=== PATIENT | female | born 1950 | race Caucasian/White ===

== ENCOUNTER → 2016-12-19 | Outpatient (CLI) | payer OTHER, BC ==
[~2016-12-19] MED LIST: ACET-1256 PO; APIX1TAB3 PO; CHOL100010 PO; CHOL1CAP79 PO; CLC100 PO; DICL-201 PO; DOCU-94 PO; DRGTP100 TOP; DULO60CA44 PO; ELQ25 PO; FERR1TAB13 PO; FNTTP75 TOP; FRRG PO; GABA-113 PO; LPR25 PO; LPT40 PO; LSX40 PO; MCTP EXT; METO-478 PO; METO25TA56 PO; MULT-506 PO; NCYSR50 PO; NRN300 PO; ONDA4TAB46 PO; OXYC1TAB3 PO; POLY335019 PO; POTA-65 PO; PRLSR20 PO; RXC5 PO; SENN-61 PO; SPR25 PO; VLTG EXT; [UNRECOGNIZED DRUG - CODE] PO
--- NOTE | 2016-12-19 08:36 | DIAGNOSTIC IMAGING REPORT ---
ABDOMEN COMPLETE (US) CLINICAL HISTORY: Abdominal pain. COMPARISON STUDY: CT of the abdomen and pelvis April 29, 2016 and right upper quadrant ultrasound March 28, 2016. FINDINGS: This exam is compromised by suboptimal penetration. There is no biliary ductal dilatation. There are no gallstones. No gallbladder wall thickening is present. There is a suspected 7 mm hepatic cyst adjacent to the gallbladder. The pancreatic body is normal. The head and tail are partially obscured. The size of the spleen is normal. The right kidney measures 10 cm and the left measures 10.2 cm. There is no hydronephrosis. No calculi or masses are identified within the kidneys by sonography. The caliber of the abdominal aorta is normal. Visualized portions of the IVC are patent. IMPRESSION: 1. No gallstones or biliary ductal dilatation. 2. No hydronephrosis. 3. 7 mm hepatic cyst. Electronically signed by: Wallace Tucker M.D. 12/19/2016 8:35 AM Dictated Date/Time: 12/19/2016 8:32 AM
[2016-12-19 09:35] LABS: BASO % 0.3 %; BASO ABS # 0.02 K/uL (0-0.2); COMPLETE YES; EOS % 3.7 %; HEMATOCRIT 37.9 % (37-47); IG% 0.3 %; LYMPH % 33.4 %; LYMPH ABS # 2.08 K/uL (1.2-3.4); MEAN CELL VOLUME 100.3 fL (80-100); MEAN CORPUSCULAR HEMOGLOBIN 33.1 pg (25-34); MONO % 6.9 %; NEUT % 55.4 %; PLATELET COUNT 251 K/uL (130-400); RED BLOOD COUNT 3.78 M/uL (4.2-5.4); WHITE BLOOD COUNT 6.23 K/uL (4.8-10.8)
[2016-12-19 09:54] LABS: ESTIMATED AVERAGE GLUCOSE 105 mg/dl; HA1C FLAG Normal (Normal)
[2016-12-19 09:55] LABS: ALB/GLOB RATIO 0.9 (0.9-2); ALT/SGPT 46 U/L (12-78); AMYLASE 51 U/L (25-115); BLOOD UREA NITROGEN 32 mg/dl (7-18); BUN/CREATININE RATIO 31.9 (10-20); CALCIUM 9.6 mg/dl (8.5-10.1); CARBON DIOXIDE 30 mmol/L (21-32); CHLORIDE 101 mmol/L (98-107); CHOLESTEROL 236 mg/dl (0-200); GLUCOSE 97 mg/dl (70-99); POTASSIUM 4.3 mmol/L (3.5-5.1); SODIUM 139 mmol/L (136-145); TRIGLYCERIDES 116 mg/dl (0-150); VERY LOW DENSITY LIPOPROT CALC 23 mg/dl
[2016-12-19 10:05] LABS: ALKALINE PHOSPHATASE 165 U/L (45-117); AST/SGOT 29 U/L (15-37); CHOLESTEROL/HDL RATIO 2.2; HDL CHOLESTEROL 105 mg/dl; LDL CHOLESTEROL CALCULATED 108 mg/dl; TOTAL IRON BINDING CAPACITY 306 mcg/dl (250-450); URIC ACID 6.2 mg/dl (2.6-7.2)
== END | disposition home or self-care (01) ==
LOC: C.ULTR 07:22
PROVIDERS: ATTEND Family Medicine
DX: R73.09 Other abnormal glucose (principal); E55.9 Vitamin D deficiency, unspecified; D51.9 Vitamin B12 deficiency anemia, unspecified; E78.9 Disorder of lipoprotein metabolism, unspecified; R53.83 Other fatigue; R10.9 Unspecified abdominal pain; R11.10 Vomiting, unspecified; K76.89 Other specified diseases of liver

== ENCOUNTER 2017-03-10 14:19 | Inpatient (IN) | payer OTHER, BC ==
[~2017-03-10] VITALS: Ht 170.2 cm; Wt 126.6 kg
[~2017-03-10 14:19] MED LIST changes: -ACET-1256 PO; -APIX1TAB3 PO; -CHOL100010 PO; -CHOL1CAP79 PO; -CLC100 PO; -DOCU-94 PO; -DRGTP100 TOP; -ELQ25 PO; -FERR1TAB13 PO; -FNTTP75 TOP; -FRRG PO; -GABA-113 PO; -LPR25 PO; -LPT40 PO; -LSX40 PO; -MCTP EXT; -METO-478 PO; -METO25TA56 PO; -MULT-506 PO; -NCYSR50 PO; -NRN300 PO; -ONDA4TAB46 PO; -OXYC1TAB3 PO; -POTA-65 PO; -RXC5 PO; -SENN-61 PO; -SPR25 PO; -VLTG EXT; -[UNRECOGNIZED DRUG - CODE] PO
[2017-03-10] MEDS ORDERED: SODIUM CHLORIDE 0.9% 1000ML 1,000 ML IV STA (14:44)
[2017-03-10] MEDS ORDERED: ONDANSETRON INJ 2 MG/ML 2 ML VIAL IV STA (14:44)
[2017-03-10] MEDS: HYDROmorphone INJ 1 MG/ML SYR IV PRN ×5 (14:57→19:00)
[2017-03-10] MEDS ORDERED: FNTTP75 TOP (15:59)
[2017-03-10] MEDS ORDERED: POTA-65 PO (15:59)
[2017-03-10] MEDS ORDERED: LSX40 PO (15:59)
[2017-03-10] MEDS ORDERED: SPR25 PO (15:59)
--- NOTE | 2017-03-10 16:12 | DIAGNOSTIC IMAGING REPORT ---
CHEST ONE VIEW PORTABLE CLINICAL HISTORY: EVALUATE WEAKNESS mental status change COMPARISON STUDY: 10/26/2015 FINDINGS: The bones soft tissues and hemidiaphragms are normal. The cardiomediastinal silhouette is normal. The lungs are clear. The pulmonary vasculature is normal. IMPRESSION: Negative chest. The above report was generated using voice recognition software. It may contain grammatical, syntax or spelling errors. Electronically signed by: Harry Cartwright M.D. 03/10/2017 4:10 PM Dictated Date/Time: 03/10/2017 4:10 PM
--- NOTE | 2017-03-10 16:13 | DIAGNOSTIC IMAGING REPORT ---
RIGHT HIP UNILATERAL 2 VIEWS HISTORY: 66 years-old Female Non-traumatic right hip pain Right COMPARISON: CT abdomen and pelvis 04/29/2016 TECHNIQUE: 2 portable views of the right hip. FINDINGS: There is underpenetration of the film secondary to patient obesity. No acute fracture or dislocation is identified. There are severe degenerative changes of the right femoral acetabular joint with [id number] articulation and prominent marginal osteophytic spurring. These findings have progressed from CT study dated 04/29/2016. Negative for opaque foreign body. Imaged right hemipelvis appears intact. IMPRESSION: Severe degenerative changes of the right femoral acetabular joint, worsened from comparison CT dated 04/29/2016 with [id number]-rv-[id number] articulation and prominent marginal osteophytic spurring. The above report was generated using voice recognition software. It may contain grammatical, syntax or spelling errors. Electronically signed by: John Wilson M.D. 03/10/2017 4:12 PM Dictated Date/Time: 03/10/2017 4:09 PM
[2017-03-10] MEDS ORDERED: [UNRECOGNIZED DRUG - CODE] PO (16:26)
[2017-03-10] MEDS ORDERED: MULT-506 PO (16:26)
[2017-03-10] MEDS ORDERED: CHOL100010 PO (16:26)
[2017-03-10 16:28] LABS: BASO % 0.1 %; BASO ABS # 0.01 K/uL (0-0.2); COMPLETE YES; EOS % 0.3 %; IG% 0.3 %; LYMPH % 4.7 %; LYMPH ABS # 0.53 K/uL (1.2-3.4); MEAN CELL VOLUME 99.8 fL (80-100); MEAN CORPUSCULAR HEMOGLOBIN 32.4 pg (25-34); MEAN CORPUSCULAR HGB CONC 32.5 g/dl (32-36); MEAN PLATELET VOLUME 10.4 fL (7.4-10.4); MONO % 9.2 %; NEUT % 85.4 %; PLATELET COUNT 194 K/uL (130-400); RED BLOOD COUNT 4.01 M/uL (4.2-5.4); WHITE BLOOD COUNT 11.39 K/uL (4.8-10.8)
[2017-03-10 16:39] LABS: PARTIAL THROMBOPLASTIN RATIO 1.1; PROTHROMBIN TIME (PATIENT) 10.8 SECONDS (9.0-12.0)
[2017-03-10] MEDS ORDERED: DILTIAZEM BOLUS / DRIP IV STA (16:44)
[2017-03-10] MEDS ORDERED: DILTIAZEM HCL 5 MG/ML 5 ML VIAL IV STA (16:44)
[2017-03-10 16:54] LABS: ALKALINE PHOSPHATASE 152 U/L (45-117); ALT/SGPT 37 U/L (12-78); AST/SGOT 46 U/L (15-37); BLOOD UREA NITROGEN 20 mg/dl (7-18); BUN/CREATININE RATIO 16.8 (10-20); CALCIUM 9.4 mg/dl (8.5-10.1); CARBON DIOXIDE 33 mmol/L (21-32); CHLORIDE 103 mmol/L (98-107); GLUCOSE 128 mg/dl (70-99); MAGNESIUM 2.1 mg/dl (1.8-2.4); POTASSIUM 3.6 mmol/L (3.5-5.1); SODIUM 140 mmol/L (136-145)
[2017-03-10 17:00] LABS: CKMB/CK RATIO 0.7 (0-3.0)
[2017-03-10] MEDS ORDERED: DILTIAZEM HCL INJ 125 MG in DEXTROSE 5% 100ML IV PRN (17:00)
[2017-03-10 17:35] LABS: MANUAL MICROSCOPIC REQUIRED? NO; REVIEW REQ? YES; URINE APPEARANCE CLEAR (CLEAR); URINE BILIRUBIN NEG (NEG); URINE COLOR YELLOW; URINE EPITHELIAL CELL AUTO >30 /lpf (0-5); URINE NITRITE NEG (NEG); URINE SPECIFIC GRAVITY 1.014 (1.000-1.030); UROBILINOGEN NEG (NEG); ZZURINE CULT IF INDIC CATH YES
[2017-03-10] MEDS ORDERED: DILTIAZEM BOLUS / DRIP IV SCH (17:45)
[2017-03-10] MEDS ORDERED: NITROGLYCERIN 0.4 MG SL PER TAB CHARGE SL PRN (17:45)
[2017-03-10] MEDS ORDERED: ZOLPIDEM TARTRATE 5 MG TAB PO PRN (17:45)
[2017-03-10] MEDS ORDERED: ACETAMINOPHEN 325 MG TAB PO PRN (17:45)
[2017-03-10] MEDS ORDERED: MAGNESIUM HYDROXIDE SUSP 30 ML UDC PO PRN (17:45)
[2017-03-10] MEDS ORDERED: POLYETHYLENE (MIRALAX) 17 GM PACK PO PRN (17:45)
[2017-03-10] MEDS ORDERED: THIAMINE HCL 100 MG TAB PO SCH (18:02)
[2017-03-10] MEDS ORDERED: LORAZEPAM 1 MG TAB PO PRN ×2 (18:15)
[2017-03-10] MEDS ORDERED: MAGNESIUM CITRATE 296 ML/BTL PO PRN ×2 (18:15)
[2017-03-10] MEDS ORDERED: LORAZEPAM 2 MG/ML 1 ML VIAL IV PRN (18:15)
[2017-03-10] MEDS ORDERED: HEPARIN 25000 UNIT/500 ML D5W ONE (18:18)
[2017-03-10] MEDS ORDERED: HEPARIN SOD (PORCINE) 1000 UNIT/ML 10 ML VIAL ONE (18:19)
[2017-03-10 18:26] LABS: CHOLESTEROL/HDL RATIO 2.1; PHOSPHORUS 3.1 mg/dl (2.5-4.9)
[2017-03-10] MEDS ORDERED: HEPARIN 25,000 UNIT/500ML D5W 500 ML IV PRN (18:45)
--- NOTE | 2017-03-10 19:04 | DIAGNOSTIC IMAGING REPORT ---
VENOUS DOPPLER LW EXT BILAT HISTORY: Pain. Edema. swelling / R/O DVT COMPARISON STUDY: None. FINDINGS: There is normal compressibility, flow, and augmentation within the bilateral lower extremity deep venous systems. 6 x 3 cm right popliteal cyst IMPRESSION: No DVT within the right or left lower extremity. Right popliteal cyst The above report was generated using voice recognition software. It may contain grammatical, syntax or spelling errors. Electronically signed by: Harry Cartwright M.D. 03/10/2017 7:03 PM Dictated Date/Time: 03/10/2017 7:03 PM
[2017-03-10 19:30] VITALS: BP 101/61; PULSE 100; TEMP 36.7; O2SAT 100; Ht 170.2 cm; Wt 126.6 kg
--- NOTE | 2017-03-10 19:36 | HISTORY & PHYSICAL EXAMINATION ---
DATE OF ADMISSION: 03/10/2017 ADMISSION CHIEF COMPLAINT: Severe hip pain, mainly on the right side. HISTORY OF PRESENT ILLNESS: The patient is a 66-year-old with past medical history of severe degenerative disease. The patient used to be on water belt that she does not remember its name, but she stopped taking it and I will mention the details about that later, but she was in her regular state of health until she developed this morning severe right hip pain. The patient has a scheduled right hip replacement in April due to severe arthritis. The patient also tried many narcotics in the past and they were not effective. She is currently on fentanyl and diclofenac sodium. The patient had a genetic testing that showed her resistance to narcotics in the past. She presented to the ED in with this severe right hip pain. X-ray showed the hip has no fracture, but severe degenerative disease worsened from the past. While in the ED, she was noticed to have new onset atrial fibrillation with RVR of a heart rate of about 120. A month and a half ago, she went with her in a trip around the country from [place], I believe to [place], driving. During this trip, she said that the only medicine she used to take aside from pain medications is a water bill that she does not remember the name of it, but during this trip she started having more back pain and then developed urinary incontinence, so she decided to stop taking the the water pill After driving few hundred miles, she started having bilateral lower extremity edema and slight erythema in her bilateral lower extremities. After she came back from the trip, the edema never subsided in her lower extremity. Here, denies any shortness of breath or chest pain. REVIEW OF SYSTEMS: Denies any headache, double vision, blurry vision. Denies any chest pain or palpitation. Denies any cough, wheezing, shortness of breath. Denies any diarrhea, blood in the stool. Denies any burning sensation in the urine or blood. Denies any focal weakness, tingling or numbness. Admits to severe joint pain mainly on the right hip. Rest of the review of system is negative. PAST MEDICAL HISTORY: 1. Status post bilateral knee replacement. 2. Severe degenerative disease. 3. History of diverticulitis in the past. 4. History of morbid obesity. FAMILY HISTORY: Positive for heart disease in her mother. SOCIAL HISTORY: Former smoker. She drinks heavily daily. As per , she finished a bottle of alcohol every week. As per patient's that the doctor gave her a permission to do so because that is her only way to get rid of the pain because she does not metabolize narcotics and her agree with the statement, which I disagreed with but anyhow she lives with her , currently unemployed. CURRENT MEDICATIONS: 1. Vitamin D supplement. 2. Diclofenac 75 mg p.o. b.i.d. 3. Fentanyl 75 mg topical patch q. 72 hours. 4. Lasix 40 mg p.o. b.i.d. 5. Multivitamin. 6. Potassium supplement. 7. Spironolactone 25 mg p.o. daily. Also she takes magnesium citrate for constipation. ALLERGIES: THE PATIENT HAS AN ALLERGY TO PROPYLENE GLYCOL, TO PREGABALIN, TO PHENOL, AND TO LIRAGLUTIDE. PHYSICAL EXAMINATION: VITAL SIGNS: Temperature is 37.1, heart rate ranging from 120-140, respirations 22, blood pressure 103/55, saturation is 92% on room air and 97% on 2 liters. GENERAL: The patient is morbidly obese, appears to be in moderate distress. HEENT: No jaundice. No pallor with mucous membranes. Normocephalic, atraumatic. NECK: Supple, no JVD. HEART: S1, S2 irrigular No gallop, rub or murmur. LUNGS: Clear to auscultation bilaterally. Normal chest wall expansion. ABDOMEN: Soft, nontender, nondistended, no masses. MUSCULOSKELETAL: The patient has no muscle atrophy. Decreased range of motion in her right hip and she is in pain from severe tenderness. Lower extremity: The patient has bilateral lower extremity edema and slight erythema in both lower extremities, edema appears to be +2. NEUROLOGIC: Awake, alert, oriented to time, place, and person. Moves all extremities. Sensation intact. Cranial nerves II-XII appear to be intact. SKIN: No rash or petechiae and exposed skin areas. IMAGING DATA: Chest x-ray did not show any findings suggestive of CHF. LABORATORY DATA: White blood cell count 11.3, hemoglobin 13, platelets 194. BUN is 20, creatinine 1.2, sodium 140, potassium 3.6. TSH was normal at 1.2 and troponin and CPK were negative. 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 DETAILED ASSESSMENT: 1. New onset atrial fibrillation with rapid ventricular response. 2. Significant right hip pain. 3. Bilateral lower extremity swelling, rule out deep vein thrombosis. 4. Appears to have history of hypertension, although she is not aware of it as she is on a large dose of Lasix and Aldactone. 5. Morbid obesity. 6. Clinically suspected obstructive sleep apnea. 7. Alcohol abuse PLAN: 1. Admit patient to telemetry. 2. Obtain serial cardiac enzymes. 3. Start Cardizem drip. 4. 2D echo. 5. Consult truck body repairer. 6. We will obtain a D-dimer, rule out DVT/PE. 7. Ultrasound lower extremity. 8. We will defer the CT angiogram at this point since she will be on heparin anyway and she does not have shortness of breath or severe hypoxia. Will first monitor renal function in a.m. and see the result of the D-dimer and then defer this decision to the morning physician, after controlling her pain and heart rate. 9. We will hold her Lasix for today and Aldactone to give room to the Cardizem and also to confirm that there is no blood clot underlying lower extremity edema. 10. 2D echo also to rule underlying congestive heart failure. 11. Obtain lipid panel and hemoglobin A1c to stratify her risk factors. 12. Alcohol withdrawal protocol MTDD
[2017-03-10] MEDS ORDERED: PNEUMOCOCCAL ADMINISTRATION CHARGE ONE (20:30)
[2017-03-10] MEDS ORDERED: PNEUMOCOCCAL POLYSACCHARIDES 25 MCG/0.5 ML VIAL/SYR IM. ONE (20:30)
[2017-03-10] MEDS: ATORVASTATIN 40 MG TAB PO SCH (20:40)
[2017-03-10] MEDS: ASPIRIN 325 MG ECTAB PO SCH (20:41)
--- NOTE | 2017-03-10 20:53 | EMERGENCY ROOM VISIT NOTE ---
History Report prepared by Mikal: Héctor Salvador Under the Supervision of: Dr. Carlos A Sullivan M.D. First contact with patient: 14:21 Chief Complaint: HIP PAIN Stated Complaint: HIP PAIN History of Present Illness The patient is a 66 year old female who presents to the Emergency Room with complaints of worsening, severe, right hip pain beginning this morning. She reports that her pain radiates through the front of her abdomen and into her left hip. The patient states that she has a history of bad hips. She reports that she has a complete left hip replacement scheduled in April. The patient notes that she woke up this morning and her right hip was in extreme pain unlike her baseline. She states that she typically ambulates using two canes, but today she had to switch over to her walker. The patient reports that even with her walker she was still not able to ambulate. She notes that she is extremely nauseous, and she had the urge to vomit, but she did not. EMS notes that the patient was given 6 mg of morphine and 4 mg of Zofran. Pt denies LOC, headache, fevers, chills, diaphoresis, visual changes, neck pain, chest pain, breathing difficulties, vomiting, back pain, melena, hematochezia, urinary symptoms, numbness, weakness, lymphadenopathy, rash, falls, twisting, turning, or other complaints. Source of History: patient Onset: this morning Position: pelvis (right) Symptom Intensity: severe Timing: worsening Associated Symptoms: + nausea, + abdominal pain Note: Associated symptoms: left hip pain Review of Systems See HPI for pertinent positives and negatives. A total of ten systems were reviewed and were otherwise negative. Past Medical & Surgical Medical Problems: (1) Atrial fibrillation, new onset (2) Diverticulitis large intestine Surgical Problems: (1) Status post left knee replacement (2) Status post right knee replacement Family History Cancer Diabetes mellitus Heart disease Hypertension Social History Smoking Status: Former Smoker Alcohol Use: occasionally Drug Use: none Marital Status: Housing Status: lives with family Occupation Status: unemployed Current/Historical Medications Scheduled Cholecalciferol (Vitamin D), 5,000 INTER.UNIT PO DAILY Diclofenac (Voltaren), 75 MG PO BID Fentanyl (Fentanyl), 75 MG TOP Q72H Furosemide (Furosemide), 40 MG PO BID Multivitamin (Multivitamin), 1 TAB PO DAILY Potassium Chloride (Potassium Chloride ER), 20 MEQ PO BID Spironolactone (Spironolactone), 25 MG PO DAILY Scheduled PRN Magnesium Citrate ([employer] Magnesium Citrate), 4 OZ PO Q3DAYS PRN for Constipation Allergies Coded Allergies: Liraglutide (Verified Allergy, Intermediate, HIVES, 03/10/17) Phenol (Verified Allergy, Intermediate, HIVES, 03/10/17) Propylene Glycol (Verified Allergy, Intermediate, HIVES, 03/10/17) Pregabalin (Verified Adverse Reaction, Intermediate, HIVES, 03/10/17) Physical Exam Vital Signs Date Time Temp Pulse Resp B/P (MAP) Pulse Ox O2 Delivery O2 Flow Rate FiO2 03/10/17 17:00 123 22 103/55 95 Nasal Cannula 2.0 03/10/17 16:34 119 17 100 03/10/17 16:19 133 15 72 03/10/17 16:04 137 19 97 03/10/17 15:49 130 19 96 03/10/17 15:34 124 9 100 03/10/17 15:33 Room Air 03/10/17 15:30 Nasal Cannula 2.0 03/10/17 15:29 132 16 97 03/10/17 15:19 131 94 03/10/17 15:14 137 97 03/10/17 15:09 141 17 03/10/17 15:04 137 13 03/10/17 14:59 142 17 03/10/17 14:54 132 17 03/10/17 14:49 140 11 03/10/17 14:44 133 15 03/10/17 14:41 37.1 78 22 114/85 92 Room Air 03/10/17 14:39 144 15 03/10/17 14:34 135 19 03/10/17 14:33 135 03/10/17 14:27 114/85 Physical Exam GENERAL: Awake, alert, very uncomfortable-appearing, in moderate distress HENT: Normocephalic, atraumatic. Oropharynx unremarkable. EYES: Normal conjunctiva. Sclera non-icteric. NECK: Supple. No nuchal rigidity. FROM. No JVD. RESPIRATORY: Clear to auscultation. CARDIAC: Borderline tachycardic rate, irregular rhythm. Extremities warm and well perfused. Pulses equal. ABDOMEN: Soft, non-distended. No tenderness to palpation. No rebound or guarding. No masses. RECTAL: Deferred. MUSCULOSKELETAL: Chest examination reveals no tenderness. The back is symmetrical on inspection without obvious abnormality. There is no CVA tenderness to palpation. No joint edema. Right hip tenderness, ROM limited secondary to pain. LOWER EXTREMITIES: Calves are equal size bilaterally and non-tender. 2+ edema. No discoloration. NEURO: Normal sensorium. No sensory or motor deficits noted. SKIN: No rash or jaundice noted. Medical Decision & Procedures ER Provider Diagnostic Interpretation: X-ray: Per my interpretation, radiologist review. RIGHT HIP UNILATERAL 2 VIEWS HISTORY: 66 years-old Female Non-traumatic right hip pain Right COMPARISON: CT abdomen and pelvis 04/29/2016 TECHNIQUE: 2 portable views of the right hip. FINDINGS: There is underpenetration of the film secondary to patient obesity. No acute fracture or dislocation is identified. There are severe degenerative changes of the right femoral acetabular joint with [id number] articulation and prominent marginal osteophytic spurring. These findings have progressed from CT study dated 04/29/2016. Negative for opaque foreign body. Imaged right hemipelvis appears intact. IMPRESSION: Severe degenerative changes of the right femoral acetabular joint, worsened from comparison CT dated 04/29/2016 with [id number] articulation and prominent marginal osteophytic spurring. The above report was generated using voice recognition software. It may contain grammatical, syntax or spelling errors. Electronically signed by: John Wilson M.D. 03/10/2017 4:12 PM Dictated Date/Time: 03/10/2017 4:09 PM CHEST ONE VIEW PORTABLE CLINICAL HISTORY: EVALUATE WEAKNESS mental status change COMPARISON STUDY: 10/26/2015 FINDINGS: The bones soft tissues and hemidiaphragms are normal. The cardiomediastinal silhouette is normal. The lungs are clear. The pulmonary vasculature is normal. IMPRESSION: Negative chest. The above report was generated using voice recognition software. It may contain grammatical, syntax or spelling errors. Electronically signed by: Harry Cartwright M.D. 03/10/2017 4:10 PM Dictated Date/Time: 03/10/2017 4:10 PM Laboratory Results 03/10/17 16:10 Red Blood Count 4.01, Mean Corpuscular Volume 99.8, Mean Corpuscular Hemoglobin 32.4, Mean Corpuscular Hemoglobin Concent 32.5, Mean Platelet Volume 10.4, Neutrophils (%) (Auto) 85.4, Lymphocytes (%) (Auto) 4.7, Monocytes (%) (Auto) 9.2, Eosinophils (%) (Auto) 0.3, Basophils (%) (Auto) 0.1, Neutrophils # (Auto) 9.74, Lymphocytes # (Auto) 0.53, Monocytes # (Auto) 1.05, Eosinophils # (Auto) 0.03, Basophils # (Auto) 0.01 03/10/17 16:10 Test 03/10/17 16:10 03/10/17 16:45 White Blood Count 11.39 K/uL (4.8-10.8) Red Blood Count 4.01 M/uL (4.2-5.4) Hemoglobin 13.0 g/dL (12.0-16.0) Hematocrit 40.0 % (37-47) Mean Corpuscular Volume 99.8 fL (80-100) Mean Corpuscular Hemoglobin 32.4 pg (25-34) Mean Corpuscular Hemoglobin Concent 32.5 g/dl (32-36) Platelet Count 194 K/uL (130-400) Mean Platelet Volume 10.4 fL (7.4-10.4) Neutrophils (%) (Auto) 85.4 % Lymphocytes (%) (Auto) 4.7 % Monocytes (%) (Auto) 9.2 % Eosinophils (%) (Auto) 0.3 % Basophils (%) (Auto) 0.1 % Neutrophils # (Auto) 9.74 K/uL (1.4-6.5) Lymphocytes # (Auto) 0.53 K/uL (1.2-3.4) Monocytes # (Auto) 1.05 K/uL (0.11-0.59) Eosinophils # (Auto) 0.03 K/uL (0-0.5) Basophils # (Auto) 0.01 K/uL (0-0.2) RDW Standard Deviation 45.5 fL (36.4-46.3) RDW Coefficient of Variation 12.4 % (11.5-14.5) Immature Granulocyte % (Auto) 0.3 % Immature Granulocyte # (Auto) 0.03 K/uL (0.00-0.02) Prothrombin Time 10.8 SECONDS (9.0-12.0) Prothromb Time International Ratio 1.0 (0.9-1.1) Activated Partial Thromboplast Time 28.0 SECONDS (21.0-31.0) Partial Thromboplastin Ratio 1.1 D-Dimer 1040 ug/L FEU (0-500) Anion Gap 4.0 mmol/L (3-11) Est Creatinine Clear Calc Drug Dose 63.4 ml/min Estimated GFR () 54.9 Estimated GFR (Non- 47.4 BUN/Creatinine Ratio 16.8 (10-20) Calcium Level 9.4 mg/dl (8.5-10.1) Phosphorus Level 3.1 mg/dl (2.5-4.9) Magnesium Level 2.1 mg/dl (1.8-2.4) Total Bilirubin 0.7 mg/dl (0.2-1) Direct Bilirubin 0.2 mg/dl (0-0.2) Aspartate Amino Transf (AST/SGOT) 46 U/L (15-37) Alanine Aminotransferase (ALT/SGPT) 37 U/L (12-78) Alkaline Phosphatase 152 U/L (45-117) Total Creatine Kinase 85 U/L (26-192) Creatine Kinase MB 0.6 ng/ml (0.5-3.6) Creatine Kinase MB Ratio 0.7 (0-3.0) Troponin I < 0.015 ng/ml (0-0.045) Total Protein 7.4 gm/dl (6.4-8.2) Albumin 3.5 gm/dl (3.4-5.0) Triglycerides Level 86 mg/dl (0-150) Cholesterol Level 171 mg/dl (0-200) HDL Cholesterol 82 mg/dl LDL Cholesterol, Calculated 72 mg/dl VLDL Cholesterol, Calculated 17 mg/dl Cholesterol/HDL Ratio 2.1 Thyroid Stimulating Hormone (TSH) 1.220 uIu/ml (0.300-4.500) Thyroxine (T4) 7.1 mcg/dl (4.5-10.9) Urine Color YELLOW Urine Appearance CLEAR (CLEAR) Urine pH 6.0 (4.5-7.5) Urine Specific [place] 1.014 (1.000-1.030) Urine Protein NEG (NEG) Urine Glucose (UA) NEG (NEG) Urine Ketones TRACE (NEG) Urine Occult Blood NEG (NEG) Urine Nitrite NEG (NEG) Urine Bilirubin NEG (NEG) Urine Urobilinogen NEG (NEG) Urine Leukocyte Esterase MODERATE (NEG) Urine WBC (Auto) 10-30 /hpf (0-5) Urine RBC (Auto) 0-4 /hpf (0-4) Urine Hyaline Casts (Auto) 1-5 /lpf (0-5) Urine Epithelial Cells (Auto) >30 /lpf (0-5) Urine Bacteria (Auto) NEG (NEG) Urine Renal Epithelial Cells >30 /lpf (0-5) Laboratory results reviewed by me Medications Administered Medications (Trade) Dose Ordered Sig/Luis Route Start Time Stop Time Status Last Admin Dose Admin Sodium Chloride 1,000 ml @ 125 mls/hr Q8H STAT IV 03/10/17 14:44 03/10/17 20:25 DC 03/10/17 14:57 125 MLS/HR Hydromorphone HCl (Dilaudid Inj) 1 mg Q15M PRN IV 03/10/17 14:45 03/10/17 20:25 DC 03/10/17 19:00 1 MG Ondansetron HCl (Zofran Inj) 4 mg NOW STAT IV 03/10/17 14:44 03/10/17 14:46 DC 03/10/17 14:57 4 MG Diltiazem HCl (Cardizem Inj) 10 mg NOW STAT IV 03/10/17 16:44 03/10/17 16:45 DC 03/10/17 17:02 10 MG Diltiazem HCl 125 mg/Dextrose 125 ml @ 0 mls/hr Q0M PRN IV 03/10/17 17:00 04/09/17 16:59 03/10/17 17:04 5 MLS/HR Aspirin (Ecotrin Tab) 325 mg QAM PO 03/10/17 17:37 04/09/17 17:36 03/10/17 20:41 325 MG ECG Indication: abdominal pain Rate (beats per minute): 134 Rhythm: atrial fibrillation (with RVR) Findings: no acute ischemic change, no ectopy ED Course 1431: The patient was evaluated in room A11B. A complete history and physical exam was performed. 1444: Ordered Zofran Inj 4 mg IV, Sodium Chloride 1000 ml @ 125 mls/hr IV 1445: Ordered Dilaudid Inj 1 mg IV Q15M 1552: I reevaluated the patient, and she is feeling better after the first dose of pain medication. She had pain during the X-ray process and asked for another dose. 1644: Ordered Cardizem Inj 10 mg IV 1700: Ordered Diltiazem HCl 125 mg/Dextrose 125 ml @ 0 mls/hr Protocol IV Titration 1711: I discussed the patients case with Dr. Bonilla [facility] Hospitalist. The patient will be evaluated for further treatment. Medical Decision Triage Nursing notes reviewed. The patient's presentation and history were concerning for hip pain. Etiologies such as soft tissue injury, fracture, dislocation, neurovascular compromise, compartment syndrome, as well as others were entertained. The patient was evaluated. On physical examination she was noted to be tachycardic and irregular. An ECG was performed and she was found to be in rapid atrial fibrillation. The patient was given Dilaudid and Zofran for symptom control. She'll cart several doses of pain medicine for comfort. X- ray imaging shows significant degenerative change without evidence of fracture. Her CBC showed a slight leukocytosis. The patient is under a significant amount of distress from the pain. Her coags, chemistry panel and cardiac markers were unremarkable. The patient was hydrated. She was started on IV diltiazem for rate control. Consultation was made with internal medicine and the patient will need medical management as well as additional consultation. Medication Reconcilliation Current Medication List: was personally reviewed by me Blood Pressure Screening Patient's blood pressure: Normal blood pressure Blood pressure disposition: Did not require urgent referral Consults Time Called: 1705 Consulting Physician: Dr. Bonilla [facility] Hospitalist Returned Call: [phone] I discussed the patients case with Dr. Bonilla [facility] Hospitalist. The patient will be evaluated for further treatment. Impression Primary Impression: Atrial fibrillation with rapid ventricular response Additional Impressions: Right hip pain DJD (degenerative joint disease) Critical Care I have personally spent greater than 30 minutes of critical care time in the direct management of this patient. This includes bedside care, interpretation of diagnostic studies, and testing, discussion with consultants, patient, and family members, and other required patient management activities. This 30 minutes is in excess of all separately billable procedures. Scribe Attestation The scribe's documentation has been prepared under my direction and personally reviewed by me in its entirety. I confirm that the note above accurately reflects all work, treatment, procedures, and medical decision making performed by me. Departure Information Dispostion Being Evaluated By Hospitalist Referrals Tushar Miranda M.D. (PCP) Patient Instructions My [facility] Problem Qualifiers
[2017-03-10] MEDS: HYDROmorphone INJ 2 MG/ML SYR/VIAL IV PRN (20:56)
[2017-03-10] MEDS ORDERED: MULTI-VITAMIN INFUSION INJ 10 ML, THIAMINE HCL INJ 100 MG, FoLIC ACID INJ 1 MG in SODIU... IV ONE (21:00)
[2017-03-10 23:38] VITALS: BP 114/68; PULSE 96; TEMP 36.9; O2SAT 97
[2017-03-11] VITALS (8 sets, daily range): BP systolic 79–119; BP diastolic 46–64; PULSE 72–85; TEMP 36.8–37; O2SAT 87–100
[2017-03-11 01:11] LABS: PARTIAL THROMBOPLASTIN RATIO 3.4
[2017-03-11] MEDS: HYDROmorphone INJ 2 MG/ML SYR/VIAL IV PRN ×4 (05:05→15:59)
[2017-03-11 08:09] LABS: BASO % 0.1 %; BASO ABS # 0.01 K/uL (0-0.2); COMPLETE YES; EOS % 0.1 %; HEMATOCRIT 33.1 % (37-47); IG% 0.3 %; LYMPH % 8.4 %; LYMPH ABS # 0.97 K/uL (1.2-3.4); MEAN CELL VOLUME 100.6 fL (80-100); MEAN CORPUSCULAR HGB CONC 33.8 g/dl (32-36); MEAN PLATELET VOLUME 9.9 fL (7.4-10.4); NEUT % 78.1 %; PLATELET COUNT 141 K/uL (130-400); RED BLOOD COUNT 3.29 M/uL (4.2-5.4); WHITE BLOOD COUNT 11.59 K/uL (4.8-10.8)
[2017-03-11 08:17] LABS: PARTIAL THROMBOPLASTIN RATIO 1.6
[2017-03-11 08:37] LABS: BUN/CREATININE RATIO 17.3 (10-20); CALCIUM 8.6 mg/dl (8.5-10.1); CREATININE 1.2 mg/dl (0.60-1.20); POTASSIUM 3.7 mmol/L (3.5-5.1)
[2017-03-11] MEDS: CHECK FENTANYL PATCH PLACEMENT SCH ×3 (08:39→16:00)
[2017-03-11] MEDS: CHOLECALCIFEROL 1000 INTER.UNIT TAB PO SCH (08:41)
[2017-03-11] MEDS: THIAMINE HCL 100 MG TAB PO SCH (08:41)
[2017-03-11] MEDS ORDERED: HEPARIN IV BOLUS 7,000 UNIT in SYRINGE 0 ML IV ONE (08:45)
[2017-03-11] MEDS: FENTANYL 75 MCG/HR TDSY TD SCH (08:47)
[2017-03-11] MEDS: FENTANYL PATCH REMOVE & WASTE SCH (08:49)
[2017-03-11 09:00] LABS: ESTIMATED AVERAGE GLUCOSE 97 mg/dl; HA1C FLAG Normal (Normal)
[2017-03-11 09:55] LABS: ALB/GLOB RATIO 0.7 (0.9-2); PHOSPHORUS 3.6 mg/dl (2.5-4.9)
[2017-03-11] MEDS ORDERED: GABAPENTIN 100 MG CAP PO ONE (10:00)
[2017-03-11] MEDS ORDERED: DICLOFENAC SOD 1% GEL 100 GM TUBE EXT ONE (10:00)
[2017-03-11] MEDS ORDERED: METOPROLOL TARTRATE 25 MG TAB PO ONE (10:00)
--- NOTE | 2017-03-11 10:48 | Cardiology Consultation ---
Cardiology Consultation Date of Consultation: Mar 11, 2017. Requesting Physician: Marvin Reason for Consultation: Atrial fibrillation Pt evaluation today including: conversation w/ patient, physical exam, chart review, lab review, conversation w/ attending History of Present Illness The patient is a 66-year-old woman without a known cardiac history presented to the emergency room yesterday for symptoms of right hip discomfort. Patient has a history of degenerative joint disease and bilateral knee replacements. She is also scheduled for surgery involving the left hip in April. However, the patient reports several days of worsening discomfort in the right hip to the point where it became quite severe. She presented primarily for pain control and evaluation of the right hip. She was noted however to have a rapid heart rate and atrial fibrillation. Patient was unaware of any rhythm abnormality. She has not report symptoms of tachycardia or palpitations. She has not reported any recent dizziness or lightheadedness. She denies any recent chest discomfort or chest pressure. She did not report any significant breathing difficulties or orthopnea. She does have chronic lower extremity edema. She did report returning from an extended vacation recently and experiencing a 28 pound weight gain. Patient was started on diuretics and has lost a significant amount of weight with some improvement in her edema. In general she is a fairly sedentary individual due to her hip discomfort. She usually ambulates with 2 canes. She is currently in the process of installing a chair lift in her home which is to levels. She has had some difficulty with pain control in the past and appears to have a resistance to narcotics. As such she generally consumes bourbon every day in an attempt to control her chronic discomfort. In the past she reports having taken 8 or 9 shots of bourbon daily. Recently she has reduced that to 4-5 shots daily. She does not report bingeing on alcohol or using more alcohol in the last several days. At the time of this interview the patient claims to be feeling fairly well with the exception of persistent right hip discomfort. Past Medical/Surgical History Degenerative joint disease Diverticulosis Obesity Narcotic resistance Past surgical history Bilateral total knee replacement Family History Cancer Diabetes mellitus Heart disease Hypertension Social History Smoking Status: Former Smoker History of Alcohol Use: Yes (Burbon 4 shots daily) Questionable alcohol abuse. Currently unemployed. Review of Systems Constitutional: + see HPI Respiratory: + see HPI Cardiac: + see HPI Abdomen: + see HPI Female : + see HPI Neurologic: + see HPI Heme: + see HPI Endo: + see HPI Skin: + see HPI Patient claims to be eating well. Over the past few days however she has had little appetite due to persistent pain. No nausea or vomiting noted. She has had some retching however. She reports chronic constipation. No history of bleeding, dark stools or need for transfusion. All Other Systems: Reviewed and Negative Allergies Coded Allergies: Liraglutide (Verified Allergy, Intermediate, HIVES, 03/10/17) Phenol (Verified Allergy, Intermediate, HIVES, 03/10/17) Propylene Glycol (Verified Allergy, Intermediate, HIVES, 03/10/17) Pregabalin (Verified Adverse Reaction, Intermediate, HIVES, 03/10/17) Medications Current Inpatient Medications Medications (Trade) Dose Ordered Sig/Luis Route Start Time Stop Time Status Last Admin Dose Admin Hydromorphone HCl (Dilaudid Inj) 2 mg Q4H PRN IV 03/10/17 17:45 03/24/17 17:44 03/11/17 09:05 2 MG Acetaminophen (Tylenol Tab) 650 mg Q4H PRN PO 03/10/17 17:45 04/09/17 17:44 Magnesium Hydroxide (Milk Of Magnesia Susp) 30 ml Q12H PRN PO 03/10/17 17:45 04/09/17 17:44 Zolpidem Tartrate (Ambien Tab) 5 mg HSZ PRN PO 03/10/17 17:45 04/09/17 17:44 03/10/17 20:56 5 MG Nitroglycerin (Nitrostat Tab) 0.4 mg UD PRN SL 03/10/17 17:45 04/09/17 17:44 Aspirin (Ecotrin Tab) 325 mg QAM PO 03/10/17 17:37 04/09/17 17:36 03/10/17 20:41 325 MG Polyethylene (Miralax Powder Packet) 17 gm DAILY PRN PO 03/10/17 17:45 04/09/17 17:44 Atorvastatin Calcium (Lipitor Tab) 40 mg HS PO 03/10/17 21:00 04/09/17 20:59 03/10/17 20:40 40 MG Cholecalciferol (Vitamin D Tab) 5,000 inter.unit DAILY PO 03/11/17 09:00 8/28/17 08:59 03/11/17 08:41 5,000 INTER.UNIT Magnesium Citrate (Citrate Of Magnesia Soln) 120 ml BID PRN PO 03/10/17 18:15 04/09/17 18:14 Fentanyl (Duragesic Patch) 75 mcg Q72H TD 03/11/17 09:00 03/25/17 08:59 03/11/17 08:47 75 MCG Lorazepam (Ativan Tab) PRN Dosing -Active Protocol UD PRN PO 03/10/17 18:15 04/09/17 18:14 Lorazepam (Ativan Inj) PRN Dosing -Active Protocol Q1H PRN IV 03/10/17 18:15 04/09/17 18:14 Thiamine HCl (Vitamin B-1 Tab) 100 mg Q24H PO 03/11/17 09:00 04/10/17 08:59 03/11/17 08:41 100 MG Miscellaneous (Fentanyl Patch Remove & Waste) 1 ea Q72H N/A 03/11/17 08:59 04/10/17 08:58 03/11/17 08:49 1 EA Miscellaneous Information (Check Fentanyl Patch Placement) 1 ea QS N/A 03/11/17 00:00 04/10/17 00:00 03/11/17 08:39 1 EA Heparin Sodium/ Dextrose 500 ml @ 35 mls/hr [id number] PRN IV 03/10/17 18:45 04/09/17 18:44 Metoprolol Tartrate (Lopressor Tab) 12.5 mg TID PO 03/11/17 14:00 04/10/17 13:59 Diclofenac Sodium (Voltaren 1% Top Gel) 1 appln QID EXT 03/11/17 13:00 04/10/17 12:59 Gabapentin (Neurontin Cap) 300 mg HS PO 03/11/17 21:00 04/10/17 20:59 Gabapentin (Neurontin Cap) 100 mg QAM PO 03/12/17 09:00 04/11/17 08:59 Physical Exam Vital Signs Past 12 Hours Date Time Temp Pulse Resp B/P (MAP) Pulse Ox O2 Delivery O2 Flow Rate FiO2 03/11/17 07:57 37.0 73 18 95/62 (73) 96 Room Air 03/11/17 04:00 Nasal Cannula 2.0 03/11/17 03:43 36.9 83 18 102/64 (77) 100 Nasal Cannula 2.0 03/11/17 00:01 Nasal Cannula 2.0 03/10/17 23:38 36.9 96 19 114/68 (83) 97 Nasal Cannula 2.0 Data Laboratory Results: Last 24 Hours Test 03/10/17 16:10 03/10/17 16:45 03/10/17 20:35 03/11/17 00:29 White Blood Count 11.39 K/uL Red Blood Count 4.01 M/uL Hemoglobin 13.0 g/dL Hematocrit 40.0 % Mean Corpuscular Volume 99.8 fL Mean Corpuscular Hemoglobin 32.4 pg Mean Corpuscular Hemoglobin Concent 32.5 g/dl Platelet Count 194 K/uL Mean Platelet Volume 10.4 fL Neutrophils (%) (Auto) 85.4 % Lymphocytes (%) (Auto) 4.7 % Monocytes (%) (Auto) 9.2 % Eosinophils (%) (Auto) 0.3 % Basophils (%) (Auto) 0.1 % Neutrophils # (Auto) 9.74 K/uL Lymphocytes # (Auto) 0.53 K/uL Monocytes # (Auto) 1.05 K/uL Eosinophils # (Auto) 0.03 K/uL Basophils # (Auto) 0.01 K/uL RDW Standard Deviation 45.5 fL RDW Coefficient of Variation 12.4 % Immature Granulocyte % (Auto) 0.3 % Immature Granulocyte # (Auto) 0.03 K/uL Prothrombin Time 10.8 SECONDS Prothromb Time International Ratio 1.0 Activated Partial Thromboplast Time 28.0 SECONDS 88.9 SECONDS Partial Thromboplastin Ratio 1.1 3.4 D-Dimer 1040 ug/L FEU Sodium Level 140 mmol/L Potassium Level 3.6 mmol/L Chloride Level 103 mmol/L Carbon Dioxide Level 33 mmol/L Anion Gap 4.0 mmol/L Blood Urea Nitrogen 20 mg/dl Creatinine 1.20 mg/dl Est Creatinine Clear Calc Drug Dose 63.4 ml/min Estimated GFR () 54.9 Estimated GFR (Non- 47.4 BUN/Creatinine Ratio 16.8 Random Glucose 128 mg/dl Calcium Level 9.4 mg/dl Phosphorus Level 3.1 mg/dl Magnesium Level 2.1 mg/dl Total Bilirubin 0.7 mg/dl Direct Bilirubin 0.2 mg/dl Aspartate Amino Transf (AST/SGOT) 46 U/L Alanine Aminotransferase (ALT/SGPT) 37 U/L Alkaline Phosphatase 152 U/L Total Creatine Kinase 85 U/L Creatine Kinase MB 0.6 ng/ml Creatine Kinase MB Ratio 0.7 Troponin I < 0.015 ng/ml Total Protein 7.4 gm/dl Albumin 3.5 gm/dl Triglycerides Level 86 mg/dl Cholesterol Level 171 mg/dl HDL Cholesterol 82 mg/dl LDL Cholesterol, Calculated 72 mg/dl VLDL Cholesterol, Calculated 17 mg/dl Cholesterol/HDL Ratio 2.1 Thyroid Stimulating Hormone (TSH) 1.220 uIu/ml Thyroxine (T4) 7.1 mcg/dl Urine Color YELLOW Urine Appearance CLEAR Urine pH 6.0 Urine Specific [place] 1.014 Urine Protein NEG Urine Glucose (UA) NEG Urine Ketones TRACE Urine Occult Blood NEG Urine Nitrite NEG Urine Bilirubin NEG Urine Urobilinogen NEG Urine Leukocyte Esterase MODERATE Urine WBC (Auto) 10-30 /hpf Urine RBC (Auto) 0-4 /hpf Urine Hyaline Casts (Auto) 1-5 /lpf Urine Epithelial Cells (Auto) >30 /lpf Urine Bacteria (Auto) NEG Urine Renal Epithelial Cells >30 /lpf Vitamin B12 Level 655 pg/mL Folate > 24.00 ng/mL Test 03/11/17 07:56 White Blood Count 11.59 K/uL Red Blood Count 3.29 M/uL Hemoglobin 11.2 g/dL Hematocrit 33.1 % Mean Corpuscular Volume 100.6 fL Mean Corpuscular Hemoglobin 34.0 pg Mean Corpuscular Hemoglobin Concent 33.8 g/dl Platelet Count 141 K/uL Mean Platelet Volume 9.9 fL Neutrophils (%) (Auto) 78.1 % Lymphocytes (%) (Auto) 8.4 % Monocytes (%) (Auto) 13.0 % Eosinophils (%) (Auto) 0.1 % Basophils (%) (Auto) 0.1 % Neutrophils # (Auto) 9.06 K/uL Lymphocytes # (Auto) 0.97 K/uL Monocytes # (Auto) 1.51 K/uL Eosinophils # (Auto) 0.01 K/uL Basophils # (Auto) 0.01 K/uL RDW Standard Deviation 46.3 fL RDW Coefficient of Variation 12.5 % Immature Granulocyte % (Auto) 0.3 % Immature Granulocyte # (Auto) 0.03 K/uL Activated Partial Thromboplast Time 40.8 SECONDS Partial Thromboplastin Ratio 1.6 Sodium Level 141 mmol/L Potassium Level 3.7 mmol/L Chloride Level 102 mmol/L Carbon Dioxide Level 34 mmol/L Anion Gap 5.0 mmol/L Blood Urea Nitrogen 21 mg/dl Creatinine 1.20 mg/dl Est Creatinine Clear Calc Drug Dose 63.7 ml/min Estimated GFR () 54.9 Estimated GFR (Non- 47.4 BUN/Creatinine Ratio 17.3 Random Glucose 135 mg/dl Estimated Average Glucose 97 mg/dl Hemoglobin A1c 5.0 % Calcium Level 8.6 mg/dl Phosphorus Level 3.6 mg/dl Magnesium Level 2.0 mg/dl Total Bilirubin 0.8 mg/dl Aspartate Amino Transf (AST/SGOT) 25 U/L Alanine Aminotransferase (ALT/SGPT) 30 U/L Alkaline Phosphatase 122 U/L Total Protein 6.5 gm/dl Albumin 2.7 gm/dl Globulin 3.8 gm/dl Albumin/Globulin Ratio 0.7 Imaging: Lower extremity ultrasound did not reveal any evidence of DVT. Hip films as noted above revealed significant degenerative joint disease. EKG: Atrial fibrillation with rapid ventricular response. No significant ST or T-wave changes. No evidence of old DC. Telemetry reviewed: Patient did affect conversion back to sinus rhythm. Assessment & Plan 1. Atrial fibrillation: Patient did not have overt symptoms related to the arrhythmia or rapid ventricular response. However, she has been in a significant amount of pain recently and this may have distracted her from any symptoms related to the atrial fibrillation. She has converted to normal sinus rhythm. Unclear whether she has had prior episodes of atrial fibrillation. It is also unclear whether this is somehow related to her acute illness, pain or perhaps her recent change in volume status. I am awaiting the results of her echocardiogram. In any event would seem reasonable to start her on metoprolol for rate control. Think a low dose initially would be reasonable, perhaps 12.5 milligrams twice daily of metoprolol tartrate. At this point I would also advocate for systemic anticoagulation given her chads Vasc score of 2. This is for age and gender. Xarelto would likely be a good choice given her alcohol use. Overall her renal function appears adequate for the standard 20 milligram daily dose. At this point we do not know if her LV systolic function is normal. With respect to the etiology of her atrial fibrillation she has several potential risk factors including her history of alcohol use and obesity. She is also at risk for obstructive sleep apnea given her body habitus. This point her cardiac function is unknown, but may also contribute if she has an element of chamber enlargement or LV dysfunction. 2. Edema: Patient experienced significant weight gain during her recent extended vacation. This involved a lot of driving in the car and likely eating out. This may have resulted in high sodium load. She has been affecting a diuresis recently. It would seem reasonable continue her on some element of diuretic. Given her relatively low blood pressures and the utility of starting metoprolol for atrial fibrillation rate controlled spironolactone could be discontinued.
--- NOTE | 2017-03-11 13:55 | ECHOCARDIOGRAM REPORT ---
*NOTICE TO RECEIVING DEMOCRAT AGENCY This information is strictly Confidential and protected under [place] law. [place] law prohibits you from making any further disclosure of this information unless further disclosure is expressly permitted by the written consent of the person to whom it pertains or is authorized by law. A general authorization for the release of medical or other information is not sufficient for this purpose. Hospital accepts no responsibility if the information is made available to any other person, INCLUDING THE PATIENT. Interpretation Summary * Name: BELINDA ROWLAND Study Date: 03/11/2017 08:12 AM * Patient Location: [facility] HR: 76 * : 1950 (M/d/yyyy) Gender: Female Height: 67 in * Age: 66 yrs Ethnicity: [place] Weight: 269 lb * Ordering Physician: Kingsley Dudley * Referring Physician: Ney Vega * Performed By: Isabel Koenig RCS * * Reason For Study: A-FIB * BSA: 2.3 m2 * -- Conclusions -- * Left ventricular systolic function is normal. * Normal diastolic function * There is mild to moderate mitral annular calcification. * Right ventricular systolic pressure is normal. Procedure Details * A complete two-dimensional transthoracic echocardiogram was performed (2D, M-mode, Doppler and color flow Doppler). Left Ventricle * The left ventricle is normal in size. * There is normal left ventricular wall thickness. * Left ventricular systolic function is normal. * Normal diastolic function Right Ventricle * The right ventricle is normal in size and function. Atria * The left atrial size is normal. * Right atrial size is normal. Mitral Valve * The mitral valve anatomy is normal. * There is mild to moderate mitral annular calcification. * Significant mitral regurgitation is absent. Tricuspid Valve * The tricuspid valve is not well visualized, but is grossly normal. * There is trace tricuspid regurgitation. * Right ventricular systolic pressure is normal. Aortic Valve * Aortic valve sclerosis mild, without significant aortic valvular stenosis. * No hemodynamically significant valvular aortic stenosis. * No aortic regurgitation is present. Great Vessels * The aortic root is normal size. Pericardium/Pleural * There is no pericardial effusion. MMode 2D Measurements and Calculations IVSd 1.2 cm IVSs 1.6 cm LVIDd 4.7 cm LVIDs 3.4 cm LVPWd 0.94 cm LVPWs 1.3 cm IVS/LVPW 1.3 FS 26.8 % EDV(Teich) 101.9 ml ESV(Teich) 48.6 ml EF(Teich) 52.3 % EDV(cubed) 103.2 ml ESV(cubed) 40.5 ml EF(cubed) 60.8 % % IVS thick 29.1 % % LVPW thick 41.7 % LV mass(C)d 179.8 grams LV mass(C)dI 78.4 grams/m\S\2 LV mass(C)s 176.3 grams LV mass(C)sI 76.9 grams/m\S\2 SV(Teich) 53.3 ml SI(Teich) 23.2 ml/m\S\2 SV(cubed) 62.7 ml SI(cubed) 27.4 ml/m\S\2 Ao root diam 2.7 cm Ao root area 5.8 cm\S\2 LA dimension 3.3 cm LA/Ao 1.2 LVOT diam 1.6 cm LVOT area 2.1 cm\S\2 Doppler Measurements and Calculations MV E max soo 85.2 cm/sec MV A max soo 80.9 cm/sec MV E/A 1.1 MV P1/2t max soo 101.2 cm/sec MV P1/2t 50.0 msec MVA(P1/2t) 4.4 cm\S\2 MV dec slope 593.2 cm/sec\S\2 MV dec time 0.28 sec Ao V2 max 160.3 cm/sec Ao max PG 10.3 mmHg Ao max PG (full) 4.6 mmHg VINICIO(V,A) 1.6 cm\S\2 VINICIO(V,D) 1.6 cm\S\2 LV V1 max PG 5.6 mmHg LV V1 max 118.7 cm/sec PA V2 max 108.3 cm/sec PA max PG 4.7 mmHg TR max soo 215.6 cm/sec
[2017-03-11] MEDS: ASPIRIN 325 MG ECTAB PO SCH (14:21)
[2017-03-11] MEDS: DICLOFENAC SOD 1% GEL 100 GM TUBE EXT SCH ×3 (15:03→20:23)
[2017-03-11 15:49] LABS: PARTIAL THROMBOPLASTIN RATIO 4.9
[2017-03-11] MEDS: METOPROLOL TARTRATE 25 MG TAB PO SCH ×2 (15:59→21:00)
[2017-03-11] MEDS ORDERED: HYDROmorphone INJ 2 MG/ML SYR/VIAL IV STA (16:06)
[2017-03-11] MEDS ORDERED: NALOXONE HCL 0.4 MG/1 ML VIAL/CARP IV PRN (16:15)
[2017-03-11] MEDS ORDERED: HYDROmorphone HCL 0.5MG/ML 50 ML CASSETTE IV PRN (16:15)
[2017-03-11] MEDS: SODIUM CHLORIDE 0.9% 1000ML 1,000 ML IV SCH (17:13)
--- NOTE | 2017-03-11 17:54 | Progress Note ---
Subjective Date of Service: Mar 11, 2017. Subjective Pt evaluation today including: conversation w/ patient, physical exam, chart review, lab review, review of inpatient medication list no chest pain no palpitations hip pain terrible both posterior across from hip to tailbone, and also groin and down front of leg no other new complaints Problem List Medical Problems: (1) Atrial fibrillation with rapid ventricular response Status: Acute (2) Diverticulitis of colon with perforation Status: Acute (3) DJD (degenerative joint disease) Status: Acute (4) Epigastric pain Status: Acute (5) Right hip pain Status: Acute Review of Systems all other ROS otherwise negative except for as above Objective Vital Signs Date Time Temp Pulse Resp B/P (MAP) Pulse Ox O2 Delivery O2 Flow Rate FiO2 03/11/17 14:53 36.9 85 18 97/57 (70) 100 Nasal Cannula 1.0 03/11/17 11:54 36.8 72 17 119/64 (82) 100 Nasal Cannula 1.0 03/11/17 07:57 37.0 73 18 95/62 (73) 96 Room Air 03/11/17 04:00 Nasal Cannula 2.0 03/11/17 03:43 36.9 83 18 102/64 (77) 100 Nasal Cannula 2.0 03/11/17 00:01 Nasal Cannula 2.0 03/10/17 23:38 36.9 96 19 114/68 (83) 97 Nasal Cannula 2.0 03/10/17 19:30 36.7 100 24 101/61 100 Room Air 03/10/17 19:19 122 20 102/77 99 Physical Exam General Appearance: + mild distress (appearing uncomfortable at rest, severe pain with movmeent) Eyes: EOMI ENT: hearing grossly normal Neck: trachea midline Respiratory/Chest: no respiratory distress, no accessory muscle use Extremities: + pertinent finding (see below msk/ost) Neurologic/Psychiatric: pediatric audiologist II-XII nml as tested, alert, normal mood/affect Skin: normal color, warm/dry Comments: msk/ost - extremely painful ROM R hip with flexion, internal rotation - very painful any AROM/PROM, R sided piriformis high tone/tender/decreased ROM - LAS as best as possible with good soft tissue texture changes, pt tolerated well Laboratory Results Last 24 Hours Test 03/10/17 20:35 03/11/17 00:29 03/11/17 07:56 03/11/17 15:13 Vitamin B12 Level 655 pg/mL Folate > 24.00 ng/mL Activated Partial Thromboplast Time 88.9 SECONDS 40.8 SECONDS 126.3 SECONDS Partial Thromboplastin Ratio 3.4 1.6 4.9 White Blood Count 11.59 K/uL Red Blood Count 3.29 M/uL Hemoglobin 11.2 g/dL Hematocrit 33.1 % Mean Corpuscular Volume 100.6 fL Mean Corpuscular Hemoglobin 34.0 pg Mean Corpuscular Hemoglobin Concent 33.8 g/dl Platelet Count 141 K/uL Mean Platelet Volume 9.9 fL Neutrophils (%) (Auto) 78.1 % Lymphocytes (%) (Auto) 8.4 % Monocytes (%) (Auto) 13.0 % Eosinophils (%) (Auto) 0.1 % Basophils (%) (Auto) 0.1 % Neutrophils # (Auto) 9.06 K/uL Lymphocytes # (Auto) 0.97 K/uL Monocytes # (Auto) 1.51 K/uL Eosinophils # (Auto) 0.01 K/uL Basophils # (Auto) 0.01 K/uL RDW Standard Deviation 46.3 fL RDW Coefficient of Variation 12.5 % Immature Granulocyte % (Auto) 0.3 % Immature Granulocyte # (Auto) 0.03 K/uL Sodium Level 141 mmol/L Potassium Level 3.7 mmol/L Chloride Level 102 mmol/L Carbon Dioxide Level 34 mmol/L Anion Gap 5.0 mmol/L Blood Urea Nitrogen 21 mg/dl Creatinine 1.20 mg/dl Est Creatinine Clear Calc Drug Dose 63.7 ml/min Estimated GFR () 54.9 Estimated GFR (Non- 47.4 BUN/Creatinine Ratio 17.3 Random Glucose 135 mg/dl Estimated Average Glucose 97 mg/dl Hemoglobin A1c 5.0 % Calcium Level 8.6 mg/dl Phosphorus Level 3.6 mg/dl Magnesium Level 2.0 mg/dl Total Bilirubin 0.8 mg/dl Aspartate Amino Transf (AST/SGOT) 25 U/L Alanine Aminotransferase (ALT/SGPT) 30 U/L Alkaline Phosphatase 122 U/L Total Protein 6.5 gm/dl Albumin 2.7 gm/dl Globulin 3.8 gm/dl Albumin/Globulin Ratio 0.7 Assessment and Plan new onset afib -rate controlled - transition to PO metoprolol -anticoagulation appearing warranted. await echo - likely can transition to NOAC R hip pain -severe chronic DJD + acute likely from arthritis flare and muscular pain -notes injections have not helped in the past (discussed ortho consult to consider injection) -dilauded prn --> had to escalate to APPLIANCE REPAIR TECHNICIAN to break the pain cycle -start gabapentin - titrate up as tolerated -consider SNRI -treat muscular component -voltaren gel pelvic somatic dysfunction / piriformis strain -OMT as above -voltaren gel EtOH abuse -monitor for withdrawal, gabapentin for chronic severe hip pain hopefully will help as well -thiamine mild macrocytic anemia -due to EtOH DVT proph -anticoagulation
[2017-03-11] MEDS ORDERED: NURSING VERBAL MED ORDER ONE (20:00)
[2017-03-11] MEDS: NSS + 20MEQ KCL 1000ML 1,000 ML IV SCH (20:15)
[2017-03-11] MEDS: ATORVASTATIN 40 MG TAB PO SCH (20:22)
[2017-03-11] MEDS: GABAPENTIN 300 MG CAP PO SCH (20:23)
[2017-03-11] MEDS: DOCUSATE SODIUM 100 MG CAP PO SCH (20:25)
[2017-03-11 20:51] LABS: PARTIAL THROMBOPLASTIN RATIO 2.7
[2017-03-12] VITALS (10 sets, daily range): BP systolic 99–115; BP diastolic 54–74; PULSE 68–73; TEMP 36.7–37.2; O2SAT 96–100
[2017-03-12] MEDS: NSS + 20MEQ KCL 1000ML 1,000 ML IV SCH (02:55)
[2017-03-12 03:22] LABS: PARTIAL THROMBOPLASTIN RATIO 2.8
--- NOTE | 2017-03-12 08:52 | Cardiology Follow-Up ---
Subjective Date of Service: Mar 12, 2017. Pt evaluation today including: conversation w/ patient, physical exam, chart review, lab review, review of studies History of Present Illness This morning the patient claims to be feeling somewhat better but has some persistent right hip discomfort. She has not been ambulatory and has some concerns regarding the function of her legs. She has not been aware of any significant palpitations. She has not had any breathing trouble. She does not describe any symptoms of chest discomfort. She is tolerating a regular diet Social History Smoking Status: Former Smoker History of Alcohol Use: Yes ([place] 4 shots daily) Review of Systems Respiratory: + see HPI Cardiac: + see HPI Patient claims to be eating well. Over the past few days however she has had little appetite due to persistent pain. No nausea or vomiting noted. She has had some retching however. She reports chronic constipation. No history of bleeding, dark stools or need for transfusion. Objective Vital Signs Past 12 Hours Date Time Temp Pulse Resp B/P (MAP) Pulse Ox O2 Delivery O2 Flow Rate FiO2 03/12/17 07:29 36.9 73 18 115/71 (86) 100 Room Air 03/12/17 04:00 96 Nasal Cannula 2.0 03/12/17 02:53 36.7 73 20 102/65 (77) 99 Room Air 03/12/17 00:01 96 Nasal Cannula 2.0 03/11/17 23:45 36.9 74 19 108/62 (77) 97 Room Air 03/11/17 21:00 85/52 (63) 93 Nasal Cannula 2.0 Last Recorded Weight-Kilograms: 127.000 Physical Exam She is alert and oriented x3. Mood affect appear normal. She answered all questions appropriately. HEENT: Sclerae are anicteric. Pupils are equal and reactive to light and accommodation. Extraocular movements were intact. Neuro: Cranial nerves intact Lungs: Lungs are clear to auscultation bilaterally. There are no rales wheezes or rhonchi. She has normal respiratory effort without use of accessory muscles. There is normal pulmonary excursion. Cardiac: The rhythm was regular. S1 and S2 were normal. There are no murmurs on examination. The PMI was not markedly displaced on palpation. . Data Laboratory Results: Last 24 Hours Test 03/11/17 15:13 03/11/17 20:09 03/12/17 02:57 Activated Partial Thromboplast Time 126.3 SECONDS 70.4 SECONDS 72.4 SECONDS Partial Thromboplastin Ratio 4.9 2.7 2.8 Echocardiogram revealed preserved LV systolic function with essentially normal chamber dimensions. There is no significant valvular heart disease. Telemetry reviewed: Sinus rhythm without recurrence of atrial fibrillation Assessment and Plan 1. Atrial fibrillation: No recurrence on telemetry. Echocardiogram did not demonstrate any evidence of cardiomyopathy or significant valvular disease to explain her atrial fibrillation. This Is likely related to a combination of age , obesity, alcohol use and possibly a contribution from occult sleep apnea. I think institution of low-dose beta-juan jose therapy with systemic anticoagulation would be appropriate at this time. She can be followed up in the outpatient setting for continued management and monitoring for recurrence.
[2017-03-12] MEDS ORDERED: CHOLECALCIFEROL 1000 INTER.UNIT TAB PO SCH (09:00)
[2017-03-12] MEDS: ASPIRIN 325 MG ECTAB PO SCH (09:45)
[2017-03-12] MEDS: THIAMINE HCL 100 MG TAB PO SCH (09:45)
[2017-03-12] MEDS: METOPROLOL TARTRATE 25 MG TAB PO SCH ×3 (09:46→21:20)
[2017-03-12] MEDS: GABAPENTIN 100 MG CAP PO SCH (09:46)
[2017-03-12] MEDS: CHOLECALCIFEROL 1000 INTER.UNIT TAB PO SCH (09:46)
[2017-03-12] MEDS: DICLOFENAC SOD 1% GEL 100 GM TUBE EXT SCH ×3 (09:47→21:22)
[2017-03-12] MEDS: CHECK FENTANYL PATCH PLACEMENT SCH ×3 (09:48→16:16)
[2017-03-12 10:16] LABS: PARTIAL THROMBOPLASTIN RATIO 1.8
[2017-03-12] MEDS: DOCUSATE SODIUM 100 MG CAP PO SCH ×2 (11:00→21:19)
[2017-03-12] MEDS: SODIUM CHLORIDE 0.9% 1000ML 1,000 ML IV SCH (16:16)
--- NOTE | 2017-03-12 16:24 | Progress Note ---
Subjective Date of Service: Mar 12, 2017. Subjective Pt evaluation today including: conversation w/ patient, physical exam, chart review, lab review, review of studies, review of inpatient medication list no afib related sx. no chest pain sob or palpitations ongoing R hip pain, maybe marginally improved. ongoing groin pain radiating down front of leg, as well as posterior buttock pain - notes now that inaddition to the area i was doing OMT on yesterday, she has been able to identify a more ssuperior area of tenderness as well Problem List Medical Problems: (1) Atrial fibrillation with rapid ventricular response Status: Acute (2) Diverticulitis of colon with perforation Status: Acute (3) DJD (degenerative joint disease) Status: Acute (4) Epigastric pain Status: Acute (5) Right hip pain Status: Acute Review of Systems all other ROS otherwise negative except for as above Objective Vital Signs Date Time Temp Pulse Resp B/P (MAP) Pulse Ox O2 Delivery O2 Flow Rate FiO2 03/12/17 15:14 36.8 71 18 100/69 (79) 97 Room Air 03/12/17 12:00 Room Air 03/12/17 11:38 36.8 68 19 99/54 (69) 96 Room Air 03/12/17 08:00 Room Air 03/12/17 07:29 36.9 73 18 115/71 (86) 100 Room Air 03/12/17 04:00 96 Nasal Cannula 2.0 03/12/17 02:53 36.7 73 20 102/65 (77) 99 Room Air 03/12/17 00:01 96 Nasal Cannula 2.0 03/11/17 23:45 36.9 74 19 108/62 (77) 97 Room Air 03/11/17 21:00 85/52 (63) 93 Nasal Cannula 2.0 03/11/17 20:00 96 Nasal Cannula 2.0 03/11/17 20:00 Nasal Cannula 2.0 03/11/17 19:33 37.0 72 16 79/46 (57) 87 Room Air Physical Exam General Appearance: no apparent distress Eyes: EOMI ENT: hearing grossly normal Neck: trachea midline Respiratory/Chest: no respiratory distress, no accessory muscle use Cardiovascular: regular rate, rhythm Extremities: + pertinent finding (see ost/msk) 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 R sided pelvic/buttock musculature in region of piriformis and glut minimus high tone/tender/decreased ROM - LAS/indirect - improved some. pt tolerated well Laboratory Results Last 24 Hours Test 03/11/17 20:09 03/12/17 02:57 03/12/17 09:39 Activated Partial Thromboplast Time 70.4 SECONDS 72.4 SECONDS 47.6 SECONDS Partial Thromboplastin Ratio 2.7 2.8 1.8 Assessment and Plan new onset afib -rate controlled - doign well on PO metoprolol -anticoagulation appearing warranted. no contraindications to a NOAC. 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 she notes she was on cymbalta in the past - not clear why it was stopped, she believes it was around when she started fentanyl patch -treat muscular component (OMT, PT, gel) -voltaren gel -showed "about 10%" improvement from yesterday to today. if not improved enough to walk at least somewhat reasonably in another ~48hrs, will want to CT to r/o occult fracture -set for L hip DAGMAR in about a month - d/w her that while things are still not entirely clear, might need R DAGMAR first, or both in succession, depending on how she progresses pelvic somatic dysfunction / piriformis strain -OMT as above done again today w adequate soft tissue response -voltaren gel EtOH abuse -monitor for withdrawal - none, gabapentin for chronic severe hip pain hopefully will help as well -thiamine mild macrocytic anemia -due to EtOH; outpt management DVT proph -anticoagulation as above stable for med surg
[2017-03-12] MEDS: APIXABAN 2.5 MG TAB PO SCH (21:19)
[2017-03-12] MEDS: ATORVASTATIN 40 MG TAB PO SCH (21:19)
[2017-03-12] MEDS: GABAPENTIN 300 MG CAP PO SCH (21:19)
[2017-03-13] VITALS (9 sets, daily range): BP systolic 92–124; BP diastolic 47–72; PULSE 59–68; TEMP 36.7–36.8; O2SAT 96–99
[2017-03-13] MEDS: CHECK FENTANYL PATCH PLACEMENT SCH ×3 (00:01→16:08)
[2017-03-13 07:56] LABS: HEMATOCRIT 32.4 % (37-47); MEAN CELL VOLUME 100.6 fL (80-100); MEAN CORPUSCULAR HEMOGLOBIN 32.6 pg (25-34); MEAN CORPUSCULAR HGB CONC 32.4 g/dl (32-36); MEAN PLATELET VOLUME 10.6 fL (7.4-10.4); PLATELET COUNT 148 K/uL (130-400); RED BLOOD COUNT 3.22 M/uL (4.2-5.4); WHITE BLOOD COUNT 6.24 K/uL (4.8-10.8)
[2017-03-13] MEDS: METOPROLOL TARTRATE 25 MG TAB PO SCH ×3 (08:03→20:30)
[2017-03-13] MEDS: THIAMINE HCL 100 MG TAB PO SCH (08:04)
[2017-03-13 08:06] LABS: PARTIAL THROMBOPLASTIN RATIO 1.3
[2017-03-13] MEDS: CHOLECALCIFEROL 1000 INTER.UNIT TAB PO SCH (08:06)
[2017-03-13] MEDS: ASPIRIN 325 MG ECTAB PO SCH (08:07)
[2017-03-13] MEDS: APIXABAN 2.5 MG TAB PO SCH ×2 (08:07→20:29)
[2017-03-13] MEDS: DOCUSATE SODIUM 100 MG CAP PO SCH ×2 (08:07→20:28)
[2017-03-13] MEDS: GABAPENTIN 100 MG CAP PO SCH (08:08)
[2017-03-13] MEDS: DICLOFENAC SOD 1% GEL 100 GM TUBE EXT SCH ×4 (08:09→20:28)
--- NOTE | 2017-03-13 13:55 | Family Medicine Progress Note ---
Progress Note Date of Service Mar 13, 2017. Subjective Pt evaluation today including: conversation w/ patient, physical exam, chart review, lab review Pain: Right Hip Voiding: no voiding problems, cruz catheter in place Continues to have right hip pain States that she is due to have left Hip replaced by Dr. Vega in April Still having difficulty ambulating No chest pain, no palpitations, no syncope Eating well Constitutional: No fever, No chills, No sweats Eyes: No worsening of vision, No eye pain, No redness ENT: No hearing loss, No unusual epistaxis, No nasal symptoms, No sore throat Respiratory: No cough, No sputum, No wheezing, No shortness of breath Cardiovascular: No chest pain, No orthopnea, No claudication, No palpitations Abdomen: No pain, No nausea, No vomiting, No diarrhea Musculoskeletal: + joint pain (right hip as noted above), No muscle pain Female : No dysuria, No urinary frequency, No incontinence Neurologic: No weakness, No numbness/tingling, No vertigo Endo: No fatigue Medications Current Inpatient Medications Medications (Trade) Dose Ordered Sig/Luis Route Start Time Stop Time Status Last Admin Dose Admin Hydromorphone HCl (Dilaudid Inj) 2 mg Q4H PRN IV 03/10/17 17:45 03/24/17 17:44 Future Hold 03/11/17 15:59 2 MG Acetaminophen (Tylenol Tab) 650 mg Q4H PRN PO 03/10/17 17:45 04/09/17 17:44 Magnesium Hydroxide (Milk Of Magnesia Susp) 30 ml Q12H PRN PO 03/10/17 17:45 04/09/17 17:44 Zolpidem Tartrate (Ambien Tab) 5 mg HSZ PRN PO 03/10/17 17:45 04/09/17 17:44 03/10/17 20:56 5 MG Nitroglycerin (Nitrostat Tab) 0.4 mg UD PRN SL 03/10/17 17:45 04/09/17 17:44 Aspirin (Ecotrin Tab) 325 mg QAM PO 03/10/17 17:37 04/09/17 17:36 03/13/17 08:07 325 MG Polyethylene (Miralax Powder Packet) 17 gm DAILY PRN PO 03/10/17 17:45 04/09/17 17:44 Atorvastatin Calcium (Lipitor Tab) 40 mg HS PO 03/10/17 21:00 04/09/17 20:59 03/12/17 21:19 40 MG Cholecalciferol (Vitamin D Tab) 5,000 inter.unit DAILY PO 03/11/17 09:00 04/10/17 08:59 03/13/17 08:06 5,000 INTER.UNIT Magnesium Citrate (Citrate Of Magnesia Soln) 120 ml BID PRN PO 03/10/17 18:15 04/09/17 18:14 Fentanyl (Duragesic Patch) 75 mcg Q72H TD 03/11/17 09:00 03/25/17 08:59 03/11/17 08:47 75 MCG Lorazepam (Ativan Tab) PRN Dosing -Active Protocol UD PRN PO 03/10/17 18:15 04/09/17 18:14 Lorazepam (Ativan Inj) PRN Dosing -Active Protocol Q1H PRN IV 03/10/17 18:15 04/09/17 18:14 Thiamine HCl (Vitamin B-1 Tab) 100 mg Q24H PO 03/11/17 09:00 04/10/17 08:59 03/13/17 08:04 100 MG Miscellaneous (Fentanyl Patch Remove & Waste) 1 ea Q72H N/A 03/11/17 08:59 04/10/17 08:58 03/11/17 08:49 1 EA Miscellaneous Information (Check Fentanyl Patch Placement) 1 ea QS N/A 03/11/17 00:00 04/10/17 00:00 03/13/17 08:17 1 EA Metoprolol Tartrate (Lopressor Tab) 12.5 mg TID PO 03/11/17 14:00 04/10/17 13:59 03/13/17 08:03 12.5 MG Diclofenac Sodium (Voltaren 1% Top Gel) 1 appln QID EXT 03/11/17 13:00 04/10/17 12:59 03/13/17 13:29 1 APPLN Gabapentin (Neurontin Cap) 300 mg HS PO 03/11/17 21:00 04/10/17 20:59 03/12/17 21:19 300 MG Gabapentin (Neurontin Cap) 100 mg QAM PO 03/12/17 09:00 8/29/17 08:59 03/13/17 08:08 100 MG Naloxone HCl (Narcan Inj) 0.1 mg Q5M PRN IV 03/11/17 16:15 03/25/17 16:14 Hydromorphone HCl (Dilaudid Printed Circuit Boards Inspector) 25 mg PRN PRN IV 03/11/17 16:15 03/25/17 16:14 03/11/17 17:13 25 MG Docusate Sodium (coLACE CAP) 100 mg BID PO 03/11/17 21:00 03/25/17 16:14 03/13/17 08:07 100 MG Sodium Chloride 1,000 ml @ 15 mls/hr Q24H IV 03/11/17 16:06 03/25/17 16:14 03/12/17 16:16 15 MLS/HR Apixaban (Eliquis Tab) 5 mg BID PO 03/12/17 21:00 04/11/17 20:59 03/13/17 08:07 5 MG Objective Physical Exam General Appearance: WD/WN, no apparent distress Eyes: normal inspection, EOMI ENT: normal ENT inspection, hearing grossly normal, pharynx normal Neck: supple, no adenopathy, no JVD Respiratory/Chest: lungs clear, no respiratory distress Cardiovascular: no gallop, no murmur, + irregularly irregular (rate controlled) Abdomen: normal bowel sounds, non tender, soft Extremities: non-tender, no pedal edema, + pertinent finding (pain in right buttock; difficulty to assess ROM due to pain) Neurologic/Psychiatric: alert, normal mood/affect, oriented x 3 Skin: normal color, warm/dry, no rash Lymphatic: no adenopathy Laboratory Results Last 24 Hours Test 03/13/17 07:32 White Blood Count 6.24 K/uL Red Blood Count 3.22 M/uL Hemoglobin 10.5 g/dL Hematocrit 32.4 % Mean Corpuscular Volume 100.6 fL Mean Corpuscular Hemoglobin 32.6 pg Mean Corpuscular Hemoglobin Concent 32.4 g/dl RDW Standard Deviation 45.7 fL RDW Coefficient of Variation 12.4 % Platelet Count 148 K/uL Mean Platelet Volume 10.6 fL Activated Partial Thromboplast Time 33.4 SECONDS Partial Thromboplastin Ratio 1.3 Assessment and Plan 66 year old female presenting with right hip pain but apparently being in Afib with RVR at the time of admission. Afib is rate controlled and she is appropriately anticoagulated. Main concern at this time is her pain in the right hip. Our plan for her is as follows: Afib with RVR - Currently rate controlled - Currently on Eliquis for anticoagulation - Will get follow-up with cardiology as an outpatient Right Hip Pain - X-ray negative for acute fracture - US negative for DVT - Will consult Dr. 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 pain pump helping Constitutional: denies: fever Respiratory: negative: short of breath Cardiovascular: denies chest pain Musculoskeletal: negative: back pain General Appearance: no apparent distress (comfortably sitting in chair) Respiratory: no respiratory distress Cardiovascular: regular rate, rhythm Neurologic/Psychiatric: alert, oriented x 3 Skin Characteristics: warm/dry Assessment/Plan Resident Physician Supervision Note: I was present with Dr. Mesa in bedside. I verified the gaytan history and physical, reviewed labs and image studies, discussed the case with the resident and agree with the findings and care plan.
[2017-03-13] MEDS ORDERED: HYDROmorphone HCL 0.5MG/ML 50 ML CASSETTE IV PRN (13:57)
--- NOTE | 2017-03-13 14:23 | CONSULTATION REPORT ---
DATE OF CONSULTATION: 03/13/2017 CHIEF COMPLAINT: Right lower extremity difficulty. HISTORY OF PRESENT ILLNESS: Keri is a 66-year-old female. I am seeing her for the first time at approximately 1:30 on Monday afternoon. We are asked to see her in regard to her right lower extremity difficulty. She is fairly complex in many ways. She has an intolerance to narcotics which makes management difficult. She has arthritis of multiple joints, particularly her bilateral hips and bilateral knees. She was in her usual health a few days ago which was Monday, developed severe lower extremity difficulty. It was so severe, she really could not be mobilized, could not walk, stand or do stairs. 911 was called and she was brought by way of emergency transport to the Emergency Room here at [facility]. She was admitted. We were consulted today in regard to right hip pain. PAST MEDICAL HISTORY: Prominent for edema to lower extremities, possible CHF, diabetes, heart disease, hypertension, new onset of atrial fibrillation. Severe degenerative arthritis of multiple joints. SOCIAL HISTORY: She is a former smoker, significant alcohol use at least on a daily basis, no drug use. She is , lives with family at home, retired. ALLERGIES: Listed and reviewed. REVIEW OF SYSTEMS: GENERAL: She denies any fevers, sweats, chills, bowel and bladder issues. HEENT: Denies any ear, nose and throat or ocular visual problems. RESPIRATORY: No coughing, wheezing. No chest pain or orthopnea. EXTREMITIES: She does have some edema in lower extremities, recent onset. ABDOMEN: No nausea, vomiting. MUSCULOSKELETAL: Her most dominant positive review of right lower extremity difficulty. She denies anxiety, insomnia. No fatigue, no skin issues. PHYSICAL EXAMINATION: GENERAL: She is alert, oriented, sitting comfortably in a chair next to her bed. Conversation was made with her and with her spouse. She did not appear in distress here this afternoon. HEENT: Normal head. VITAL SIGNS: Normal blood pressure 130/80. NECK: Supple. CHEST AND HEART: Not auscultated. ABDOMEN: Obese. No apparent pain. MUSCULOSKELETAL: Back had some pain with palpation, minimal with percussion. NEUROLOGIC: Cranial nerves seemed intact. No gross motor deficit to the upper or lower extremities. PSYCH: Normal mood, normal affect. SKIN: Normal. There is no adenopathy. MUSCULOSKELETAL: Continues to have some pain with flexion, extension of the right hip. I would say mild to moderate, not overly severe. The epicenter of pain or where her pain seems to originate is from the sacral region versus the hip region. It does seem to radiate and wrap around from the anterior aspect to her right groin, consistent with hip arthritis. Vascular status intact in both lower extremities. The right knee has a well-healed skin incision from prior knee surgery. IMAGES: Plain x-rays were evaluated here today. She has some degenerative arthritis of the right hip. I would grade as moderate to moderately severe. Does appear to have complete bone loss in this area. IMPRESSION: I think her secondary issue is going to be her right hip. I think her primary issue will be an irritated nerve from the lumbar spine secondary to a disc protrusion and/or spinal stenosis in a combination. I think the terrible pain in the lower extremity is more consistent from a spine related issue than her hip related issue. DISPOSITION: 1. She is on appropriate medications at this point in time. 2. We are ordering a CT scan of her spine to make sure there are no neurocompressive issues currently. Dr. Vega will be seeing her with regard to her hip and hip pain. The medical management will continue. Depending on the outcome of the CT scan, we may get pain management involved as well. We will follow daily.
--- NOTE | 2017-03-13 14:58 | DIAGNOSTIC IMAGING REPORT ---
LUMBAR SPINE WITHOUT CLINICAL HISTORY: 66 years-old Female presenting with low back pain, radiculopathy, right hip pain. TECHNIQUE: Multidetector CT of the lumbar spine was performed without the use of intravenous contrast. IV contrast: None. A dose lowering technique was used consistent with the principles of ALARA (as low as reasonably achievable). COMPARISON: Correlation made to CT of the abdomen and pelvis from 04/29/2016. CT DOSE (mGy.cm): The estimated cumulative dose is 2227.47 mGy.cm. FINDINGS: Laser Printing Operator topogram: Unremarkable. Normal lumbar lordosis with mild dextrocurvature of the spine. Vertebral body heights and alignment maintained. Intervertebral disc height loss at L2-3. Remaining intervertebral disc spaces are essentially preserved. Degenerative changes further detailed below: T12-L1: Minimal anterior osteophytosis. No significant osseous neural foraminal or spinal canal stenosis. L1-2: Central partially ossified posterior disc bulge mildly effaces the ventral thecal sac. Facet arthropathy, worse on the left, results in mild left neural foraminal narrowing. L2-3: Disc bulge, disc height loss, vacuum disc phenomenon, endplate sclerosis and cystic changes noted. Mild effacement of the ventral thecal sac secondary to disc bulge. Moderate bilateral osseous neural foraminal narrowing. L3-4: Facet arthropathy with mild bilateral neural foraminal narrowing. No significant spinal canal narrowing. L4-5: Right facet arthropathy results in severe right osseous neural foraminal narrowing. No significant spinal canal narrowing. L5-S1: Facet arthropathy with mild bilateral osseous neural foraminal narrowing. No significant spinal canal narrowing. Paraspinal soft tissues normal. Atherosclerosis. IMPRESSION: Multilevel degenerative change with varying degrees of neural foraminal narrowing most severe on the right at L4-5. Varying degrees of canal effacement as detailed above. The degree of spinal stenosis would be better demonstrated on MR. Electronically signed by: Preston Muñiz M.D. 03/13/2017 2:56 PM Dictated Date/Time: 03/13/2017 2:48 PM
[2017-03-13] MEDS: SODIUM CHLORIDE 0.9% 1000ML 1,000 ML IV SCH (16:08)
[2017-03-13] MEDS: GABAPENTIN 300 MG CAP PO SCH (20:28)
[2017-03-13] MEDS: ATORVASTATIN 40 MG TAB PO SCH (20:30)
[2017-03-14] VITALS (8 sets, daily range): BP systolic 98–116; BP diastolic 54–76; PULSE 61–75; TEMP 36.6–36.8; O2SAT 94–100
[2017-03-14] MEDS: CHECK FENTANYL PATCH PLACEMENT SCH ×3 (00:04→16:09)
[2017-03-14 07:46] LABS: HEMATOCRIT 31.4 % (37-47); MEAN CELL VOLUME 99.7 fL (80-100); MEAN CORPUSCULAR HEMOGLOBIN 32.4 pg (25-34); MEAN CORPUSCULAR HGB CONC 32.5 g/dl (32-36); MEAN PLATELET VOLUME 10.6 fL (7.4-10.4); PLATELET COUNT 182 K/uL (130-400); RED BLOOD COUNT 3.15 M/uL (4.2-5.4); WHITE BLOOD COUNT 5.18 K/uL (4.8-10.8)
[2017-03-14 07:56] LABS: PARTIAL THROMBOPLASTIN RATIO 1.3
[2017-03-14 08:18] LABS: C-REACTIVE PROTEIN 16.2 mg/dl (0-0.29); CALCIUM 9.3 mg/dl (8.5-10.1); CREATININE 1.1 mg/dl (0.60-1.20); POTASSIUM 3.7 mmol/L (3.5-5.1)
[2017-03-14] MEDS: ASPIRIN 325 MG ECTAB PO SCH (08:38)
[2017-03-14] MEDS: GABAPENTIN 100 MG CAP PO SCH (08:39)
[2017-03-14] MEDS: DOCUSATE SODIUM 100 MG CAP PO SCH ×2 (08:39→21:28)
[2017-03-14] MEDS: THIAMINE HCL 100 MG TAB PO SCH (08:39)
[2017-03-14] MEDS: METOPROLOL TARTRATE 25 MG TAB PO SCH ×3 (08:39→21:31)
[2017-03-14] MEDS: CHOLECALCIFEROL 1000 INTER.UNIT TAB PO SCH (08:40)
[2017-03-14] MEDS: APIXABAN 2.5 MG TAB PO SCH ×2 (08:40→21:30)
[2017-03-14] MEDS: DICLOFENAC SOD 1% GEL 100 GM TUBE EXT SCH ×4 (08:41→21:28)
[2017-03-14] MEDS: FENTANYL 75 MCG/HR TDSY TD SCH (08:42)
[2017-03-14] MEDS: FENTANYL PATCH REMOVE & WASTE SCH (08:43)
--- NOTE | 2017-03-14 12:10 | ORTHOPEDIC CONSULTATION ---
DATE OF CONSULTATION: 03/14/2017 CHIEF COMPLAINT: Right hip and leg pain. HISTORY OF PRESENT ILLNESS: The patient is a 66-year-old morbidly obese female who is scheduled for a hip replacement surgery on her left side in early April. She was admitted to the hospital on Monday with new onset atrial fibrillation and severe right hip pain and unable to ambulate. We are consulted for evaluation. She describes most of her pain in the buttock area, radiating toward groin and thigh area. She had been using 2 canes to get around for quite some time but could not even do that since Monday. Denies any fevers or recent illnesses. She has tried to lose weight but lost some and then could not lose any more. Does report some numbness in her right leg. OBJECTIVE: VITAL SIGNS: Temperature is 36.6. Vital signs stable. PHYSICAL EXAMINATION: GENERAL: Reveals a pleasant middle-aged female. She is sitting up in bed, looks pretty comfortable. EXTREMITIES: Examination of her lower extremities and back reveals no obvious deformity. Leg lengths are pretty equal. She does have difficulty doing a straight leg raise on either side but can do it. She has pain with any type of hip motion. She has got well-healed incisions around her knees without significant effusions. Fairly large soft tissue envelope. NEUROLOGIC: She is grossly neurologically intact. LABORATORY DATA: Her white cell count is 5.18, it is down from earlier at 11.59. We checked his sed rate which was 70 and his C-reactive protein which is 16.20. X-RAYS: X-rays of the hip reveal advanced bilateral hip DJD. Doppler exam reveals no signs of DVT. Lumbar spine CT scan shows fairly extensive degenerative changes in her lumbar spine with pretty severe stenosis as well, most severe at L4-L5. ASSESSMENT: A 66-year-old morbidly obese female with advanced bilateral hip arthritis, admitted with new onset atrial fibrillation and decreased ambulatory ability and severe right hip and leg pain. Her sed rate and C-reactive protein are markedly elevated which are a bit concerning for infection. There are no focal signs of infection. She is scheduled to have hip replacement done in about a month and we really need to get to the bottom of this elevated sed rate and C-reactive protein. There are no signs of fracture. This could be elevated sed rate and C-reactive protein from polymyalgia rheumatica or it could be related to some underlying infection such as a discitis in her lumbar spine which would cause some of her back pain. In any case, I think we need to work this up further before proceeding with hip surgery. PLAN: We are going to get an MRI of her lumbar spine to rule out discitis or infection there. We will also get an MRI of her pelvis and hip to make sure there is no occult fracture or infection. It certainly could be secondary to inflammatory arthritis as well. We are going to get infectious disease consult and get their opinion. We will continue to try and ambulate her. We will try and limit her narcotics and get her off these narcotics as this will be beneficial from medical standpoint as far as pain management after her hip surgery as well. She should obviously have DVT prophylaxis per the primary service. She is on Eliquis for her new onset atrial fibrillation. Any orthopedic questions can be directed to me at [phone]. [facility]
--- NOTE | 2017-03-14 12:46 | Family Medicine Progress Note ---
Progress Note Date of Service Mar 14, 2017. Subjective Pt evaluation today including: conversation w/ patient, physical exam, chart review, lab review Pain: Right hip pain, unchanged PO Intake: Good No changes at this time States pain is a little worse yesterday Did ambulate with PT this morning; seemed to have actually helped a little Eating and voiding without difficulty Denies any urinary ssx, fevers, chills, malaise or respiratory ssx Constitutional: No fever, No chills, No sweats Eyes: No worsening of vision, No redness, No discharge ENT: No hearing loss, No unusual epistaxis, No nasal symptoms, No sore throat Respiratory: No cough, No sputum, No wheezing, No shortness of breath Cardiovascular: No chest pain, No orthopnea, No PND, No edema Breast: No breast lump, No change in shape, No nipple discharge Abdomen: No pain, No nausea, No vomiting, No diarrhea Musculoskeletal: + joint pain (right hip/groin pain) Female : No dysuria, No urinary frequency Neurologic: No weakness, No numbness/tingling, No vertigo Heme: No abnormal bleeding/bruising, No clotting problems Endo: No fatigue, No excessive thirst, No excessive urination Skin: No rash, No new/changing skin lesions Medications Current Inpatient Medications Medications (Trade) Dose Ordered Sig/Luis Route Start Time Stop Time Status Last Admin Dose Admin Hydromorphone HCl (Dilaudid Inj) 2 mg Q4H PRN IV 03/10/17 17:45 03/24/17 17:44 Future hold 03/11/17 15:59 2 MG Acetaminophen (Tylenol Tab) 650 mg Q4H PRN PO 03/10/17 17:45 04/09/17 17:44 Magnesium Hydroxide (Milk Of Magnesia Susp) 30 ml Q12H PRN PO 03/10/17 17:45 04/09/17 17:44 Zolpidem Tartrate (Ambien Tab) 5 mg HSZ PRN PO 03/10/17 17:45 04/09/17 17:44 03/10/17 20:56 5 MG Nitroglycerin (Nitrostat Tab) 0.4 mg UD PRN SL 03/10/17 17:45 04/09/17 17:44 Aspirin (Ecotrin Tab) 325 mg QAM PO 03/10/17 17:37 04/09/17 17:36 03/14/17 08:38 325 MG Polyethylene (Miralax Powder Packet) 17 gm DAILY PRN PO 03/10/17 17:45 04/09/17 17:44 Atorvastatin Calcium (Lipitor Tab) 40 mg HS PO 03/10/17 21:00 04/09/17 20:59 03/13/17 20:30 40 MG Cholecalciferol (Vitamin D Tab) 5,000 inter.unit DAILY PO 03/11/17 09:00 04/10/17 08:59 03/14/17 08:40 5,000 INTER.UNIT Magnesium Citrate (Citrate Of Magnesia Soln) 120 ml BID PRN PO 03/10/17 18:15 04/09/17 18:14 Fentanyl (Duragesic Patch) 75 mcg Q72H TD 03/11/17 09:00 03/25/17 08:59 03/14/17 08:42 75 MCG Lorazepam (Ativan Tab) PRN Dosing -Active Protocol UD PRN PO 03/10/17 18:15 04/09/17 18:14 Lorazepam (Ativan Inj) PRN Dosing -Active Protocol Q1H PRN IV 03/10/17 18:15 04/09/17 18:14 Thiamine HCl (Vitamin B-1 Tab) 100 mg Q24H PO 03/11/17 09:00 04/10/17 08:59 03/14/17 08:39 100 MG Miscellaneous (Fentanyl Patch Remove & Waste) 1 ea Q72H N/A 03/11/17 08:59 04/10/17 08:58 03/14/17 08:43 1 EA Miscellaneous Information (Check Fentanyl Patch Placement) 1 ea QS N/A 03/11/17 00:00 04/10/17 00:00 03/14/17 08:44 1 EA Metoprolol Tartrate (Lopressor Tab) 12.5 mg TID PO 03/11/17 14:00 04/10/17 13:59 03/14/17 08:39 12.5 MG Diclofenac Sodium (Voltaren 1% Top Gel) 1 appln QID EXT 03/11/17 13:00 04/10/17 12:59 03/14/17 08:41 1 APPLN Gabapentin (Neurontin Cap) 300 mg HS PO 03/11/17 21:00 04/10/17 20:59 Future Hold 03/13/17 20:28 300 MG Gabapentin (Neurontin Cap) 100 mg QAM PO 03/12/17 09:00 04/11/17 08:59 Future Hold 03/14/17 08:39 100 MG Naloxone HCl (Narcan Inj) 0.1 mg Q5M PRN IV 03/11/17 16:15 03/25/17 16:14 Hydromorphone HCl (Dilaudid Ekg/Ecg Technician) 25 mg PRN PRN IV 03/11/17 16:15 03/25/17 13:57 Future Hold 03/11/17 17:13 25 MG Docusate Sodium (coLACE CAP) 100 mg BID PO 03/11/17 21:00 03/25/17 16:14 03/14/17 08:39 100 MG Sodium Chloride 1,000 ml @ 15 mls/hr Q24H IV 03/11/17 16:06 03/25/17 16:14 03/13/17 16:08 15 MLS/HR Apixaban (Eliquis Tab) 5 mg BID PO 03/12/17 21:00 04/11/17 20:59 03/14/17 08:40 5 MG Objective Vital Signs Date Time Temp Pulse Resp B/P (MAP) Pulse Ox O2 Delivery O2 Flow Rate FiO2 03/14/17 11:17 36.6 67 20 98/54 (69) 98 Room Air 03/14/17 08:00 Room Air 03/14/17 07:10 36.7 65 18 107/70 (82) 94 Room Air 03/14/17 04:18 36.7 64 20 103/67 (79) 100 Room Air 03/14/17 00:45 Room Air 03/13/17 23:14 36.7 60 20 92/64 (73) 96 Room Air 03/13/17 19:30 36.7 68 20 97/64 (75) 98 Room Air 03/13/17 19:15 Room Air 03/13/17 16:00 Room Air 03/13/17 15:33 36.7 61 20 102/67 (79) 99 Room Air 03/13/17 13:34 68 92/47 (62) Physical Exam General Appearance: WD/WN, no apparent distress Eyes: normal inspection, EOMI ENT: hearing grossly normal, pharynx normal Neck: supple, no adenopathy, no JVD Respiratory/Chest: lungs clear, no respiratory distress Cardiovascular: regular rate, rhythm, no gallop, no murmur Abdomen: normal bowel sounds, non tender, soft Extremities: + pertinent finding (right paraspinal lumbar tenderness; no pain at greater trochanter; ROM assessment difficult due to both pain and body habitus) Neurologic/Psychiatric: alert, normal mood/affect, oriented x 3 Skin: normal color, warm/dry, no rash Lymphatic: no adenopathy Laboratory Results Last 24 Hours Test 03/13/17 15:43 03/14/17 07:15 Erythrocyte Sedimentation Rate 70 mm/hr C-Reactive Protein 16.90 mg/dl 16.20 mg/dl White Blood Count 5.18 K/uL Red Blood Count 3.15 M/uL Hemoglobin 10.2 g/dL Hematocrit 31.4 % Mean Corpuscular Volume 99.7 fL Mean Corpuscular Hemoglobin 32.4 pg Mean Corpuscular Hemoglobin Concent 32.5 g/dl RDW Standard Deviation 45.4 fL RDW Coefficient of Variation 12.5 % Platelet Count 182 K/uL Mean Platelet Volume 10.6 fL Activated Partial Thromboplast Time 33.4 SECONDS Partial Thromboplastin Ratio 1.3 Sodium Level 139 mmol/L Potassium Level 3.7 mmol/L Chloride Level 104 mmol/L Carbon Dioxide Level 29 mmol/L Anion Gap 6.0 mmol/L Blood Urea Nitrogen 19 mg/dl Creatinine 1.10 mg/dl Est Creatinine Clear Calc Drug Dose 71.0 ml/min Estimated GFR () 61.0 Estimated GFR (Non- 52.6 BUN/Creatinine Ratio 17.0 Random Glucose 102 mg/dl Calcium Level 9.3 mg/dl Assessment and Plan 66 year old female presenting with right hip pain but apparently being in A.fib with RVR at the time of admission. Afib is rate controlled and she is appropriately anticoagulated. Main concern at this time is her pain in the right hip. Orthopedic surgery following patient. Patient noted to have elevated inflammatory markers at this time. No focal symptoms. With right hip pain, this would warrant consideration for osteomyelitis or discitis evaluation. Our plan for her is as follows: Right Hip Pain - X-ray negative for acute fracture - US negative for DVT - Ortho consulted; recommendations appreciated Elevated CRP at 16 MRI L-spine and Pelvis/Right hip (non-contrast) to rule out osteomyelitis vs discitis - Pain management consulted for recommendations to manage pain; recommendations appreciated Dilaudid STRUCTURAL FITTER discontinued; changed over to Dilaudid 2 mg q4h PRN pain Continue Fentanyl patch 75 mcg q 72 hours Discontinued Gabapentin Afib with RVR - Currently rate controlled - Currently on Eliquis for anticoagulation - Will get follow-up with cardiology as an outpatient History of EtOH consumption - Lorazepam PRN; has not required yet - No evidence of withdrawal ssx - Continue Thiamine daily DVT Prophylaxis - On Eliquis as noted above Code Status - Level I Code Disposition - PT/OT ordered Continued [facility] stay due to: inadequate oral pain control Discharge planning: uncertain Reviewed: Pt Seen/Exam by Me History pain worse today. was up walking in the hallway with physical therapy Constitutional: denies: fever Respiratory: negative: short of breath Cardiovascular: denies chest pain Gastrointestinal/Abdominal: negative: abdominal pain General Appearance: other (sitting in chair) Respiratory: no respiratory distress Cardiovascular: regular rate, rhythm Neurologic/Psychiatric: alert, oriented x 3 Skin Characteristics: warm/dry Assessment/Plan Resident Physician Supervision Note: I was present with Dr. Mesa in bedside. I verified the gaytan history and physical, reviewed labs and image studies, discussed the case with the resident and agree with the findings and care plan.
[2017-03-14] MEDS ORDERED: NURSING VERBAL MED ORDER ONE (13:15)
--- NOTE | 2017-03-14 13:34 | Medical Consult ---
Consultation Date of Consultation: Mar 14, 2017. Attending Physician: June Wright M.D. History of Present Illness pt admitted with increased r hip pain, has h/o DJD with injections in past ( little response), also has poor response to narcotics. initial x ray with no fracture, doppler done as well showing no DVT but popliteal cyst. CXR negative in ER. No fevers since admission. No abx this admission. UA with 10-30 wbc, mod leuk esterase but no bacteria and > 30 epithelial cells, culture with strep bacteria, ? colonization. Pt denies any symptoms prior to admission, no dysuria, no hematuria, dysuria, frequency/urgency. 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 [place], no sick contact, felt well. Was not taking lasix and has increased edema. No getting diuresis and has cruz in place. Does admit to LE edema. CT spine showed DJD at L4/L5. Ortho eval obtained and pt is for MRI to r/o verterbal/hip osteo/discitis due to elevated inflamm markers. CRP is 16 and ESR 70 (was 40's-50's in 2016). She is oob to chair on my exam and with the exception of continued R hip pain she has no complaints. She denies cp, sob, wheeze, cough, n/v/d/abd pain, no symptoms, no rash/skin lesions, no joint swelling, no insect bites, no f/c, no burt, no visual change. She does have a h/o etoh abuse. She denies any falls or trauma to right hip, states pain began spontaneously and increased over the last 2 weeks. She does have a family member present but refuses to allow him to participate in HPI, she has asked him to leave the room multiple times during my exam. She is tolerating pain meds, awaiting MRI. No blood culture done.She initially had a wbc of 11, improved to 5 off of abx. She was also found to be in afib with rvr on admission, now on anticoag. She does have h/o b/l tkr, in 1971,1981, no complications/infections. All remaining ros reviewed and are negative. Past Medical/Surgical History Medical Problems: (1) Atrial fibrillation with rapid ventricular response Status: Acute (2) Diverticulitis of colon with perforation Status: Acute (3) DJD (degenerative joint disease) Status: Acute (4) Epigastric pain Status: Acute (5) Right hip pain Status: Acute Family History Cancer Diabetes mellitus Heart disease Hypertension Social History Smoking Status: Former Smoker Drug Use: none Marital Status: Housing Status: lives with family Occupation Status: unemployed Allergies Coded Allergies: Liraglutide (Verified Allergy, Intermediate, HIVES, 03/10/17) Phenol (Verified Allergy, Intermediate, HIVES, 03/10/17) Propylene Glycol (Verified Allergy, Intermediate, HIVES, 03/10/17) Pregabalin (Verified Adverse Reaction, Intermediate, HIVES, 03/10/17) Current Inpatient Medications Current Inpatient Medications Medications (Trade) Dose Ordered Sig/Luis Route Start Time Stop Time Status Last Admin Dose Admin Hydromorphone HCl (Dilaudid Inj) 2 mg Q4H PRN IV 03/10/17 17:45 03/24/17 17:44 Future hold 03/11/17 15:59 2 MG Acetaminophen (Tylenol Tab) 650 mg Q4H PRN PO 03/10/17 17:45 04/09/17 17:44 Magnesium Hydroxide (Milk Of Magnesia Susp) 30 ml Q12H PRN PO 03/10/17 17:45 04/09/17 17:44 Zolpidem Tartrate (Ambien Tab) 5 mg HSZ PRN PO 03/10/17 17:45 04/09/17 17:44 03/10/17 20:56 5 MG Nitroglycerin (Nitrostat Tab) 0.4 mg UD PRN SL 03/10/17 17:45 04/09/17 17:44 Aspirin (Ecotrin Tab) 325 mg QAM PO 03/10/17 17:37 04/09/17 17:36 03/14/17 08:38 325 MG Polyethylene (Miralax Powder Packet) 17 gm DAILY PRN PO 03/10/17 17:45 04/09/17 17:44 Atorvastatin Calcium (Lipitor Tab) 40 mg HS PO 03/10/17 21:00 04/09/17 20:59 03/13/17 20:30 40 MG Cholecalciferol (Vitamin D Tab) 5,000 inter.unit DAILY PO 03/11/17 09:00 04/10/17 08:59 03/14/17 08:40 5,000 INTER.UNIT Magnesium Citrate (Citrate Of Magnesia Soln) 120 ml BID PRN PO 03/10/17 18:15 04/09/17 18:14 Fentanyl (Duragesic Patch) 75 mcg Q72H TD 03/11/17 09:00 03/25/17 08:59 03/14/17 08:42 75 MCG Lorazepam (Ativan Tab) PRN Dosing -Active Protocol UD PRN PO 03/10/17 18:15 04/09/17 18:14 Lorazepam (Ativan Inj) PRN Dosing -Active Protocol Q1H PRN IV 03/10/17 18:15 04/09/17 18:14 Thiamine HCl (Vitamin B-1 Tab) 100 mg Q24H PO 03/11/17 09:00 04/10/17 08:59 03/14/17 08:39 100 MG Miscellaneous (Fentanyl Patch Remove & Waste) 1 ea Q72H N/A 03/11/17 08:59 04/10/17 08:58 03/14/17 08:43 1 EA Miscellaneous Information (Check Fentanyl Patch Placement) 1 ea QS N/A 03/11/17 00:00 04/10/17 00:00 03/14/17 08:44 1 EA Metoprolol Tartrate (Lopressor Tab) 12.5 mg TID PO 03/11/17 14:00 04/10/17 13:59 03/14/17 08:39 12.5 MG Diclofenac Sodium (Voltaren 1% Top Gel) 1 appln QID EXT 03/11/17 13:00 04/10/17 12:59 03/14/17 13:05 1 APPLN Gabapentin (Neurontin Cap) 300 mg HS PO 03/11/17 21:00 04/10/17 20:59 Future Hold 03/13/17 20:28 300 MG Gabapentin (Neurontin Cap) 100 mg QAM PO 03/12/17 09:00 04/11/17 08:59 Future Hold 03/14/17 08:39 100 MG Naloxone HCl (Narcan Inj) 0.1 mg Q5M PRN IV 03/11/17 16:15 03/25/17 16:14 Hydromorphone HCl (Dilaudid Terminal Gauger Supervisor) 25 mg PRN PRN IV 03/11/17 16:15 03/25/17 13:57 Future Hold 03/11/17 17:13 25 MG Docusate Sodium (coLACE CAP) 100 mg BID PO 03/11/17 21:00 03/25/17 16:14 03/14/17 08:39 100 MG Sodium Chloride 1,000 ml @ 15 mls/hr Q24H IV 03/11/17 16:06 03/25/17 16:14 03/13/17 16:08 15 MLS/HR Apixaban (Eliquis Tab) 5 mg BID PO 03/12/17 21:00 04/11/17 20:59 03/14/17 08:40 5 MG Miscellaneous Information (Nursing Verbal Med Order) 1 ea ONE ONCE N/A 03/14/17 13:15 03/14/17 13:16 UNV Physical Exam Date Time Temp Pulse Resp B/P (MAP) Pulse Ox O2 Delivery O2 Flow Rate FiO2 03/14/17 11:17 36.6 67 20 98/54 (69) 98 Room Air 03/14/17 08:00 Room Air 03/14/17 07:10 36.7 65 18 107/70 (82) 94 Room Air 03/14/17 04:18 36.7 64 20 103/67 (79) 100 Room Air 03/14/17 00:45 Room Air 03/13/17 23:14 36.7 60 20 92/64 (73) 96 Room Air 03/13/17 19:30 36.7 68 20 97/64 (75) 98 Room Air 03/13/17 19:15 Room Air 03/13/17 16:00 Room Air 03/13/17 15:33 36.7 61 20 102/67 (79) 99 Room Air 03/13/17 13:34 68 92/47 (62) General Appearance: WD/WN, no apparent distress, + mild distress Head: normocephalic Eyes: normal inspection, EOMI Neck: supple Respiratory/Chest: lungs clear, normal breath sounds, no respiratory distress, no accessory muscle use Cardiovascular: regular rate, rhythm, no murmur Abdomen/GI: non tender, soft Extremities/Musculoskelatal: no calf tenderness, + pedal edema, + swelling, + pertinent finding (b/l tkr well healed, closed, no surrounding erythema/edema. induration, tenderness, warmth) Neurologic/Psych: alert, oriented x 3 Skin: normal color, warm/dry Laboratory Results Item Value Date Time Urine Culture - Final Complete 03/10/171644 Urine,Catheterized Gamma Strep Not Enterococcus Urine Renal Epithelial Cells >30 /lpf H 03/10/17 1645 Last 24 Hours Test 03/13/17 15:43 03/14/17 07:15 Erythrocyte Sedimentation Rate 70 mm/hr C-Reactive Protein 16.90 mg/dl 16.20 mg/dl White Blood Count 5.18 K/uL Red Blood Count 3.15 M/uL Hemoglobin 10.2 g/dL Hematocrit 31.4 % Mean Corpuscular Volume 99.7 fL Mean Corpuscular Hemoglobin 32.4 pg Mean Corpuscular Hemoglobin Concent 32.5 g/dl RDW Standard Deviation 45.4 fL RDW Coefficient of Variation 12.5 % Platelet Count 182 K/uL Mean Platelet Volume 10.6 fL Activated Partial Thromboplast Time 33.4 SECONDS Partial Thromboplastin Ratio 1.3 Sodium Level 139 mmol/L Potassium Level 3.7 mmol/L Chloride Level 104 mmol/L Carbon Dioxide Level 29 mmol/L Anion Gap 6.0 mmol/L Blood Urea Nitrogen 19 mg/dl Creatinine 1.10 mg/dl Est Creatinine Clear Calc Drug Dose 71.0 ml/min Estimated GFR () 61.0 Estimated GFR (Non- 52.6 BUN/Creatinine Ratio 17.0 Random Glucose 102 mg/dl Calcium Level 9.3 mg/dl Assessment & Plan (1) Right hip pain Status: Acute Assessment & Plan: unclear significance of elevated esr/crp. no previous crp here but esr was elevated in past as well, ? inflammatory joint. agree with mri r/o disc disease/ostoe. hold abx as she is afebrile since admission and clinically stable. Doubt urine culture is significant as she is asymp and had multiple epithelial cells on UA. if concerned, would repeat ua with micro and culture. If fever, would check bloodculture. will follow mri results. thank you
[2017-03-14] MEDS: HYDROmorphone INJ 2 MG/ML SYR/VIAL IV PRN ×2 (16:00→20:06)
--- NOTE | 2017-03-14 21:23 | DIAGNOSTIC IMAGING REPORT ---
PELVIS WITHOUT CONTRAST (MRI) CLINICAL HISTORY: 66 years-old Female presenting with PLEASE INCLUDE RIGHT HIP; evaluate for osteomyelitis. TECHNIQUE: Multisequence, multiplanar MR imaging of the pelvis was performed without the use of intravenous contrast. IV contrast: None. COMPARISON: Plain radiographs of the right hip from 03/10/[address] from 04/29/2016. FINDINGS: Localizer images: Endometrial thickness measures 15 mm, unexpected for postmenopausal status. Severe bilateral degenerative changes of the hips, worse on the right. Bone marrow signal intensity within the right acetabulum and right femoral head and neck is T1 hypointense and T2 hyperintense indicative of bony edema. Bilateral subchondral cystic change noted in the superior acetabula. Joint space loss and articular surface collapse along the superior right femoral head with subchondral bony changes. The right femoral head remains congruent in the hip joint. Osteophytosis also noted. Labrum poorly visualized, likely extensively degenerated. Extensive synovial thickening on the right. No significant joint effusion. Similar degenerative changes noted on the left although not quite as severe. Intramuscular edema in the right gluteus minimus and to lesser extent in the right gluteus medius medius. Minimal edema noted in the left gluteus minimus. Abrams catheter in place in the urinary bladder. IMPRESSION: 1. Severe degenerative changes of the right hip joint with joint space loss, subcortical collapse, and cystic changes in the superior acetabulum. Extensive bony and intramuscular edema and synovitis, likely related to degenerative change. 2. Moderate to severe degenerative changes of the left hip joint with joint space loss and subchondral bony changes also noted. 3. Endometrial thickness measures 15 mm, which is unexpected in a postmenopausal female. This may represent benign endometrial hyperplasia, however the primary diagnostic concern is endometrial neoplasm. Further evaluation with gynecologic consultation for endometrial biopsy recommended. Electronically signed by: Preston Muñiz M.D. 03/14/2017 9:21 PM Dictated Date/Time: 03/14/2017 9:12 PM
[2017-03-14] MEDS: ATORVASTATIN 40 MG TAB PO SCH (21:29)
[2017-03-15] MEDS: CHECK FENTANYL PATCH PLACEMENT SCH ×3 (00:20→15:39)
[2017-03-15] MEDS: HYDROmorphone INJ 2 MG/ML SYR/VIAL IV PRN ×5 (00:27→22:16)
[2017-03-15 07:36] VITALS: BP 123/70; PULSE 63; TEMP 36.8; O2SAT 98
[2017-03-15] MEDS: METOPROLOL TARTRATE 25 MG TAB PO SCH ×3 (08:08→20:09)
[2017-03-15] MEDS: ASPIRIN 325 MG ECTAB PO SCH (08:08)
[2017-03-15] MEDS: DICLOFENAC SOD 1% GEL 100 GM TUBE EXT SCH ×4 (08:09→21:00)
[2017-03-15] MEDS: DOCUSATE SODIUM 100 MG CAP PO SCH ×2 (08:09→20:09)
[2017-03-15] MEDS: THIAMINE HCL 100 MG TAB PO SCH (08:13)
[2017-03-15] MEDS: APIXABAN 2.5 MG TAB PO SCH ×2 (08:13→20:11)
[2017-03-15] MEDS: CHOLECALCIFEROL 1000 INTER.UNIT TAB PO SCH (08:14)
[2017-03-15] MEDS: MICONAZOLE NITRATE POWDER 43 GM EXT PRN (08:21)
[2017-03-15 08:26] LABS: HEMATOCRIT 32.7 % (37-47); MEAN CORPUSCULAR HEMOGLOBIN 32.4 pg (25-34); MEAN CORPUSCULAR HGB CONC 32.4 g/dl (32-36); MEAN PLATELET VOLUME 10.2 fL (7.4-10.4); PLATELET COUNT 206 K/uL (130-400); RED BLOOD COUNT 3.27 M/uL (4.2-5.4); WHITE BLOOD COUNT 5.25 K/uL (4.8-10.8)
[2017-03-15 08:34] LABS: PARTIAL THROMBOPLASTIN RATIO 1.3
[2017-03-15 08:57] LABS: BUN/CREATININE RATIO 17.7 (10-20); CALCIUM 9.4 mg/dl (8.5-10.1); POTASSIUM 3.8 mmol/L (3.5-5.1)
--- NOTE | 2017-03-15 08:59 | Pain Management Consultation ---
Pain Management Consultation Date of Consultation Mar 15, 2017. Reason for Consultation Intractable right gluteal, hip and groin pain Pain Location 1 - 2 - History Patient is a 66-year-old morbidly obese white female who is admitted due to intractable right-sided gluteal, hip and groin pain without known injury. 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 Vega. She was recently on a long extensive car trip and upon return developed her current pain complaint. She denies falls or known injuries. She was ambulating slightly more than normal during the trip. She reports occasional pain traveling into the lower extremity to the ankle on the right side which is nondermatomal in nature. She reports pain is fairly consistent with sitting, standing or walking. She reports a prior history of multiple opiate analgesics which have been ineffective at pain control and describes an outpatient genetic tests completed by her family physician-Dr. 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 She is currently utilizing fentanyl and hydromorphone orally with minimal pain relief. Next Patient was found to have new onset atrial fibrillation during this hospitalization and is currently being anticoagulated with Eliquis therapy. The patient denies fevers, chills or night sweats. She does report some chronic axial low back pain which is bilaterally and equal without recent change. She is reporting minimal left-sided hip pain at this time. She reports a prior history of intra-articular injections into the hip regions without relief of symptoms. Patient denies any bowel or bladder incontinence. She denies saddle anesthesias. She has no further constitutional complaints. Plan of care discussed with Dr. Juju Hanna. Past Medical/Surgical History (1) Alcoholism (2) History of right knee surgery (3) History of left knee surgery (4) Diverticulitis large intestine (5) Dehydration (6) Epigastric pain (7) Myalgia (8) UTI (urinary tract infection) (9) Abdominal pain (10) Withdrawal complaint (11) Atrial fibrillation, new onset (12) DJD (degenerative joint disease) (13) Right hip pain (14) Atrial fibrillation with rapid ventricular response (15) Family history of diabetes mellitus (16) Family history of cancer (17) Family history of hypertension (18) Family history of heart disease Family History Cancer Diabetes mellitus Heart disease Hypertension Social / Work History Smoking Status: Former smoker Smokeless Tobacco Use: No Alcohol Use: heavy Drug Use: none Marital Status: Occupation: unemployed Allergies Coded Allergies: Liraglutide (Verified Allergy, Intermediate, HIVES, 03/10/17) Phenol (Verified Allergy, Intermediate, HIVES, 03/10/17) Propylene Glycol (Verified Allergy, Intermediate, HIVES, 03/10/17) Pregabalin (Verified Adverse Reaction, Intermediate, HIVES, 03/10/17) Medications Current Inpatient Medications Medications (Trade) Dose Ordered Sig/Luis Route Start Time Stop Time Status Last Admin Dose Admin Hydromorphone HCl (Dilaudid Inj) 2 mg Q4H PRN IV 03/10/17 17:45 03/24/17 17:44 Future hold 03/15/17 08:21 2 MG Acetaminophen (Tylenol Tab) 650 mg Q4H PRN PO 03/10/17 17:45 04/09/17 17:44 03/14/17 21:27 650 MG Magnesium Hydroxide (Milk Of Magnesia Susp) 30 ml Q12H PRN PO 03/10/17 17:45 04/09/17 17:44 Zolpidem Tartrate (Ambien Tab) 5 mg HSZ PRN PO 03/10/17 17:45 04/09/17 17:44 03/10/17 20:56 5 MG Nitroglycerin (Nitrostat Tab) 0.4 mg UD PRN SL 03/10/17 17:45 04/09/17 17:44 Aspirin (Ecotrin Tab) 325 mg QAM PO 03/10/17 17:37 04/09/17 17:36 03/15/17 08:08 325 MG Polyethylene (Miralax Powder Packet) 17 gm DAILY PRN PO 03/10/17 17:45 04/09/17 17:44 Atorvastatin Calcium (Lipitor Tab) 40 mg HS PO 03/10/17 21:00 04/09/17 20:59 03/14/17 21:29 40 MG Cholecalciferol (Vitamin D Tab) 5,000 inter.unit DAILY PO 03/11/17 09:00 04/10/17 08:59 03/15/17 08:14 5,000 INTER.UNIT Magnesium Citrate (Citrate Of Magnesia Soln) 120 ml BID PRN PO 03/10/17 18:15 04/09/17 18:14 Fentanyl (Duragesic Patch) 75 mcg Q72H TD 03/11/17 09:00 03/25/17 08:59 03/14/17 08:42 75 MCG Lorazepam (Ativan Tab) PRN Dosing -Active Protocol UD PRN PO 03/10/17 18:15 04/09/17 18:14 Lorazepam (Ativan Inj) PRN Dosing -Active Protocol Q1H PRN IV 03/10/17 18:15 04/09/17 18:14 Thiamine HCl (Vitamin B-1 Tab) 100 mg Q24H PO 03/11/17 09:00 04/10/17 08:59 03/15/17 08:13 100 MG Miscellaneous (Fentanyl Patch Remove & Waste) 1 ea Q72H N/A 03/11/17 08:59 04/10/17 08:58 03/14/17 08:43 1 EA Miscellaneous Information (Check Fentanyl Patch Placement) 1 ea QS N/A 03/11/17 00:00 04/10/17 00:00 03/15/17 08:19 1 EA Metoprolol Tartrate (Lopressor Tab) 12.5 mg TID PO 03/11/17 14:00 04/10/17 13:59 03/15/17 08:08 12.5 MG Diclofenac Sodium (Voltaren 1% Top Gel) 1 appln QID EXT 03/11/17 13:00 04/10/17 12:59 03/15/17 08:09 1 APPLN Gabapentin (Neurontin Cap) 300 mg HS PO 03/11/17 21:00 04/10/17 20:59 Future Hold 03/13/17 20:28 300 MG Gabapentin (Neurontin Cap) 100 mg QAM PO 03/12/17 09:00 04/11/17 08:59 Future Hold 03/14/17 08:39 100 MG Naloxone HCl (Narcan Inj) 0.1 mg Q5M PRN IV 03/11/17 16:15 03/25/17 16:14 Hydromorphone HCl (Dilaudid Floatlight Powder Mixer) 25 mg PRN PRN IV 03/11/17 16:15 03/25/17 13:57 Future Hold 03/11/17 17:13 25 MG Docusate Sodium (coLACE CAP) 100 mg BID PO 03/11/17 21:00 03/25/17 16:14 03/15/17 08:09 100 MG Sodium Chloride 1,000 ml @ 15 mls/hr Q24H IV 03/11/17 16:06 03/25/17 16:14 Future Hold 03/13/17 16:08 15 MLS/HR Apixaban (Eliquis Tab) 5 mg BID PO 03/12/17 21:00 04/11/17 20:59 03/15/17 08:13 5 MG Miconazole Nitrate (Desenex Powder) 1 appln PRN PRN EXT 03/14/17 14:00 04/13/17 13:59 03/15/17 08:21 1 APPLN Review of Systems Patient denies complaints related to cardiac, pulmonary, GI, , endocrine, neurologic, hepatic, renal, ENT, dermatologic or musculoskeletal other than those described above in the history of present illness. Physical Exam Height & Weight: Height 5 feet, 7.00 inches. Weight 128.700 (Kilograms) 283 (Pounds) Last Vital Signs Documentation Date Time Temp Pulse Resp B/P (MAP) Pulse Ox O2 Delivery O2 Flow Rate FiO2 03/15/17 07:36 36.8 63 20 123/70 (87) 98 Room Air 03/14/17 19:22 2.0 Exam: Gen.: Patient lying in the exam room upon entering in no obvious acute distress. Patient is morbidly obese. Speech and thought process appropriate. Mood and affect appropriate. Cognition intact. Back/spine: Slightly exaggerated lumbar lordosis. Patient nontender over the midline of palpation or percussion. Patient moderately tender to paravertebral muscular at the lumbosacral junction right greater left-sided. No focal facet joint tenderness. Patient is is grossly tender over the right SI joint location extending into the gluteal region to palpation. Patient nontender correspondingly on the left. Lower extremities: Right hip is tender with internal and external rotation. Nontender over the groin to palpation or over the greater trochanter. Sensation was intact without deficit. Straight leg raising was negative bilaterally. Active straight leg raise was limited on the right with increased pain. Strength testing was 5/5 with dorsiflexion and plantar flexion as well as EHL testing. Well-healed anterior incisions over the knees bilaterally. Neurologic: Cranial nerves grossly intact. Ambulatory function not witnessed. Laboratory Laboratory Results (Last CBC): 03/15/17 08:05 Imaging MRI: non enhanced MRI Findings Patient: BELINDA ROWLAND Address1: [address] [place] [address] Rec: [id number] Address2: Acct ID: [id number] [facility] Zip: [place] [address] Date: 1950 Sex: F Room/Bed: [facility] Ref Phy: Tushar Miranda M.D. SC: EDGARDOW Att Phy: June Wright M.D. Report #: [id number] Celina Phy: Tushar Miranda M.D. Test: PWO Admit Phy: Kingsley Dudley MD Financial Manager: BERNARDINO Interpreting Phy: Preston Muñiz MD Diagnosis: ATRIAL FIBRILLATION, NEW ONSET Ordering Phy: Benson Mesa MD Service Date: 03/14/17 Admit Date: 03/10/1707/28/17 MNE: [id number] CONF: DICTATED BY: Preston Muñiz MD]] CC: Tushar Miranda M.D. Singh, Madhavi, M.D. Thatte, Amit, MD Endcc: DIAGNOSTIC IMAGING ] PELVIS WITHOUT CONTRAST (MRI) CLINICAL HISTORY: 66 years-old Female presenting with PLEASE INCLUDE RIGHT HIP; evaluate for osteomyelitis. TECHNIQUE: Multisequence, multiplanar MR imaging of the pelvis was performed without the use of intravenous contrast. IV contrast: None. COMPARISON: Plain radiographs of the right hip from 03/10/[address] from 04/29/2016. FINDINGS: Localizer images: Endometrial thickness measures 15 mm, unexpected for postmenopausal status. Severe bilateral degenerative changes of the hips, worse on the right. Bone marrow signal intensity within the right acetabulum and right femoral head and neck is T1 hypointense and T2 hyperintense indicative of bony edema. Bilateral subchondral cystic change noted in the superior acetabula. Joint space loss and articular surface collapse along the superior right femoral head with subchondral bony changes. The right femoral head remains congruent in the hip joint. Osteophytosis also noted. Labrum poorly visualized, likely extensively degenerated. Extensive synovial thickening on the right. No significant joint effusion. Similar degenerative changes noted on the left although not quite as severe. Intramuscular edema in the right gluteus minimus and to lesser extent in the right gluteus medius medius. Minimal edema noted in the left gluteus minimus. Abrams catheter in place in the urinary bladder. IMPRESSION: 1. Severe degenerative changes of the right hip joint with joint space loss, subcortical collapse, and cystic changes in the superior acetabulum. Extensive bony and intramuscular edema and synovitis, likely related to degenerative change. 2. Moderate to severe degenerative changes of the left hip joint with joint space loss and subchondral bony changes also noted. 3. Endometrial thickness measures 15 mm, which is unexpected in a postmenopausal female. This may represent benign endometrial hyperplasia, however the primary diagnostic concern is endometrial neoplasm. Further evaluation with gynecologic consultation for endometrial biopsy recommended. Electronically signed by: Preston Muñiz M.D. 03/14/2017 9:21 PM Dictated Date/Time: 03/14/2017 9:12 PM The status of this report is Signed. Draft = Not yet reviewed or approved by Radiologist. Signed = Reviewed and approved by Radiologist. CT: non enhanced CT Findings Patient: BELINDA ROWLAND Address1: [address] [place] [address] Rec: [id number] Address2: [facility] ID: [id number] [facility] Zip: [place] [address] Date: 1950 Sex: F Room/Bed: 552 Ref Phy: Tushar Miranda M.D. SC: MartinaMS2 Att Phy: June Wright M.D. Report #: [id number] Celina Phy: Tushar Miranda M.D. Test: LSWO Admit Phy: Kingsley Dudley MD Financial Manager: DORI Interpreting Phy: Preston Muñiz MD Diagnosis: ATRIAL FIBRILLATION, NEW ONSET Ordering Phy: Umesh Wilkes PA-C Service Date: 03/13/17 Admit Date: 03/10/1707/28/17 MNE: [id number] CONF: DICTATED BY: Preston Muñiz MD]] CC: Pandolph, Tushar J.Jaden Brian T., PA-C Singh, Madhavi, M.D. Endcc: [~ rep ct add3]] LUMBAR SPINE WITHOUT CLINICAL HISTORY: 66 years-old Female presenting with low back pain, radiculopathy, right hip pain. TECHNIQUE: Multidetector CT of the lumbar spine was performed without the use of intravenous contrast. IV contrast: None. A dose lowering technique was used consistent with the principles of ALARA (as low as reasonably achievable). COMPARISON: Correlation made to CT of the abdomen and pelvis from 04/29/2016. CT DOSE (mGy.cm): The estimated cumulative dose is 2227.47 mGy.cm. FINDINGS: [employer] topogram: Unremarkable. Normal lumbar lordosis with mild dextrocurvature of the spine. Vertebral body heights and alignment maintained. Intervertebral disc height loss at L2-3. Remaining intervertebral disc spaces are essentially preserved. Degenerative changes further detailed below: T12-L1: Minimal anterior osteophytosis. No significant osseous neural foraminal or spinal canal stenosis. L1-2: Central partially ossified posterior disc bulge mildly effaces the ventral thecal sac. Facet arthropathy, worse on the left, results in mild left neural foraminal narrowing. L2-3: Disc bulge, disc height loss, vacuum disc phenomenon, endplate sclerosis and cystic changes noted. Mild effacement of the ventral thecal sac secondary to disc bulge. Moderate bilateral osseous neural foraminal narrowing. L3-4: Facet arthropathy with mild bilateral neural foraminal narrowing. No significant spinal canal narrowing. L4-5: Right facet arthropathy results in severe right osseous neural foraminal narrowing. No significant spinal canal narrowing. L5-S1: Facet arthropathy with mild bilateral osseous neural foraminal narrowing. No significant spinal canal narrowing. Paraspinal soft tissues normal. Atherosclerosis. IMPRESSION: Multilevel degenerative change with varying degrees of neural foraminal narrowing most severe on the right at L4-5. Varying degrees of canal effacement as detailed above. The degree of spinal stenosis would be better demonstrated on MR. Electronically signed by: Preston Muñiz M.D. 03/13/2017 2:56 PM Dictated Date/Time: 03/13/2017 2:48 PM The status of this report is Signed. Draft = Not yet reviewed or approved by Radiologist. Signed = Reviewed and approved by Radiologist. Assessment 1. Severe degenerative changes right hip joint per MRI with extensive bony an intramuscular edema/synovitis 2. Moderate to severe degenerative the left hip joint with joint space loss and subchondral bony changes 3. Right-sided sacroiliitis 4. Morbid obesity 5. Elevated inflammatory markers of unknown etiology 6. New onset atrial fibrillation with RVR on anticoagulation therapy with Eliquis 7. Alcoholism Recommendations 1. Patient with acute onset of right gluteal, hip and groin pain with severe degenerative changes with joints pain loss, subcortical collapse and cystic changes with extensive bony an intramuscular edema and synovitis likely related general change. Etiologies of her current pain complaints and treatment options were discussed. Prior intra-articular injections have been without symptomatic benefit-defer to Dr. Vega regarding his recommendations. We discussed her potential candidacy for diagnostic SI joint versus intra- articular right hip injection which could be completed in the outpatient setting pending definitive orthopedic recommendations. 2. Consider course of steroids due to elevated inflammatory markers and evidence of edema/synovitis involving the right hip should there be no contraindications from hospitalist standpoint 3. We discussed a trial of gabapentin which was recently held-uncertain reason. Will defer to hospitalist recommendations. 4. Would not recommend escalation of opiates and would consider diminished dosing due to lack of perceived efficacy. Will contact Dr. Miranda's office regarding her report of prior genetic testing regarding opiate metabolism. Thank you for allowing us to participate in the care of Mrs. Rowland.
--- NOTE | 2017-03-15 09:14 | PROGRESS NOTE ---
DATE: 03/15/2017 SUBJECTIVE: Persistent right hip and leg pain. HISTORY OF PRESENT ILLNESS: The patient is a 66-year-old female with advanced bilateral hip arthritis, admitted with a new onset atrial fibrillation. Atrial fibrillation seems to be under control. She is on Eliquis now. She continues to be bothered by severe right hip and leg pain. She had an MRI of her hip yesterday, but could not tolerate the MRI of the lumbar spine. Infectious disease has seen her. Denies any new symptoms. She has buttock pain and hip pain. She did get up and move some and was out of bed yesterday and seems to be doing a little bit better. OBJECTIVE: VITAL SIGNS: Temperature is 36.8. Vital signs stable. GENERAL: Physical examination reveals an obese, middle-aged female. She is lying in bed. She looks extremely deconditioned. EXTREMITIES: Examination of both legs reveals no obvious deformity. Her leg lengths appear equal. She has got marked pain with hip motion on the right side. Mild pain on the left side. She has got diffuse edema in the lower extremities. She is grossly neurologically intact. IMAGING STUDIES: Her MRI of the pelvis was reviewed. It shows advanced bilateral hip DJD. It is right sided greater than left. Imaging studies are most consistent with degenerative arthritis, but advanced and collapse of the femoral head. I do not think this is consistent with infection. Some concern for endometrial abnormality. LUMBAR SPINE MRI: Unfortunately, she was unable to tolerate any further MRI. LABORATORY DATA: Hemoglobin 10.6, hematocrit 32.7, and white count normal. ASSESSMENT: A 66-year-old female admitted with new onset atrial fibrillation with advanced bilateral hip degenerative joint disease, morbid obesity and severe deconditioning. She has elevated sed rate and C-reactive protein for unclear reasons. There are no focal signs of infection. PLAN: At this point, she seems to be doing a little bit better from a pain standpoint. The pain service has been consulted to help manage this. She really needs to try and taper off all narcotics if possible. I do think we need to get the MRI of her spine and make sure she does not have some discitis or infection of her spine. If that is clear, I think we can discharge her and plan on proceeding with hip replacement surgery. We do a right hip first as that is the most severe and I think that is the source of the majority of her problems. Additionally, she is on chronic narcotics, which are going to make any postoperative pain control difficult, but it is going to be hard to wean her off that over the next month. I would recommend obtaining this MRI and if it looks clear, then I think we can discharge and we will plan on proceeding with surgery as previously in about a month. If the spine MRI shows no signs of infection, we will see if we can move her surgery up, but that may not be possible. Other considerations for the diagnosis for the elevated sed rate would be just inflammatory arthritis versus polymyalgia rheumatica, which are both possibilities versus this endometiral abnormality. I would recommend a Gynecology eval to get their assessment of the situation. Any orthopedic questions can be directed to me at [phone]. [facility]
--- NOTE | 2017-03-15 12:36 | Family Medicine Progress Note ---
Progress Note Date of Service Mar 15, 2017. Subjective Pt evaluation today including: conversation w/ patient, physical exam, chart review, lab review Pain: Unchanged Voiding: cruz catheter in place Continues to have pain "I know theres something going on inside my hip and it isnt arthritis" Occasionally frustrated at inability to walk and uncontrolled pain No acute issues overnight Noted by nursing that patient did not tolerate lumbar MRI due to pain. Constitutional: No fever, No chills, No sweats, No weight loss Eyes: No worsening of vision, No eye pain, No redness ENT: No nasal symptoms, No sore throat Respiratory: No cough, No sputum, No wheezing Cardiovascular: No chest pain, No claudication, No palpitations Breast: No breast lump, No change in shape Abdomen: No pain, No nausea, No vomiting, No diarrhea, No constipation Musculoskeletal: + joint pain Female : No dysuria, No urinary frequency Neurologic: No weakness, No numbness/tingling, No vertigo Psychiatric: No depression symptoms, No anxiety, No insomnia Heme: No abnormal bleeding/bruising, No clotting problems, No swollen lymph nodes Endo: No fatigue, No excessive thirst, No excessive urination Skin: No new/changing skin lesions, No color change All Other Systems: Reviewed and Negative Medications Current Inpatient Medications Medications (Trade) Dose Ordered Sig/Luis Route Start Time Stop Time Status Last Admin Dose Admin Hydromorphone HCl (Dilaudid Inj) 2 mg Q4H PRN IV 03/10/17 17:45 03/24/17 17:44 Future hold 03/15/17 08:21 2 MG Acetaminophen (Tylenol Tab) 650 mg Q4H PRN PO 03/10/17 17:45 04/09/17 17:44 03/14/17 21:27 650 MG Magnesium Hydroxide (Milk Of Magnesia Susp) 30 ml Q12H PRN PO 03/10/17 17:45 04/09/17 17:44 Zolpidem Tartrate (Ambien Tab) 5 mg HSZ PRN PO 03/10/17 17:45 04/09/17 17:44 03/10/17 20:56 5 MG Nitroglycerin (Nitrostat Tab) 0.4 mg UD PRN SL 03/10/17 17:45 04/09/17 17:44 Aspirin (Ecotrin Tab) 325 mg QAM PO 03/10/17 17:37 04/09/17 17:36 03/15/17 08:08 325 MG Polyethylene (Miralax Powder Packet) 17 gm DAILY PRN PO 03/10/17 17:45 04/09/17 17:44 Atorvastatin Calcium (Lipitor Tab) 40 mg HS PO 03/10/17 21:00 04/09/17 20:59 03/14/17 21:29 40 MG Cholecalciferol (Vitamin D Tab) 5,000 inter.unit DAILY PO 03/11/17 09:00 04/10/17 08:59 03/15/17 08:14 5,000 INTER.UNIT Fentanyl (Duragesic Patch) 75 mcg Q72H TD 03/11/17 09:00 03/25/17 08:59 03/14/17 08:42 75 MCG Lorazepam (Ativan Tab) PRN Dosing -Active Protocol UD PRN PO 03/10/17 18:15 04/09/17 18:14 Lorazepam (Ativan Inj) PRN Dosing -Active Protocol Q1H PRN IV 03/10/17 18:15 04/09/17 18:14 Thiamine HCl (Vitamin B-1 Tab) 100 mg Q24H PO 03/11/17 09:00 04/10/17 08:59 03/15/17 08:13 100 MG Miscellaneous (Fentanyl Patch Remove & Waste) 1 ea Q72H N/A 03/11/17 08:59 04/10/17 08:58 03/14/17 08:43 1 EA Miscellaneous Information (Check Fentanyl Patch Placement) 1 ea QS N/A 03/11/17 00:00 04/10/17 00:00 03/15/17 08:19 1 EA Metoprolol Tartrate (Lopressor Tab) 12.5 mg TID PO 03/11/17 14:00 04/10/17 13:59 03/15/17 08:08 12.5 MG Diclofenac Sodium (Voltaren 1% Top Gel) 1 appln QID EXT 03/11/17 13:00 04/10/17 12:59 03/15/17 08:09 1 APPLN Gabapentin (Neurontin Cap) 300 mg HS PO 03/11/17 21:00 04/10/17 20:59 Future Hold 03/13/17 20:28 300 MG Gabapentin (Neurontin Cap) 100 mg QAM PO 03/12/17 09:00 04/11/17 08:59 Future Hold 03/14/17 08:39 100 MG Naloxone HCl (Narcan Inj) 0.1 mg Q5M PRN IV 03/11/17 16:15 03/25/17 16:14 Hydromorphone HCl (Dilaudid Metal Solderer) 25 mg PRN PRN IV 03/11/17 16:15 03/25/17 13:57 Future Hold 03/11/17 17:13 25 MG Docusate Sodium (coLACE CAP) 100 mg BID PO 03/11/17 21:00 03/25/17 16:14 03/15/17 08:09 100 MG Sodium Chloride 1,000 ml @ 15 mls/hr Q24H IV 03/11/17 16:06 03/25/17 16:14 Future Hold 03/13/17 16:08 15 MLS/HR Apixaban (Eliquis Tab) 5 mg BID PO 03/12/17 21:00 04/11/17 20:59 03/15/17 08:13 5 MG Miconazole Nitrate (Desenex Powder) 1 appln PRN PRN EXT 03/14/17 14:00 04/13/17 13:59 03/15/17 08:21 1 APPLN Magnesium Citrate (Citrate Of Magnesia Soln) 120 ml BID PRN PO 03/10/17 18:15 04/09/17 18:14 Objective Vital Signs Date Time Temp Pulse Resp B/P (MAP) Pulse Ox O2 Delivery O2 Flow Rate FiO2 03/15/17 08:00 Room Air 03/15/17 07:36 36.8 63 20 123/70 (87) 98 Room Air 03/15/17 02:01 Room Air 03/14/17 23:37 36.7 66 20 116/76 (89) 98 Room Air 03/14/17 21:32 75 104/69 (81) 03/14/17 19:22 36.8 61 20 99/65 (76) 96 2.0 03/14/17 16:00 Room Air 03/14/17 14:50 36.7 65 20 102/65 (77) 100 Room Air 03/14/17 13:42 67 106/68 (81) Physical Exam General Appearance: WD/WN, no apparent distress, + obese Eyes: normal inspection, EOMI ENT: hearing grossly normal, pharynx normal Neck: supple, no adenopathy, no JVD Respiratory/Chest: lungs clear, no respiratory distress Cardiovascular: regular rate, rhythm, no gallop, no murmur Abdomen: normal bowel sounds, non tender, soft Extremities: non-tender, no pedal edema, + pertinent finding (right hip pain; groin radiating to right paraspinal area; pain with any ROM) Neurologic/Psychiatric: alert, normal mood/affect, oriented x 3 Skin: normal color, warm/dry, no rash Lymphatic: no adenopathy Laboratory Results Last 24 Hours Test 03/15/17 08:05 White Blood Count 5.25 K/uL Red Blood Count 3.27 M/uL Hemoglobin 10.6 g/dL Hematocrit 32.7 % Mean Corpuscular Volume 100.0 fL Mean Corpuscular Hemoglobin 32.4 pg Mean Corpuscular Hemoglobin Concent 32.4 g/dl RDW Standard Deviation 46.2 fL RDW Coefficient of Variation 12.6 % Platelet Count 206 K/uL Mean Platelet Volume 10.2 fL Activated Partial Thromboplast Time 34.0 SECONDS Partial Thromboplastin Ratio 1.3 Sodium Level 141 mmol/L Potassium Level 3.8 mmol/L Chloride Level 105 mmol/L Carbon Dioxide Level 28 mmol/L Anion Gap 8.0 mmol/L Blood Urea Nitrogen 18 mg/dl Creatinine 1.00 mg/dl Est Creatinine Clear Calc Drug Dose 78.3 ml/min Estimated GFR () 68.5 Estimated GFR (Non- 59.1 BUN/Creatinine Ratio 17.7 Random Glucose 96 mg/dl Calcium Level 9.4 mg/dl Assessment and Plan 66 year old female presenting with right hip pain but apparently being in A.fib with RVR at the time of admission. Afib is rate controlled and she is appropriately anticoagulated. Current she is being worked up for sudden onset right hip pain and elevated inflammatory markers. Our plan for her is as follows: Right Hip Pain - X-ray negative for acute fracture but positive for known severe DJD; US negative for DVT - Ortho consulted; recommendations appreciated Elevated CRP at 16 - MRI Pelvis shoes not show evidence of osteomyelitis - Did not tolerate MRI L-spine yesterday - Repeat today scheduled for 17:30 under sedation - Pain management recommendations appreciated Dilaudid 2 mg q4h PRN pain; will not escalate at this time Pending evaluation above, may be candidate for outpatient hip or SI joint injection Continue Fentanyl patch 75 mcg q 72 hours Recommend trial of Gabapentin, which I will re-start at this time - ID following; recommendations appreciated Osteoarthritis - Severe hip DJD bilaterally; at this point R hip has become worse than left - Followed by Dr. Vega; orthopedic recommendations appreciated; has hip replacement scheduled for April 2017 Endometrial thickening - Incidentally identified on MRI Pelvis; benign hyperplasia vs neoplasm - Patient denies any vaginal bleeding or constitutional symptoms - Discussed the case with benefits assistant service who will provide further work-up in the outpatient setting Afib with RVR on admission - Currently rate controlled - Currently on Eliquis for anticoagulation - Will get follow-up with cardiology as an outpatient History of EtOH consumption - Lorazepam PRN; has not required yet - No evidence of withdrawal ssx - Continue Thiamine daily DVT Prophylaxis - On Eliquis as noted above Code Status - Level I Code Disposition - PT/OT ordered Continued [facility] stay due to: inadequate oral pain control Discharge planning: uncertain Reviewed: Pt Seen/Exam by Me History right hip and low mid back pain still there. felt worse today Constitutional: denies: fever Respiratory: negative: short of breath Cardiovascular: denies chest pain Gastrointestinal/Abdominal: negative: abdominal pain General Appearance: no apparent distress (laying in bed) Respiratory: no respiratory distress Neurologic/Psychiatric: alert, oriented x 3 Skin Characteristics: warm/dry Assessment/Plan Resident Physician Supervision Note: I was present with Dr. Mesa in bedside. I verified the gaytan history and physical, reviewed labs and image studies, discussed the case with the resident and agree with the findings and care plan.
--- NOTE | 2017-03-15 14:16 | Progress Note ---
Subjective Date of Service: Mar 15, 2017. Subjective remains clinically stable and afebrile off of abx. mri pelvis reviewed, severe hip disease and incidental finding of endometrial thickening and ? neoplasm found. for outpt specialty plant supervisor eval. d/w ortho, no clear infection found, suspect inflamm markers elevated from pelivc/specialty plant supervisor mass. ESR was elevated in 2016 as well. No gu symptoms. no overnight events. pt to continue with pain management and outpt follow up with ortho and specialty plant supervisor. Problem List Medical Problems: (1) Atrial fibrillation with rapid ventricular response Status: Acute (2) Diverticulitis of colon with perforation Status: Acute (3) DJD (degenerative joint disease) Status: Acute (4) Epigastric pain Status: Acute (5) Right hip pain Status: Acute Objective Vital Signs Date Time Temp Pulse Resp B/P (MAP) Pulse Ox O2 Delivery O2 Flow Rate FiO2 03/15/17 12:57 Room Air 03/15/17 08:00 Room Air 03/15/17 07:36 36.8 63 20 123/70 (87) 98 Room Air 03/15/17 02:01 Room Air 03/14/17 23:37 36.7 66 20 116/76 (89) 98 Room Air 03/14/17 21:32 75 104/69 (81) 03/14/17 19:22 36.8 61 20 99/65 (76) 96 2.0 03/14/17 16:00 Room Air 03/14/17 14:50 36.7 65 20 102/65 (77) 100 Room Air Laboratory Results Last 24 Hours Test 03/15/17 08:05 White Blood Count 5.25 K/uL Red Blood Count 3.27 M/uL Hemoglobin 10.6 g/dL Hematocrit 32.7 % Mean Corpuscular Volume 100.0 fL Mean Corpuscular Hemoglobin 32.4 pg Mean Corpuscular Hemoglobin Concent 32.4 g/dl RDW Standard Deviation 46.2 fL RDW Coefficient of Variation 12.6 % Platelet Count 206 K/uL Mean Platelet Volume 10.2 fL Activated Partial Thromboplast Time 34.0 SECONDS Partial Thromboplastin Ratio 1.3 Sodium Level 141 mmol/L Potassium Level 3.8 mmol/L Chloride Level 105 mmol/L Carbon Dioxide Level 28 mmol/L Anion Gap 8.0 mmol/L Blood Urea Nitrogen 18 mg/dl Creatinine 1.00 mg/dl Est Creatinine Clear Calc Drug Dose 78.3 ml/min Estimated GFR () 68.5 Estimated GFR (Non- 59.1 BUN/Creatinine Ratio 17.7 Random Glucose 96 mg/dl Calcium Level 9.4 mg/dl Assessment and Plan (1) Right hip pain Assessment & Plan: No infection found, increased crp/esr could be secondary to underlying djd hip or from underlying specialty plant supervisor process, plans to be followed up as outpt. No additional ID input at this time. ok for d/c when otherwise stable. Continued [facility] stay due to: inadequate oral pain control Discharge planning: uncertain
[2017-03-15 14:53] VITALS: BP 121/69; PULSE 67; TEMP 36.7; O2SAT 100
--- NOTE | 2017-03-15 19:56 | Anesthesiology Progress Note ---
Anesthesia Progress Note Date of Service Mar 15, 2017. Progress Notes The patient is a 66 y/o female with a h/o GERD, Anemia, chronic pain and morbid obesity admitted with R hip pain. The patient is scheduled to undergo MRI of her hip tomorrow under sedation and R hip replacement with Dr. Vega in April. On admission, the patient was found to be in atrial fibrillation with RVR. She was asymptomatic. Cardiology was consulted. An echo was completed with showed normal LV function with no wall motion abnormalities or major valvular disease. The patient spontaneously converted to NSR. Per cardiology, the patient's afib was likely related to a combination of her age, obesity, alcohol use (patient drinks 8-9 shots of bourbon a day) and possibly occult sleep apnea. The patient was started on on Eliquis for anticoagulation and metoprolol for rate control. On exam, the patient is in discomfort lying in bed. She has a mallampati class I airway with good dentition. Cardiac exam reveals RRR and lungs are CTAB. The patient's labs were notable for a Hgb of 10.0. A cardiac echo from showed normal LV function. EKG from admission showed afib with RVR HR 134 however the patient is now in NSR. In regards to the patient's MRI for tomorrow, she was instructed to remain NPO after midnight except for a sip of water with medication. She was consented for IV sedation. All questions were answered. In regards to the patient's future hip surgery, she appears to be acceptable for surgery at this point, however she should be followed up as an outpatient for recurrence of her atrial fibrillation. She should be reevaluated be her PCP after discharge prior to her scheduled surgery. The patient's anticoagulation will have to be addressed prior to surgery to determine if it can be held or if she needs to be bridged. This needs to be coordinated with cardiology and surgery. I did discuss the patient with Lacey in PAT and informed her that the patient should be evaluated prior to surgery and that the anticoagulation will need to be coordinated.
[2017-03-15] MEDS: GABAPENTIN 300 MG CAP PO SCH (20:10)
[2017-03-15] MEDS: ATORVASTATIN 40 MG TAB PO SCH (20:11)
[2017-03-15 23:06] VITALS: BP 105/67; PULSE 64; TEMP 36.9; O2SAT 98
[2017-03-16] MEDS: CHECK FENTANYL PATCH PLACEMENT SCH ×4 (00:54→23:26)
[2017-03-16] MEDS: HYDROmorphone INJ 2 MG/ML SYR/VIAL IV PRN (02:52)
[2017-03-16 07:22] VITALS: BP 126/73; PULSE 59; TEMP 36.7; O2SAT 94
[2017-03-16 07:57] LABS: HEMATOCRIT 32.1 % (37-47); MEAN CELL VOLUME 100.6 fL (80-100); MEAN CORPUSCULAR HGB CONC 31.8 g/dl (32-36); PLATELET COUNT 232 K/uL (130-400); RED BLOOD COUNT 3.19 M/uL (4.2-5.4); WHITE BLOOD COUNT 5.52 K/uL (4.8-10.8)
--- NOTE | 2017-03-16 08:01 | Orthopedic Progress Note ---
Orthopedic Progress Note Date of Service Mar 16, 2017. Subjective Additional Notes: Same pain. No change. Severe right hip and leg pain. Getting around a bit better. Objective calves soft nontender, N/V intact, capillary refill less than 2 sec., toes mobile, CMS intact Pain with any hip ROM Date Time Temp Pulse Resp B/P (MAP) Pulse Ox O2 Delivery O2 Flow Rate FiO2 03/16/17 07:22 36.7 59 20 126/73 (90) 94 Room Air 03/16/17 00:00 Room Air 03/15/17 23:06 36.9 64 18 105/67 (80) 98 Room Air 03/15/17 15:45 Room Air 03/15/17 14:53 36.7 67 20 121/69 (86) 100 Room Air 03/15/17 12:57 Room Air 03/15/17 08:00 Room Air Laboratory Results 24 Hours: Test 03/15/17 08:05 03/16/17 07:31 Hematocrit 32.7 % 32.1 % Hemoglobin 10.6 g/dL 10.2 g/dL Assessment & Plan Assessment: Severe bilateral hip pain with elevated ESR + CRP + Abnormal uterus by MRI. Plan: MRI of L-Spine to r/o discitis. If negative, may send home and f/up with CLIENT SERVICES ADMINISTRATOR as outpatient. Will plan on Right THR in early April as scheduled as long as infectious issues cleared up. (1) Right hip pain Acute
[2017-03-16 08:08] LABS: PARTIAL THROMBOPLASTIN RATIO 1.3
[2017-03-16 08:29] LABS: BUN/CREATININE RATIO 14.8 (10-20); CALCIUM 9.5 mg/dl (8.5-10.1); CREATININE 0.86 mg/dl (0.60-1.20); POTASSIUM 4.1 mmol/L (3.5-5.1)
[2017-03-16] MEDS: ASPIRIN 325 MG ECTAB PO SCH (08:34)
[2017-03-16] MEDS: DOCUSATE SODIUM 100 MG CAP PO SCH ×2 (08:34→20:49)
[2017-03-16] MEDS: DICLOFENAC SOD 1% GEL 100 GM TUBE EXT SCH ×4 (08:34→20:52)
[2017-03-16] MEDS: METOPROLOL TARTRATE 25 MG TAB PO SCH ×3 (08:35→20:51)
[2017-03-16] MEDS: CHOLECALCIFEROL 1000 INTER.UNIT TAB PO SCH (08:36)
[2017-03-16] MEDS: APIXABAN 2.5 MG TAB PO SCH ×2 (08:36→20:51)
[2017-03-16] MEDS: OXYCODONE HCL IR 5 MG TAB (IMMEDIATE RELEASE) PO PRN ×3 (08:44→23:26)
[2017-03-16] MEDS: THIAMINE HCL 100 MG TAB PO SCH (08:46)
[2017-03-16] MEDS ORDERED: GABAPENTIN 300 MG CAP PO SCH (09:00)
--- NOTE | 2017-03-16 10:27 | Family Medicine Progress Note ---
Progress Note Date of Service Mar 16, 2017. Subjective Pt evaluation today including: conversation w/ patient, physical exam, chart review, lab review Pain: Continues to have right hip pain; had a bad night of pain Voiding: no voiding problems, cruz catheter in place Pain was bad last night; she was noted by nursing to have been tearful last night MRI was cancelled yesterday; on the list today as an add-on States she would like to try oral agents for pain so she can transition to home ; declines to do inpatient rehabilitation No other acute issues overnight Constitutional: No fever, No chills Eyes: No worsening of vision, No eye pain, No redness ENT: No hearing loss, No unusual epistaxis, No nasal symptoms, No sore throat, No tinnitus Respiratory: No cough, No sputum Cardiovascular: No chest pain, No orthopnea, No claudication, No palpitations Breast: No breast lump, No change in shape Abdomen: No pain, No nausea, No vomiting, No diarrhea, No constipation Musculoskeletal: + joint pain (right hip), No muscle pain, No swelling Female : No dysuria, No urinary frequency, No hematuria Neurologic: No weakness, No numbness/tingling, No vertigo Heme: No abnormal bleeding/bruising, No clotting problems, No swollen lymph nodes Endo: No fatigue, No excessive thirst, No excessive urination All Other Systems: Reviewed and Negative Medications Current Inpatient Medications Medications (Trade) Dose Ordered Sig/Luis Route Start Time Stop Time Status Last Admin Dose Admin Hydromorphone HCl (Dilaudid Inj) 2 mg Q4H PRN IV 03/10/17 17:45 03/24/17 17:44 Future Hold 03/16/17 02:52 2 MG Acetaminophen (Tylenol Tab) 650 mg Q4H PRN PO 03/10/17 17:45 04/09/17 17:44 03/14/17 21:27 650 MG Magnesium Hydroxide (Milk Of Magnesia Susp) 30 ml Q12H PRN PO 03/10/17 17:45 04/09/17 17:44 Zolpidem Tartrate (Ambien Tab) 5 mg HSZ PRN PO 03/10/17 17:45 04/09/17 17:44 03/10/17 20:56 5 MG Nitroglycerin (Nitrostat Tab) 0.4 mg UD PRN SL 03/10/17 17:45 04/09/17 17:44 Aspirin (Ecotrin Tab) 325 mg QAM PO 03/10/17 17:37 04/09/17 17:36 03/16/17 08:34 325 MG Polyethylene (Miralax Powder Packet) 17 gm DAILY PRN PO 03/10/17 17:45 04/09/17 17:44 Atorvastatin Calcium (Lipitor Tab) 40 mg HS PO 03/10/17 21:00 04/09/17 20:59 03/15/17 20:11 40 MG Cholecalciferol (Vitamin D Tab) 5,000 inter.unit DAILY PO 03/11/17 09:00 04/10/17 08:59 03/16/17 08:36 5,000 INTER.UNIT Fentanyl (Duragesic Patch) 75 mcg Q72H TD 03/11/17 09:00 03/25/17 08:59 03/14/17 08:42 75 MCG Lorazepam (Ativan Tab) PRN Dosing -Active Protocol UD PRN PO 03/10/17 18:15 04/09/17 18:14 Lorazepam (Ativan Inj) PRN Dosing -Active Protocol Q1H PRN IV 03/10/17 18:15 04/09/17 18:14 Thiamine HCl (Vitamin B-1 Tab) 100 mg Q24H PO 03/11/17 09:00 04/10/17 08:59 03/16/17 08:46 100 MG Miscellaneous (Fentanyl Patch Remove & Waste) 1 ea Q72H N/A 03/11/17 08:59 04/10/17 08:58 03/14/17 08:43 1 EA Miscellaneous Information (Check Fentanyl Patch Placement) 1 ea QS N/A 03/11/17 00:00 04/10/17 00:00 03/16/17 08:46 1 EA Metoprolol Tartrate (Lopressor Tab) 12.5 mg TID PO 03/11/17 14:00 04/10/17 13:59 03/16/17 08:35 12.5 MG Diclofenac Sodium (Voltaren 1% Top Gel) 1 appln QID EXT 03/11/17 13:00 04/10/17 12:59 03/16/17 08:34 1 APPLN Gabapentin (Neurontin Cap) 300 mg HS PO 03/11/17 21:00 8/28/17 20:59 Future hold 03/15/17 20:10 300 MG Naloxone HCl (Narcan Inj) 0.1 mg Q5M PRN IV 03/11/17 16:15 03/25/17 16:14 Hydromorphone HCl (Dilaudid Clinic Nurse) 25 mg PRN PRN IV 03/11/17 16:15 03/25/17 13:57 Future Hold 03/11/17 17:13 25 MG Docusate Sodium (coLACE CAP) 100 mg BID PO 03/11/17 21:00 03/25/17 16:14 03/16/17 08:34 100 MG Sodium Chloride 1,000 ml @ 15 mls/hr Q24H IV 03/11/17 16:06 03/25/17 16:14 Future Hold 03/13/17 16:08 15 MLS/HR Apixaban (Eliquis Tab) 5 mg BID PO 03/12/17 21:00 04/11/17 20:59 03/16/17 08:36 5 MG Miconazole Nitrate (Desenex Powder) 1 appln PRN PRN EXT 03/14/17 14:00 04/13/17 13:59 03/15/17 08:21 1 APPLN Magnesium Citrate (Citrate Of Magnesia Soln) 120 ml BID PRN PO 03/10/17 18:15 04/09/17 18:14 Gabapentin (Neurontin Cap) 300 mg QAM PO 03/16/17 09:00 04/11/17 08:59 03/16/17 08:33 300 MG Oxycodone HCl (Roxicodone Immediate Rel Tab) 10 mg Q4H PRN PO 03/16/17 08:15 03/30/17 08:14 03/16/17 08:44 10 MG Objective Vital Signs Date Time Temp Pulse Resp B/P (MAP) Pulse Ox O2 Delivery O2 Flow Rate FiO2 03/16/17 08:00 Room Air 03/16/17 07:22 36.7 59 20 126/73 (90) 94 Room Air 03/16/17 00:00 Room Air 03/15/17 23:06 36.9 64 18 105/67 (80) 98 Room Air 03/15/17 15:45 Room Air 03/15/17 14:53 36.7 67 20 121/69 (86) 100 Room Air 03/15/17 12:57 Room Air Physical Exam General Appearance: WD/WN, no apparent distress Eyes: normal inspection, EOMI ENT: hearing grossly normal, pharynx normal Neck: supple, no adenopathy, no JVD Respiratory/Chest: lungs clear, no respiratory distress Cardiovascular: regular rate, rhythm, no gallop, no murmur Abdomen: normal bowel sounds, non tender, soft Extremities: normal range of motion, normal inspection, no calf tenderness, + pertinent finding (pain in right hip per baseline) Neurologic/Psychiatric: alert, normal mood/affect, oriented x 3 Skin: normal color, warm/dry, no rash Lymphatic: no adenopathy Laboratory Results Last 24 Hours Test 03/16/17 07:31 White Blood Count 5.52 K/uL Red Blood Count 3.19 M/uL Hemoglobin 10.2 g/dL Hematocrit 32.1 % Mean Corpuscular Volume 100.6 fL Mean Corpuscular Hemoglobin 32.0 pg Mean Corpuscular Hemoglobin Concent 31.8 g/dl RDW Standard Deviation 46.5 fL RDW Coefficient of Variation 12.6 % Platelet Count 232 K/uL Mean Platelet Volume 10.0 fL Activated Partial Thromboplast Time 33.1 SECONDS Partial Thromboplastin Ratio 1.3 Sodium Level 140 mmol/L Potassium Level 4.1 mmol/L Chloride Level 105 mmol/L Carbon Dioxide Level 30 mmol/L Anion Gap 5.0 mmol/L Blood Urea Nitrogen 13 mg/dl Creatinine 0.86 mg/dl Est Creatinine Clear Calc Drug Dose 90.4 ml/min Estimated GFR () 82.2 Estimated GFR (Non- 70.9 BUN/Creatinine Ratio 14.8 Random Glucose 92 mg/dl Calcium Level 9.5 mg/dl Assessment and Plan 66 year old female presenting with right hip pain but apparently being in A.fib with RVR at the time of admission. Afib is appropriately treated at this time. Awaiting a L-spine MRI under sedation today for evaluation of osteomyelitis/ discitis Right Hip Pain - X-ray negative for acute fracture but positive for known severe DJD; US negative for DVT - Ortho consulted; recommendations appreciated Elevated CRP at 16 - MRI Pelvis shoes not show evidence of osteomyelitis - MRI L-spine under sedation anticipated today; if normal, patient can be discharged home - Pain management recommendations appreciated - I will aim to de-escalate opioids so patient can be transitioned an appropriate home regimen D/C Dilaudid Start Oxycodone 10 mg q4h PRN Increase Gabapentin to 300 mg BID, if tolerates can escalate to TID Continue Fentanyl patch 75 mcg q 72 hours - ID following; recommendations appreciated Osteoarthritis - Severe hip DJD bilaterally; at this point R hip has become worse than left - Followed by Dr. Vega; orthopedic recommendations appreciated; has hip replacement scheduled for April 2017 Endometrial thickening - Incidentally identified on MRI Pelvis; benign hyperplasia vs neoplasm - Patient denies any vaginal bleeding or constitutional symptoms - Discussed the case with emission specialist who will see patient in outpatient on 2016 at 15:00 for further evaluation - Possible source of elevated CRP Afib with RVR on admission - Continue Metoprolol and Eliquis History of EtOH consumption - Lorazepam PRN; has not required yet - No evidence of withdrawal ssx - Continue Thiamine daily DVT Prophylaxis - On Eliquis as noted above Code Status - Level I Code Disposition - PT/OT ordered - ?rehab placement Reviewed: Pt Seen/Exam by Me History persistent hip pain. had a worse night. Constitutional: denies: fever Respiratory: negative: short of breath Cardiovascular: denies chest pain Musculoskeletal: positive: joint pain General Appearance: mild distress Respiratory: lungs clear, no respiratory distress Cardiovascular: regular rate, rhythm Neurologic/Psychiatric: alert, oriented x 3 Skin Characteristics: warm/dry Assessment/Plan Resident Physician Supervision Note: I was present with Dr. Mesa in bedside. I verified the gaytan history and physical, reviewed labs and image studies, discussed the case with the resident and agree with the findings and care plan.
[2017-03-16] MEDS ORDERED: FENTANYL CITRATE INJ 50 MCG/1 ML 2 ML VIAL ONE ×2 (13:20→14:18)
[2017-03-16] MEDS ORDERED: KETAMINE HCL INJ 50 MG/ML 10 ML VIAL ONE (14:04)
[2017-03-16] MEDS ORDERED: MIDAZOLAM HCL 1 MG/ML 2ML VIAL ONE (14:04)
[2017-03-16] MEDS ORDERED: PROPOFOL IV EMULSION 10 MG/ML 20 ML VIAL IV ONE (14:57)
[2017-03-16] MEDS ORDERED: HYDROmorphone INJ 2 MG/ML SYR/VIAL ONE (14:57)
--- NOTE | 2017-03-16 15:10 | DIAGNOSTIC IMAGING REPORT ---
LUMBAR SPINE W/O CONTRAST CLINICAL HISTORY: 66 years-old Female presenting with rule out osteomyelitis, discitis, bilateral hip pain for 3 years, increasing right hip pain, numbness in the right leg. TECHNIQUE: Multisequence, multiplanar MR imaging of the lumbar spine was performed without the use of intravenous contrast. IV contrast: None. COMPARISON: Correlation made to CT from 03/13/2017. FINDINGS: Localizer: Endometrial thickening noted as on recent pelvic MRI. Normal lumbar lordosis. Mild dextrocurvature of the lumbar spine. Vertebral bodies maintain normal height and bone marrow signal intensity. Minimal retrolisthesis of L2 on L3 may be present. Intervertebral disc desiccation noted at several levels although only minimal disc height loss is noted at L2-3. No abnormal fluid signal intensity within the bone marrow or discs to suggest discitis osteomyelitis. Multilevel degenerative changes include disc bulges at every level resulting in varying degrees of neural foraminal narrowing, most severe at L2-3. Effacement of the ventral thecal sac is most pronounced at L1-2 and L2-3. Limited evaluation of the cauda equina, which appears to maintain grossly normal morphology. Evaluation for impingement of the cauda equina is limited. No edema in the paraspinal soft tissues. The examination is significantly limited due to patient cooperation and motion. IMPRESSION: 1. Allowing for the limited exam, no evidence of discitis osteomyelitis. 2. Multilevel degenerative changes with varying degrees of neural foraminal narrowing and spinal canal stenosis. Evaluation for impingement of the cauda equina is limited. Electronically signed by: Preston Muñiz M.D. 03/16/2017 3:08 PM Dictated Date/Time: 03/16/2017 3:03 PM
[2017-03-16] MEDS ORDERED: ONDANSETRON INJ 2 MG/ML 2 ML VIAL IV PRN (15:30)
[2017-03-16] MEDS ORDERED: EpHEDrine SULFATE INJ 50 MG/ML AMP IV PRN (15:30)
[2017-03-16] MEDS ORDERED: FENTANYL CITRATE INJ 50 MCG/1 ML 2 ML VIAL IV PRN (15:30)
[2017-03-16] MEDS ORDERED: ATROPINE SULFATE 0.1 MG/ML 5ML SYR IV PRN (15:30)
[2017-03-16] MEDS ORDERED: HYDROmorphone INJ 1 MG/ML SYR IV PRN (15:30)
--- NOTE | 2017-03-16 15:43 | Anesthesiology Progress Note ---
Anesthesia Post Op Note Date & Time Mar 16, 2017 at 15:43 Vital Signs Pain Intensity: 8 Vital Signs Past 12 Hours Date Time Temp Pulse Resp B/P (MAP) Pulse Ox O2 Delivery O2 Flow Rate FiO2 03/16/17 15:35 69 14 129/61 96 Nasal Cannula 2 03/16/17 15:25 78 18 114/68 99 Nasal Cannula 2 03/16/17 15:19 37.1 77 20 147/61 100 Mask 8 03/16/17 08:00 Room Air 03/16/17 07:22 36.7 59 20 126/73 (90) 94 Room Air Notes Mental Status: alert / awake / arousable, participated in evaluation Pt Amnestic to Procedure: Yes Nausea / Vomiting: adequately controlled Pain: improving with treatment Airway Patency, RR, SpO2: stable & adequate BP & HR: stable & adequate Hydration State: stable & adequate Anesthetic Complications: no major complications apparent
[2017-03-16 16:00] VITALS: BP 125/75; PULSE 69; TEMP 36.8; O2SAT 100
[2017-03-16 16:19] VITALS: BP 122/59; PULSE 71; O2SAT 100
[2017-03-16] MEDS ORDERED: FENTANYL PATCH REMOVE & WASTE SCH (19:59)
[2017-03-16 20:00] VITALS: O2SAT 100
[2017-03-16] MEDS ORDERED: FENTANYL 12 MCG/HR TDSY TD SCH (20:00)
[2017-03-16] MEDS ORDERED: FENTANYL 75 MCG/HR TDSY TD SCH (20:00)
[2017-03-16] MEDS: ATORVASTATIN 40 MG TAB PO SCH (20:49)
[2017-03-16] MEDS: GABAPENTIN 300 MG CAP PO SCH (20:50)
[2017-03-16] MEDS ORDERED: DULOXETINE HCL 20 MG CAP PO SCH (21:00)
[2017-03-16 22:17] VITALS: BP 106/71; PULSE 62; TEMP 36.6; O2SAT 98
[2017-03-17] VITALS: O2SAT 100
[2017-03-17] MEDS: OXYCODONE HCL IR 5 MG TAB (IMMEDIATE RELEASE) PO PRN ×2 (06:10→14:17)
[2017-03-17 06:45] LABS: HEMATOCRIT 32.6 % (37-47); MEAN CELL VOLUME 100.3 fL (80-100); MEAN CORPUSCULAR HEMOGLOBIN 32.3 pg (25-34); MEAN CORPUSCULAR HGB CONC 32.2 g/dl (32-36); MEAN PLATELET VOLUME 9.7 fL (7.4-10.4); PLATELET COUNT 250 K/uL (130-400); RED BLOOD COUNT 3.25 M/uL (4.2-5.4); WHITE BLOOD COUNT 6.35 K/uL (4.8-10.8)
[2017-03-17 06:53] LABS: PARTIAL THROMBOPLASTIN RATIO 1.3
[2017-03-17 07:13] VITALS: BP 116/72; PULSE 62; TEMP 36.7; O2SAT 96
[2017-03-17 07:21] LABS: BUN/CREATININE RATIO 14.4 (10-20); CALCIUM 9.5 mg/dl (8.5-10.1); CREATININE 0.88 mg/dl (0.60-1.20); POTASSIUM 4.1 mmol/L (3.5-5.1)
[2017-03-17] MEDS: CHECK FENTANYL PATCH PLACEMENT SCH ×2 (08:19→16:16)
[2017-03-17] MEDS: DICLOFENAC SOD 1% GEL 100 GM TUBE EXT SCH ×2 (08:20→14:17)
[2017-03-17] MEDS: MICONAZOLE NITRATE POWDER 43 GM EXT PRN (08:20)
[2017-03-17] MEDS: ASPIRIN 325 MG ECTAB PO SCH (08:21)
[2017-03-17] MEDS: APIXABAN 2.5 MG TAB PO SCH (08:21)
[2017-03-17] MEDS: DOCUSATE SODIUM 100 MG CAP PO SCH (08:21)
[2017-03-17] MEDS: GABAPENTIN 300 MG CAP PO SCH ×2 (08:21→14:18)
[2017-03-17] MEDS: CHOLECALCIFEROL 1000 INTER.UNIT TAB PO SCH (08:22)
[2017-03-17] MEDS: THIAMINE HCL 100 MG TAB PO SCH (08:22)
[2017-03-17] MEDS: METOPROLOL TARTRATE 25 MG TAB PO SCH ×2 (08:24→14:00)
[2017-03-17] MEDS ORDERED: VLTG EXT (11:55)
[2017-03-17] MEDS ORDERED: CLC100 PO (11:55)
[2017-03-17] MEDS ORDERED: RXC5 PO (11:55)
[2017-03-17] MEDS ORDERED: LPR25 PO (11:55)
[2017-03-17] MEDS ORDERED: MCTP EXT (11:55)
[2017-03-17] MEDS ORDERED: LPT40 PO (11:55)
[2017-03-17] MEDS ORDERED: NRN300 PO (11:55)
[2017-03-17] MEDS ORDERED: ELQ25 PO (11:55)
--- NOTE | 2017-03-17 11:57 | Discharge Instructions ---
Discharge Instructions Date of Service Mar 17, 2017. Admission Reason for Admission: Atrial Fibrillation, New Onset Discharge Discharge Diagnosis / Problem: Right hip pain and Atrial fibrillation Discharge Goals Goal(s): Decrease discomfort, Improve function, Therapeutic intervention Activity Recommendations Activity Level: Up Ad Lisa, Assistance Required Therapies: Physical Therapy, Occupational Therapy Lifting Limitations: none Exercise/Sports Limitations: as tolerated . Additional Information Patient informed of condition: Yes Advance Directives: Yes DNR: No Level of Care: Acute Rehab Communicable Disease: No Prognosis: Improving Instructions / Follow-Up Instructions / Follow-Up You came to the ED because of severe right hip pain. Incidentally, you had atrial fibrillation an abnormal heart rhythm. We were able to control your heart rate with Metoprolol. Because of the risk of stroke with Atrial fibrillation, you need to be on a blood thinner so you were started on Metoprolol. We will discharge you on both of these medications. Before your hip replacement, you need to hold your blood thinner (Eliquis) for 3 days. You are known to have severe arthritis but given the sudden worsening we did an MRI of your pelvic and back to rule out an infection of the bone or cartilage. Fortunately there was none. Dr. Vega followed along in your case as well. At this time, he will keep your hip replacement surgery date for April. Please call his office periodically to see if there are opening prior to that. Incidentally on the MRI of the pelvis there was thickening of your endometrium that needs to be evaluated by the gynecologists. We have booked a follow-up for your on 04/05/17 at 15:[address] Bert [place] [facility] [place] [facility]. You will get new patient paperwork from their office so please complete and arrive 10 minutes early for your appointment. The other issue for you was pain management. Unfortunately, high dose narcotics were not very helpful in controlling your pain. With the help of our pain management team we have you an oral regimen that we hope will give some control to your pain. You will be going to [facility] for acute rehabilitation to help you move around and do the things you need to do at home. It was a pleasure to be involved in your care and we wish you all the best. Current Hospital Diet Patient's current hospital diet: Regular Diet Discharge Diet Recommended Diet: Regular Diet Pending Studies Studies pending at discharge: no Laboratory Results Hemoglobin A1c Test 03/11/17 07:56 Range/Units Estimated Average Glucose 97 mg/dl Hemoglobin A1c 5.0 4.5-5.6 % Lipid Panel Test 03/10/17 16:10 Range/Units Triglycerides Level 86 0-150 mg/dl Cholesterol Level 171 0-200 mg/dl HDL Cholesterol 82 mg/dl Cholesterol/HDL Ratio 2.1 LDL Cholesterol, Calculated 72 mg/dl Medical Emergencies . Who to Call and When: Medical Emergencies: If at any time you feel your situation is an emergency, please call 911 immediately. . Non-Emergent Contact Non-Emergency issues call your: Primary Care Provider . . "Provider Documentation" section prepared by Rito Donis. . Core Measure Problem Core Measures: None
[2017-03-17 13:15] VITALS: BP 116/72; PULSE 62; TEMP 36.7; O2SAT 96
[2017-03-17 14:21] VITALS: BP 105/64; PULSE 56; TEMP 36.6; O2SAT 95
--- NOTE | 2017-03-17 19:37 | Discharge Summary ---
Discharge Summary Date of Service Mar 17, 2017. (Rito Donis MD) Discharge Summary Admission Date: Mar 10, 2017 at 17:47 Discharge Date: Mar 17, 2017 Discharge Disposition: Home Principal Diagnosis: R hip pain and afib Consultations: Orthopedics Cardiology (Rito Donis MD) Medication Reconciliation New Medications: Apixaban (Eliquis) 2.5 Mg Tab 5 MG PO BID for 30 Days, #120 TAB Atorvastatin (Atorvastatin Calcium) 40 Mg Tab 40 MG PO HS for 30 Days, TAB Diclofenac Sod (Voltaren) 100 Appln/100 Gm Gel 1 APPLN EXT QID for 30 Days Docusate Sodium (Docusate Sodium) 100 Mg Cap 100 MG PO BID for 30 Days, #60 CAP Gabapentin (Gabapentin) 300 Mg Cap 300 MG PO TID for 30 Days, #90 CAP Metoprolol Tartrate (Lopressor) 25 Mg Tab 12.5 MG PO TID for 30 Days, #45 TAB Miconazole Nitrate (Desenex Shake Powder) 43 Appln/43 Gm Powd 1 APPLN EXT PRN PRN for Affected Skin Folds for 30 Days Oxycodone HCl (Oxycodone HCl) 5 Mg Tab 10 MG PO Q4H PRN for Pain for 10 Days, TAB Continued Medications: Cholecalciferol (Vitamin D) 1,000 Unit Tab 5000 INTER.UNIT PO DAILY Diclofenac (Voltaren) 75 Mg Tabcr 75 MG PO BID, TAB WITH FOOD Fentanyl (Fentanyl) 75 Mcg Tdsy 75 MG TOP Q72H, #10 Furosemide (Furosemide) 40 Mg Tab 40 MG PO BID, #60 Magnesium Citrate (Cvs Magnesium Citrate) 1.745 Gm/30 Ml Shanti 4 OZ PO Q3DAYS PRN for Constipation Multivitamin (Multivitamin) Tab 1 TAB PO DAILY, TAB Potassium Chloride (Potassium Chloride ER) 20 Meq Tab 20 MEQ PO BID, #60 Spironolactone (Spironolactone) 25 Mg Tab 25 MG PO DAILY, #30 Discharge Exam Patient still with 9/10 hip pain when moving but 5/10 at rest Oxy hasn't helped much Hasn't had a bm in over a week Review of Systems: Constitutional: No fever, No chills Respiratory: No cough, No wheezing, No shortness of breath Cardiovascular: No chest pain, No edema, No palpitations Abdomen: + constipation, No pain, No nausea, No vomiting, No diarrhea Musculoskeletal: + joint pain Physical Exam: General Appearance: WD/WN, no apparent distress, + obese ENT: hearing grossly normal, pharynx normal Respiratory/Chest: lungs clear, no respiratory distress, no accessory muscle use Cardiovascular: regular rate, rhythm, no edema, normal peripheral pulses Abdomen / GI: normal bowel sounds, non tender, soft Extremities: + pertinent finding (pain on palpation of r hip) (Rito Donis MD) continues to have pain in back and hip no bowel movement in 5-6 days. Review of Systems: Constitutional: No fever Respiratory: No shortness of breath Cardiovascular: No chest pain Physical Exam: General Appearance: + mild distress (from pain) Respiratory/Chest: lungs clear, no respiratory distress Cardiovascular: regular rate, rhythm Abdomen / GI: normal bowel sounds, non tender, soft Neurologic/Psychiatric: alert, oriented x 3 Skin: warm/dry (June Wright M.D.) Hospital Course 66 year old female presenting with right hip pain but apparently being in A.fib with RVR at the time of admission. Afib was appropriately treated with metoprolol and eliquis. Patient was discharged to [facility] on 03/17/2017. Right Hip Pain - X-ray negative for acute fracture but positive for known severe DJD; US negative for DVT - MRI Pelvis shoes not show evidence of osteomyelitis - MRI L-spine under sedation showed multilevel degenerative disease - Pain management recommendations appreciated - de-escalated opioids so patient can be transitioned an appropriate home regimen Start Oxycodone 10 mg q4h PRN Increase Gabapentin to 300 mg BID, if tolerates can escalate to TID Continue Fentanyl patch 75 mcg q 72 hours Osteoarthritis - Severe hip DJD bilaterally; at this point R hip has become worse than left - Followed by Dr. Vega; orthopedic recommendations appreciated; has hip replacement scheduled for April 2017 Endometrial thickening - Incidentally identified on MRI Pelvis; benign hyperplasia vs neoplasm - Patient denies any vaginal bleeding or constitutional symptoms - Discussed the case with chrome cleaner who will see patient in outpatient on 2016 at 15:00 for further evaluation Afib with RVR on admission - Continue Metoprolol and Eliquis History of EtOH consumption - Continue Thiamine daily DVT Prophylaxis - On Eliquis as noted above Total Time Spent: Less than 30 minutes This includes examination of the patient, discharge planning, medication reconciliation, and communication with other providers. (Rito Donis MD) Resident Physician Supervision Note: I was present with Dr. Donis in bedside. I verified the gaytan history and physical, reviewed labs and image studies, discussed the case with the resident and agree with the findings and care plan. Needs Aggressive bowel regimen while at [facility] ER Total Time Spent: Greater than 30 minutes (40) (June Wright M.D.) Discharge Instructions Please refer to the electronic Patient Visit Report (Discharge Instructions) for additional information. (Rito Donis MD) [facility]
[2017-04-10] MEDS ORDERED: DICL-201 PO (16:34)
[2017-04-10] MEDS ORDERED: OXYC1TAB3 PO (16:34)
[2017-04-10] MEDS ORDERED: METO25TA56 PO (16:34)
[2017-04-10] MEDS ORDERED: APIX1TAB3 PO (16:34)
[2017-04-10] MEDS ORDERED: ACET-1256 PO (16:35)
[2017-04-10] MEDS ORDERED: GABA-113 PO (16:35)
[2017-04-10] MEDS ORDERED: ONDA4TAB46 PO (16:36)
[2017-04-15] MEDS ORDERED: RXC5 PO (20:30)
[2017-04-15] MEDS ORDERED: FRRG PO (20:30)
[2017-04-15] MEDS ORDERED: NCYSR50 PO (20:30)
== END 2017-03-17 17:05 | DRG 309 ==
LOC: EDBD 14:19 → C.EDA 14:20 → C.2T 17:47 → ENRESERV 18:52 → C.MS2W 03-12 16:14 → ENRESERV 03-12 16:41
PROVIDERS: ADMIT Internal Medicine; ATTEND Family Medicine
DX: I48.91 Unspecified atrial fibrillation (principal); Z68.41 Body mass index [BMI] 40.0-44.9, adult; M16.11 Unilateral primary osteoarthritis, right hip; E66.01 Morbid (severe) obesity due to excess calories; I10 Essential (primary) hypertension; G47.33 Obstructive sleep apnea (adult) (pediatric); F10.20 Alcohol dependence, uncomplicated; D53.9 Nutritional anemia, unspecified; M99.05 Segmental and somatic dysfunction of pelvic region; Z96.653 Presence of artificial knee joint, bilateral; Z87.19 Personal history of other diseases of the digestive system; Z87.891 Personal history of nicotine dependence; Z82.49 Family history of ischemic heart disease and other diseases of the circulatory system; Z88.8 Allergy status to other drugs, medicaments and biological substances; Z79.899 Other long term (current) drug therapy; Z80.9 Family history of malignant neoplasm, unspecified; Z83.3 Family history of diabetes mellitus; Z01.812 Encounter for preprocedural laboratory examination; R60.9 Edema, unspecified

== ENCOUNTER → 2017-03-16 | Outpatient (CLI) | payer OTHER, BC ==
[~2017-03-16] MED LIST changes: +ACET-1256 PO; +APIX1TAB3 PO; +CHOL100010 PO; +CLC100 PO; -DULO60CA44 PO; +ELQ25 PO; +FNTTP75 TOP; +FRRG PO; +GABA-113 PO; +LPR25 PO; +LPT40 PO; +LSX40 PO; +MCTP EXT; +METO1TAB31 PO; +METO25TA56 PO; +MULT-506 PO; +NCYSR50 PO; +NRN300 PO; +ONDA4TAB46 PO; +OXYC1TAB3 PO; -POLY335019 PO; +POTA-65 PO; -PRLSR20 PO; +RXC5 PO; +SPR25 PO; +VLTG EXT; +[UNRECOGNIZED DRUG - CODE] PO
[2017-03-16 13:19] LABS: HEMATOCRIT 34.5 % (37-47); MEAN CELL VOLUME 100.6 fL (80-100); MEAN CORPUSCULAR HEMOGLOBIN 31.8 pg (25-34); MEAN CORPUSCULAR HGB CONC 31.6 g/dl (32-36); MEAN PLATELET VOLUME 10.5 fL (7.4-10.4); PLATELET COUNT 279 K/uL (130-400); RED BLOOD COUNT 3.43 M/uL (4.2-5.4); WHITE BLOOD COUNT 5.72 K/uL (4.8-10.8)
[2017-03-16 13:27] LABS: ALT/SGPT 47 U/L (12-78); AST/SGOT 20 U/L (15-37); BLOOD UREA NITROGEN 11 mg/dl (7-18); BUN/CREATININE RATIO 14.2 (10-20); CALCIUM 9.5 mg/dl (8.5-10.1); CARBON DIOXIDE 31 mmol/L (21-32); CHLORIDE 104 mmol/L (98-107); CREATININE 0.81 mg/dl (0.60-1.20); GLUCOSE 87 mg/dl (70-99); POTASSIUM 4.1 mmol/L (3.5-5.1); SODIUM 140 mmol/L (136-145)
[2017-03-16 13:38] LABS: ALB/GLOB RATIO 0.5 (0.9-2); ALKALINE PHOSPHATASE 490 U/L (45-117)
== END | disposition home or self-care (01) ==
LOC: C.LAB 12:07
PROVIDERS: ATTEND Family Medicine
DX: Z01.812 Encounter for preprocedural laboratory examination (principal); R60.9 Edema, unspecified

== ENCOUNTER 2017-04-14 06:46 | Inpatient (IN) | payer OTHER, BC ==
--- NOTE | 2017-04-09 13:30 | HISTORY & PHYSICAL EXAMINATION ---
DATE OF ADMISSION: 04/20/2017 CHIEF COMPLAINT: Bilateral hip pain, right greater than left. HISTORY OF PRESENT ILLNESS: This is a 66-year-old female from [place], who presents for surgical treatment of her right hip now. She has got a several year history of increasing bilateral hip pain and discomfort to the point where she is having trouble getting around. She had a history of both of her knees operated on and she has got pain in both knees, but says this is manageable. Over the past year, she has resorted to using a cane to get around. She uses 2 canes. Initially, there was more left hip pain, but now become more right hip pain. She is actually admitted to the hospital back in late February for hip pain and a new onset atrial fibrillation. The AFib is resolved, but she is continuously bothered by pain. She had extensive workup at that time, which revealed a slightly elevated sed rate. She had imaging studies and ID consult, which showed no signs of infection. She is debilitated by her pain. The right hip has bothered her more than the left. She would like to proceed with right hip replacement and hopefully, left hip several months later. Of note, the patient has been followed and treated conservatively. She has tried to lose weight and states she lost 50 pounds, but cannot lose any more due to her inability to mobilize. She has also been using a fentanyl patch and narcotics. She has been trying to wean her off these narcotics over the past month. PAST MEDICAL HISTORY: Significant for, 1. Obesity with a BMI of 44. 2. Arthritis. 3. Significant alcohol intake. PAST SURGICAL HISTORY: Include: 1. Left open knee surgery in 1971. 2. Right knee surgery in 1981. 3. Right carpal tunnel release done by Dr. Walsh. ALLERGIES: LYRICA AND VICTOZA. CURRENT MEDICINES: Include, 1. Fentanyl patch. 2. Spironolactone/hydrochlorothiazide 25/25 once a day. 3. Diclofenac twice a day. 4. Multivitamin. 5. Vitamin D3. 6. Potassium chloride. 7. Furosemide. SOCIAL HISTORY: female. She says she drinks 3 drinks or so a day, but there is some report of more than that. Former smoker. FAMILY HISTORY: Significant for heart disease, diabetes, and colon cancer. REVIEW OF SYSTEMS: Negative for diabetes. Denies any current chest pain or shortness of breath. No bleeding problems. PHYSICAL EXAMINATION: GENERAL: Physical examination reveals a pleasant, middle-aged female. She looks to be in reasonably good health. Fairly large female. HEENT: Benign. NECK: Supple. No lymphadenopathy. LUNGS: Clear to auscultation. HEART: Has a regular rate and rhythm. ABDOMEN: Soft, nontender, and nondistended. EXTREMITIES: Grossly neurovascularly intact except as follows. Examination of both legs reveals that the patient walks with the use of 2 canes. She has difficulty walking at all without these. Leg lengths clinically appear pretty equal. She has got a Trendelenburg kind of gait. She wobbles with hip motion. Examination of both knees reveals scars on the medial sides of her knees. Moderate soft tissue envelope. Fairly minimal knee effusion. Range of motion is 0-120. X-RAYS: X-rays of both hips revealed advanced bilateral hip DJD. She has got complete loss of her joint space. Pretty equal in severity. X-rays of the lumbar spine were reviewed. It shows some moderate lumbar spondylosis. MRI of the hips revealed advanced bilateral hip arthritis. No signs of infection. MRI of the spine revealed diffuse degenerative changes. No obvious discitis or infection. ASSESSMENT: A 66-year-old female, morbidly obese with advanced bilateral hip pain and discomfort, unresponsive to conservative treatment. She has actually been admitted for this pain. She has been on long-term narcotics and there is a question of significant alcohol use, but she denies. We talked about treatment options. She would like to have her hip replaced. We went over the details of this procedure and the hip precautions afterwards. We talked about alcohol use and the importance to limit that. We also talked about trying to get off all narcotics and she is hoping to do that as well. I did tell her that the results of surgery are less optimal on people who have been on narcotics before surgery and she should try and get off these as much as possible. She is now on Eliquis for this new onset atrial fibrillation. She will need to stop that 48 hours preop. PLAN: We are going to take her to the operating room and do a right total hip replacement. That seems to be the most symptomatic hip. The risks and benefits of this procedure were explained to the patient including, but not limited to DVT, PE, , infection, neurologic injury, vascular injury, bleeding problems, pain, limited motion, stiffness, failure to relieve her symptoms, incomplete relief of symptoms, need for further surgery in the future, fracture, leg length inequality, nerve palsy, dislocation, etc. The patient understands and desires to proceed. Informed consent was obtained. I did talk to her specifically about her increased risk with her large size. We talked about her alcohol use and narcotic use, which she needs to try and wean off of it. She understands and would like to proceed. She did have an elevated sed rate. She has been seen by the [facility] doctor for a slightly thickened uterine lining. They will manage that problem. As far as discharge plans, she is planning to be discharged to home using [facility] with her 's assistance. 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 We may use a dual mobility hip to maximize her stability as I think she is at a bit risk for dislocation. MTDD
[2017-04-10 16:36] VITALS: BMI 43.0
[~2017-04-14] VITALS: Ht 170.2 cm; Wt 126.4 kg
[2017-04-14] VITALS (8 sets, daily range): BP systolic 91–135; BP diastolic 52–81; PULSE 57–78; TEMP 36.4–36.7; O2SAT 94–100; Ht 170.2 cm; Wt 126.4 kg
[~2017-04-14 06:46] MED LIST changes: +ACETAMINOPHEN 500 MG TAB PO SCH; +CEFAZOLIN 3000 MG/65 ML D5W 65 ML IV SCH; -CLC100 PO; -ELQ25 PO; +FAMOTIDINE 20 MG TAB PO SCH; -FRRG PO; +GABAPENTIN 300 MG CAP PO SCH; +LACTATED RINGER'S 1000ML 1,000 ML IV SCH; +LACTATED RINGER'S 1000ML 500 ML IV ONE; +LACTATED RINGER'S 1000ML IV SCH; -LPR25 PO; -LPT40 PO; -MCTP EXT; -METO1TAB31 PO; +METOCLOPRAMIDE HCL 10 MG TAB PO SCH; -NCYSR50 PO; -NRN300 PO; -RXC5 PO; +SCOPOLAMINE 1.5 MG TDSY TD SCH; +TRANEXAMIC ACID INJ 1,000 MG in SODIUM CHLORIDE 0.9% 100ML 100 ML IV SCH; -VLTG EXT
[2017-04-14] MEDS ORDERED: BUPIVACAINE 0.5 % 5 MG/1 ML PF 10ML VIAL ONE (07:24)
[2017-04-14] MEDS ORDERED: MIDAZOLAM HCL 1 MG/ML 2ML VIAL ONE (07:36)
[2017-04-14] MEDS ORDERED: FENTANYL CITRATE INJ 50 MCG/1 ML 2 ML VIAL ONE (07:36)
--- NOTE | 2017-04-14 08:47 | History & Physical Bridge Note ---
H&P Re-Evaluation Bridge Note: I have examined the patient, reviewed the History & Physical and in the interval since the performance of the History & Physical I have noted the following changes of clinical significance: No changes noted
[2017-04-14] MEDS ORDERED: BACITRACIN 50000 UNIT VIAL ONE ×2 (09:00→09:05)
[2017-04-14] MEDS ORDERED: BUPIVACAINE/EPINEPHRINE 0.5% MPF 1:200,000 10 ML VIAL ONE ×2 (09:00→09:05)
[2017-04-14] MEDS ORDERED: DEXAMETHASONE SOD INJ 4 MG/ML VIAL ONE (09:26)
[2017-04-14] MEDS ORDERED: ONDANSETRON INJ 2 MG/ML 2 ML VIAL ONE (09:26)
[2017-04-14] MEDS ORDERED: KETAMINE HCL INJ 50 MG/ML 10 ML VIAL ONE (09:26)
[2017-04-14] MEDS ORDERED: LIDOCAINE HCL 2% 2 ML VIAL (20MG/ML) ONE (09:26)
[2017-04-14] MEDS ORDERED: ROCURONIUM BROMIDE 10 MG/ML 5 ML VIAL IV ONE ×2 (09:26→10:20)
[2017-04-14] MEDS ORDERED: PROPOFOL IV EMULSION 10 MG/ML 20 ML VIAL IV ONE (09:26)
[2017-04-14] MEDS ORDERED: KETOROLAC TROMETHAMINE 30 MG/ML VIAL IV. PRN (09:45)
[2017-04-14] MEDS ORDERED: ONDANSETRON INJ 2 MG/ML 2 ML VIAL IV PRN ×2 (09:45→11:30)
[2017-04-14] MEDS ORDERED: ATROPINE SULFATE 0.1 MG/ML 5ML SYR IV PRN (09:45)
[2017-04-14] MEDS ORDERED: LABETALOL HCL IV 5 MG/ML 20ML IV PRN (09:45)
[2017-04-14] MEDS ORDERED: HYDROmorphone INJ 2 MG/ML SYR/VIAL ONE (09:49)
[2017-04-14] MEDS ORDERED: GLYCOPYRROLATE INJ 0.2 MG/ML VIAL ONE (10:19)
[2017-04-14] MEDS ORDERED: NEOSTIGMINE METHYLSULFATE 5 MG/5 ML SYR ONE (10:19)
--- NOTE | 2017-04-14 11:16 | [facility] Post Operative Brief Note ---
Immediate Operative Summary Operative Date Apr 14, 2017. 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 Ney Vega Laboratory Chemist Surgeon(s) Joseph Barfield PA-C Estimated Blood Loss 300mL Findings Right Hip AVN + DJD Fluids (cc crystalloids) 2000 cc Specimens Specimen A. Right Femoral Head Drains None Anesthesia General Complication(s) None Disposition Recovery Room / PACU
[2017-04-14] MEDS ORDERED: OXYCODONE HCL IR 5 MG TAB (IMMEDIATE RELEASE) PO PRN (11:30)
[2017-04-14] MEDS ORDERED: MAGNESIUM CITRATE 296 ML/BTL PO PRN (11:30)
[2017-04-14] MEDS ORDERED: ZOLPIDEM TARTRATE 5 MG TAB PO PRN (11:30)
[2017-04-14] MEDS ORDERED: MAGNESIUM HYDROXIDE SUSP 30 ML UDC PO PRN (11:30)
[2017-04-14] MEDS ORDERED: METOCLOPRAMIDE HCL INJ 5 MG/ML 2 ML VIAL IV PRN (11:30)
[2017-04-14] MEDS ORDERED: BISACODYL 10 MG SUPP PR PRN (11:30)
[2017-04-14] MEDS ORDERED: SILVER SULFADIAZINE 1% CR 50 GM JAR EXT PRN (11:30)
[2017-04-14] MEDS ORDERED: MoRPHine SULFATE 2 MG/ML CARP IV PRN (11:30)
[2017-04-14] MEDS: HYDROmorphone INJ 2 MG/ML SYR/VIAL IV PRN ×4 (11:34→12:02)
[2017-04-14] MEDS ORDERED: CHLORDIAZEPOXIDE 25 MG CAP PO PRN (12:00)
--- NOTE | 2017-04-14 12:11 | DIAGNOSTIC IMAGING REPORT ---
RIGHT PELVIS/UNILATERAL HIP 1 VIEW CLINICAL HISTORY: Right hip degenerative joint disease. Arthroplasty. COMPARISON: Right hip radiographs March 10, 2017. FINDINGS: Alignment of the total right hip arthroplasty is anatomic. There is no periprosthetic fracture or unexpected radiopaque foreign body. Skin jluis are present. End-stage osteoarthrosis of the left hip with flattening of the left femoral head is noted. IMPRESSION: Expected findings following total right hip arthroplasty. Electronically signed by: Wallace Tucker M.D. 04/14/2017 12:10 PM Dictated Date/Time: 04/14/2017 12:09 PM
--- NOTE | 2017-04-14 13:07 | Anesthesiology Progress Note ---
Anesthesia Post Op Note Date & Time Apr 14, 2017 at 13:07 Vital Signs Pain Intensity: 5 Vital Signs Past 12 Hours Date Time Temp Pulse Resp B/P (MAP) Pulse Ox O2 Delivery O2 Flow Rate FiO2 04/14/17 12:45 36.5 64 12 117/72 (87) 100 Nasal Cannula 2.0 04/14/17 12:37 58 12 99 04/14/17 12:37 58 12 04/14/17 12:32 76 14 99 04/14/17 12:32 77 14 04/14/17 12:31 118/56 04/14/17 12:27 71 13 100 04/14/17 12:27 71 13 04/14/17 12:22 70 13 100 04/14/17 12:22 70 13 04/14/17 12:21 116/53 04/14/17 12:20 36.6 68 12 116/53 100 Nasal Cannula 2 04/14/17 12:17 60 15 100 04/14/17 12:17 60 15 04/14/17 12:16 115/59 04/14/17 12:12 64 13 04/14/17 12:12 64 13 99 04/14/17 12:11 113/53 04/14/17 12:07 68 14 04/14/17 12:07 67 14 99 04/14/17 12:06 119/87 04/14/17 12:06 119/87 04/14/17 12:02 73 14 96 04/14/17 12:02 72 14 04/14/17 12:02 72 14 04/14/17 12:02 73 14 96 04/14/17 12:01 117/53 04/14/17 12:01 117/53 04/14/17 11:57 74 16 117/54 97 04/14/17 11:57 75 16 04/14/17 11:57 75 16 04/14/17 11:57 74 16 117/54 97 04/14/17 11:52 74 16 132/63 96 04/14/17 11:52 74 16 132/63 96 04/14/17 11:52 74 16 04/14/17 11:52 74 16 04/14/17 11:47 74 17 04/14/17 11:47 74 17 04/14/17 11:47 74 17 100 04/14/17 11:47 74 17 100 04/14/17 11:46 139/83 04/14/17 11:46 139/83 04/14/17 11:42 79 20 145/79 100 04/14/17 11:42 80 20 04/14/17 11:42 80 20 04/14/17 11:42 79 20 145/79 100 04/14/17 11:37 82 22 148/72 100 04/14/17 11:37 82 22 148/72 100 04/14/17 11:37 84 22 04/14/17 11:37 84 22 04/14/17 11:32 89 16 04/14/17 11:32 88 16 99 04/14/17 11:32 88 16 99 04/14/17 11:32 89 16 04/14/17 11:31 131/72 04/14/17 11:31 131/72 04/14/17 11:27 86 21 100 04/14/17 11:27 86 21 04/14/17 11:27 86 21 04/14/17 11:27 86 21 100 04/14/17 11:26 141/69 04/14/17 11:26 141/69 04/14/17 11:23 144/72 04/14/17 11:23 144/72 04/14/17 11:22 96 16 100 04/14/17 11:22 36.6 86 20 144/72 100 Oxymask 10 04/14/17 11:22 96 16 100 04/14/17 11:22 96 16 04/14/17 11:22 96 16 04/14/17 07:30 36.8 83 18 115/62 (79) 100 Room Air Notes Mental Status: alert / awake / arousable, participated in evaluation Pt Amnestic to Procedure: Yes Nausea / Vomiting: adequately controlled Pain: adequately controlled Airway Patency, RR, SpO2: stable & adequate BP & HR: stable & adequate Hydration State: stable & adequate Anesthetic Complications: no major complications apparent
--- NOTE | 2017-04-14 14:08 | PROGRESS NOTE ---
DATE: 04/14/2017 SUBJECTIVE: 66-year-old white female postop from a right hip placement. She is doing pretty well. She is having some left hip pain but no significant right hip pain. She does tend to doze off in between questions. No chest pain or shortness of breath. Not feeling dizzy or lightheaded. OBJECTIVE: VITAL SIGNS: Temperature 36.5. Vital signs stable. PHYSICAL EXAMINATION: GENERAL: Pleasant middle-aged female. She is lying in bed and looks comfortable. She does seem to be dozing off very easily. LUNGS: Clear to auscultation. HEART: Has a regular rate and rhythm. ABDOMEN: Soft, nontender, nondistended. EXTREMITIES: Grossly neurovascularly intact except as follows: Examination of the right hip and leg reveals the leg lengths to be equal. Hip is located. She can dorsiflex and plantarflex her foot appropriately. She is neurologically intact. X-RAYS: X-rays of the right hip from the recovery room were reviewed. It shows a right uncemented total hip arthroplasty. The components look to be in good position. No signs of problems. ASSESSMENT: 66-year-old female postop from a right total hip replacement, doing well. Her pain is controlled. Hip is located. She is complaining of a little bit of pain, but in the same sense dozing off. She does not look painful. PLAN: 1. DVT prophylaxis including thigh-high TEDs, SCDs, and will place her back on Eliquis beginning 24 hours postop. 2. PT/OT. She can weightbear as tolerated. Right total hip protocol. 3. Pain control. Doing well with current pain regimen. We are going to have to be careful not to overdose her as she seems to like pain meds. She is clearly not in much pain now if she is dozing off. 4. IV antibiotics x24 hours. 5. Disposition: She is hoping to be discharged to home likely with some home health once adequately recovered.
--- NOTE | 2017-04-14 14:18 | OPERATIVE REPORT ---
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 POSTOPERATIVE DIAGNOSIS: Same. PROCEDURE PERFORMED: Right uncemented total hip arthroplasty. SURGEON: Ney Vega M.D. OPERATOR RECEPTIONIST: Noe Barfield PA-C. COMPLICATIONS: None. ESTIMATED BLOOD LOSS: 300 mL. FLUID REPLACEMENT: 2000 mL crystalloid fluid replacement. ANESTHESIA: General. SPECIMENS: Right femoral head sent for pathology. OPERATIVE INDICATIONS: The patient is a 66-year-old morbidly obese female who carries most of her weight in her hips and her legs who has had a several year history of increasing bilateral hip pain and discomfort to the point where she has had to use 2 canes to get around. It has become markedly worse over the past month to the point where she cannot even get around with canes. She was admitted to the hospital recently for pain and noted to be in Afib. This has been corrected. She has now elected to proceed with total hip arthroplasty. Of note, the patient had an elevated sed rate and C-reactive protein, which has been elevated for quite some time. She had an extensive workup for infection and nothing was found. The patient is indicated for surgical treatment. OPERATIVE FINDINGS: Operative findings revealed extensive avascular necrosis of the femoral head with fragmentation of the head and pieces of cartilage scattered throughout the acetabulum. She had extensive synovitis of the entire hip joint. The bone was collapsed and necrotic and fragmented. The acetabulum was severely diseased as well with cystic changes. OPERATIVE IMPLANTS: Operative implants consisted of: 1. Biomet G7 size 50 mm acetabular shell. 2. A 6.5 cancellous acetabular screws, 1 at 35 mm length and 1 at 25 mm in length. 3. An apex hole eliminator. 4. Highly cross-linked polyethylene liner with 50 mm outer diameter, 32 mm inner diameter with ramirez placed inferior and posterior. 5. DePuy size 13.5 small stature AML femoral stem. 6. A +9/32 mm metal articular ball. OPERATIVE PROCEDURE: The patient was taken to the operating room, identified and placed on operative table in supine position. All contact areas were appropriately padded. IV antibiotics were provided by the anesthesia team. A general anesthetic was implemented by anesthesia team. She has been offered Eliquis for 48 hours and they did not feel that was long enough due to spinal. A Abrams catheter was placed in sterile fashion. The patient was then placed in the left lateral decubitus position. An axillary roll was placed. [facility] was used for positioning. The right hip and leg were then prepped and draped in the usual sterile fashion. Posterolateral approach to the right hip was then performed through a curvilinear incision centered over the greater trochanter. Sharp dissection was carried through the subcutaneous tissues down to the level of the IT band and gluteal fascia. The IT band and gluteal fascia were incised longitudinally in line with the skin incision. The underlying greater trochanteric bursa was excised. The piriformis and external rotators were tagged and taken off the posterior aspect of the hip joint. Great care was taken throughout the procedure to protect the sciatic nerve at all times. Posterior capsulotomy was then performed leaving a large flap for later repair. Hip was internally rotated and dislocated. Femoral neck osteotomy cut was made with the final cut 1 cm above the lesser trochanter. Femoral head was removed and sent for pathology. There was quite a bit of necrosis present but it did not appear infected. The femur was retracted anteriorly. Attention was then drawn to the acetabulum. The acetabulum was cleaned of all debris. This took quite a bit of time as it was full of cartilage and just inflammatory synovitis. The labrum was excised. The sequential reaming of the acetabulum was then performed beginning with a size 43 and progressing up to 49. A 50 mm Biomet G7 acetabular shell was then placed in about 40 degrees of lateral opening and 20 degrees of anteversion. It was fixed with two 6.5 cancellous acetabular screws. We got excellent purchase with the screws. A trial liner was placed. Attention was then drawn to the femur. The proximal femur was entered with cookie cutter followed by canal finder and lateralizing reamer. Sequential reaming of the femur was then performed beginning with a size 10 and progressing up to a 13. We started getting pretty good chatter at 12. We then broached beginning with a size 10.5 small broach and progressing up to 13.5 small broach. We got good fit. Calcar reamer was used to smoothen off the calcar. We then trialed the hip. With the +5 ball the soft tissue tension was just too lax. With a +9 ball we recreated soft tissue tension fairly appropriately. The hip was fully stable in full extension and external rotation and flexion to 90 degrees, internal rotation to about [address] a lip inferior and posterior to maximize stability in flexion. We elected to use these implants. All trial implants were removed. I did contemplate using a dual mobility hip acetabular component, but I felt comfortable with the stability and we elected to place these implants. The wound was irrigated with copious amounts of pulsatile lavage solution. An apex hole eliminator was placed. Highly cross-linked polyethylene liner with a ramirez placed inferior and posterior was placed. A 13.5 small stature AML femoral stem was then impacted in position. We got excellent scratch fit. I did leave this just slightly proud. The +9/32 mm metal articular ball was placed. Hip was located and once again found to be stable. Attention was then drawn toward closing. The wound was irrigated with copious amounts of pulsatile lavage solution. I did inject locally with 60 mL of 0.5% Marcaine with epinephrine. The posterior capsule and external rotators were then repaired through drill holes in the posterior trochanter with #2 Ti-Cron suture. The IT band and gluteal fascia was then closed with #1 PDS suture in running fashion. The subcutaneous tissues were then closed in layers, the deep layer #2 Vicryl suture, the second layer of #1 Vicryl suture, subcutaneous tissue with 2-0 Dexon suture in a buried interrupted fashion. The skin was closed with skin jluis. Leg was then cleaned and dried and a sterile dressing of Xeroform, 4 x 4, sterile ABD pad and foam tape was applied. The patient then brought out of general anesthesia and transferred to the recovery room in stable condition. The patient tolerated the procedure well with no complications. All needle and sponge counts were correct at the end of the operation. I attest to the content of the Intraoperative Record and any orders documented therein. Any exception s are noted below.
[2017-04-14] MEDS ORDERED: FUROSEMIDE 40 MG TAB PO SCH (14:19)
[2017-04-14] MEDS: D5W AND 1/2NSS + 20MEQ KCL 1,000 ML IV SCH ×2 (14:57→21:13)
[2017-04-14] MEDS: GABAPENTIN 300 MG CAP PO SCH (16:00)
[2017-04-14] MEDS: CEFAZOLIN IV 2,000 MG in DEXTROSE 5% 50ML 50 ML IV SCH (16:15)
[2017-04-14] MEDS: ACETAMINOPHEN 500 MG TAB PO SCH (16:16)
[2017-04-14] MEDS: CHECK SCOPOLAMINE PATCH PLACEMENT SCH (16:18)
[2017-04-14] MEDS ORDERED: LORAZEPAM 2 MG/ML 1 ML VIAL IV PRN (17:30)
[2017-04-14] MEDS ORDERED: TRANEXAMIC ACID INJ 1,000 MG in SODIUM CHLORIDE 0.9% 100ML 100 ML IV ONE (17:30)
[2017-04-14] MEDS ORDERED: METO1TAB31 PO (17:43)
--- NOTE | 2017-04-14 17:47 | Medical Consult ---
Consultation Date of Consultation: Apr 14, 2017. Attending Physician: Ney Vega M.D. Reason for Consultation: Medical Management History of Present Illness Ms. Chapman is a 66 y/o female with PMHx of Paroxysmal Atrial Fibrillation and Alcohol Abuse who is S/P R DAGMAR by Dr. Vega on 04/14. Patient was recently admitted for new onset A Fib and currently is NSR. She is on rate control medication with Lopressor and Eliquis. Patient has been sleeping since returning to the floor after surgery. Family supplemented history. Family states that she has had a drastic decline in ADLs, quickly transitioning from cane to walker and then to wheelchair. They state her A Fib was a one time occurrence and hasn't had any problems since. She follows with [facility]ELSI[facility] Cano. Per records, patient finishes a bottle of ETOH a week as she used this for pain management. She has chronic lower extremity edema that appears to be more lymphedema. Family states she is on water pills for this. Review of records, she may have underlying HTN but that was not confirmed. Past Medical/Surgical History Medical Problems: (1) Atrial fibrillation with rapid ventricular response Status: Acute (2) Diverticulitis of colon with perforation Status: Acute (3) DJD (degenerative joint disease) Status: Acute (4) Epigastric pain Status: Acute (5) Right hip pain Status: Acute Family History Cancer Diabetes mellitus Heart disease Hypertension Social History Smoking Status: Former Smoker Smokeless Tobacco Use: No Alcohol Use: heavy Drug Use: none Marital Status: Housing Status: lives with family Occupation Status: unemployed Allergies Coded Allergies: Liraglutide (Verified Allergy, Intermediate, HIVES, 04/14/17) Phenol (Verified Allergy, Intermediate, HIVES, 04/14/17) Propylene Glycol (Verified Allergy, Intermediate, HIVES, 04/14/17) Pregabalin (Verified Adverse Reaction, Intermediate, HIVES, 04/14/17) Current Inpatient Medications Current Inpatient Medications Medications (Trade) Dose Ordered Sig/Luis Route Start Time Stop Time Status Last Admin Dose Admin Lactated Ringer's 1,000 ml @ 15 mls/hr Q24H IV 04/14/17 06:00 04/15/17 05:59 Lactated Ringer's 1,000 ml @ 60 mls/hr [id number] IV 04/14/17 06:00 04/14/17 22:39 04/14/17 07:56 60 MLS/HR Cefazolin Sodium 65 ml @ 100 mls/hr PREOP IV 04/14/17 06:00 04/14/17 18:00 Acetaminophen (Tylenol Tab) 1,000 mg PREOP PO 04/14/17 06:00 04/14/17 18:00 Famotidine (Pepcid Tab) 20 mg PREOP PO 04/14/17 06:00 04/14/17 18:00 04/14/17 07:55 20 MG Gabapentin (Neurontin Cap) 300 mg PREOP PO 04/14/17 06:00 04/14/17 18:00 04/14/17 07:55 300 MG Metoclopramide HCl (Reglan Tab) 10 mg PREOP PO 04/14/17 06:00 04/14/17 18:00 04/14/17 07:55 10 MG Miscellaneous (Remove Transderm-Scop Patch) 1 ea Q72H N/A 04/17/17 06:00 04/17/17 06:01 Miscellaneous Information (Check Scopolamine Patch Placement) 1 ea QS N/A 04/14/17 16:00 04/16/17 05:59 04/14/17 16:18 1 EA Potassium Chloride/Dextrose/ Sod Cl 1,000 ml @ 150 mls/hr Q6H40M IV 04/14/17 14:25 04/15/17 14:24 04/14/17 14:57 150 MLS/HR Ketorolac Tromethamine (Toradol Inj) 15 mg Q6H IV. 04/14/17 18:00 04/15/17 17:59 Oxycodone HCl (Roxicodone Immediate Rel Tab) 1 TABLET FOR PAIN RATING... Q4H PRN PO 04/14/17 11:30 04/28/17 11:29 Morphine Sulfate (MoRPHine SULFATE INJ) 2 mg Q1H PRN IV 04/14/17 11:30 04/28/17 11:29 Acetaminophen (Tylenol Tab) 1,000 mg Q8H PO 04/14/17 16:00 05/14/17 15:59 04/14/17 16:16 1,000 MG Magnesium Hydroxide (Milk Of Magnesia Susp) 30 ml Q6H PRN PO 04/14/17 11:30 05/14/17 11:29 Bisacodyl (Dulcolax Supp) 10 mg DAILY PRN MN 04/14/17 11:30 05/14/17 11:29 Senna (Senokot Tab) 17.2 mg HS PO 04/14/17 21:00 05/14/17 20:59 Docusate Sodium (coLACE CAP) 100 mg BID PO 04/14/17 21:00 05/14/17 20:59 Zolpidem Tartrate (Ambien Tab) 5 mg HSZ PRN PO 04/14/17 11:30 05/14/17 11:29 Ondansetron HCl (Zofran Inj) 4 mg Q6H PRN IV 04/14/17 11:30 05/14/17 11:29 Metoclopramide HCl (Reglan Inj) 10 mg Q6H PRN IV 04/14/17 11:30 05/14/17 11:29 Ferrous Gluconate (Ferrous Gluconate Tab) 324 mg TIDM PO 04/14/17 17:45 05/14/17 17:44 Pantoprazole Sodium (Protonix Tab) 40 mg QAM PO 04/15/17 09:00 05/15/17 08:59 Silver Sulfadiazine (Silvadene 1% Crm 50GM Jar) 1 appln BID PRN EXT 04/14/17 11:30 05/14/17 11:29 Cefazolin Sodium 2000 mg/Dextrose 60 ml @ 100 mls/hr Q8H IV 04/14/17 17:00 04/15/17 01:35 04/14/17 16:15 100 MLS/HR Tapentadol (Nucynta Er Tab) 50 mg BID PO 04/14/17 21:00 05/14/17 20:59 Tranexamic Acid 1000 mg/Sodium Chloride 110 ml @ 660 mls/hr TODAY@1730 ONCE IV 04/14/17 17:30 04/14/17 17:39 Cholecalciferol (Vitamin D Tab) 5,000 inter.unit QAM PO 04/15/17 09:00 05/15/17 08:59 Furosemide (Lasix Tab) 40 mg Q2D@0800 PO 04/14/17 14:19 05/14/17 14:18 04/14/17 16:15 40 MG Gabapentin (Neurontin Cap) 300 mg Q8H PO 04/14/17 16:00 05/14/17 15:59 Magnesium Citrate (Citrate Of Magnesia Soln) 120 ml DAILY PRN PO 04/14/17 11:30 05/14/17 11:29 Metoprolol Tartrate (Lopressor Tab) 25 mg QAM PO 04/15/17 09:00 05/15/17 08:59 Multivitamins (Multivitamin Tab) 1 tab QAM PO 04/15/17 09:00 05/15/17 08:59 Spironolactone (Aldactone Tab) 25 mg QAM PO 04/15/17 09:00 05/15/17 08:59 Potassium Chloride (Klor-Con Tab) 20 meq QAM PO 04/15/17 09:00 05/15/17 08:59 Folic Acid (Folvite Tab) 1 mg QAM PO 04/15/17 09:00 05/15/17 08:59 Thiamine HCl (Vitamin B-1 Tab) 100 mg QAM PO 04/15/17 09:00 04/17/17 08:59 Chlordiazepoxide (Librium Cap) 50 mg Q6H PRN PO 04/14/17 12:00 05/14/17 11:59 Apixaban (Eliquis Tab) 2.5 mg BID PO 04/15/17 12:00 05/15/17 11:59 Lorazepam (Ativan Inj) 1 mg ONE PRN IV 04/14/17 17:30 UNV Review of Systems ROS deferred as patient is sleeping after surgery Physical Exam Date Time Temp Pulse Resp B/P (MAP) Pulse Ox O2 Delivery O2 Flow Rate FiO2 04/14/17 15:54 36.4 78 16 115/59 (77) 100 Nasal Cannula 2.0 04/14/17 15:40 68 128/69 (88) 100 Nasal Cannula 2.0 04/14/17 15:15 Nasal Cannula 04/14/17 15:10 36.4 63 16 91/52 (65) 94 Nasal Cannula 2.0 04/14/17 13:59 57 127/77 (94) 04/14/17 13:15 36.4 72 14 135/81 (99) 100 Nasal Cannula 2.0 04/14/17 12:45 36.5 64 12 117/72 (87) 100 Nasal Cannula 2.0 04/14/17 12:45 100 Nasal Cannula 2.0 04/14/17 12:37 58 12 99 04/14/17 12:37 58 12 04/14/17 12:32 76 14 99 04/14/17 12:32 77 14 04/14/17 12:31 118/56 04/14/17 12:27 71 13 100 04/14/17 12:27 71 13 04/14/17 12:22 70 13 100 04/14/17 12:22 70 13 04/14/17 12:21 116/53 04/14/17 12:20 36.6 68 12 116/53 100 Nasal Cannula 2 04/14/17 12:17 60 15 100 04/14/17 12:17 60 15 04/14/17 12:16 115/59 04/14/17 12:12 64 13 04/14/17 12:12 64 13 99 04/14/17 12:11 113/53 04/14/17 12:07 68 14 04/14/17 12:07 67 14 99 04/14/17 12:06 119/87 04/14/17 12:06 119/87 04/14/17 12:02 73 14 96 04/14/17 12:02 72 14 04/14/17 12:02 72 14 04/14/17 12:02 73 14 96 04/14/17 12:01 117/53 04/14/17 12:01 117/53 04/14/17 11:57 74 16 117/54 97 04/14/17 11:57 75 16 04/14/17 11:57 75 16 04/14/17 11:57 74 16 117/54 97 04/14/17 11:52 74 16 132/63 96 04/14/17 11:52 74 16 132/63 96 04/14/17 11:52 74 16 04/14/17 11:52 74 16 04/14/17 11:47 74 17 04/14/17 11:47 74 17 04/14/17 11:47 74 17 100 04/14/17 11:47 74 17 100 04/14/17 11:46 139/83 04/14/17 11:46 139/83 04/14/17 11:42 79 20 145/79 100 04/14/17 11:42 80 20 04/14/17 11:42 80 20 04/14/17 11:42 79 20 145/79 100 04/14/17 11:37 82 22 148/72 100 04/14/17 11:37 82 22 148/72 100 04/14/17 11:37 84 22 04/14/17 11:37 84 22 04/14/17 11:32 89 16 04/14/17 11:32 88 16 99 04/14/17 11:32 88 16 99 04/14/17 11:32 89 16 04/14/17 11:31 131/72 04/14/17 11:31 131/72 04/14/17 11:27 86 21 100 04/14/17 11:27 86 21 04/14/17 11:27 86 21 04/14/17 11:27 86 21 100 04/14/17 11:26 141/69 04/14/17 11:26 141/69 04/14/17 11:23 144/72 04/14/17 11:23 144/72 04/14/17 11:22 96 16 100 04/14/17 11:22 36.6 86 20 144/72 100 Oxymask 10 04/14/17 11:22 96 16 100 04/14/17 11:22 96 16 04/14/17 11:22 96 16 04/14/17 07:30 36.8 83 18 115/62 (79) 100 Room Air General Appearance: WD/WN, no apparent distress, + obese Head: normocephalic, atraumatic Neck: supple, no JVD, trachea midline Respiratory/Chest: lungs clear, normal breath sounds, no respiratory distress, no accessory muscle use, + pertinent finding (snoring - suspect possible LEONARD) Cardiovascular: regular rate, rhythm, no gallop, no murmur Abdomen/GI: normal bowel sounds, non tender, soft Extremities/Musculoskelatal: + pertinent finding (bilateral non-pitting edema of lower extremities - likely lymphedema; pedal edema bilat - non-pitting; R hip with NIKI wrap C/D/I; cap refill immediate) Neurologic/Psych: + pertinent finding (asleep - awakes but quickly falls back asleep) Skin: normal color, warm/dry Assessment & Plan Ms. Chapman is a 66 y/o female with PMHx of Paroxysmal Atrial Fibrillation and Alcohol Abuse who is S/P R DAGMAR by Dr. Vega on 04/14. S/P R DAGMAR 2/[address] Vega on 04/14: - Pain management, DVT prophylaxis, PT/OT, IVF per primary - DVT prophylaxis - Eliquis 2.5 mg BID -- Patient was previously on Eliquis 5 mg BID for A Fib and would recommend reinstitution at dosing for A Fib as soon as deemed safe from a surgical standpoint. By exam patient is RRR but CHADVASC is 2...possibly 3 as likely she has underlying undiagnosed HTN Paroxysmal A Fib: NSR by Exam and Rate Controlled: - Metoprolol Succ 25 mg daily and Eliquis (again recommend resuming A Fib dosing when deemed safe) Alcohol Abuse: - AWSS - at risk protocol with PRN Ativan; Continue thiamine Disposition: - Review of vitals she likely has underlying HTN and may even have LEONARD - mindful if any hypoxic readings occur Thank you for the consultation. Hospitalist services will continue to follow. Attending Addendum: I have physically seen and examined this patient, have directed the physician assistants medical activities, and agree with the H&P as noted above with the following exceptions as noted. The patient is awakens, but falls back asleep quickly, obese, normocephalic and atraumatic, lying in bed and in no acute distress. HEENT--PERRL, EOMI, mucous membranes and oropharynx dry. Neck--supple, no JVD or bruits, thyroid normal, trachea midline, no adenopathy. Heart--normal S1 and S2, no extra beats, no murmurs, rubs or gallops. Lungs--clear bilaterally with good air movement, no respiratory distress, no accessory muscle use. Abdomen--normal bowel sounds and soft, nontender and nondistended, no hernias or masses, no organomegaly. Extremities--no cyanosis, clubbing. Bilateral nonpitting lymphedema. There are good distal pulses b/l. Dermatologic--normal skin turgor, normal color, warm and dry, no abnormal lymph nodes, no rash. Neurologic--cranial nerves II through XII grossly intact, motor and sensory examination normal. Rheumatologic--normal range of motion, nontender, muscles and joints. Psychiatric--asleep most of time Assessment and Plan: Status post right total hip arthroplasty secondary to AVN--seen postoperatively medically stable. Paroxysmal atrial fibrillation--outpatient dosing of Eliquis is 5 mg by mouth twice a day. The 2.5 mg twice a day dose can be transitioned to her full treatment dose when orthopedically acceptable. Continue metoprolol succinate 25 mg by mouth daily Alcohol abuse-- AWSS at risk protocol enacted
[2017-04-14] MEDS ORDERED: LORAZEPAM 1MG IV AT RISK PROTOCOL PHA IV PRN (18:00)
[2017-04-14] MEDS: KETOROLAC TROMETHAMINE 15 MG/ML VIAL IV. SCH (18:08)
[2017-04-14] MEDS: FERROUS GLUCONATE 324 MG TAB PO SCH (18:09)
[2017-04-14] MEDS: SENNA 8.6 MG TAB PO SCH (21:13)
[2017-04-14] MEDS: DOCUSATE SODIUM 100 MG CAP PO SCH (21:13)
[2017-04-14] MEDS: TAPENTADOL ER 50 MG TABCR PO SCH (21:13)
[2017-04-15] VITALS (16 sets, daily range): BP systolic 89–124; BP diastolic 55–73; PULSE 72–96; TEMP 36.7–37.1; O2SAT 95–100
[2017-04-15] MEDS: KETOROLAC TROMETHAMINE 15 MG/ML VIAL IV. SCH ×3 (00:12→12:04)
[2017-04-15] MEDS: ACETAMINOPHEN 500 MG TAB PO SCH ×3 (00:12→16:54)
[2017-04-15] MEDS: CEFAZOLIN IV 2,000 MG in DEXTROSE 5% 50ML 50 ML IV SCH (00:12)
[2017-04-15] MEDS: CHECK SCOPOLAMINE PATCH PLACEMENT SCH ×4 (00:16→23:48)
[2017-04-15] MEDS: D5W AND 1/2NSS + 20MEQ KCL 1,000 ML IV SCH ×2 (03:51→10:25)
[2017-04-15 06:45] LABS: BUN/CREATININE RATIO 14.2 (10-20); CALCIUM 8.3 mg/dl (8.5-10.1); CREATININE 1.1 mg/dl (0.60-1.20); POTASSIUM 4.1 mmol/L (3.5-5.1)
[2017-04-15 06:47] LABS: MEAN CELL VOLUME 96.1 fL (80-100); MEAN CORPUSCULAR HEMOGLOBIN 30.5 pg (25-34); MEAN CORPUSCULAR HGB CONC 31.8 g/dl (32-36); MEAN PLATELET VOLUME 9.2 fL (7.4-10.4); PLATELET COUNT 332 K/uL (130-400); RED BLOOD COUNT 2.03 M/uL (4.2-5.4); WHITE BLOOD COUNT 8.83 K/uL (4.8-10.8)
[2017-04-15 06:51] LABS: HEMATOCRIT 19.5 % (37-47)
[2017-04-15 07:02] LABS: BASO % 0.1 %; BASO ABS # 0.01 K/uL (0-0.2); COMPLETE YES; EOS % 0.7 %; IG% 0.1 %; LYMPH % 18.1 %; MONO % 11.4 %; NEUT % 69.6 %
[2017-04-15] MEDS: FERROUS GLUCONATE 324 MG TAB PO SCH ×3 (07:37→17:43)
[2017-04-15] MEDS: GABAPENTIN 300 MG CAP PO SCH ×3 (07:37→16:53)
[2017-04-15] MEDS: DOCUSATE SODIUM 100 MG CAP PO SCH ×2 (08:46→20:57)
[2017-04-15] MEDS: CHOLECALCIFEROL 1000 INTER.UNIT TAB PO SCH (08:46)
[2017-04-15] MEDS: TAPENTADOL ER 50 MG TABCR PO SCH ×2 (08:46→20:57)
[2017-04-15] MEDS: PANTOprazole SOD 40 MG TAB PO SCH (08:46)
[2017-04-15] MEDS: MULTIVITAMIN TAB PO SCH (08:47)
[2017-04-15] MEDS: POTASSIUM CHLORIDE 20 MEQ TABCR PO SCH (08:47)
[2017-04-15] MEDS: METOPROLOL SUCC 25MG EXT REL TAB PO SCH (08:47)
[2017-04-15] MEDS: THIAMINE HCL 100 MG TAB PO SCH (08:47)
[2017-04-15] MEDS ORDERED: MULTIVITAMIN TAB PO SCH (09:00)
[2017-04-15] MEDS ORDERED: SPIRONOLACTONE 25 MG TAB PO SCH (09:00)
[2017-04-15] MEDS ORDERED: METOPROLOL TARTRATE 25 MG TAB PO SCH (09:00)
--- NOTE | 2017-04-15 09:07 | PROGRESS NOTE ---
DATE: 04/15/2017 SUBJECTIVE: A 66-year-old female postop day 1 from right total hip replacement, severe AVN. She is doing well. She is actually having more knee pain than hip pain. No chest pain or shortness of breath. Not feeling dizzy or lightheaded. OBJECTIVE: VITAL SIGNS: Temperature 36.7. Vital signs stable. PHYSICAL EXAMINATION: GENERAL: Reveals a pleasant middle-aged female. She is sitting up in bed, looks pretty comfortable. EXTREMITIES: Examination of the right hip reveals the leg to be well aligned. Thigh is soft and supple. Dressing is clean, dry and intact. NEUROLOGIC: She is neurologically intact. LABORATORY DATA: Hemoglobin 6.2, hematocrit 19.5. Electrolytes are stable. ASSESSMENT: A 66-year-old white female postop day 1 from right total hip replacement, doing quite well clinically. She is pretty anemic but really did not have much in the way of symptoms from that. Her pain is controlled. Hip is located. PLAN: 1. DVT prophylaxis including bilateral thigh-high TEDs, SCDs, and we will resume her Eliquis at a prophylactic dose starting 24 hours postop. She has not been in AFib since that one episode and we will use prophylactic dose initially and maybe increase her to a therapeutic dose in several days. 2. PT/OT. Weight bear as tolerated. Right total hip protocol. 3. Pain control. Doing well with current pain regimen. We need to be careful not to overdose her as she has a pretty low threshold to use narcotics. 4. Anemia. We will give her some blood today. Her hemoglobin was fairly low to start out. Despite this low level, she is relatively asymptomatic. 5. DT Prophylaxis: She is getting folic acid and thiamine. Will give librium if she develops symptoms of withdrawal 6. Disposition: She is hoping to go to [facility] for a brief rehab stay once adequately recovered. BARBARA
[2017-04-15] MEDS: APIXABAN 2.5 MG TAB PO SCH ×2 (12:04→20:57)
[2017-04-15] MEDS: OXYCODONE HCL IR 5 MG TAB (IMMEDIATE RELEASE) PO PRN ×2 (15:03→20:01)
--- NOTE | 2017-04-15 16:24 | Progress Note ---
Subjective Date of Service: Apr 15, 2017. Subjective Pt evaluation today including: conversation w/ patient, physical exam, chart review, lab review, review of inpatient medication list Problem List Medical Problems: (1) Atrial fibrillation with rapid ventricular response Status: Acute (2) Diverticulitis of colon with perforation Status: Acute (3) DJD (degenerative joint disease) Status: Acute (4) Epigastric pain Status: Acute (5) Right hip pain Status: Acute Review of Systems Constitutional: No see HPI, No fever, No chills, No sweats, No weight loss, No weakness, No fatigue, No problem reported Eyes: No see HPI, No worsening of vision, No eye pain, No redness, No discharge , No diplopia, No problem reported ENT: No see HPI, No hearing loss, No unusual epistaxis, No nasal symptoms, No sore throat, No tinnitus, No dental problems, No trouble swallowing, No problem reported Respiratory: No see HPI, No cough, No sputum, No wheezing, No shortness of breath, No dyspnea on exertion, No dyspnea at rest, No hemoptysis, No problem reported Cardiac: No see HPI, No chest pain, No orthopnea, No PND, No edema, No claudication, No palpitations, No problem reported Abdomen: No see HPI, No pain, No nausea, No vomiting, No diarrhea, No constipation, No GI bleeding, No problem reported Musculoskeletal: No see HPI, No joint pain, No muscle pain, No swelling, No calf pain, No problem reported Female : No see HPI, No dysuria, No urinary frequency, No hematuria, No incontinence, No abnormal vaginal bleeding, No vaginal discharge, No problem reported Neurologic: No see HPI, No memory loss, No paralysis, No weakness, No numbness/ tingling, No vertigo, No balance problems, No problem reported Psychiatric: No see HPI, No depression symptoms, No anhedonism, No anxiety, No insomnia, No substance abuse, No problem reported Heme: No see HPI, No abnormal bleeding/bruising, No clotting problems, No swollen lymph nodes, No night sweats, No problem reported Endo: No see HPI, No fatigue, No excessive thirst, No excessive urination, No problem reported Skin: No see HPI, No rash, No itch, No new/changing skin lesions, No color change, No bleeding, No problem reported Objective Vital Signs Date Time Temp Pulse Resp B/P (MAP) Pulse Ox O2 Delivery O2 Flow Rate FiO2 04/15/17 15:48 37.1 90 16 98/61 (73) 98 Room Air 04/15/17 14:00 36.9 88 17 123/67 99 04/15/17 12:59 37.0 83 18 115/69 100 04/15/17 12:30 37.0 91 18 115/71 100 04/15/17 12:15 37.1 89 18 102/64 99 04/15/17 12:00 36.7 84 18 94/58 04/15/17 11:10 36.8 85 18 100/62 (75) 99 Room Air 04/15/17 11:00 36.8 85 18 100/62 99.0 04/15/17 10:00 36.7 91 18 100/62 98 04/15/17 09:30 36.7 93 18 89/56 100 04/15/17 09:15 36.8 94 17 93/58 98 04/15/17 08:56 36.7 87 18 91/55 04/15/17 07:31 36.7 89 18 103/62 (76) 95 Room Air 04/15/17 07:15 99 Room Air 04/15/17 02:50 36.7 72 16 96/56 (69) 99 Nasal Cannula 2.0 04/14/17 23:06 36.6 76 16 97/59 (72) 99 Nasal Cannula 2.0 04/14/17 20:40 Nasal Cannula 2.0 04/14/17 19:07 36.7 72 18 101/60 (74) 97 Nasal Cannula 2.0 Physical Exam General Appearance: WD/WN, no apparent distress Eyes: normal inspection, EOMI ENT: normal ENT inspection, hearing grossly normal Neck: supple Respiratory/Chest: chest non-tender, lungs clear, normal breath sounds, no respiratory distress, no accessory muscle use Cardiovascular: regular rate, rhythm, no edema, no gallop, no JVD, no murmur Abdomen: normal bowel sounds, non tender, soft, no organomegaly, no pulsatile mass Extremities: non-tender, normal inspection, + pertinent finding (right lower ext is wrapped, moves her toes freely with no pain ) 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, no motor/sensory deficits, alert, normal mood/affect, oriented x 3 Skin: normal color, warm/dry, no rash Laboratory Results Last 24 Hours Test 04/15/17 05:29 White Blood Count 8.83 K/uL Red Blood Count 2.03 M/uL Hemoglobin 6.2 g/dL Hematocrit 19.5 % Mean Corpuscular Volume 96.1 fL Mean Corpuscular Hemoglobin 30.5 pg Mean Corpuscular Hemoglobin Concent 31.8 g/dl Platelet Count 332 K/uL Mean Platelet Volume 9.2 fL Neutrophils (%) (Auto) 69.6 % Lymphocytes (%) (Auto) 18.1 % Monocytes (%) (Auto) 11.4 % Eosinophils (%) (Auto) 0.7 % Basophils (%) (Auto) 0.1 % Neutrophils # (Auto) 6.14 K/uL Lymphocytes # (Auto) 1.60 K/uL Monocytes # (Auto) 1.01 K/uL Eosinophils # (Auto) 0.06 K/uL Basophils # (Auto) 0.01 K/uL RDW Standard Deviation 49.2 fL RDW Coefficient of Variation 13.9 % Immature Granulocyte % (Auto) 0.1 % Immature Granulocyte # (Auto) 0.01 K/uL Red Blood Cell Morphology Unremarkable Sodium Level 137 mmol/L Potassium Level 4.1 mmol/L Chloride Level 101 mmol/L Carbon Dioxide Level 29 mmol/L Anion Gap 7.0 mmol/L Blood Urea Nitrogen 16 mg/dl Creatinine 1.10 mg/dl Est Creatinine Clear Calc Drug Dose 70.4 ml/min Estimated GFR () 61.0 Estimated GFR (Non- 52.6 BUN/Creatinine Ratio 14.2 Random Glucose 124 mg/dl Calcium Level 8.3 mg/dl Hepatitis C Antibody Screen NEG Assessment and Plan Ms. Chapman is a 66 y/o female with Paroxysmal AF and Eth Abuse S/P R DAGMAR by Dr. Vega on 04/14. Right total hip replacement on April 14 Tolerated procedure well Started on apixaban 2.5 mg by mouth twice a day by Dr. Vega Physical therapy as per primary team Paroxysmal A fibrillation Currently rate controlled Continue metoprolol 25 mg by mouth twice a day When safe to do so, up expanding dose should be increased to 5 mg twice a day Hypertension, currently borderline hypotensive DC spironolactone DC Lasix as she does not seem to be fluid overloaded Continue on the metoprolol which helps for rate control Acute blood loss anemia agree with blood transfusion We will reevaluate in name Ethanol abuse AWSS - at risk protocol with PRN Ativan; Continue thiamine Clinically suspected obstructive sleep apnea Needs sleep study as an outpatient Disposition Based on her progression
[2017-04-15] MEDS ORDERED: RXC5 PO (20:30)
[2017-04-15] MEDS ORDERED: FRRG PO (20:30)
[2017-04-15] MEDS ORDERED: NCYSR50 PO (20:30)
--- NOTE | 2017-04-15 20:33 | Discharge Instructions ---
Discharge Instructions Date of Service Apr 15, 2017. Admission Reason for Admission: Right Hip Degenerative Joint Disease Discharge Discharge Diagnosis / Problem: Right Hip Replacement Discharge Goals Goal(s): Decrease discomfort, Improve function, Increase independence, Improve disease control, Therapeutic intervention Activity Recommendations Activity Level: Assistance Required (total Hip Precautions) Weightbearing Status: Right weightbearing . Additional Information Patient informed of condition: Yes Advance Directives: No DNR: No Level of Care: Acute Rehab Communicable Disease: No Prognosis: Improving Current Hospital Diet Patient's current hospital diet: Regular Diet Discharge Diet Recommended Diet: Regular Diet Procedures Procedures Performed: Right Total Hip Arthroplasty - Uncemented Pending Studies Studies pending at discharge: no Laboratory Results Hemoglobin A1c Test 03/11/17 07:56 Range/Units Estimated Average Glucose 97 mg/dl Hemoglobin A1c 5.0 4.5-5.6 % Lipid Panel Test 03/10/17 16:10 Range/Units Triglycerides Level 86 0-150 mg/dl Cholesterol Level 171 0-200 mg/dl HDL Cholesterol 82 mg/dl Cholesterol/HDL Ratio 2.1 LDL Cholesterol, Calculated 72 mg/dl Medical Emergencies . Who to Call and When: Medical Emergencies: If at any time you feel your situation is an emergency, please call 911 immediately. . Non-Emergent Contact Non-Emergency issues call your: Surgeon . . "Provider Documentation" section prepared by Ney Vega. . Core Measure Problem Core Measures: None
[2017-04-15] MEDS: SENNA 8.6 MG TAB PO SCH (21:40)
[2017-04-16] MEDS: ACETAMINOPHEN 500 MG TAB PO SCH ×4 (00:13→23:29)
[2017-04-16] MEDS: GABAPENTIN 300 MG CAP PO SCH ×4 (00:13→23:29)
[2017-04-16 06:16] LABS: HEMATOCRIT 25.2 % (37-47)
[2017-04-16] MEDS: OXYCODONE HCL IR 5 MG TAB (IMMEDIATE RELEASE) PO PRN ×3 (06:20→17:44)
[2017-04-16 07:07] LABS: ALB/GLOB RATIO 0.5 (0.9-2); BUN/CREATININE RATIO 14.1 (10-20); CALCIUM 8.6 mg/dl (8.5-10.1); MAGNESIUM 2.2 mg/dl (1.8-2.4); POTASSIUM 4.2 mmol/L (3.5-5.1)
[2017-04-16 07:08] LABS: PHOSPHORUS 3.1 mg/dl (2.5-4.9)
[2017-04-16 07:41] VITALS: BP 164/78; PULSE 85; TEMP 36.7; O2SAT 98
[2017-04-16] MEDS: FERROUS GLUCONATE 324 MG TAB PO SCH ×3 (07:43→17:43)
--- NOTE | 2017-04-16 08:17 | PROGRESS NOTE ---
DATE: 04/16/2017 SUBJECTIVE: A 66-year-old white female postop day #2 from right total hip replacement. She is doing pretty well. Complained more of left hip pain than the right hip pain now and some right knee pain. No chest pain or shortness of breath. Not feeling dizzy or lightheaded. OBJECTIVE: VITAL SIGNS: Temperature is 36.7. Vital signs stable. PHYSICAL EXAMINATION: VITAL SIGNS: Stable. GENERAL: Reveals a pleasant, middle-aged female. She is sitting up in bed and looks pretty comfortable. EXTREMITIES: Examination of the right hip and leg reveals the wound to be clean, dry and intact. Thigh is soft and supple. Hip is located. She is neurologically intact. LABORATORY DATA: Hemoglobin 8.1, hematocrit 25.2. Electrolytes are stable. ASSESSMENT: A 66-year-old white female postop day #2 from a right total hip replacement, doing pretty well. Pain is markedly improved. She was anemic. She is to continue to be anemic, but asymptomatic. Hemoglobin is improved. PLAN: 1. DVT prophylaxis including thigh-high TEDs, SCDs, and she is back on prophylactic dose of Eliquis. Will increase her to a therapeutic dose upon discharge. 2. PT/OT. She can weightbear as tolerated. Right total hip protocol. 3. Pain control, doing well with current pain regimen. 4. Disposition: Plan to discharge to [facility] for a rehab stay once medically stable.
[2017-04-16] MEDS: TAPENTADOL ER 50 MG TABCR PO SCH ×2 (08:55→21:21)
[2017-04-16] MEDS: MULTIVITAMIN TAB PO SCH (08:55)
[2017-04-16] MEDS: CHOLECALCIFEROL 1000 INTER.UNIT TAB PO SCH (08:55)
[2017-04-16] MEDS: THIAMINE HCL 100 MG TAB PO SCH (08:55)
[2017-04-16] MEDS: PANTOprazole SOD 40 MG TAB PO SCH (08:55)
[2017-04-16] MEDS: METOPROLOL SUCC 25MG EXT REL TAB PO SCH (08:55)
[2017-04-16] MEDS: POTASSIUM CHLORIDE 20 MEQ TABCR PO SCH (08:55)
[2017-04-16] MEDS: DOCUSATE SODIUM 100 MG CAP PO SCH ×2 (08:56→21:21)
[2017-04-16] MEDS: APIXABAN 2.5 MG TAB PO SCH ×2 (08:56→21:22)
[2017-04-16 10:32] VITALS: BP 99/64; PULSE 84; O2SAT 96
[2017-04-16 12:05] VITALS: BP 144/71
--- NOTE | 2017-04-16 14:57 | Progress Note ---
Subjective Date of Service: Apr 16, 2017. Subjective Pt evaluation today including: conversation w/ patient, physical exam, chart review, lab review, review of inpatient medication list Problem List Medical Problems: (1) Atrial fibrillation with rapid ventricular response Status: Acute (2) Diverticulitis of colon with perforation Status: Acute (3) DJD (degenerative joint disease) Status: Acute (4) Epigastric pain Status: Acute (5) Right hip pain Status: Acute Review of Systems Constitutional: No see HPI, No fever, No chills, No sweats, No weight loss, No weakness, No fatigue, No problem reported Eyes: No see HPI, No worsening of vision, No eye pain, No redness, No discharge , No diplopia, No problem reported ENT: No see HPI, No hearing loss, No unusual epistaxis, No nasal symptoms, No sore throat, No tinnitus, No dental problems, No trouble swallowing, No problem reported Respiratory: No see HPI, No cough, No sputum, No wheezing, No shortness of breath, No dyspnea on exertion, No dyspnea at rest, No hemoptysis, No problem reported Cardiac: No see HPI, No chest pain, No orthopnea, No PND, No edema, No claudication, No palpitations, No problem reported Abdomen: No see HPI, No pain, No nausea, No vomiting, No diarrhea, No constipation, No GI bleeding, No problem reported Musculoskeletal: + joint pain, + muscle pain Female : No see HPI, No dysuria, No urinary frequency, No hematuria, No incontinence, No abnormal vaginal bleeding, No vaginal discharge, No problem reported Neurologic: No see HPI, No memory loss, No paralysis, No weakness, No numbness/ tingling, No vertigo, No balance problems, No problem reported Psychiatric: No see HPI, No depression symptoms, No anhedonism, No anxiety, No insomnia, No substance abuse, No problem reported Heme: No see HPI, No abnormal bleeding/bruising, No clotting problems, No swollen lymph nodes, No night sweats, No problem reported Endo: No see HPI, No fatigue, No excessive thirst, No excessive urination, No problem reported Skin: No see HPI, No rash, No itch, No new/changing skin lesions, No color change, No bleeding, No problem reported Objective Vital Signs Date Time Temp Pulse Resp B/P (MAP) Pulse Ox O2 Delivery O2 Flow Rate FiO2 9/3/17 12:05 144/71 (95) 04/16/17 08:00 Room Air 04/16/17 07:41 36.7 85 20 164/78 (106) 98 Room Air 04/15/17 23:26 36.9 96 16 124/73 (90) 100 Room Air 04/15/17 20:35 Room Air 04/15/17 16:30 Room Air 04/15/17 15:48 37.1 90 16 98/61 (73) 98 Room Air Physical Exam General Appearance: WD/WN, no apparent distress Eyes: normal inspection, EOMI ENT: normal ENT inspection, hearing grossly normal Neck: supple Respiratory/Chest: chest non-tender, lungs clear, normal breath sounds Cardiovascular: regular rate, rhythm, no edema, no gallop, no JVD, no murmur Abdomen: normal bowel sounds, non tender, soft, no organomegaly Extremities: normal range of motion, non-tender, normal inspection, no pedal edema 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, no motor/sensory deficits, alert, normal mood/affect, oriented x 3 Skin: normal color, warm/dry, no rash Laboratory Results Last 24 Hours Test 04/16/17 05:22 Hemoglobin 8.1 g/dL Hematocrit 25.2 % Sodium Level 138 mmol/L Potassium Level 4.2 mmol/L Chloride Level 103 mmol/L Carbon Dioxide Level 29 mmol/L Anion Gap 6.0 mmol/L Blood Urea Nitrogen 14 mg/dl Creatinine 1.00 mg/dl Est Creatinine Clear Calc Drug Dose 77.5 ml/min Estimated GFR () 68.5 Estimated GFR (Non- 59.1 BUN/Creatinine Ratio 14.1 Random Glucose 99 mg/dl Calcium Level 8.6 mg/dl Phosphorus Level 3.1 mg/dl Magnesium Level 2.2 mg/dl Total Bilirubin 0.5 mg/dl Aspartate Amino Transf (AST/SGOT) 19 U/L Alanine Aminotransferase (ALT/SGPT) 10 U/L Alkaline Phosphatase 187 U/L Total Protein 6.8 gm/dl Albumin 2.2 gm/dl Globulin 4.6 gm/dl Albumin/Globulin Ratio 0.5 Assessment and Plan Ms. Chapman is a 66 y/o female with Paroxysmal AF and Eth Abuse S/P R DAGMAR by Dr. Vega on 04/14. Right total hip replacement on 04/14 Tolerated procedure well Started on apixaban 2.5 mg by mouth twice a day by Dr. Vega, will be increased upon discharge to 5mg twice a day Physical therapy as per primary team Paroxysmal A fibrillation Currently rate controlled Continue metoprolol 25 mg by mouth twice a day When safe to do so, up expanding dose should be increased to 5 mg twice a day Hypertension, currently borderline hypotensive DC spironolactone DC Lasix as she does not seem to be fluid overloaded Continue on the metoprolol which helps for rate control Acute blood loss anemia, improved s/p one unit blood transfusion, today Hgb is 8 We will reevaluate in name Ethanol abuse AWSS - at risk protocol with PRN Ativan; Continue thiamine Clinically suspected obstructive sleep apnea Needs sleep study as an outpatient Disposition Based on her progression
[2017-04-16 15:00] VITALS: BP 111/67; PULSE 82; TEMP 36.8; O2SAT 100
[2017-04-16] MEDS: SENNA 8.6 MG TAB PO SCH (21:22)
[2017-04-16 23:15] VITALS: BP 110/64; PULSE 86; TEMP 37; O2SAT 95
[2017-04-17 07:19] VITALS: BP 112/67; PULSE 84; TEMP 36.8; O2SAT 98
[2017-04-17] MEDS: TAPENTADOL ER 50 MG TABCR PO SCH ×2 (08:11→20:56)
[2017-04-17] MEDS: FERROUS GLUCONATE 324 MG TAB PO SCH ×3 (08:11→17:54)
[2017-04-17] MEDS: OXYCODONE HCL IR 5 MG TAB (IMMEDIATE RELEASE) PO PRN ×2 (08:11→17:01)
[2017-04-17] MEDS: DOCUSATE SODIUM 100 MG CAP PO SCH ×2 (08:12→20:56)
[2017-04-17] MEDS: MULTIVITAMIN TAB PO SCH (08:12)
[2017-04-17] MEDS: POTASSIUM CHLORIDE 20 MEQ TABCR PO SCH (08:12)
[2017-04-17] MEDS: ACETAMINOPHEN 500 MG TAB PO SCH ×2 (08:12→15:24)
[2017-04-17] MEDS: GABAPENTIN 300 MG CAP PO SCH ×2 (08:12→15:24)
[2017-04-17] MEDS: APIXABAN 2.5 MG TAB PO SCH ×2 (08:13→20:56)
[2017-04-17] MEDS: CHOLECALCIFEROL 1000 INTER.UNIT TAB PO SCH (08:13)
[2017-04-17] MEDS: METOPROLOL SUCC 25MG EXT REL TAB PO SCH (08:13)
[2017-04-17] MEDS: PANTOprazole SOD 40 MG TAB PO SCH (08:13)
--- NOTE | 2017-04-17 08:18 | PROGRESS NOTE ---
DATE: 04/17/2017 SUBJECTIVE: A 66-year-old white female postop day 3 from right total hip replacement. She is doing well. Seems to be having a little bit more left hip pain and some right knee pain. Right hip pain is markedly improved. No chest pain or shortness of breath. Not feeling dizzy or lightheaded. OBJECTIVE: VITAL SIGNS: Temperature 36.8. Vital signs stable. PHYSICAL EXAMINATION: GENERAL: Reveals a pleasant middle-aged female. She is sitting up in bed, looks quite comfortable. EXTREMITIES: Examination of the right hip reveals the wound to be clean, dry and intact. Leg lengths are equal. She can dorsiflex and plantarflex her foot appropriately. NEUROLOGIC: She is neurologically intact. ASSESSMENT: A 66-year-old white female postop day 3 from right total hip replacement, doing well. Hip is doing remarkably well. Having pains in other joints which is not too unexpected. PLAN: 1. DVT prophylaxis including thigh-high TEDs, SCDs and Eliquis. We will keep her on a prophylactic dose until discharge and then put her back on a regular dose. She will have to follow up with cardiology. We will plan on at least a month of Eliquis and then based on cardiology recommendations. 2. PT/OT. She can weight bear as tolerated. Right total hip protocol. 3. Pain control, doing well with current pain regimen. 4. Disposition: Plan to discharge to [facility]. Just waiting for bed availability.
--- NOTE | 2017-04-17 09:19 | Hospitalist Progress Note ---
Hospitalist Progress Note Date of Service Apr 17, 2017. Subjective Pt evaluation today including: conversation w/ patient, physical exam, chart review, lab review, review of studies, review of inpatient medication list Patient seen and evaluated. No acute events overnight. Did require transfusion on 04/15 and hemoglobin improved. Will repeat CBC today to confirm stabilization. Patient verbalizes no complaints. Hip pain is adequately controlled and is awaiting a bed at [facility]. Incision is C/D/I. No surround erythema or drainage. She reports that her episode of A Fib was felt by her and she has not had any similar episodes since. By exam she is currently in a regular rhythm. Constitutional: No fever, No chills Respiratory: No cough, No shortness of breath Cardiovascular: No chest pain, No palpitations Abdomen: No pain, No nausea, No vomiting Musculoskeletal: + swelling (baseline chronic B/L lower extremities), No calf pain Female : No dysuria Heme: No abnormal bleeding/bruising Medications Current Inpatient Medications Medications (Trade) Dose Ordered Sig/Luis Route Start Time Stop Time Status Last Admin Dose Admin Oxycodone HCl (Roxicodone Immediate Rel Tab) 1 TABLET FOR PAIN RATING... Q4H PRN PO 04/14/17 11:30 04/28/17 11:29 04/17/17 08:11 10 MG Morphine Sulfate (MoRPHine SULFATE INJ) 2 mg Q1H PRN IV 04/14/17 11:30 04/28/17 11:29 04/15/17 16:38 2 MG Acetaminophen (Tylenol Tab) 1,000 mg Q8H PO 04/14/17 16:00 05/14/17 15:59 04/17/17 08:12 1,000 MG Magnesium Hydroxide (Milk Of Magnesia Susp) 30 ml Q6H PRN PO 04/14/17 11:30 05/14/17 11:29 04/16/17 08:55 30 ML Bisacodyl (Dulcolax Supp) 10 mg DAILY PRN NM 04/14/17 11:30 05/14/17 11:29 Senna (Senokot Tab) 17.2 mg HS PO 04/14/17 21:00 05/14/17 20:59 04/16/17 21:22 17.2 MG Docusate Sodium (coLACE CAP) 100 mg BID PO 04/14/17 21:00 05/14/17 20:59 04/17/17 08:12 100 MG Zolpidem Tartrate (Ambien Tab) 5 mg HSZ PRN PO 04/14/17 11:30 05/14/17 11:29 Ondansetron HCl (Zofran Inj) 4 mg Q6H PRN IV 04/14/17 11:30 05/14/17 11:29 Metoclopramide HCl (Reglan Inj) 10 mg Q6H PRN IV 04/14/17 11:30 05/14/17 11:29 Ferrous Gluconate (Ferrous Gluconate Tab) 324 mg TIDM PO 04/14/17 17:45 05/14/17 17:44 04/17/17 08:11 324 MG Pantoprazole Sodium (Protonix Tab) 40 mg QAM PO 04/15/17 09:00 05/15/17 08:59 04/17/17 08:13 40 MG Silver Sulfadiazine (Silvadene 1% Crm 50GM Jar) 1 appln BID PRN EXT 04/14/17 11:30 05/14/17 11:29 Tapentadol (Nucynta Er Tab) 50 mg BID PO 04/14/17 21:00 05/14/17 20:59 04/17/17 08:11 50 MG Cholecalciferol (Vitamin D Tab) 5,000 inter.unit QAM PO 04/15/17 09:00 05/15/17 08:59 04/17/17 08:13 5,000 INTER.UNIT Gabapentin (Neurontin Cap) 300 mg Q8H PO 04/14/17 16:00 05/14/17 15:59 04/17/17 08:12 300 MG Magnesium Citrate (Citrate Of Magnesia Soln) 120 ml DAILY PRN PO 04/14/17 11:30 05/14/17 11:29 Multivitamins (Multivitamin Tab) 1 tab QAM PO 04/15/17 09:00 05/15/17 08:59 04/17/17 08:12 1 TAB Potassium Chloride (Klor-Con Tab) 20 meq QAM PO 04/15/17 09:00 05/15/17 08:59 04/17/17 08:12 20 MEQ Folic Acid (Folvite Tab) 1 mg QAM PO 04/15/17 09:00 05/15/17 08:59 04/17/17 08:12 1 MG Chlordiazepoxide (Librium Cap) 50 mg Q6H PRN PO 04/14/17 12:00 05/14/17 11:59 Apixaban (Eliquis Tab) 2.5 mg BID PO 04/15/17 12:00 05/15/17 11:59 04/17/17 08:13 2.5 MG Metoprolol Succinate (Toprol Xl Tab) 25 mg QAM PO 04/15/17 09:00 05/15/17 08:59 04/17/17 08:13 25 MG Objective Vital Signs Date Time Temp Pulse Resp B/P (MAP) Pulse Ox O2 Delivery O2 Flow Rate FiO2 04/17/17 07:35 Room Air 04/17/17 07:19 36.8 84 18 112/67 (82) 98 Room Air 04/16/17 23:30 Room Air 04/16/17 23:15 37.0 86 16 110/64 (79) 95 Room Air 04/16/17 16:10 Room Air 04/16/17 15:00 36.8 82 20 111/67 (82) 100 Room Air 04/16/17 12:05 144/71 (95) 04/16/17 10:32 84 96 Physical Exam General Appearance: WD/WN, no apparent distress, + obese Eyes: sclerae normal ENT: hearing grossly normal Neck: supple, no JVD, trachea midline Respiratory/Chest: lungs clear, normal breath sounds, no respiratory distress, no accessory muscle use Cardiovascular: regular rate, rhythm, no gallop, no murmur Abdomen: normal bowel sounds, non tender, soft Extremities: no calf tenderness, + swelling (b/l non-pitting edema of lower extremities to include pedal; cap refill immediate; R hip incision C/D/I with jluis placed) Neurologic/Psychiatric: alert, oriented x 3 Skin: normal color, warm/dry Assessment and Plan Ms. Chapman is a 66 y/o female with PMHx of Paroxysmal Atrial Fibrillation and Alcohol Abuse who is S/P R DAGMAR by Dr. Vega on 04/14. S/P R DAGMAR 2/[address] Vega on 04/14: - Pain management, DVT prophylaxis, PT/OT, IVF per primary - DVT prophylaxis - Eliquis 2.5 mg BID Acute Blood Loss Anemia: STABLE - Repeat CBC to confirm stabilization - asymptomatic from anemia standpoint - baseline Hgb 10s - Was transfused 2 units on 04/15 Paroxysmal A Fib: NSR by Exam and Rate Controlled: - Metoprolol Succ 25 mg daily and Eliquis (recommend resuming A Fib therapeutic dosing when deemed safe from surgical standpoint) - CHADVASC 2 Alcohol Abuse: - AWSS - at risk protocol with PRN Ativan; Continue thiamine - no withdrawal symptoms currently Disposition: - Awaiting bed at [facility]. Suitable from medical standpoint for D/C - Would benefit from sleep study as outpatient for suspected LEONARD Thank you for the consultation. Hospitalist services will sign-off at this time. Do not hesitate to discuss with us if clinical course changes. Discharge planning: rehab hospital
[2017-04-17 09:28] LABS: HEMATOCRIT 23.6 % (37-47); MEAN CELL VOLUME 96.7 fL (80-100); MEAN CORPUSCULAR HEMOGLOBIN 29.9 pg (25-34); MEAN CORPUSCULAR HGB CONC 30.9 g/dl (32-36); MEAN PLATELET VOLUME 8.5 fL (7.4-10.4); PLATELET COUNT 294 K/uL (130-400); RED BLOOD COUNT 2.44 M/uL (4.2-5.4); WHITE BLOOD COUNT 6.86 K/uL (4.8-10.8)
[2017-04-17 15:20] VITALS: O2SAT 98
[2017-04-17 16:03] VITALS: BP 120/74; PULSE 79; TEMP 36.7; O2SAT 100
[2017-04-17] MEDS: SENNA 8.6 MG TAB PO SCH (20:56)
[2017-04-17 23:25] VITALS: BP 118/69; PULSE 82; TEMP 36.9; O2SAT 97
[2017-04-18] MEDS: ACETAMINOPHEN 500 MG TAB PO SCH ×2 (00:07→08:13)
[2017-04-18] MEDS: GABAPENTIN 300 MG CAP PO SCH ×2 (00:07→08:13)
[2017-04-18] MEDS: OXYCODONE HCL IR 5 MG TAB (IMMEDIATE RELEASE) PO PRN (00:10)
[2017-04-18 07:15] LABS: HEMATOCRIT 24.7 % (37-47); MEAN CELL VOLUME 96.9 fL (80-100); MEAN CORPUSCULAR HEMOGLOBIN 30.2 pg (25-34); MEAN CORPUSCULAR HGB CONC 31.2 g/dl (32-36); MEAN PLATELET VOLUME 8.5 fL (7.4-10.4); PLATELET COUNT 334 K/uL (130-400); RED BLOOD COUNT 2.55 M/uL (4.2-5.4); WHITE BLOOD COUNT 6.91 K/uL (4.8-10.8)
[2017-04-18 07:25] VITALS: BP 96/59; PULSE 83; TEMP 36.6; O2SAT 99
[2017-04-18] MEDS: FERROUS GLUCONATE 324 MG TAB PO SCH (08:13)
[2017-04-18] MEDS: APIXABAN 2.5 MG TAB PO SCH (08:14)
[2017-04-18] MEDS: DOCUSATE SODIUM 100 MG CAP PO SCH (08:14)
[2017-04-18] MEDS: MULTIVITAMIN TAB PO SCH (08:15)
[2017-04-18] MEDS: POTASSIUM CHLORIDE 20 MEQ TABCR PO SCH (08:15)
[2017-04-18] MEDS: CHOLECALCIFEROL 1000 INTER.UNIT TAB PO SCH (08:16)
[2017-04-18] MEDS: METOPROLOL SUCC 25MG EXT REL TAB PO SCH (08:16)
[2017-04-18] MEDS: PANTOprazole SOD 40 MG TAB PO SCH (08:16)
[2017-04-18] MEDS: TAPENTADOL ER 50 MG TABCR PO SCH (08:21)
--- NOTE | 2017-04-18 09:50 | Anesthesiology Progress Note ---
Anesthesia Post Op Note Date & Time Apr 18, 2017 at 09:50 Vital Signs Pain Intensity: 7.0 Vital Signs Past 12 Hours Date Time Temp Pulse Resp B/P (MAP) Pulse Ox O2 Delivery O2 Flow Rate FiO2 04/18/17 07:25 36.6 83 16 96/59 (71) 99 Room Air 04/17/17 23:45 Room Air 04/17/17 23:25 36.9 82 16 118/69 (85) 97 Room Air Notes Mental Status: alert / awake / arousable, participated in evaluation Pt Amnestic to Procedure: Yes Nausea / Vomiting: adequately controlled Pain: adequately controlled Airway Patency, RR, SpO2: stable & adequate BP & HR: stable & adequate Hydration State: stable & adequate Anesthetic Complications: no major complications apparent
[2017-04-18 10:09] VITALS: BP 96/59; PULSE 83; TEMP 36.6; O2SAT 99
--- NOTE | 2017-04-18 11:52 | PROGRESS NOTE ---
DATE: 04/18/2017 DATE: 04/18/2017 SUBJECTIVE: A 66-year-old white female postop day 4 from a right total hip replacement. She is doing pretty well. Pain is controlled. Mostly just left hip and right knee pain. No chest pain or shortness of breath. She is much more comfortable than when she was preop. Just been waiting for a bed at [facility]. She does have multiple comorbidities and having difficulty getting around due to her other arthritic joints. She is not feeling dizzy or lightheaded. OBJECTIVE: VITAL SIGNS: Temperature is 36.6. Vital signs stable. PHYSICAL EXAMINATION: GENERAL: A pleasant, middle-aged female. She is sitting up in her bedside chair talking with her . She looks comfortable. EXTREMITIES: Examination of the right hip reveals the leg to be well aligned. Wound is clean, dry and intact. No significant drainage. Not much in the way of swelling. There is not detectable hematoma. She is neurologically intact. LABORATORY DATA: Hemoglobin is 7.7. Hematocrit 24.7. ASSESSMENT: A 66-year-old white female postop day 4 from a right total hip replacement, doing pretty well. She is anemic, but she is chronically anemic preop. She is asymptomatic. Hemoglobin stable and actually increased from yesterday. Pain is controlled. PLAN: 1. DVT prophylaxis including thigh-high TEDs, SCDs, and she is back on Eliquis. We will put her back on her therapeutic dose on discharge. 2. PT/OT. Weightbearing as tolerated. Right total hip protocol. 3. Pain control. Doing well with current pain regimen. 4. Disposition. We are just waiting for a bed at [facility]. By report there is a bed this afternoon and we will get her there likely this afternoon.
--- NOTE | 2017-04-25 15:53 | DISCHARGE SUMMARY ---
ADMITTING PHYSICIAN AND SURGEON: Dr. Vega. 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 SURGERY PERFORMED: Right total hip arthroplasty. SECONDARY DIAGNOSES: Include obesity, arthritis, significant alcohol intake. CONSULTS: Dr. Joshi postoperative medical care. HISTORY AND PHYSICAL EXAMINATION: Well documented in the patient's chart. HOSPITAL COURSE: The patient was admitted on 04/14/2017 underwent total hip arthroplasty, tolerated the procedure well. There were no complications. She was transferred to the PACU postoperatively and later to the orthopedic floor for further care. She was given Ancef for antibiotic prophylaxis, PATRICIA stockings, SCDs and Eliquis for DVT prophylaxis. Her hemoglobin, hematocrit and vital signs were monitored during her hospital stay. She did develop some postoperative anemia with hemoglobin down to 7.3. She was transfused 2 units of packed red blood cells. She was given folic acid and thiamine for DT prophylaxis. There were no complications during her hospital stay. By postoperative day 4, she was tolerating a diet, pain was controlled with oral pain medicine. She was participating in physical therapy and had no signs or symptoms of deep vein thrombosis. On postoperative day 4, she was discharged to a rehab facility. She was given printed discharge instructions including iron supplement, oxycodone and Nucynta. Continue her home medications, continue physical therapy. She is weight bearing as tolerated. PATRICIA stockings, total hip precautions. Follow up in 10-12 days or sooner if there are any problems or concerns.
== END 2017-04-18 13:05 | DRG 470 ==
LOC: C.ACU 06:46 → C.3E 11:21 → ENRESERV 12:30
PROVIDERS: ADMIT Orthopaedic Surgery Sports Medicine; ATTEND Orthopaedic Surgery Sports Medicine
PROC: 0SR902A Replacement of Right Hip Joint with Metal on Polyethylene Synthetic Substitute, Uncemented, Open Approach (ICD-10-PCS; principal; 2017-04-14 08:50)
DX: M87.051 Idiopathic aseptic necrosis of right femur (principal); Z68.41 Body mass index [BMI] 40.0-44.9, adult; D62 Acute posthemorrhagic anemia; M16.7 Other unilateral secondary osteoarthritis of hip; G47.33 Obstructive sleep apnea (adult) (pediatric); I48.0 Paroxysmal atrial fibrillation; I11.9 Hypertensive heart disease without heart failure; F10.10 Alcohol abuse, uncomplicated; E66.01 Morbid (severe) obesity due to excess calories; Z79.899 Other long term (current) drug therapy; Z87.891 Personal history of nicotine dependence; Z83.3 Family history of diabetes mellitus

== ENCOUNTER 2018-08-31 04:53 | Inpatient (IN) ==
[2018-07-31 14:59] LABS: Basophils # (auto) 0.02 K/uL (0-0.2); Basophils % (auto) 0.4 %; Eosinophils # (auto) 0.14 K/uL (0-0.5); Eosinophils % (auto) 2.7 %; Hematocrit (blood only) 40.6 % (37-47); Hemoglobin 13.3 g/dL (12.0-16.0); Immature Granulocytes # (auto) 0.01 K/uL (0.00-0.02); Immature Granulocytes % (auto) 0.2 %; Lymphocytes # (auto) 1.78 K/uL (1.2-3.4); Lymphocytes % (auto) 33.8 %; Mean Corpuscular Hgb Conc 32.8 g/dL (32-36); Mean Platelet Volume 10.2 fL (7.4-10.4); Monocytes # (auto) 0.33 K/uL (0.11-0.59); Monocytes % (auto) 6.3 %; Neutrophils # (auto) 2.99 K/uL (1.4-6.5); Neutrophils % (auto) 56.6 %; Platelet Count 215 K/uL (130-400); RDW Standard Deviation 47.5 fL (36.4-46.3); Red Blood Count 4.06 M/uL (4.2-5.4); White Blood Count 5.27 K/uL (4.8-10.8)
[2018-07-31 15:08] LABS: BUN Creatinine Ratio 20.8 (10-20); Blood Urea Nitrogen 16 mg/dl (7-18); C Reactive Protein < 0.29 mg/dl (0-0.29); Carbon Dioxide 28 mmol/L (21-32); Chloride 105 mmol/L (98-107); Est GFR (African American) 91.2; Est GFR (Non-African American) 78.7; Glucose 85 mg/dl (70-99); Potassium 4.5 mmol/L (3.5-5.1); Sodium 138 mmol/L (136-145)
[2018-07-31 15:13] LABS: Albumin Level 3.4 gm/dl (3.4-5.0); Bilirubin Direct 0.1 mg/dl (0-0.2); Bilirubin,Total 0.4 mg/dl (0.1-1); Total Protein 7.6 gm/dl (6.4-8.2)
[2018-07-31 15:18] LABS: Partial Thromboplastin Time 25.3 Seconds (21.0-31.0); Prothrombin Time 10.4 Seconds (9.0-12.0)
[2018-08-01 06:03] LABS: Estimated Average Glucose 100 mg/dl
[2018-09-01 06:09] LABS: Hematocrit (blood only) 32.5 % (37-47); Hemoglobin 10.4 g/dL (12.0-16.0); Mean Corpuscular Volume 101.6 fL (80-100); Mean Platelet Volume 10.3 fL (7.4-10.4); Platelet Count 181 K/uL (130-400); RDW Coefficient of Variation 13.4 % (11.5-14.5); RDW Standard Deviation 49.7 fL (36.4-46.3); White Blood Count 7.86 K/uL (4.8-10.8)
[2018-09-01 06:31] LABS: BUN Creatinine Ratio 19.3 (10-20); Calcium 8.4 mg/dl (8.5-10.1); Creatinine Clr Calc Pharmacy 67.8 ml/min; Est GFR (African American) 59.5; Est GFR (Non-African American) 51.3; Potassium 4.2 mmol/L (3.5-5.1)
== END 2018-09-03 14:00 ==
LOC: ASU 04:53 → 3E 09:03

== ENCOUNTER 2021-10-01 04:26 | Inpatient (IN) ==
[2021-10-01] MEDS ORDERED: PANTOprazole 80 MG in DEXTROSE 5% 100 ML IV ONE (04:28)
[2021-10-01] MEDS ORDERED: SODIUM CHLORIDE 0.9% 1000ML 1,000 ML IV STA (04:28)
[2021-10-01] MEDS ORDERED: ONDANSETRON INJ 2 MG/ML 2 ML VIAL IV STA (04:28)
[2021-10-01] MEDS ORDERED: PANTOprazole 40 MG in DEXTROSE 5% 100 ML IV SCH (04:30)
[2021-10-01 05:07] LABS: INR 1.3 (0.9-1.1); Partial Thromboplastin Ratio 1.1; Partial Thromboplastin Time 27.9 Seconds (21.0-31.0)
[2021-10-01 05:09] LABS: Hematocrit (blood only) 31.5 % (37-47); Hemoglobin 10.4 g/dL (12.0-16.0); Mean Corpuscular Hemoglobin 35.5 pg (25-34); Mean Corpuscular Volume 107.5 fL (80-100); Mean Platelet Volume 11.4 fL (7.4-10.4); Platelet Count 100 K/uL (130-400); RDW Coefficient of Variation 13.6 % (11.5-14.5); RDW Standard Deviation 53.5 fL (36.4-46.3); Red Blood Count 2.93 M/uL (4.2-5.4); White Blood Count 4.07 K/uL (4.8-10.8)
[2021-10-01 05:20] LABS: Alanine Aminotransferase 86 U/L (7-52); Albumin Globulin Ratio 1.1 (0.9-2); Albumin Level 2.8 gm/dl (3.4-5.0); Alkaline Phosphatase 153 U/L (34-104); Anion Gap 15 (3-11); Aspartate Aminotransferase 82 U/L (13-39); BUN Creatinine Ratio 20.7 (10-20); Blood Urea Nitrogen 41 mg/dl (6-23); Calcium 7.1 mg/dl (8.5-10.1); Carbon Dioxide 25 mmol/L (21-32); Chloride 98 mmol/L (98-107); Creatinine Clr Calc Pharmacy 35.5 ml/min; Est GFR (African American) 28.9 ml/min; Globulin 2.6 gm/dl (2.5-4.0); Glucose 88 mg/dl (70-99(Fasting)); Potassium 3.4 mmol/L (3.5-5.1); Sodium 138 mmol/L (136-145); Total Protein 5.4 gm/dl (6.0-8.3)
[2021-10-01 05:22] LABS: Troponin I < 0.03 ng/ml (0-0.04)
[2021-10-01 05:26] LABS: Basophils # (auto) 0.02 K/uL (0-0.2); Basophils % (auto) 0.5 %; Eosinophils # (auto) 0.08 K/uL (0-0.5); Immature Granulocytes # (auto) 0.01 K/uL (0.00-0.02); Immature Granulocytes % (auto) 0.2 %; Lymphocytes # (auto) 1.16 K/uL (1.2-3.4); Lymphocytes % (auto) 28.5 %; Monocytes # (auto) 0.86 K/uL (0.11-0.59); Monocytes % (auto) 21.1 %; Neutrophils # (auto) 1.94 K/uL (1.4-6.5); Neutrophils % (auto) 47.7 %; RBC Morphology Unremarkable
[2021-10-01] MEDS ORDERED: SODIUM CHLORIDE 0.9% 250 ML IV PRN ×4 (05:45→09:52)
[2021-10-01] MEDS ORDERED: SODIUM CHLORIDE 0.9% 1000ML 1,000 ML IV SCH (06:00)
[2021-10-01] MEDS ORDERED: ACETAMINOPHEN 1,000 MG/100 ML VIAL IV STA (06:31)
--- NOTE | 2021-10-01 07:24 | Emergency Department Note ---
History of Present Illness General Chief complaint: GI Bleed Stated complaint: DARK STOOL, BRIGHT RED EMISIS Time Seen by Provider: 10/01/21 04:28 Source: patient, family () and RN notes reviewed Mode of arrival: EMS Limitations: no limitations History of Present Illness Provider Complaint: + melena and + gross hematochezia Onset (ago): 2 day(s) (Vomiting began this morning) Pain Consistency: + intermittent Maximum Pain Intensity: 2 Relieved By: + bowel movement and + vomiting Exacerbated By: + none Context: + anticoagulant use (Eliquis twice daily) Associated symptoms: + abdominal pain, + nausea, + weakness and + other (Hypotension per EMS systolic pressure of 60) HPI Narrative: 2 to 3 days of soft diarrhea, turning dark over the last 24 hours. Several episodes of emesis of bright red blood over the last few hours. Complains of cramping abdominal pain. EMS called this morning, systolic pressure of 60. IV access was obtained and the patient recovered to a systolic pressure of 120 after an IV fluid bolus. Last dose of Eliquis was 24 hours ago. Patient denies ever having a blood transfusion. Patient on [facility] physician [facility] gastroenterology. Home Medications Medication Instructions Recorded Confirmed Type apixaban 5 mg tablet (Eliquis) 5 mg PO BID 08/17/18 10/01/21 History multivitamin-ferrous 1 tab PO QDD 11/05/18 10/01/21 History fumarate-folic acid 18 mg-400 mcg tablet (Centrum Women) furosemide 20 mg tablet (Lasix) 40 mg PO QAM tab 05/27/21 10/01/21 History spironolactone 25 mg tablet 50 mg PO QAM tab 05/27/21 10/01/21 History metoprolol tartrate 25 mg tablet 25 mg PO BID #60 tab 07/14/21 10/01/21 Rx [id number] 1 cap PO QAM 08/25/21 10/01/21 History 24,000-76,000-120,000 unit capsule,delayed rel (Creon) potassium chloride 20 mEq 10 meq PO QDD tab 08/25/21 10/01/21 History tablet,extended release Allergies Allergy/AdvReac Type Severity Reaction Status Date / Time liraglutide Allergy Intermediate HIVES Verified 10/01/21 07:18 phenol Allergy Intermediate HIVES Verified 10/01/21 07:18 pregabalin Allergy Intermediate HIVES Verified 10/01/21 07:18 propylene glycol Allergy Intermediate HIVES Verified 10/01/21 07:18 sulfamethoxazole Allergy Mild Verified 10/01/21 07:18 [From Bactrim] trimethoprim [From Bactrim] Allergy Mild Verified 10/01/21 07:18 nickel Allergy Unknown Rash Verified 10/01/21 07:18 Past Med/Surg History Medical History A-fib SINGLE DOCUMENTED EPISODE 02/2017- NO KNOWN RECURRENCES/ISSUES Carpal tunnel syndrome of left wrist LEFT HAND NEUROPATHY FH: bilateral hip replacements History of diverticulitis PER RECORDS Lymphedema B/L LE; WEARS COMPRESSION STOCKING Obesity Osteoarthritis Surgical History History of carpal tunnel surgery of right wrist History of colonoscopy Hx of bilateral hip replacements LEFT DAGMAR= 06/20/17= DONE UNDER GA 2/2 PATIENT PREFERENCE AT [facility] Hx of knee surgery B/L Hx of tonsillectomy Hx of tooth extraction Status post right knee replacement Family History Other Cancer Diabetes Heart disease Hypertension Social History Smoking Status: Former smoker Second Hand Exposure: No; Hx Alcohol Use: Yes (ALCOHOLISM PER RECORDS) Alcohol type: hard liquor Hx Substance Use: No Preferred Language: Divehi Communication Ability: Effective Beliefs That Will Affect Care: None marital status: Current Living Situation: Spouse Feels Safe at Home: Yes Assistive Devices: Walker Review of Systems See HPI for pertinent positives & negatives. and A total of 10 systems reviewed and were otherwise negative Physical Exam Vital Signs: Vital Signs - 24 hr 10/01/21 04:26 10/01/21 04:34 10/01/21 04:52 Temperature 36.7 C Temperature Source Oral Pulse Rate 87 84 Respiratory Rate 20 22 Respiratory Depth Normal Blood Pressure 98/57 L 88/55 L Blood Pressure Katlyn n 70 66 Pulse Oximetry 100 97 100 Oxygen Delivery Me thod Room Air Room Air Sepsis Recent Feve r Within 48 Hours No Sepsis New/Unexpla ined Change in Men simeon Status N/A Sepsis Action Take n by Nursing No Action Required 10/01/21 05:00 10/01/21 05:16 10/01/21 05:30 Temperature Temperature Source Pulse Rate 80 107 H 79 Respiratory Rate 15 14 22 Respiratory Depth Blood Pressure 79/61 L 120/80 96/61 L Blood Pressure Katlyn n 67 93 72 Pulse Oximetry 100 96 Oxygen Delivery Me thod Room Air Sepsis Recent Feve r Within 48 Hours Sepsis New/Unexpla ined Change in Men simeon Status Sepsis Action Take n by Nursing 10/01/21 05:45 10/01/21 06:30 Temperature Temperature Source Pulse Rate 80 80 Respiratory Rate 16 20 Respiratory Depth Blood Pressure 104/53 L 100/48 L Blood Pressure Katlyn n 70 65 Pulse Oximetry 100 98 Oxygen Delivery Me thod Sepsis Recent Feve r Within 48 Hours Sepsis New/Unexpla ined Change in Men simeon Status Sepsis Action Take n by Nursing Physical Exam: Vital signs reviewed. Systolic pressure of 90 General: Somewhat ill-appearing 71-year-old female, pale but no significant di stress. HEENT: No scleral icterus, PERRLA, neck supple. Dried blood to the nares and face. Cardiovascular: Regular rate and rhythm, no extra sounds. Pulmonary: Clear to auscultation bilaterally, normal work of breathing. Abdomen: Soft, obese, nontender, nondistended, positive bowel sounds. Musculoskeletal: Atraumatic, no peripheral edema. Neurologic: Patient awake alert and oriented x 3 Skin: Warm, dry, no rash Course Administered Medications Sodium Chloride (Nss 1000ml) 1,000 mls @ 125 mls/hr IV .Q8H STA Stop: 10/01/21 12:27 Last Admin: 10/01/21 04:50 Dose: 125 mls/hr Documented by: [id number] Pantoprazole Sodium 40 mg/ (Dextrose) 100 mls @ 20 mls/hr IV Q5H TEDDY Stop: 10/01/21 09:29 Last Admin: 10/01/21 05:44 Dose: 8 mg/hr, 20 mls/hr Documented by: [id number] Sodium Chloride (Nss 1000ml) 1,000 mls @ 150 mls/hr IV .Q6H40M TEDDY Stop: 10/31/21 05:59 Last Admin: 10/01/21 06:30 Dose: 150 mls/hr Documented by: [id number] Discontinued Medications Pantoprazole Sodium 80 mg/ (Dextrose) 100 mls @ 400 mls/hr IV NOW ONE Stop: 10/01/21 04:42 Last Infusion: 10/01/21 05:45 Dose: 0 mls/hr Documented by: [id number] Admin: 10/01/21 05:25 Dose: 400 mls/hr Documented by: [id number] Acetaminophen (Ofirmev) 1,000 mg in 100 mls @ 400 mls/hr IV NOW STA Stop: 10/01/21 06:45 Last Infusion: 10/01/21 07:08 Dose: 0 mls/hr Documented by: [id number] Admin: 10/01/21 06:42 Dose: 400 mls/hr Documented by: [id number] Ondansetron HCl (Ondansetron Inj 2 Mg/Ml 2 Ml Vial) 4 mg IV ONE STA Stop: 10/01/21 04:29 Last Admin: 10/01/21 05:19 Dose: 4 mg Documented by: [id number] Medical Decision Making Differential Diagnosis Diverticulosis, AVM, coagulopathy, colitis, inflammatory bowel disease, malignancy, Larissa-Hua tear, esophagitis, peptic ulcer disease, variceal bleed, gastritis, epistaxis, fissure, hemorrhoids, as well as other pathologies. Medical Records Attestation: I reviewed the patient's medical records. Home Medications Current Medication List: was personally reviewed by me Laboratory Data Attestation: I reviewed the patient's lab results. Result diagrams: 10/01/21 04:38 10/01/21 04:38 Lab Results 10/01/21 10/01/21 10/01/21 Range/Units 04:38 04:38 04:38 WBC 4.07 L (4.8-10.8) K/uL RBC 2.93 L (4.2-5.4) M/uL Hgb 10.4 L (12.0-16.0) g/dL Hct 31.5 L (37-47) % MCV 107.5 H (80-100) fL MCH 35.5 H (25-34) pg MCHC 33.0 (32-36) g/dL RDW Std Deviation 53.5 H (36.4-46.3) fL RDW Coeff of Ingacio 13.6 (11.5-14.5) % Plt Count 100 L (130-400) K/uL MPV 11.4 H (7.4-10.4) fL Immature Gran % (Auto) 0.2 % Neut % (Auto) 47.7 % Lymph % (Auto) 28.5 % [place] % (Auto) 21.1 % Eos % (Auto) 2.0 % Baso % (Auto) 0.5 % Neut # (Auto) 1.94 (1.4-6.5) K/uL Lymph # (Auto) 1.16 L (1.2-3.4) K/uL [place] # (Auto) 0.86 H (0.11-0.59) K/uL Eos # (Auto) 0.08 (0-0.5) K/uL Baso # (Auto) 0.02 (0-0.2) K/uL Immature Gran # (Auto) 0.01 (0.00-0.02) K/uL RBC Morphology Unremarkable PT (9.0-12.0) Seconds INR (0.9-1.1) APTT (21.0-31.0) Seconds PTT Ratio Sodium 138 (136-145) mmol/L Potassium 3.4 L (3.5-5.1) mmol/L Chloride 98 (98-107) mmol/L Carbon Dioxide 25 (21-32) mmol/L Anion Gap 15 H (3-11) BUN 41 H (6-23) mg/dl Creatinine 1.98 H (0.6-1.2) mg/dl Est Cr Clr Drug Dosing 35.5 ml/min Est GFR ( Amer) 28.9 ml/min Est GFR (Non-Af Amer) 25.0 ml/min BUN/Creatinine Ratio 20.7 H (10-20) Glucose 88 (70-99(Fasting)) mg/dl Calcium 7.1 L (8.5-10.1) mg/dl Total Bilirubin 2.0 H (0.2-1.0) mg/dl AST 82 H (13-39) U/L ALT 86 H (7-52) U/L Alkaline Phosphatase 153 H (34-104) U/L Troponin I < 0.03 (0-0.04) ng/ml Total Protein 5.4 L (6.0-8.3) gm/dl Albumin 2.8 L (3.4-5.0) gm/dl Globulin 2.6 (2.5-4.0) gm/dl Albumin/Globulin Ratio 1.1 (0.9-2) POC Stool Occult Blood (Negative) Blood Type O Positive Antibody Screen NEGATIVE Crossmatch See Detail 10/01/21 10/01/21 Range/Units 04:38 06:32 WBC (4.8-10.8) K/uL RBC (4.2-5.4) M/uL Hgb (12.0-16.0) g/dL Hct (37-47) % MCV (80-100) fL MCH (25-34) pg MCHC (32-36) g/dL RDW Std Deviation (36.4-46.3) fL RDW Coeff of Ignacio (11.5-14.5) % Plt Count (130-400) K/uL MPV (7.4-10.4) fL Immature Gran % (Auto) % Neut % (Auto) % Lymph % (Auto) % [place] % (Auto) % Eos % (Auto) % Baso % (Auto) % Neut # (Auto) (1.4-6.5) K/uL Lymph # (Auto) (1.2-3.4) K/uL [place] # (Auto) (0.11-0.59) K/uL Eos # (Auto) (0-0.5) K/uL Baso # (Auto) (0-0.2) K/uL Immature Gran # (Auto) (0.00-0.02) K/uL RBC Morphology PT 13.0 H (9.0-12.0) Seconds INR 1.3 H (0.9-1.1) APTT 27.9 (21.0-31.0) Seconds PTT Ratio 1.1 Sodium (136-145) mmol/L Potassium (3.5-5.1) mmol/L Chloride (98-107) mmol/L Carbon Dioxide (21-32) mmol/L Anion Gap (3-11) BUN (6-23) mg/dl Creatinine (0.6-1.2) mg/dl Est Cr Clr Drug Dosing ml/min Est GFR ( Amer) ml/min Est GFR (Non-Af Amer) ml/min BUN/Creatinine Ratio (10-20) Glucose (70-99(Fasting)) mg/dl Calcium (8.5-10.1) mg/dl Total Bilirubin (0.2-1.0) mg/dl AST (13-39) U/L ALT (7-52) U/L Alkaline Phosphatase (34-104) U/L Troponin I (0-0.04) ng/ml Total Protein (6.0-8.3) gm/dl Albumin (3.4-5.0) gm/dl Globulin (2.5-4.0) gm/dl Albumin/Globulin Ratio (0.9-2) POC Stool Occult Blood Positive A (Negative) Blood Type Antibody Screen Crossmatch Imaging Data Radiologist's Impression: Chest X-Ray 10/01/21 04:28 XR chest 1V portable CLINICAL HISTORY: vomit. Evaluate lung bases. Evaluate cardiopulmonary status. COMPARISON STUDY: 11/05/2018 TECHNIQUE: 1 view of the chest FINDINGS: Single frontal view of the chest demonstrates the cardiomediastinal silhouette to be within normal limits. The lungs are clear of alveolar opacities. There is no evidence for pleural effusion. There is no evidence for vascular congestion. There is no acute osseous pathology. IMPRESSION: 1. No acute cardiopulmonary disease. ACT 112: Negative or not required by law. Electronically signed by: Adama Muniz M.D. 10/01/2021 8:10 AM ECG Data Attestation: I personally reviewed and interpreted this ECG as follows: Indication: vomiting Rate (beats per minute): 85 Rhythm: normal sinus Findings: + other (QTC 442), + nonspecific-ST abn (Anterior) and + T-wave inversion (Anterolateral); no PAC, no PVC or no ectopy Blood Pressure Blood Pressure Findings: Low blood pressure Blood Pressure Disposition: further management by hospitalist CHRISTOPHER Narrative This patient was evaluated and appeared to be in no significant distress. IV access was obtained and laboratory work was drawn. The patient was placed on the traffic monitor specialist and was noted to be in a normal sinus rhythm at 84 bpm Patient was to be hypotensive and was given several IV normal saline solution boluses for periodic hypotension. IV Protonix bolus with drip was then ordered. Patient had not had her Eliquis in approximately 24 hours therefore no reversal agent was necessary. Patient is guaiac positive from below, she had no further hematemesis under my care. Patient was type and crossed for 2 units and consented for blood transfusion. Dr. Ruiz of gastroenterology was made aware of the case and stated that the patient's business operations consultant Dr. Daniels would be available this morning for this "routine consultation." Dr. Wells of the hospitalist service was contacted for admission at approximately 5:30 AM. Repeat H&H order was placed by me. Hemoglobin seem to stabilize 10.4->10.1 at the 2-hour interval. Dr. Dailey of the hospitalist service did arrive to e valuate the patient for admission. Impression & Plan Acute upper gastrointestinal bleeding, Chronic anticoagulation, Hypotension, Morbid obesity with BMI of 40.0-44.9, adult Critical Care Time Critical Care Time: Yes I have personally spent greater than 50 minutes of critical care time in the direct management of this patient. This includes bedside care, interpretation of diagnostic studies, and testing, discussion with consultants, patient, and family members, and other required patient management activities. This 50 minutes is in excess of all separately billable procedures. Discharge Plan Visit Data Chief Complaint: GI Bleed Stated Complaint: DARK STOOL, BRIGHT RED EMISIS ED Provider: Lanie Silverman Prescriptions Prescriptions: No Action metoprolol tartrate 25 mg tablet 25 mg PO BID Qty: 60 RF: 11 furosemide [Lasix] 20 mg tablet 40 mg PO QAM RF: 0 potassium chloride 20 mEq tablet extended release 10 meq PO QDD RF: 0 Creon 24,000-76,000 -120,000 unit capsule,delayed release(DR/EC) 1 cap PO QAM RF: 0 Centrum Women 18-400 mg-mcg Tablet 1 tab PO QDD RF: 0 Eliquis 5 mg Tablet 5 mg PO BID RF: 0 spironolactone 25 mg tablet 50 mg PO QAM RF: 0
[2021-10-01 07:33] LABS: Hematocrit (blood only) 30.2 % (37-47); Hemoglobin 10.1 g/dL (12.0-16.0)
[2021-10-01] MEDS ORDERED: FOLIC ACID 1 MG in SYRINGE 9.8 ML IV STA (07:58)
[2021-10-01] MEDS ORDERED: THIAMINE HCL 100 MG in SYRINGE 9 ML IV STA (07:58)
--- NOTE | 2021-10-01 08:11 | XRay Report ---
XR chest 1V portable CLINICAL HISTORY: vomit. Evaluate lung bases. Evaluate cardiopulmonary status. COMPARISON STUDY: 11/05/2018 TECHNIQUE: 1 view of the chest FINDINGS: Single frontal view of the chest demonstrates the cardiomediastinal silhouette to be within normal li mits. The lungs are clear of alveolar opacities. There is no evidence for pleural effusion. There is no evidence for vascular congestion. There is no acute osseous pathology. IMPRESSION: 1. No acute cardiopulmonary disease. ACT 112: Negative or not required by law. Electronically signed by: Adama Muniz M.D. 10/01/2021 8:10 AM
[2021-10-01] MEDS ORDERED: ONDANSETRON INJ 2 MG/ML 2 ML VIAL IV PRN ×2 (08:39→10:52)
[2021-10-01] MEDS ORDERED: LACTATED RINGER'S 500 ML IV ONE (08:39)
[2021-10-01] MEDS ORDERED: LORazepam 1 MG/2 ML VIAL IV PRN (08:39)
[2021-10-01] MEDS ORDERED: THIAMINE HCL 100 MG in SYRINGE 9 ML IV SCH (09:00)
--- NOTE | 2021-10-01 09:08 | Gastrointestinal Consultation ---
Date of Consultation October 01, 2021 Assessment & Plan (1) Epigastric pain: (2) Alcoholism: (3) Hematemesis: Diff dx: variceal bleed vs esophagitis vs Larissa-Hua tear vs Jose M's erosions vs PUD vs other. Plan: * NPO for now. * Maintain 2 large bore IVs at all times. * Continue fluid resuscitation to improve BP. * Transfuse hemoglobin <8. * Continue PPI ggt at 8mg/hr. * EGD in the OR for further evaluation with Dr. Daniels. * Further recommendations pending results of testing. Thank you for allowing us to participate in the care of this patient. If you have any questions or concerns, please do not hesitate to contact us. Supervising Physician Co-Signing Physician Notes I personally evaluated the patient and agree with the findings as documented by CHARISSE Harris Exam: Constitutional: WD/WN, vitals as above General: EOM intact bilaterally Neck: normal visual inspection Respiratory: normal respiratory effort, lungs clear to auscultation Cardiovascular: RRR, no murmur, no edema Gastrointestinal: abdomennormal to inspection, nondistended, soft, nontender, no hepatosplenomegaly Musculoskeletal: no cyanosis, head normal to inspection Skin: no rashes, warm and dry Neurologic: moves all extremities Psychiatric: A and O x3, euthymic affect History of Present Illness Reason for Consultation: UGIB/Hematemesis Requesting Physician: Dr. Silverman Attending Physician: Cade Dailey DO History of Present Illness Patient is a 71 y.o. morbidly obese female with a history of chronic abdominal pain, alcoholism, GERD and paroxysmal atrial fibrillation arriving at the ER early this morning via EMS due to abrupt onset of bright red hematemesis with associated coffee grounds and melanotic diarrhea. She reports that she last consumed alcohol one week ago. She was vague in describing the amount. Sunday, September 26, 2021 she reports sustaining a fall and had taken several doses of NSAIDs to treat the pain. She remains on anticoagulation with Eliquis and has been taking this medication for years per her report. Associated symptoms include bilateral upper abdominal "soreness" which is rated as 2/10 in intensity. There is associated daily nausea and anorexia. Patient reports her last episode of hematemesis was at approximately 0700 this morning. She is hypotensive. H&H is 10.1/30.2%. Creatinine 1.98 and BUN elevated at 41. She has been made NPO and started on PPI ggt. Allergies Allergy/AdvReac Type Severity Reaction Status Date / Time liraglutide Allergy Intermediate HIVES Verified 10/01/21 07:18 phenol Allergy Intermediate HIVES Verified 10/01/21 07:18 pregabalin Allergy Intermediate HIVES Verified 10/01/21 07:18 propylene glycol Allergy Intermediate HIVES Verified 10/01/21 07:18 sulfamethoxazole Allergy Mild Verified 10/01/21 07:18 [From Bactrim] trimethoprim [From Bactrim] Allergy Mild Verified 10/01/21 07:18 nickel Allergy Unknown Rash Verified 10/01/21 07:18 Home Medications Medication Instructions Recorded Confirmed Type apixaban 5 mg tablet (Eliquis) 5 mg PO BID 08/17/18 10/01/21 History multivitamin-ferrous 1 tab PO QDD 11/05/18 10/01/21 History fumarate-folic acid 18 mg-400 mcg tablet (Centrum Women) furosemide 20 mg tablet (Lasix) 40 mg PO QAM tab 05/27/21 10/01/21 History spironolactone 25 mg tablet 50 mg PO QAM tab 05/27/21 10/01/21 History metoprolol tartrate 25 mg tablet 25 mg PO BID #60 tab 07/14/21 10/01/21 Rx [id number]-[id number]-[id number] 1 cap PO QAM 08/25/21 10/01/21 History 24,000-76,000-120,000 unit capsule,delayed rel (Creon) potassium chloride 20 mEq 10 meq PO QDD tab 08/25/21 10/01/21 History tablet,extended release Patient History Medical History (Updated 10/01/21 @ 10:49 by Nash Lewis MD) A-fib SINGLE DOCUMENTED EPISODE 02/2017- NO KNOWN RECURRENCES/ISSUES Acute renal disease Alcoholism Carpal tunnel syndrome of left wrist LEFT HAND NEUROPATHY FH: bilateral hip replacements History of diverticulitis PER RECORDS Lymphedema B/L LE; WEARS COMPRESSION STOCKING Obesity Osteoarthritis Surgical History History of carpal tunnel surgery of right wrist History of colonoscopy Hx of bilateral hip replacements LEFT DAGMAR= 06/20/17= DONE UNDER [place] 2/2 PATIENT PREFERENCE AT [facility] Hx of knee surgery B/L Hx of tonsillectomy Hx of tooth extraction Status post right knee replacement Family History Other Cancer Diabetes Heart disease Hypertension Social History Smoking Status: Former smoker Second Hand Exposure: No; Hx Alcohol Use: Yes (ALCOHOLISM PER RECORDS) Alcohol type: hard liquor Hx Substance Use: No Preferred Language: Ugandan Communication Ability: Effective Beliefs That Will Affect Care: None marital status: Current Living Situation: Spouse Feels Safe at Home: Yes Assistive Devices: Walker Review of Systems Constitutional: + fatigue, + weakness and + anorexia; no fever and no chills Respiratory: no cough and no dyspnea Cardiovascular: no chest pain and no palpitations Gastrointestinal: as per Subjective / HPI Musculoskeletal: + swelling Integumentary: no rash Neurologic: + dizziness and + syncope Psychiatric: as per Subjective / HPI Physical Exam Constitutional: + morbidly obese; no acute distress Eyes: + anicteric sclerae and EOM intact bilaterally Neck: normal visual inspection Respiratory: normal respiratory effort, lungs clear to auscultation Cardiovascular: Rate/Rhythm: regular rate and regular rhythm Gastrointestinal (Abdomen): Inspection/Auscultation: normal bowel sounds and + significant pannus Percussion/Palpation: + abdomen tender and abdomen soft Musculoskeletal: Extremities: + lower leg abnormality Bilateral (edema) Skin: no rashes, warm and dry Psychiatric: A+Ox3, euthymic affect Results & Data ([facility]) Vital Signs (Past 12 Hours) Vital Signs Temp Pulse Resp BP Pulse Ox 10/01/21 06:30 80 20 100/48 L 98 10/01/21 05:45 80 16 104/53 L 100 10/01/21 05:30 79 22 96/61 L 96 10/01/21 05:16 107 H 14 120/80 10/01/21 05:00 80 15 79/61 L 100 10/01/21 04:52 84 22 88/55 L 100 10/01/21 04:34 97 10/01/21 04:26 36.7 C 87 20 98/57 L 100 Diagnostic Findings Laboratory Results WBC 4.07 K/uL (4.8-10.8) L 10/01/21 04:38 RBC 2.93 M/uL (4.2-5.4) L 10/01/21 04:38 Hgb 10.1 g/dL (12.0-16.0) L 10/01/21 07:13 Hct 30.2 % (37-47) L 10/01/21 07:13 MCV 107.5 fL (80-100) H 10/01/21 04:38 MCH 35.5 pg (25-34) H 10/01/21 04:38 MCHC 33.0 g/dL (32-36) 10/01/21 04:38 RDW Std Deviation 53.5 fL (36.4-46.3) H 10/01/21 04:38 RDW Coeff of Ignacio 13.6 % (11.5-14.5) 10/01/21 04:38 Plt Count 100 K/uL (130-400) L 10/01/21 04:38 MPV 11.4 fL (7.4-10.4) H 10/01/21 04:38 Immature Gran % (Auto) 0.2 % 10/01/21 04:38 Neut % (Auto) 47.7 % 10/01/21 04:38 Lymph % (Auto) 28.5 % 10/01/21 04:38 [place] % (Auto) 21.1 % 10/01/21 04:38 Eos % (Auto) 2.0 % 10/01/21 04:38 Baso % (Auto) 0.5 % 10/01/21 04:38 Neut # (Auto) 1.94 K/uL (1.4-6.5) 10/01/21 04:38 Lymph # (Auto) 1.16 K/uL (1.2-3.4) L 10/01/21 04:38 [place] # (Auto) 0.86 K/uL (0.11-0.59) H 10/01/21 04:38 Eos # (Auto) 0.08 K/uL (0-0.5) 10/01/21 04:38 Baso # (Auto) 0.02 K/uL (0-0.2) 10/01/21 04:38 Immature Gran # (Auto) 0.01 K/uL (0.00-0.02) 10/01/21 04:38 RBC Morphology Unremarkable 10/01/21 04:38 PT 13.0 Seconds (9.0-12.0) H 10/01/21 04:38 INR 1.3 (0.9-1.1) H 10/01/21 04:38 APTT 27.9 Seconds (21.0-31.0) 10/01/21 04:38 PTT Ratio 1.1 10/01/21 04:38 Sodium 138 mmol/L (136-145) 10/01/21 04:38 Potassium 3.4 mmol/L (3.5-5.1) L 10/01/21 04:38 Chloride 98 mmol/L (98-107) 10/01/21 04:38 Carbon Dioxide 25 mmol/L (21-32) 10/01/21 04:38 Anion Gap 15 (3-11) H 10/01/21 04:38 BUN 41 mg/dl (6-23) H 10/01/21 04:38 Creatinine 1.98 mg/dl (0.6-1.2) H 10/01/21 04:38 Est Cr Clr Drug Dosing 35.5 ml/min 10/01/21 04:38 Est GFR ( Amer) 28.9 ml/min 10/01/21 04:38 Est GFR (Non-Af Amer) 25.0 ml/min 10/01/21 04:38 BUN/Creatinine Ratio 20.7 (10-20) H 10/01/21 04:38 Glucose 88 mg/dl (70-99(Fasting)) 10/01/21 04:38 Calcium 7.1 mg/dl (8.5-10.1) L 10/01/21 04:38 Total Bilirubin 2.0 mg/dl (0.2-1.0) H 10/01/21 04:38 AST 82 U/L (13-39) H 10/01/21 04:38 ALT 86 U/L (7-52) H 10/01/21 04:38 Alkaline Phosphatase 153 U/L (34-104) H 10/01/21 04:38 Troponin I < 0.03 ng/ml (0-0.04) 10/01/21 04:38 Total Protein 5.4 gm/dl (6.0-8.3) L 10/01/21 04:38 Albumin 2.8 gm/dl (3.4-5.0) L 10/01/21 04:38 Globulin 2.6 gm/dl (2.5-4.0) 10/01/21 04:38 Albumin/Globulin Ratio 1.1 (0.9-2) 10/01/21 04:38 POC Stool Occult Blood Positive (Negative) A 10/01/21 06:32 SARS-CoV-2, RNA, NAAT NEGATIVE (NEGATIVE) 10/01/21 06:56 Blood Type O Positive 10/01/21 04:38 Antibody Screen NEGATIVE 10/01/21 04:38 Crossmatch See Detail 10/01/21 04:38 Impressions Chest X-Ray 10/01/21 04:28 XR chest 1V portable CLINICAL HISTORY: vomit. Evaluate lung bases. Evaluate cardiopulmonary status. COMPARISON STUDY: 11/05/2018 TECHNIQUE: 1 view of the chest FINDINGS: Single frontal view of the chest demonstrates the cardiomediastinal silhouette to be within normal limits. The lungs are clear of alveolar opacities. There is no evidence for pleural effusion. There is no evidence for vascular congestion. There is no acute osseous pathology. IMPRESSION: 1. No acute cardiopulmonary disease. ACT 112: Negative or not required by law. Electronically signed by: Adama Muniz M.D. 10/01/2021 8:10 AM PG Care Time/CCT Total # of Minutes Spent Total Time Spent with Patient: Total time spent is greater than 50% in coordination of care (as documented) at patient's floor/unit and/or counseling patient: Coding Level of Care Code 66342 Initial Inpt Care Lvl 3 Diagnoses Epigastric pain R10.13 Alcoholism F10.20 Hematemesis K92.0
--- NOTE | 2021-10-01 09:37 | History & Physical Report ---
Date of Service October 01, 2021 Assessment & Plan (1) Hematemesis: Plan: almost certainly UGI bleed - although only confounder is no epigastric pain/tenderness/prandial sx - so if EGD were to be negative then given crusted nare - ?posterior nosebleed that has resolved? -however, most likely UGI --> protonix gtt, EGD. EtOH as biggest risk for mucosal disease. otherwise as below (2) Hypotension: Plan: almost certainly early hemorrhagic shock from above. anticipate acute blood loss anemia -has 2 peripheral IV -fluids running -after additional fluids BP still ~80s systolic - this combined w ongoing bleeding clinically, and ARF likely being poor perfusion --> transfuse and follow (3) Acute renal disease: Plan: from volume loss from above as well as from poor oxygen flow from above -blood/fluids (4) Alcohol abuse: Plan: likely biggest culprit for underlying renal disease -thiamine, folate -AWSS -will have to work w pt on other means to treat her pain (5) Paroxysmal atrial fibrillation: Plan: rate controlled. hold metoprolol since actually rate control might be blunting her physiologic tachycardia she should be having in response to the acute blood loss/shock -have to hold anticoagulation for now (6) GERD (gastroesophageal reflux disease): Plan: PPI (7) DVT prophylaxis: Plan: SCDs (8) Discharge planning issues: Plan: [place] [facility] [facility], anticipate EGD soon Admission and Anticipated Discharge Date Admission Date: October 01, 2021 History of Present Illness Chief Complaint: vomtiing blood and copious black diarrhea. started this AM. normally has PND and often will have some cough/congestion and/or nausea - thought it was just going to be that - but then noted her vomit wasn't just mucous like she thought - was bright red blood. then started w copious and frequent black diarrhea. no new abdominal pain but always has had pain for last ~4-5 yeras. but not new or different or postprandial. did have black stools yesterday didn't think much of it at the time. chronic PND. (+) weak and lightheaded when sitting up. (+) EtOH - ~6 shots of tequila daily - to treat pain chronic pain in back, hips, knee no NSAIDs Primary Care Provider: Tushar Miranda MD see above Allergies Allergy/AdvReac Type Severity Reaction Status Date / Time liraglutide Allergy Intermediate HIVES Verified 10/01/21 07:18 phenol Allergy Intermediate HIVES Verified 10/01/21 07:18 pregabalin Allergy Intermediate HIVES Verified 10/01/21 07:18 propylene glycol Allergy Intermediate HIVES Verified 10/01/21 07:18 sulfamethoxazole Allergy Mild Verified 10/01/21 07:18 [From Bactrim] trimethoprim [From Bactrim] Allergy Mild Verified 10/01/21 07:18 nickel Allergy Unknown Rash Verified 10/01/21 07:18 Home Medications Medication Instructions Recorded Confirmed Type apixaban 5 mg tablet (Eliquis) 5 mg PO BID 08/17/18 10/01/21 History multivitamin-ferrous 1 tab PO QDD 11/05/18 10/01/21 History fumarate-folic acid 18 mg-400 mcg tablet (Centrum Women) furosemide 20 mg tablet (Lasix) 40 mg PO QAM tab 05/27/21 10/01/21 History spironolactone 25 mg tablet 50 mg PO QAM tab 05/27/21 10/01/21 History metoprolol tartrate 25 mg tablet 25 mg PO BID #60 tab 07/14/21 10/01/21 Rx [id number]-vpczwsno-jxudtbc 1 cap PO QAM 08/25/21 10/01/21 History 24,000-76,000-120,000 unit capsule,delayed rel (Creon) potassium chloride 20 mEq 10 meq PO QDD tab 08/25/21 10/01/21 History tablet,extended release Past Med/Surg History Medical History A-fib SINGLE DOCUMENTED EPISODE 02/2017- NO KNOWN RECURRENCES/ISSUES Acute renal disease Alcoholism Carpal tunnel syndrome of left wrist LEFT HAND NEUROPATHY FH: bilateral hip replacements History of diverticulitis PER RECORDS Lymphedema B/L LE; WEARS COMPRESSION STOCKING Obesity Osteoarthritis Surgical History History of carpal tunnel surgery of right wrist History of colonoscopy Hx of bilateral hip replacements LEFT DAGMAR= 06/20/17= DONE UNDER [place] 2/2 PATIENT PREFERENCE AT [facility] Hx of knee surgery B/L Hx of tonsillectomy Hx of tooth extraction Status post right knee replacement Family History Other Cancer Diabetes Heart disease Hypertension Social History Smoking Status: Former smoker Second Hand Exposure: No; Hx Alcohol Use: Yes (ALCOHOLISM PER RECORDS) Alcohol type: hard liquor Hx Substance Use: No Preferred Language: Guamanian Communication Ability: Effective Beliefs That Will Affect Care: None marital status: Current Living Situation: Spouse Feels Safe at Home: Yes Assistive Devices: Walker Review of Systems Review of Systems: All systems reviewed & are unremarkable except as noted in HPI & below Physical Exam Physical Exam: gen aaox3 pleasant nad. making some quite funny sarcastic jokes. later at times appearing nauseated. heent nc at mmm. L nare crusted w blood but no active bleeding. mmm. no blood noted in posterior oropharynx. cardio reg no r/m/g. lungs cta b/l no r/r/w good effort no accessory muscles. abd soft mild distention nontender no guarding/rebound/rigidity. no masses or organomegaly. ext b/l LE ~2+ equal nontender edema. pt notes chronic. neuro cn 2-12 grossly intact gross motor equal and intact no focal sensory deficits. msk without gross lesions. skin no rashes no pallor or icterus. mental good recent and remote recall nomral mood and affect good judgement and insight Results & Data Results & [facility]) Vital Signs (Past 12 Hours) Vital Signs Temp Pulse Resp BP Pulse Ox 10/01/21 06:30 80 20 100/48 L 98 10/01/21 05:45 80 16 104/53 L 100 10/01/21 05:30 79 22 96/61 L 96 10/01/21 05:16 107 H 14 120/80 10/01/21 05:00 80 15 79/61 L 100 10/01/21 04:52 84 22 88/55 L 100 10/01/21 04:34 97 10/01/21 04:26 98.1 F 87 20 98/57 L 100 Code Status & VTE Plan VTE Prophylaxis Plan VTE Prophylaxis will be ordered: Yes PG Care Time/CCT Total # of Minutes Spent Total Time Spent with Patient: Total time spent is greater than 50% in coordination of care (as documented) at patient's floor/unit and/or counseling patient: Coding Level of Care Code 66466 Initial Inpt Care Lvl 3 Diagnoses Hematemesis K92.0 Acute renal disease N28.9 Hypotension I95.9 Alcohol abuse F10.10 Paroxysmal atrial fibrillation I48.0 GERD (gastroesophageal reflux disease) K21.9 DVT prophylaxis Z29.9 Discharge planning issues Z02.9
[2021-10-01] MEDS ORDERED: METOCLOPRAMIDE HCL INJ 5 MG/ML 2 ML VIAL IV STA (09:38)
[2021-10-01] MEDS ORDERED: PHENYLEPHRINE HCL 10 MG/ML VIAL ONE (10:38)
[2021-10-01] MEDS ORDERED: LIDOCAINE 2% 2 ML VIAL/AMP(20MG/ML) INFIL ONE (10:38)
[2021-10-01] MEDS ORDERED: LARYING-O-JET KIT (LTA) ONE (10:38)
[2021-10-01] MEDS ORDERED: SUCCINYLCHOLINE CHLORIDE 20 MG/ML 10 ML VIAL IV ONE (10:38)
[2021-10-01] MEDS ORDERED: ONDANSETRON INJ 2 MG/ML 2 ML VIAL ONE (10:38)
[2021-10-01] MEDS ORDERED: PROPOFOL IV EMULSION 10 MG/ML 20 ML VIAL IV ONE (10:38)
[2021-10-01] MEDS ORDERED: MIDAZOLAM HCL 1 MG/ML 2ML VIAL ONE (10:39)
[2021-10-01] MEDS ORDERED: fentaNYL citrate 100 MCG/2 ML VIAL ONE (10:39)
--- NOTE | 2021-10-01 10:49 | Anesthesiology Consultation ---
Date of Service October 01, 2021 Assessment & Plan (1) Encounter for pre-operative examination: Chart Review Chart Review: Acceptable Risk for Surgery History Surgery Operation Date: 10/01/21 10:40 Proposed Procedures p Esophagogastroduodenoscopy - Manny Daniels MD Height/Weight Height: 5 ft 6 in Weight: 123.5 kg Allergies Allergy/AdvReac Type Severity Reaction Status Date / Time liraglutide Allergy Intermediate HIVES Verified 10/01/21 07:18 phenol Allergy Intermediate HIVES Verified 10/01/21 07:18 pregabalin Allergy Intermediate HIVES Verified 10/01/21 07:18 propylene glycol Allergy Intermediate HIVES Verified 10/01/21 07:18 sulfamethoxazole Allergy Mild Verified 10/01/21 07:18 [From Bactrim] trimethoprim [From Bactrim] Allergy Mild Verified 10/01/21 07:18 nickel Allergy Unknown Rash Verified 10/01/21 07:18 Medications Home Medications Medication Instructions Recorded Confirmed Last Taken apixaban 5 mg tablet (Eliquis) 5 mg PO BID 08/17/18 10/01/21 09/30/21 20:30 multivitamin-ferrous 1 tab PO QDD 11/05/18 10/01/21 09/30/21 fumarate-folic acid 18 mg-400 mcg tablet (Centrum Women) furosemide 20 mg tablet (Lasix) 40 mg PO QAM tab 05/27/21 10/01/21 09/30/21 spironolactone 25 mg tablet 50 mg PO QAM tab 05/27/21 10/01/21 09/30/21 metoprolol tartrate 25 mg tablet 25 mg PO BID #60 tab 07/14/21 10/01/21 09/30/21 20:30 tbrbqa-ajoklnmn-gcwjnrt 1 cap PO QAM 08/25/21 10/01/21 09/30/21 24,000-76,000-120,000 unit capsule,delayed rel (Creon) potassium chloride 20 mEq 10 meq PO QDD tab 08/25/21 10/01/21 09/30/21 tablet,extended release Active Medications Generic Name Dose Route Start Last Admin Trade Name Freq PRN Reason Stop Dose Admin Sodium Chloride 1,000 mls @ 125 mls/hr 10/01/21 04:28 10/01/21 04:50 Nss 1000ml IV 10/01/21 12:27 125 mls/hr .Q8H STA Administration Past Medical History Medical History (Updated 10/01/21 @ 10:49 by Nash Lewis MD) A-fib SINGLE DOCUMENTED EPISODE 02/2017- NO KNOWN RECURRENCES/ISSUES Acute renal disease Alcoholism Carpal tunnel syndrome of left wrist LEFT HAND NEUROPATHY FH: bilateral hip replacements History of diverticulitis PER RECORDS Lymphedema B/L LE; WEARS COMPRESSION STOCKING Obesity Osteoarthritis Past Family History Family History Other Cancer Diabetes Heart disease Hypertension Past Surgical History Surgical History History of carpal tunnel surgery of right wrist History of colonoscopy Hx of bilateral hip replacements LEFT DAGMAR= 06/20/17= DONE UNDER [place] 2/2 PATIENT PREFERENCE AT [facility] Hx of knee surgery B/L Hx of tonsillectomy Hx of tooth extraction Status post right knee replacement Social History Smoking Status: Former smoker Hx Alcohol Use: Yes (ALCOHOLISM PER RECORDS) Alcohol type: hard liquor alcohol intake frequency: 0-2 drinks per day (AVERAGE 3-6 SHOTS/DAY OF WHISKEY) Hx Substance Use: No Physical Exam Vital Signs Last Vital Signs Temp 36.7 C 10/01/21 04:26 Pulse 80 10/01/21 06:30 Resp 20 10/01/21 06:30 BP 100/48 L 10/01/21 06:30 Pulse Ox 98 10/01/21 06:30 Testing Laboratory Results 10/01/21 07:13 10/01/21 04:38 PT 13.0 Seconds (9.0-12.0) H 10/01/21 04:38 INR 1.3 (0.9-1.1) H 10/01/21 04:38 APTT 27.9 Seconds (21.0-31.0) 10/01/21 04:38 Blood Type O Positive 10/01/21 04:38 Antibody Screen NEGATIVE 10/01/21 04:38 Electrocardiogram Date: 10/01/21 Findings: + NSR @ (85) and + NSST changes Echocardiogram Date: 06/03/21 EF: 65% LV Function: normal mild MR and TR
[2021-10-01] MEDS ORDERED: ePHEDrine sulfate 50 MG/ML AMP IV PRN (10:52)
[2021-10-01] MEDS ORDERED: ATROPINE SULFATE 0.1 MG/ML 10ML SYR IV PRN (10:52)
[2021-10-01] MEDS: LACTATED RINGER'S 1,000 ML IV SCH ×2 (11:55→21:25)
--- NOTE | 2021-10-01 14:04 | Procedure Note ---
Procedure Note Date of Service October 01, 2021 Note GI brief procedure note/post op note: EGD findings: multiple gastric ulcers, few with visible vessels, treated with dual therapy successfully. bx's taken for h. pylori eval. recs: protonix 40 mg BID for 3 months repeat EGD in 3 months strict avoidance of NSAIDS clear liquids today, advance tomorrow if stable Manny Daniels MD Gastroenterology Coding
--- NOTE | 2021-10-01 14:09 | GI REPORT ---
Patient Name: Keri Chapman Procedure Date: 10/01/2021 12:53 PM Date of : 1950 Admit Type: Inpatient Age: 71 Gender: Female Attending MD: Manny Daniels MD Procedure: Upper GI endoscopy Providers: Manny Daniels MD Referring MD: Cade Dailey Indications: Hematemesis, Melena Medicines: Monitored Anesthesia Care Complications: No immediate complications. Estimated blood loss: None. Estimated Blood Loss: Estimated blood loss: none. Procedure: Pre-Anesthesia Assessment: - Prior Anticoagulants: The patient has taken no previous anticoagulant or antiplatelet agents. - ASA Grade Assessment: II - A patient with mild systemic disease. After obtaining informed consent, the endoscope was passed under direct vision. Throughout the procedure, the patient's blood pressure, pulse, and oxygen saturations were monitored continuously. The Scope was introduced through the mouth, and advanced to the second part of duodenum. The upper GI endoscopy was accomplished without difficulty. The patient tolerated the procedure well. Findings: The examined esophagus was normal. Few non-bleeding cratered gastric ulcers with a visible vessel were found in the gastric antrum. Area was successfully injected with 4 mL of a 1:10,000 solution of epinephrine for hemostasis. Coagulation for hemostasis using bipolar probe was successful. Estimated blood loss: none. Biopsies were taken with a cold forceps for Helicobacter pylori testing. Estimated blood loss: none. The duodenal bulb and second portion of the duodenum were erythematous but otherwise normal. Impression: - Normal esophagus. - Non-bleeding gastric ulcers with a visible vessel. Injected. Treated with bipolar cautery. Biopsied. - Normal duodenal bulb and second portion of the duodenum. Recommendation: - Return patient to hospital [facility] for ongoing care. - Clear liquid diet today. advance diet tomorrow if stable -protonix 40 mg BID for 3 months -repeat EGD in 3 months -avoid NSAIDS strictly -ok to resume eliquis tomorrow if stable - Await pathology results. Manny Daniels MD 10/01/2021 2:09:16 PM This report has been signed electronically. Note Initiated On: 10/01/2021 12:53 PM Number of Addenda: 0 I attest to the content of the Intraoperative Record and orders documented therein, exceptions below {[id number]}
--- NOTE | 2021-10-01 14:50 | Anesthesiology Progress Note ---
Date of Service October 01, 2021 Anesthesia Post Procedure Vital Signs Vital Signs: Temp Pulse Pulse Pulse Resp BP BP 10/01/21 14:35 90 17 94/52 L 10/01/21 14:25 91 H 19 112/59 L 10/01/21 14:15 98 H 20 94/58 L 10/01/21 14:09 36.4 C L 107 H 19 131/65 10/01/21 13:41 36.8 C 87 20 90/65 L 10/01/21 13:18 36.8 C 87 20 90/65 L 10/01/21 13:03 37.0 C 82 16 100/53 L 10/01/21 12:33 37.0 C 78 18 81/44 L 10/01/21 12:18 37.2 C 82 17 81/43 L 10/01/21 12:02 37.2 C 81 20 81/42 L 10/01/21 06:30 80 20 100/48 L 10/01/21 05:45 80 16 104/53 L 10/01/21 05:30 79 22 96/61 L 10/01/21 05:16 107 H 14 120/80 10/01/21 05:00 80 15 79/61 L 10/01/21 04:52 84 22 88/55 L 10/01/21 04:34 10/01/21 04:26 36.7 C 87 20 98/57 L Pulse Ox 10/01/21 14:35 99 10/01/21 14:25 100 10/01/21 14:15 100 10/01/21 14:09 96 10/01/21 13:41 100 10/01/21 13:18 100 10/01/21 13:03 99 10/01/21 12:33 100 10/01/21 12:18 100 10/01/21 12:02 100 10/01/21 06:30 98 10/01/21 05:45 100 10/01/21 05:30 96 10/01/21 05:16 10/01/21 05:00 100 10/01/21 04:52 100 10/01/21 04:34 97 10/01/21 04:26 100 Pain Intensity Back: Pain Intensity: 7 Abdomen: Pain Intensity: 1 Transfer of Care Handoff Completed per policy Notes Mental Status: alert / awake / arousable Patient Amnestic to Procedure: Yes Nausea / Vomiting: adequately controlled Pain: adequately controlled Airway Patency, RR, SpO2: stable & adequate BP & HR: stable & adequate Hydration State: stable & adequate Anesthetic Complications: no major complications apparent
--- NOTE | 2021-10-01 15:33 | Electrocardiogram Report ---
Test Reason : Blood Pressure : / mmHG Vent. Rate : 085 BPM Atrial Rate : 085 BPM P-R Int : 130 ms QRS Dur : 074 ms QT Int : 372 ms P-R-T Axes : 026 003 -43 degrees QTc Int : 442 ms Poor data quality, interpretation may be adversely affected Normal sinus rhythm Low voltage QRS Abnormal ECG When compared with ECG of 05-NOV-2018 13:06, ST now depressed in Anterior leads Nonspecific T wave abnormality, worse in Inferior leads T wave inversion now evident in Anterolateral leads Confirmed by Srini Ray ([id number]) on 10/01/2021 3:33:35 PM Referred By: REFERRED SELF Confirmed By:Srini Ray
[2021-10-01] MEDS: PANTOprazole 40 MG TAB PO SCH (21:24)
[2021-10-01] MEDS: ACETAMINOPHEN 325 MG TAB PO PRN (21:24)
[2021-10-01] MEDS ORDERED: SODIUM CHLORIDE 0.9% 1000ML 500 ML IV ONE (23:50)
[2021-10-02 00:48] LABS: Hematocrit (blood only) 26.1 % (37-47); Hemoglobin 8.7 g/dL (12.0-16.0)
[2021-10-02] MEDS ORDERED: SODIUM CHLORIDE 0.9% 250 ML IV PRN ×3 (01:54→06:12)
[2021-10-02] MEDS: ACETAMINOPHEN 325 MG TAB PO PRN ×3 (02:37→16:04)
[2021-10-02 06:23] LABS: Hematocrit (blood only) 30.1 % (37-47); Hemoglobin 10.3 g/dL (12.0-16.0); Mean Corpuscular Hemoglobin 34.9 pg (25-34); RDW Standard Deviation 64.5 fL (36.4-46.3); Red Blood Count 2.95 M/uL (4.2-5.4); White Blood Count 3.35 K/uL (4.8-10.8)
[2021-10-02 06:48] LABS: BUN Creatinine Ratio 22.4 (10-20); Calcium 6.7 mg/dl (8.5-10.1); Creatinine Clr Calc Pharmacy 36.1 ml/min; Est GFR (African American) 28.4 ml/min; Est GFR (Non-African American) 24.5 ml/min; Potassium 3.1 mmol/L (3.5-5.1)
[2021-10-02 07:06] LABS: Mean Corpuscular Hgb Conc 34.2 g/dL (32-36); Mean Platelet Volume 10.8 fL (7.4-10.4); Platelet Count 68 K/uL (130-400); Platelet Estimate Decreased (Normal)
[2021-10-02] MEDS: FOLIC ACID 1 MG in SYRINGE 9.8 ML IV SCH (07:31)
[2021-10-02] MEDS: THIAMINE HCL 100 MG in SYRINGE 9 ML IV SCH (07:32)
--- NOTE | 2021-10-02 07:43 | Communication Note ---
Date of Service: October 02, 2021 Overnight BP 78/47. ordered 500mL bolus x2. Provided 1u prbc. H/H initially down, but repeat was improved. BPs remained soft, in line w/ BPs this admission. ordered ct abd w/o con to r/o significant abd bleeding. Suspecting active bleeding; acute blood loss anemia. Explore infectious etiologies as well.
[2021-10-02] MEDS ORDERED: POTASSIUM CHLORIDE CRTAB 20 MEQ TABCR PO STA (08:18)
--- NOTE | 2021-10-02 08:45 | CT Scan Report ---
CT SCAN OF THE ABDOMEN AND PELVIS WITHOUT IV CONTRAST CLINICAL HISTORY: Generalized abdominal pain. Drop in hemoglobin. COMPARISON STUDY: Abdominal CT dated 04/29/2016. TECHNIQUE: CT scan of the abdomen and pelvis is performed from the lung bases to the proximal femora. Images are reviewed in the axial, sagittal, and coronal planes. IV contrast was not administered for this examination. A dose lowering technique was utilized adhering to the principles of ALARA. The ex amination is degraded by large body habitus, and by streak artifact from the body wall abutting the C T gantry. CT DOSE: 1870.90 mGy.cm FINDINGS: Lung bases: The heart is normal in size and without pericardial effusion. The lung bases are clear. T here is a tiny hiatal hernia. Liver: The unenhanced liver is enlarged, measuring 18.9 cm in length. The liver demonstrates diffusel y diminished attenuation consistent with severe hepatic steatosis. Fatty sparing is seen adjacent to the gallbladder fossa. There is no intrahepatic biliary ductal dilatation. Gallbladder: Unremarkable. Spleen: Normal in size and attenuation. Pancreas: The unenhanced pancreas is atrophic and grossly unremarkable. Adrenal glands: Unremarkable. Kidneys: The unenhanced kidneys are atrophic and without hydronephrosis. There are no renal calculi i dentified. There is no evidence of contour deforming renal mass lesion. Abdominal vasculature: The abdominal aorta is normal in course and caliber noting moderate to advance d atherosclerotic calcification. Bowel: There is mild to moderate colonic diverticulosis without CT evidence of acute diverticulitis. No bowel obstruction is seen. The appendix is well-visualized and normal. Peritoneum/retroperitoneum: There is no intraperitoneal free air or abdominal ascites. There is no re troperitoneal hemorrhage. There is a fat-containing umbilical hernia. Lymphadenopathy: None. Pelvic viscera: Evaluation of the pelvis is significantly degraded by streak artifact from bilateral hip arthroplasties. The endometrium appears thickened for age measuring up to 1.8 cm. A 2.6 cm cystic focus is suggested in the right ovary on image #[id number]. The bladder is normal as visualized. Skeletal structures: The skeletal structures are osteopenic. There is moderate lumbosacral spondylosi s. A large hemangioma is noted in the body of T11. No lytic or blastic lesions are seen. Bilateral hi p arthroplasties are in place. IMPRESSION: 1. There are no acute infectious or inflammatory findings in the abdomen or pelvis. 2. Hepatomegaly and severe fixed steatosis. 3. Mild to moderate colonic diverticulosis without CT evidence of acute diverticulitis. 4. The endometrium appears thickened for age and a cystic structure is suggested in the right ovary. These findings are not well assessed by CT and nonemergent gynecology follow-up and pelvic ultrasound are recommended for further evaluation. 5. Additional findings as above. ACT 112: Negative or not required by law. Electronically signed by: Wolfgang Jerry M.D. 10/02/2021 8:44 AM
[2021-10-02] MEDS: LACTATED RINGER'S 1,000 ML IV SCH ×3 (08:49→17:44)
--- NOTE | 2021-10-02 11:51 | Hospitalist Progress Note ---
Date of Service October 02, 2021 Assessment & Plan (1) Hematemesis: Plan: Suspected UGI bleed - although only confounder is no epigastric pain/tenderness/prandial sx Status post EGD with findings of nonbleeding cratered gastric ulcers in the antrum s/p epinephrine injection, no fresh blood noted in the stomach Uncertain if patient may have had a posterior nosebleed that has since resolved Transitioned from Protonix gtt to PO BID Protonix by GI (recommend ongoing treatment x 3 months) ETOH as biggest risk for mucosal disease. otherwise as below Unfortunately bleeding scan cannot be performed over the weekend, can plan to do on Monday if she continues to have concerns for active bleed H&H stable status post 1 unit of PRBCs overnight. Noted drop in platelets from 100 to 68 this AM. Repeat CBC this afternoon. If platelets drop below 50 in setting of active bleeding, she will require transfusion of platelets CT A/P without significant abnormalities to account for blood loss (2) Hypotension: Plan: Almost certainly early hemorrhagic shock from above. anticipate acute blood l oss anemia [address], continue IV fluids BP is stable/improved and she is currently asymptomatic (3) Pancytopenia: Plan: Uncertain etiology for leukopenia Hemoglobin and hematocrit drop c/w acute blood loss anemia in setting of upper GI bleed Thrombocytopenia also could be related to upper GI bleed, will need to closely monitor as she may need platelet transfusion (4) Acute kidney injury: Plan: In the setting of acute blood loss anemia and hemorrhagic shock Likely due to hypoperfusion Status post transfusion and IV fluids Monitor (5) Hypokalemia: Plan: Supplementation ordered Repeat level tomorrow morning (6) Hypocalcemia: Plan: Obtain an ionized calcium, intact PTH, mag and phos level Will also check an albumin level in order to calculate corrected calcium level (7) Alcohol abuse: Plan: Likely biggest culprit for underlying mucosal disease Continue thiamine, folate Continue AWSS Will have to work w pt on other means to treat her pain, this can be discussed upon d/c Macrocytosis noted on CBC -- obtain Vitamin B12 and Folate level (8) Paroxysmal atrial fibrillation: Plan: Rate controlled. Metoprolol currently on hold since actually rate control might be blunting her physiologic tachycardia she should be having in response to the acute blood loss/shock Continue holding anticoagulation for now (9) GERD (gastroesophageal reflux disease): Plan: PPI as above (10) DVT prophylaxis: Plan: SCDs (11) Elevated LFTs: Plan: Findings of hepatic steatosis noted on CT and chronic ETOH consumption are likely underlying cause Hepatic function panel ordered for today and repeat CMP in a.m. Plan: At this time, exact location and cause of bleeding is unknown. I question if the gastric ulcers were bleeding and has since resolved. Although, I would expect to have seen fresh blood in the stomach if this were the case given her bloody emesis yesterday morning. As noted, bleeding scan cannot be performed on the weekends. Will continue to monitor serial CBCs (d/t need to also monitor platelets). Plan to transfuse platelets if they drop <50. Repeat blood work in AM including cbc w/ diff and CMP. Continue to monitor closely, further interventions will be determined upon repeat lab work as ordered. Plan to be d/w Dr. Joshi. Admission and Anticipated Discharge Date Admission Date: October 01, 2021 Subjective Patient was seen on daily rounds this morning. Pt remains hospitalized for hematemesis which was felt to be secondary to UGI bleed. Pt underwent EGD on 10/01 which revealed cratered nonbleeding gastric ulcers which were injected with epinephrine by Dr. Daniels. Pt reported episode of hematemesis yesterday morning ~0230, none since that time. She has had loose BMs which are dark in color with some streaks of BRB. She denies abd pain, n/v, f/c, chest pain, or dyspnea. 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 Currently denies increasing fatigue, dizziness, or lightheadedness. Review of Systems Review of Systems: CONSTITUTIONAL: Denies weight loss/gain, fever and chills, fatigue, malaise, generalized weakness. HEENT: Denies changes in vision and hearing. RESPIRATORY: Denies SOB, cough, wheezing. CV: Denies palpitations, CP, lower extremity edema, orthopnea, PND. GI: Denies abdominal pain, nausea, vomiting and diarrhea. : Denies dysuria and urinary frequency, urgency, hesitancy. MUSCULOSKELETAL: +hip pain, s/p recent fall. SKIN: Denies rash and pruritus. NEUROLOGICAL: Denies headache, syncope, focal weakness, numbness, tingling. PSYCHIATRIC: Denies recent changes in mood. Denies anxiety and depression. Physical Exam Physical Exam: GENERAL: 71 yo obese WF. Awake, alert, pleasant, NAD. LUNGS: Clear to auscultation bilaterally. CARDIOVASCULAR: Regular rate and rhythm. ABDOMEN: Soft, obese, nontender, normal BS x 4 quad. EXTREMITIES: No edema. Non-tender. Peripheral pulses +2/4. NEUROLOGIC: A&O x3. PSYCHIATRIC: Cooperative. Appropriate mood and affect. SKIN: Warm, dry, intact. No rashes or lesions. Results & Data Results & Data ([facility]) Vital Signs (Past 12 Hours) Vital Signs Temp Pulse Pulse Resp BP BP Pulse Ox 10/02/21 08:00 36.8 C 88 88 16 90/52 L 98 10/02/21 05:56 36.7 C 87 18 84/51 L 99 10/02/21 05:35 36.7 C 87 18 82/51 L 100 10/02/21 04:35 36.7 C 86 18 91/55 L 95 10/02/21 03:35 36.8 C 86 18 83/50 L 100 10/02/21 03:05 36.8 C 85 16 82/51 L 100 10/02/21 02:50 36.7 C 94 H 18 99/64 L 100 10/02/21 02:31 36.9 C 82 16 94/64 L 98 10/02/21 01:40 80/45 L 10/02/21 00:40 89/54 L 10/01/21 23:44 78/47 L Laboratory Results 10/02/21 06:13 10/02/21 06:13 Diagnostic Findings Abdomen/Pelvis CT 10/02/21 06:23 CT SCAN OF THE ABDOMEN AND PELVIS WITHOUT IV CONTRAST CLINICAL HISTORY: Generalized abdominal pain. Drop in hemoglobin. COMPARISON STUDY: Abdominal CT dated 04/29/2016. TECHNIQUE: CT scan of the abdomen and pelvis is performed from the lung bases to the proximal femora. Images are reviewed in the axial, sagittal, and coronal planes. IV contrast was not administered for this examination. A dose lowering technique was utilized adhering to the principles of ALARA. The examination is degraded by large body habitus, and by streak artifact from the body wall abutting the CT gantry. CT DOSE: 1870.90 mGy.cm FINDINGS: Lung bases: The heart is normal in size and without pericardial effusion. The lung bases are clear. There is a tiny hiatal hernia. Liver: The unenhanced liver is enlarged, measuring 18.9 cm in length. The liver demonstrates diffusely diminished attenuation consistent with severe hepatic steatosis. Fatty sparing is seen adjacent to the gallbladder fossa. There is no intrahepatic biliary ductal dilatation. Gallbladder: Unremarkable. Spleen: Normal in size and attenuation. Pancreas: The unenhanced pancreas is atrophic and grossly unremarkable. Adrenal glands: Unremarkable. Kidneys: The unenhanced kidneys are atrophic and without hydronephrosis. There are no renal calculi identified. There is no evidence of contour deforming renal mass lesion. Abdominal vasculature: The abdominal aorta is normal in course and caliber noting moderate to advanced atherosclerotic calcification. Bowel: There is mild to moderate colonic diverticulosis without CT evidence of acute diverticulitis. No bowel obstruction is seen. The appendix is well- visualized and normal. Peritoneum/retroperitoneum: There is no intraperitoneal free air or abdominal ascites. There is no retroperitoneal hemorrhage. There is a fat-containing umbilical hernia. Lymphadenopathy: None. Pelvic viscera: Evaluation of the pelvis is significantly degraded by streak artifact from bilateral hip arthroplasties. The endometrium appears thickened for age measuring up to 1.8 cm. A 2.6 cm cystic focus is suggested in the right ovary on image #[id number]. The bladder is normal as visualized. Skeletal structures: The skeletal structures are osteopenic. There is moderate lumbosacral spondylosis. A large hemangioma is noted in the body of T11. No lytic or blastic lesions are seen. Bilateral hip arthroplasties are in place. IMPRESSION: 1. There are no acute infectious or inflammatory findings in the abdomen or pelvis. 2. Hepatomegaly and severe fixed steatosis. 3. Mild to moderate colonic diverticulosis without CT evidence of acute diverticulitis. 4. The endometrium appears thickened for age and a cystic structure is suggested in the right ovary. These findings are not well assessed by CT and nonemergent gynecology follow-up and pelvic ultrasound are recommended for further evaluation. 5. Additional findings as above. ACT 112: Negative or not required by law. Electronically signed by: Wolfgang Jerry M.D. 10/02/2021 8:44 AM PG Care Time/CCT Total # of Minutes Spent Total Time Spent with Patient: Total time spent is greater than 50% in coordination of care (as documented) at patient's floor/unit and/or counseling patient: Coding Level of Care Code 72453 Subseq Hosp Care Lvl 3 Diagnoses Hematemesis K92.0 Hypotension I95.9 Alcohol abuse F10.10 Paroxysmal atrial fibrillation I48.0 GERD (gastroesophageal reflux disease) K21.9 DVT prophylaxis Z29.9 Pancytopenia D61.818 Hypokalemia E87.6 Hypocalcemia E83.51 Acute kidney injury N17.9 Elevated LFTs R79.89
[2021-10-02 12:50] LABS: Albumin Level 2.5 gm/dl (3.4-5.0); Bilirubin Direct 1.3 mg/dl (0-0.2); Bilirubin,Total 2.6 mg/dl (0.2-1.0); Total Protein 4.8 gm/dl (6.0-8.3)
[2021-10-02] MEDS: PANTOprazole 40 MG TAB PO SCH ×2 (14:19→20:39)
[2021-10-02 16:00] LABS: Hematocrit (blood only) 32.3 % (37-47); Hemoglobin 10.8 g/dL (12.0-16.0); Mean Corpuscular Hemoglobin 34.3 pg (25-34); Mean Corpuscular Hgb Conc 33.4 g/dL (32-36); Mean Corpuscular Volume 102.5 fL (80-100); RDW Coefficient of Variation 17.5 % (11.5-14.5); RDW Standard Deviation 65.5 fL (36.4-46.3); Red Blood Count 3.15 M/uL (4.2-5.4); White Blood Count 2.46 K/uL (4.8-10.8)
[2021-10-02 16:01] LABS: Mean Platelet Volume 10.7 fL (7.4-10.4); Platelet Count 72 K/uL (130-400)
[2021-10-02 16:22] LABS: Basophils # (auto) 0.01 K/uL (0-0.2); Basophils % (auto) 0.4 %; Eosinophils # (auto) 0.07 K/uL (0-0.5); Eosinophils % (auto) 2.8 %; Lymphocytes % (auto) 32.5 %; Monocytes # (auto) 0.48 K/uL (0.11-0.59); Monocytes % (auto) 19.5 %; Neutrophils % (auto) 44.8 %; Platelet Estimate Decreased (Normal); Stomatocytes 1+
[2021-10-02 16:23] LABS: Magnesium 0.9 mg/dl (1.7-2.4); Phosphorus 1.7 mg/dl (2.5-4.9)
[2021-10-02] MEDS: MAGNESIUM SULFATE / D5W 1 GM/100 ML BAG IV SCH ×4 (16:41→22:58)
[2021-10-02] MEDS ORDERED: POTASSIUM PHOS 3 MMOL/1 ML INFUSION IV STA (17:43)
[2021-10-02] MEDS ORDERED: POTASSIUM PHOSPHATE 15 MMOL in DEXTROSE 5% 250 ML IV ONE (18:00)
[2021-10-03] MEDS: ACETAMINOPHEN 325 MG TAB PO PRN ×3 (01:19→20:11)
[2021-10-03] MEDS: LACTATED RINGER'S 1,000 ML IV SCH (05:24)
[2021-10-03 06:54] LABS: Hematocrit (blood only) 32.6 % (37-47); Hemoglobin 10.8 g/dL (12.0-16.0); Mean Corpuscular Hemoglobin 34.6 pg (25-34); Mean Corpuscular Hgb Conc 33.1 g/dL (32-36); Mean Corpuscular Volume 104.5 fL (80-100); RDW Coefficient of Variation 17.3 % (11.5-14.5); RDW Standard Deviation 66.7 fL (36.4-46.3); Red Blood Count 3.12 M/uL (4.2-5.4)
[2021-10-03 06:57] LABS: Mean Platelet Volume 11.1 fL (7.4-10.4); Platelet Count 70 K/uL (130-400)
[2021-10-03 07:22] LABS: Albumin Level 2.6 gm/dl (3.4-5.0); BUN Creatinine Ratio 21.7 (10-20); Bilirubin,Total 2.5 mg/dl (0.2-1.0); Creatinine Clr Calc Pharmacy 49.1 ml/min; Est GFR (African American) 39.8 ml/min; Est GFR (Non-African American) 34.4 ml/min; Globulin 2.5 gm/dl (2.5-4.0); Magnesium 1.7 mg/dl (1.7-2.4); Phosphorus 2.1 mg/dl (2.5-4.9); Potassium 3.2 mmol/L (3.5-5.1); Total Protein 5.1 gm/dl (6.0-8.3)
[2021-10-03 07:26] LABS: ANC (manual) 1.27 K/uL (1.4-6.5); Eosinophils # (manual) 0.08 K/uL (0-0.5); Eosinophils % (manual) 3.6 %; Lymphocytes % (manual) 25.9 %; Monocytes # (manual) 0.35 K/uL (0.11-0.59); Monocytes % (manual) 15.2 %; Neutrophils # (manual) 1.27 K/uL (1.4-6.5); Neutrophils % (manual) 55.3 %
[2021-10-03 07:41] LABS: Folate (Folic Acid) > 22.30 ng/ml (>5.38)
[2021-10-03 07:42] LABS: Vitamin B12 500 pg/ml (211-911)
[2021-10-03] MEDS ORDERED: POTASSIUM PHOS 3 MMOL/1 ML INFUSION IV STA ×2 (07:47→13:23)
[2021-10-03] MEDS ORDERED: POTASSIUM PHOSPHATE 21 MMOL in DEXTROSE 5% 500 ML IV ONE (08:00)
[2021-10-03] MEDS: FOLIC ACID 1 MG in SYRINGE 9.8 ML IV SCH (08:39)
[2021-10-03] MEDS: PANTOprazole 40 MG TAB PO SCH ×2 (08:40→20:11)
[2021-10-03] MEDS: THIAMINE HCL 100 MG in SYRINGE 9 ML IV SCH (08:40)
--- NOTE | 2021-10-03 12:56 | Hospitalist Progress Note ---
Date of Service October 03, 2021 Assessment & Plan (1) Hematemesis: Plan: Suspected UGI bleed - although only confounder is no epigastric pain/tenderness/prandial sx S/P EGD with findings of nonbleeding cratered gastric ulcers in the antrum s/p epinephrine injection, no fresh blood noted in the stomach Uncertain if patient may have had a posterior nosebleed that has since resolved vs. ulcers that bled and has since stopped Transitioned from Protonix gtt to PO BID Protonix by GI (recommend ongoing treatment x 3 months) EtOH as biggest risk for mucosal disease. otherwise as below H&H remains stable following transfusion two nights ago. No further evidence of active bleeding. CT A/P without significant abnormalities to account for blood loss (2) Hypotension: Plan: ?hemorrhagic shock from above but still w/ soft pressures despite aggressive fluids and stable H&H BP is stable/improved and she is currently asymptomatic Diuretics and Metoprolol remains on hold (3) Pancytopenia: Plan: Uncertain etiology for leukopenia H&H drop c/w acute blood loss anemia in setting of upper GI bleed s/p transfusion--H&H remains stable Thrombocytopenia also could be related to upper GI bleed--currently stable (4) Acute kidney injury: Plan: In the setting of acute blood loss anemia and hemorrhagic shock Likely due to hypoperfusion Status post transfusion and IV fluids Improved (5) Hypokalemia: Plan: Additional supplementation ordered Repeat level tomorrow morning (6) Hypocalcemia: Plan: Obtained ionized calcium level which was low at 0.91 Corrected calcium is 8.9 (7) Alcohol abuse: Plan: Likely biggest culprit for underlying mucosal disease Continue thiamine, folate Continue AWSS Will have to work w pt on other means to treat her pain, this can be discussed upon d/c Macrocytosis noted on CBC -- obtain Vitamin B12 and Folate level--> start oral Vitamin B12 supplementation for level of 500 (8) Paroxysmal atrial fibrillation: Plan: Rate controlled despite holding Metoprolol Continue holding anticoagulation for now (d/t #1) (9) GERD (gastroesophageal reflux disease): Plan: PPI as above (10) Elevated LFTs: Plan: Findings of hepatic steatosis noted on CT and chronic ETOH consumption are likely underlying cause (11) Hypomagnesemia: Plan: Critically low at 0.9 noted on afternoon labs on 10/02 IV magnesium supplementation ordered, today mag level normal at 1.7 We will start on oral MagOx supplementation 400mg twice daily Phosphorus was also low at 1.7, supplementation was ordered for this as well (12) DVT prophylaxis: Plan: SCDs Plan: At this time, exact location and cause of bleeding is unknown. I question if the gastric ulcers were bleeding and has since resolved. I suspect that her multiple electrolyte abnormalities are all nutritional deficiencies d/t poor diet. She will need to have these closely monitored as an outpatient to determine if adjustments in supplementation are needed. Will transition off PCU to med/surg. Stop fluids. Initiate PT/OT and d/c planning. Admission and Anticipated Discharge Date Admission Date: October 01, 2021 Subjective Patient was seen on daily rounds this morning. Pt remains hospitalized for hematemesis which was felt to be secondary to UGI bleed. Pt underwent EGD on 10/01 which revealed cratered nonbleeding gastric ulcers which were injected with epinephrine by Dr. Daniels. She denies abd pain, n/v, f/c, chest pain, or d yspnea. H&H has remained stable, has not required any further transfusions. No further hematemesis or dark black stools. Review of Systems Review of Systems: CONSTITUTIONAL: Denies weight loss/gain, fever and chills, fatigue, malaise, generalized weakness. HEENT: Denies changes in vision and hearing. RESPIRATORY: Denies SOB, cough, wheezing. CV: Denies palpitations, CP, lower extremity edema, orthopnea, PND. GI: Denies abdominal pain, nausea, vomiting and diarrhea. : Denies dysuria and urinary frequency, urgency, hesitancy. MUSCULOSKELETAL: +hip pain, s/p recent fall. SKIN: Denies rash and pruritus. NEUROLOGICAL: Denies headache, syncope, focal weakness, numbness, tingling. PSYCHIATRIC: Denies recent changes in mood. Denies anxiety and depression. Physical Exam Physical Exam: GENERAL: 71 yo obese WF. Awake, alert, pleasant, NAD. LUNGS: Clear to auscultation bilaterally. CARDIOVASCULAR: Regular rate and rhythm. ABDOMEN: Soft, obese, nontender, normal BS x 4 quad. EXTREMITIES: 2+ edema in b/l LE. Non-tender. Peripheral pulses +2/4. NEUROLOGIC: A&O x3. PSYCHIATRIC: Cooperative. Appropriate mood and affect. SKIN: Warm, dry, intact. No rashes or lesions. Results & Data Results & Data ([facility]) Vital Signs (Past 12 Hours) Vital Signs Temp Pulse Pulse Resp BP BP Pulse Ox 10/03/21 11:28 36.7 C 86 19 94/60 L 98 10/03/21 09:20 87 10/03/21 07:00 36.6 C 83 18 131/82 100 Laboratory Results 10/03/21 06:05 10/03/21 06:05 Mag=1.7 Phos=2.1 PG Care Time/CCT Total # of Minutes Spent Total Time Spent with Patient: Total time spent is greater than 50% in coordination of care (as documented) at patient's floor/unit and/or counseling patient: Coding Level of Care Code 99166 Subseq Hosp Care Lvl 3 Diagnoses Hematemesis K92.0 Hypotension I95.9 Pancytopenia D61.818 Acute kidney injury N17.9 Hypokalemia E87.6 Hypocalcemia E83.51 Alcohol abuse F10.10 Paroxysmal atrial fibrillation I48.0 GERD (gastroesophageal reflux disease) K21.9 DVT prophylaxis Z29.9 Elevated LFTs R79.89 Hypomagnesemia E83.42
[2021-10-03] MEDS ORDERED: POTASSIUM CHLORIDE CRTAB 20 MEQ TABCR PO STA ×2 (13:24→16:01)
[2021-10-03] MEDS: MAGNESIUM OXIDE 400 MG TAB PO SCH (20:11)
[2021-10-04] MEDS: ACETAMINOPHEN 325 MG TAB PO PRN ×3 (01:42→17:55)
[2021-10-04] MEDS: FOLIC ACID 1 MG in SYRINGE 9.8 ML IV SCH (07:59)
[2021-10-04] MEDS: PANTOprazole 40 MG TAB PO SCH (07:59)
[2021-10-04] MEDS: MAGNESIUM OXIDE 400 MG TAB PO SCH ×2 (07:59→20:27)
[2021-10-04 08:23] LABS: Hematocrit (blood only) 32.2 % (37-47); Hemoglobin 10.6 g/dL (12.0-16.0); Mean Corpuscular Hemoglobin 34.3 pg (25-34); Mean Corpuscular Volume 104.2 fL (80-100); RDW Coefficient of Variation 16.9 % (11.5-14.5); RDW Standard Deviation 63.9 fL (36.4-46.3); Red Blood Count 3.09 M/uL (4.2-5.4); White Blood Count 1.37 K/uL (4.8-10.8)
[2021-10-04 08:25] LABS: Mean Corpuscular Hgb Conc 32.9 g/dL (32-36); Mean Platelet Volume 9.9 fL (7.4-10.4); Platelet Count 59 K/uL (130-400)
[2021-10-04 08:49] LABS: Albumin Globulin Ratio 1.1 (0.9-2); Albumin Level 2.5 gm/dl (3.4-5.0); BUN Creatinine Ratio 20.2 (10-20); Bilirubin,Total 2.1 mg/dl (0.2-1.0); Calcium 7.1 mg/dl (8.5-10.1); Creatinine Clr Calc Pharmacy 71.8 ml/min; Est GFR (Non-African American) 54.4 ml/min; Globulin 2.3 gm/dl (2.5-4.0); Magnesium 1.6 mg/dl (1.7-2.4); Phosphorus 1.6 mg/dl (2.5-4.9); Potassium 3.6 mmol/L (3.5-5.1); Total Protein 4.8 gm/dl (6.0-8.3)
[2021-10-04 08:54] LABS: Basophils # (auto) 0.01 K/uL (0-0.2); Basophils % (auto) 0.7 %; Eosinophils # (auto) 0.03 K/uL (0-0.5); Eosinophils % (auto) 2.2 %; Immature Granulocytes # (auto) 0.01 K/uL (0.00-0.02); Immature Granulocytes % (auto) 0.7 %; Lymphocytes # (auto) 0.33 K/uL (1.2-3.4); Lymphocytes % (auto) 24.1 %; Monocytes % (auto) 14.6 %; Neutrophils # (auto) 0.79 K/uL (1.4-6.5); Neutrophils % (auto) 57.7 %
[2021-10-04] MEDS: THIAMINE HCL 100 MG in SYRINGE 9 ML IV SCH (11:15)
[2021-10-04] MEDS ORDERED: POTASSIUM PHOS 3 MMOL/1 ML INFUSION IV STA (11:45)
[2021-10-04] MEDS ORDERED: LORazepam 2 MG/1 ML VIAL IV PRN (11:49)
--- NOTE | 2021-10-04 12:14 | Hospitalist Progress Note ---
Date of Service October 04, 2021 Assessment & Plan (1) Pancytopenia: Plan: Uncertain as to what is contributing to bone marrow suppression At this point, will stop Protonix as this is the only new medication and does have leukopenia, thrombocytopenia listed as adverse reactions Low H&H c/w acute blood loss anemia in setting of upper GI bleed s/p transfusion--H&H remains stable Will also obtain anaplasmosis dna and lyme igg w/ reflex wb to rule this out as a possible cause Continue to monitor counts w/ stopping Protonix (2) Hematemesis: Plan: Suspected UGI bleed - although only confounder is no epigastric pain/tenderness/prandial sx S/P EGD with findings of nonbleeding cratered gastric ulcers in the antrum s/p epinephrine injection, no fresh blood noted in the stomach Transitioned from Protonix gtt to PO BID Protonix by GI (recommend ongoing treatment x 3 months)--this will need to be stopped as noted above EtOH as biggest risk for mucosal disease. otherwise as below H&H remains stable following transfusion two nights ago. No further evidence of active bleeding. CT A/P without significant abnormalities to account for blood loss Start Carafate 1g QID which can be used short term but will need to discuss long term care administrator options w/ GI (all possible options have adverse reactions of pancytopenia) (3) Hypotension: Plan: ?hemorrhagic shock from above but still w/ soft pressures despite aggressive fluids and stable H&H BP is stable/improved and she is currently asymptomatic Diuretics and Metoprolol remains on hold Continue holding Metoprolol but will try to resume her diuretics (4) Acute kidney injury: Plan: RESOLVED (5) Hypokalemia: Plan: Replaced and normalized today (6) Hypocalcemia: Plan: Obtained ionized calcium level which was low at 0.91 Corrected calcium is 8.9 (7) Hypomagnesemia: Plan: Critically low at 0.9 noted on afternoon labs on 10/02 which normalized 10/03 to 1.7 Started on oral MagOx 400mg BID on 10/03 Mag level low today at 1.6, ordered additional supplementation, aim for level of 2.0 Phosphorus level low (1.6) and is also being replaced (8) Alcohol abuse: Plan: Likely biggest culprit for underlying mucosal disease Continue thiamine, folate Continue AWSS Will have to work w pt on other means to treat her pain, this can be discussed upon d/c Macrocytosis noted on CBC -- obtain Vitamin B12 and Folate level--> start oral Vitamin B12 supplementation for level of 500 (9) Paroxysmal atrial fibrillation: Plan: Rate controlled despite holding Metoprolol Continue holding anticoagulation for now (d/t #1) (10) GERD (gastroesophageal reflux disease): Plan: PPI on hold now d/t #1 Carafate will be added to regimen (11) Elevated LFTs: Plan: Findings of hepatic steatosis noted on CT and chronic ETOH consumption are likely underlying cause (12) DVT prophylaxis: Plan: SCDs Plan: At this time, exact location and cause of bleeding is unknown. I question if the gastric ulcers were bleeding and has since resolved. I suspect that her multiple electrolyte abnormalities are all nutritional deficiencies d/t poor diet. She will need to have these closely monitored as an outpatient to determine if adjustments in supplementation are needed. Continue PT/OT. Stop Protonix d/t suspected etiology of pancytopenia and monitor CBC. D/C planning, hopefully in next 24-48 hours. Admission and Anticipated Discharge Date Admission Date: October 01, 2021 Subjective Patient was seen on daily rounds this morning. She is s/p EGD on 10/01 which revealed cratered nonbleeding gastric ulcers which were injected with epinephrine by Dr. Daniels. She denies abd pain, n/v, f/c, chest pain, or dyspnea. H&H has remained stable, has not required any further transfusions. No further hematemesis or dark black stools. She was asking about resuming her diuretics today. Also alerted by RN that ANC 790. Review of Systems Review of Systems: CONSTITUTIONAL: Denies weight loss/gain, fever and chills, fatigue, malaise, generalized weakness. HEENT: Denies changes in vision and hearing. RESPIRATORY: Denies SOB, cough, wheezing. CV: Denies palpitations, CP, lower extremity edema, orthopnea, PND. GI: Denies abdominal pain, nausea, vomiting and diarrhea. : Denies dysuria and urinary frequency, urgency, hesitancy. MUSCULOSKELETAL: +hip pain, s/p recent fall. SKIN: Denies rash and pruritus. NEUROLOGICAL: Denies headache, syncope, focal weakness, numbness, tingling. PSYCHIATRIC: Denies recent changes in mood. Denies anxiety and depression. Physical Exam Physical Exam: GENERAL: 71 yo obese WF. Awake, alert, pleasant, NAD. LUNGS: Clear to auscultation bilaterally. CARDIOVASCULAR: Regular rate and rhythm. ABDOMEN: Soft, obese, nontender, normal BS x 4 quad. EXTREMITIES: 2+ edema in b/l LE. Non-tender. Peripheral pulses +2/4. NEUROLOGIC: A&O x3. PSYCHIATRIC: Cooperative. Appropriate mood and affect. SKIN: Warm, dry, intact. No rashes or lesions. Results & Data Results & Data ([facility]) Vital Signs (Past 12 Hours) Vital Signs Temp Pulse Resp BP Pulse Ox 10/04/21 07:17 36.7 C 87 18 97/63 L 99 Laboratory Results 10/04/21 08:11 10/04/21 08:11 PG Care Time/CCT Total # of Minutes Spent Total Time Spent with Patient: Total time spent is greater than 50% in coordination of care (as documented) at patient's floor/unit and/or counseling patient: Coding Level of Care Code 57818 Subseq Hosp Care Lvl 2 Diagnoses Hematemesis K92.0 Hypotension I95.9 Pancytopenia D61.818 Acute kidney injury N17.9 Hypokalemia E87.6 Hypocalcemia E83.51 Alcohol abuse F10.10 Paroxysmal atrial fibrillation I48.0 GERD (gastroesophageal reflux disease) K21.9 Elevated LFTs R79.89 Hypomagnesemia E83.42 DVT prophylaxis Z29.9
[2021-10-04] MEDS ORDERED: POTASSIUM PHOSPHATE 30 MMOL in DEXTROSE 5% 500 ML IV ONE (12:15)
[2021-10-04] MEDS: MAGNESIUM SULFATE / D5W 1 GM/100 ML BAG IV SCH ×2 (13:07→15:29)
[2021-10-04] MEDS: SUCRALFATE 1 GM/10 ML UDC PO SCH ×3 (13:08→20:27)
[2021-10-05] MEDS: ACETAMINOPHEN 325 MG TAB PO PRN ×3 (00:25→17:34)
[2021-10-05] MEDS: LIDOCAINE 5% 1 PATCH TD SCH ×2 (06:20)
[2021-10-05 06:47] LABS: Hematocrit (blood only) 33.5 % (37-47); Mean Corpuscular Hemoglobin 34.5 pg (25-34); Mean Corpuscular Hgb Conc 32.8 g/dL (32-36); RDW Coefficient of Variation 16.7 % (11.5-14.5); RDW Standard Deviation 64.5 fL (36.4-46.3); Red Blood Count 3.19 M/uL (4.2-5.4); White Blood Count 1.45 K/uL (4.8-10.8)
[2021-10-05 06:52] LABS: Mean Platelet Volume 10.5 fL (7.4-10.4); Platelet Count 77 K/uL (130-400)
[2021-10-05 07:11] LABS: Basophils # (auto) 0.01 K/uL (0-0.2); Basophils % (auto) 0.7 %; Eosinophils # (auto) 0.04 K/uL (0-0.5); Eosinophils % (auto) 2.8 %; Immature Granulocytes # (auto) 0.01 K/uL (0.00-0.02); Immature Granulocytes % (auto) 0.7 %; Lymphocytes % (auto) 34.5 %; Magnesium 1.8 mg/dl (1.7-2.4); Monocytes # (auto) 0.48 K/uL (0.11-0.59); Monocytes % (auto) 33.1 %; Neutrophils # (auto) 0.41 K/uL (1.4-6.5); Neutrophils % (auto) 28.2 %
[2021-10-05] MEDS: FOLIC ACID 1 MG in SYRINGE 9.8 ML IV SCH (07:42)
[2021-10-05] MEDS: THIAMINE HCL 100 MG in SYRINGE 9 ML IV SCH (07:42)
[2021-10-05] MEDS: SUCRALFATE 1 GM/10 ML UDC PO SCH ×4 (07:43→21:24)
[2021-10-05] MEDS: CYANOCOBALAMIN (B-12) 500 MCG TABLET PO SCH (07:43)
[2021-10-05] MEDS: MAGNESIUM OXIDE 400 MG TAB PO SCH ×2 (07:43→21:59)
[2021-10-05 09:01] LABS: BUN Creatinine Ratio 17.3 (10-20); Calcium 7.2 mg/dl (8.5-10.1); Creatinine Clr Calc Pharmacy 92.1 ml/min; Est GFR (African American) 85.3 ml/min; Est GFR (Non-African American) 73.6 ml/min; Potassium 3.6 mmol/L (3.5-5.1)
[2021-10-05 11:06] LABS: Albumin Globulin Ratio 1.1 (0.9-2); Albumin Level 2.5 gm/dl (3.4-5.0); Bilirubin,Total 1.7 mg/dl (0.2-1.0); Globulin 2.3 gm/dl (2.5-4.0); Total Protein 4.8 gm/dl (6.0-8.3)
--- NOTE | 2021-10-05 15:24 | Hospitalist Progress Note ---
Date of Service October 05, 2021 Assessment & Plan (1) Pancytopenia: Plan: Uncertain as to what is exactly causing bone marrow suppression but are suspecting Protonix At this point, Protonix has been discontinued as this is the only new medication and does have leukopenia, thrombocytopenia listed as adverse reactions in 2% of the population Low H&H c/w acute blood loss anemia in setting of upper GI bleed s/p transfusion--H&H remains stable Will also obtain anaplasmosis dna which is pending, lyme is negative Continue to monitor CBC w/ stopping Protonix, neutropenia worse but leukopenia stable with ever so slight improvement and platelets uptrending (2) Hematemesis: Plan: Suspected UGI bleed which has since stabilized/stopped S/P EGD with findings of nonbleeding cratered gastric ulcers in the antrum s/p epinephrine injection, no fresh blood noted in the stomach Transitioned from Protonix gtt to PO BID Protonix by GI (recommend ongoing treatment x 3 months)--this will need to be stopped as noted above EtOH as biggest risk for mucosal disease. otherwise as below H&H remains stable following transfusion two nights ago. No further evidence of active bleeding. CT A/P without significant abnormalities to account for blood loss Start Carafate 1g QID which can be used short term but will need to discuss [facility] options w/ GI (all possible options have adverse reactions of pancytopenia) (3) Hypotension: Plan: ?hemorrhagic shock from above but still had residual soft pressures despite holding BP meds, IVF, and stable H&H Blood pressure today was 122 systolic, this afternoon is 108 systolic Hypertension has sufficiently resolved and will resume Lasix, spironolactone Resume metoprolol at reduced dose (from 25mg BID to 12.5mg BID) with hold parameters (4) Hypokalemia: Plan: Replaced/resolved (5) Hypocalcemia: Plan: Obtained ionized calcium level which was low at 0.91 Corrected calcium is 8.9 (6) Hypomagnesemia: Plan: Critically low at 0.9 noted on afternoon labs on 10/02 which normalized 10/03 to 1.7 Started on oral MagOx 400mg BID on 10/03 Mag level improved today with supplementation to 1.8 Phosphorus level 2.0, order additional replacement today 10/05 (7) Alcohol abuse: Plan: Likely biggest culprit for underlying mucosal disease Continue thiamine, folate Continue AWSS Will have to work w pt on other means to treat her pain, this can be discussed upon d/c Macrocytosis noted on CBC -- obtain Vitamin B12 and Folate level--> started oral Vitamin B12 supplementation for level of 500 (8) Paroxysmal atrial fibrillation: Plan: Rate controlled despite holding Metoprolol, will resume at lower dose as outlined above Continue holding anticoagulation for now (d/t #1) (9) GERD (gastroesophageal reflux disease): Plan: PPI on hold now d/t #1 Carafate will be added to regimen (10) Elevated LFTs: Plan: Findings of hepatic steatosis noted on CT and chronic ETOH consumption are likely underlying cause (11) DVT prophylaxis: Plan: SCDs Plan: Continue PT/OT. Resume Lasix, Spironolactone, and Metoprolol as above. Stopped Protonix on 10/04 d/t suspected etiology of pancytopenia and monitor CBC. Maintain neutropenic precautions d/t ANC of 410. D/C planning, hopefully in next 24-48 hours to acute rehab ([facility]). Admission and Anticipated Discharge Date Admission Date: October 01, 2021 Subjective Patient was seen on daily rounds this morning. She is s/p EGD on 10/01 which revealed cratered nonbleeding gastric ulcers which were injected with epinephrine by Dr. Daniels. She denies abd pain, n/v/d, f/c, chest pain, or dyspnea, cough. H&H has remained stable and without further hematemesis or dark black stools. Her Protonix was discontinued due to concern that it is contributing/causing her pancytopenia and she was started on Carafate. Review of Systems Review of Systems: CONSTITUTIONAL: Denies weight loss/gain, fever and chills, fatigue, malaise, generalized weakness. HEENT: Denies changes in vision and hearing. RESPIRATORY: Denies SOB, cough, wheezing. CV: Denies palpitations, CP, lower extremity edema, orthopnea, PND. GI: Denies abdominal pain, nausea, vomiting and diarrhea. : Denies dysuria and urinary frequency, urgency, hesitancy. MUSCULOSKELETAL: +hip pain, s/p recent fall. SKIN: Denies rash and pruritus. NEUROLOGICAL: Denies headache, syncope, focal weakness, numbness, tingling. PSYCHIATRIC: Denies recent changes in mood. Denies anxiety and depression. Physical Exam Physical Exam: GENERAL: 71 yo obese WF. Awake, alert, pleasant, NAD. LUNGS: Clear to auscultation bilaterally. CARDIOVASCULAR: Regular rate and rhythm. ABDOMEN: Soft, obese, nontender, normal BS x 4 quad. EXTREMITIES: 2+ edema in b/l LE. Non-tender. Peripheral pulses +2/4. NEUROLOGIC: A&O x3. PSYCHIATRIC: Cooperative. Appropriate mood and affect. SKIN: Warm, dry, intact. No rashes or lesions. Results & Data Results & Data ([facility]) Vital Signs (Past 12 Hours) Vital Signs Temp Pulse Resp BP Pulse Ox 10/05/21 14:05 36.6 C 88 16 108/72 100 10/05/21 07:14 36.7 C 83 16 122/78 100 PG Care Time/CCT Total # of Minutes Spent Total Time Spent with Patient: Total time spent is greater than 50% in coordination of care (as documented) at patient's floor/unit and/or counseling patient: Coding Level of Care Code 60680 Subseq Hosp Care Lvl 3 Diagnoses Pancytopenia D61.818 Hematemesis K92.0 Hypotension I95.9 Hypokalemia E87.6 Hypocalcemia E83.51 Hypomagnesemia E83.42 Alcohol abuse F10.10 Paroxysmal atrial fibrillation I48.0 GERD (gastroesophageal reflux disease) K21.9 Elevated LFTs R79.89 DVT prophylaxis Z29.9
[2021-10-05] MEDS ORDERED: POTASSIUM PHOS 3 MMOL/1 ML INFUSION IV STA (15:47)
[2021-10-05] MEDS ORDERED: POTASSIUM PHOSPHATE 15 MMOL in SODIUM CHLORIDE 0.9% 250 ML IV ONE (16:15)
[2021-10-05] MEDS: FUROSEMIDE 40 MG TAB PO SCH (16:34)
[2021-10-05] MEDS ORDERED: [UNRECOGNIZED DRUG - REMARK] SCH (21:00)
[2021-10-05] MEDS: METOPROLOL TARTRATE 25 MG TAB PO SCH (21:24)
[2021-10-06] MEDS: ACETAMINOPHEN 325 MG TAB PO PRN ×3 (00:51→15:26)
[2021-10-06] MEDS: SUCRALFATE 1 GM/10 ML UDC PO SCH ×2 (07:25→13:19)
[2021-10-06] MEDS: THIAMINE HCL 100 MG in SYRINGE 9 ML IV SCH (07:25)
[2021-10-06] MEDS: MAGNESIUM OXIDE 400 MG TAB PO SCH (07:25)
[2021-10-06] MEDS: FOLIC ACID 1 MG in SYRINGE 9.8 ML IV SCH (07:25)
[2021-10-06] MEDS: METOPROLOL TARTRATE 25 MG TAB PO SCH (07:25)
[2021-10-06] MEDS: FUROSEMIDE 40 MG TAB PO SCH (07:26)
[2021-10-06] MEDS: CYANOCOBALAMIN (B-12) 500 MCG TABLET PO SCH (07:58)
[2021-10-06] MEDS: LIDOCAINE 5% 1 PATCH TD SCH ×2 (07:58→07:59)
[2021-10-06 08:28] LABS: Hematocrit (blood only) 33.9 % (37-47); Hemoglobin 10.9 g/dL (12.0-16.0); Mean Corpuscular Hemoglobin 33.9 pg (25-34); Mean Corpuscular Hgb Conc 32.2 g/dL (32-36); Mean Corpuscular Volume 105.3 fL (80-100); RDW Coefficient of Variation 16.6 % (11.5-14.5); Red Blood Count 3.22 M/uL (4.2-5.4); White Blood Count 2.26 K/uL (4.8-10.8)
[2021-10-06 08:32] LABS: Mean Platelet Volume 10.5 fL (7.4-10.4); Platelet Count 93 K/uL (130-400)
[2021-10-06 08:48] LABS: Albumin Level 2.4 gm/dl (3.4-5.0); BUN Creatinine Ratio 12.9 (10-20); Bilirubin,Total 1.4 mg/dl (0.2-1.0); Calcium 7.4 mg/dl (8.5-10.1); Creatinine Clr Calc Pharmacy 87.8 ml/min; Est GFR (African American) 80.5 ml/min; Est GFR (Non-African American) 69.4 ml/min; Globulin 2.4 gm/dl (2.5-4.0); Magnesium 1.6 mg/dl (1.7-2.4); Phosphorus 2.2 mg/dl (2.5-4.9); Potassium 3.5 mmol/L (3.5-5.1); Total Protein 4.8 gm/dl (6.0-8.3)
[2021-10-06 08:49] LABS: Basophils # (auto) 0.01 K/uL (0-0.2); Basophils % (auto) 0.4 %; Eosinophils # (auto) 0.07 K/uL (0-0.5); Eosinophils % (auto) 3.1 %; Immature Granulocytes # (auto) 0.01 K/uL (0.00-0.02); Immature Granulocytes % (auto) 0.4 %; Lymphocytes # (auto) 0.89 K/uL (1.2-3.4); Lymphocytes % (auto) 39.4 %; Monocytes # (auto) 0.65 K/uL (0.11-0.59); Monocytes % (auto) 28.8 %; Neutrophils # (auto) 0.63 K/uL (1.4-6.5); Neutrophils % (auto) 27.9 %
[2021-10-06] MEDS ORDERED: SPIRONOLACTONE 25 MG TAB PO SCH (09:00)
[2021-10-06] MEDS ORDERED: PANCREAZE (LIPASE 10,500U) CAP PO SCH (09:00)
[2021-10-06] MEDS: MAGNESIUM SULFATE / D5W 1 GM/100 ML BAG IV SCH ×2 (11:15→13:16)
--- NOTE | 2021-10-06 12:34 | Discharge Summary ---
Date of Service October 06, 2021 Admission HPI Per Admitting Provider vomtiing blood and copious black diarrhea. started this AM. normally has PND and often will have some cough/congestion and/or nausea - thought it was just going to be that - but then noted her vomit wasn't just mucous like she thought - was bright red blood. then started w copious and frequent black diarrhea. no new abdominal pain but always has had pain for last ~4-5 yeras. but not new or different or postprandial. did have black stools yesterday didn't think much of it at the time. chronic PND. (+) weak and lightheaded when sitting up. (+) EtOH - ~6 shots of tequila daily - to treat pain chronic pain in back, hips, knee no NSAID use Principal Diagnosis 1. ABLA d/t suspected UGI bleed 2. Cratered gastric ulcers 3. Pancytopenia w/ neutropenia--drug induced 4. Electrolyte disturbance--hypokalemia, hypomagnesemia, hypophosphatemia Discharge Exam GENERAL: 71 yo obese WF. Awake, alert, pleasant, NAD. LUNGS: Clear to auscultation bilaterally. CARDIOVASCULAR: Regular rate and rhythm. ABDOMEN: Soft, obese, nontender, normal BS x 4 quad. EXTREMITIES: 2+ edema in b/l LE. Non-tender. Peripheral pulses +2/4. NEUROLOGIC: A&O x3. PSYCHIATRIC: Cooperative. Appropriate mood and affect. SKIN: Warm, dry, intact. No rashes or lesions. Discharge Data Allergies Allergy/AdvReac Type Severity Reaction Status Date / Time liraglutide Allergy Intermediate HIVES Verified 10/01/21 07:18 phenol Allergy Intermediate HIVES Verified 10/01/21 07:18 pregabalin Allergy Intermediate HIVES Verified 10/01/21 07:18 propylene glycol Allergy Intermediate HIVES Verified 10/01/21 07:18 sulfamethoxazole Allergy Mild Verified 10/01/21 07:18 [From Bactrim] trimethoprim [From Bactrim] Allergy Mild Verified 10/01/21 07:18 nickel Allergy Unknown Rash Verified 10/01/21 07:18 Consultations 10/01/21 05:38 ED Decision to Admit Stat 10/01/21 06:25 Consult Gastroenterology Stat Procedures Performed Operation Date: 10/01/21 10:40 Actual Procedures p Esophagogastroduodenoscopy(Not Applicable) - Manny Daniels MD Impression: * Normal esophagus. * Non-bleeding gastric ulcers with a visible vessel. Injected. Treated with bipolar cautery. Biopsied. * Normal duodenal bulb and second portion of the duodenum. Ordered Studies Chest X-Ray 10/01/21 04:28 XR chest 1V portable CLINICAL HISTORY: vomit. Evaluate lung bases. Evaluate cardiopulmonary status. COMPARISON STUDY: 11/05/2018 TECHNIQUE: 1 view of the chest FINDINGS: Single frontal view of the chest demonstrates the cardiomediastinal silhouette to be within normal limits. The lungs are clear of alveolar opacities. There is no evidence for pleural effusion. There is no evidence for vascular congestion. There is no acute osseous pathology. IMPRESSION: 1. No acute cardiopulmonary disease. ACT 112: Negative or not required by law. Electronically signed by: Adama Muniz M.D. 10/01/2021 8:10 AM Abdomen/Pelvis CT 10/02/21 06:23 CT SCAN OF THE ABDOMEN AND PELVIS WITHOUT IV CONTRAST CLINICAL HISTORY: Generalized abdominal pain. Drop in hemoglobin. COMPARISON STUDY: Abdominal CT dated 04/29/2016. TECHNIQUE: CT scan of the abdomen and pelvis is performed from the lung bases to the proximal femora. Images are reviewed in the axial, sagittal, and coronal planes. IV contrast was not administered for this examination. A dose lowering technique was utilized adhering to the principles of ALARA. The examination is degraded by large body habitus, and by streak artifact from the body wall abutting the CT gantry. CT DOSE: 1870.90 mGy.cm FINDINGS: Lung bases: The heart is normal in size and without pericardial effusion. The lung bases are clear. There is a tiny hiatal hernia. Liver: The unenhanced liver is enlarged, measuring 18.9 cm in length. The liver demonstrates diffusely diminished attenuation consistent with severe hepatic steatosis. Fatty sparing is seen adjacent to the gallbladder fossa. There is no intrahepatic biliary ductal dilatation. Gallbladder: Unremarkable. Spleen: Normal in size and attenuation. Pancreas: The unenhanced pancreas is atrophic and grossly unremarkable. Adrenal glands: Unremarkable. Kidneys: The unenhanced kidneys are atrophic and without hydronephrosis. There are no renal calculi identified. There is no evidence of contour deforming renal mass lesion. Abdominal vasculature: The abdominal aorta is normal in course and caliber noting moderate to advanced atherosclerotic calcification. Bowel: There is mild to moderate colonic diverticulosis without CT evidence of acute diverticulitis. No bowel obstruction is seen. The appendix is well- visualized and normal. Peritoneum/retroperitoneum: There is no intraperitoneal free air or abdominal ascites. There is no retroperitoneal hemorrhage. There is a fat-containing umbilical hernia. Lymphadenopathy: None. Pelvic viscera: Evaluation of the pelvis is significantly degraded by streak artifact from bilateral hip arthroplasties. The endometrium appears thickened for age measuring up to 1.8 cm. A 2.6 cm cystic focus is suggested in the right ovary on image #[id number]. The bladder is normal as visualized. Skeletal structures: The skeletal structures are osteopenic. There is moderate lumbosacral spondylosis. A large hemangioma is noted in the body of T11. No lytic or blastic lesions are seen. Bilateral hip arthroplasties are in place. IMPRESSION: 1. There are no acute infectious or inflammatory findings in the abdomen or pelvis. 2. Hepatomegaly and severe fixed steatosis. 3. Mild to moderate colonic diverticulosis without CT evidence of acute diverticulitis. 4. The endometrium appears thickened for age and a cystic structure is suggested in the right ovary. These findings are not well assessed by CT and nonemergent gynecology follow-up and pelvic ultrasound are recommended for further evaluation. 5. Additional findings as above. ACT 112: Negative or not required by law. Electronically signed by: Wolfgang Jerry M.D. 10/02/2021 8:44 AM Hospital Course (1) Pancytopenia: Uncertain as to what is exactly causing bone marrow suppression but are suspecting Protonix At this point, Protonix has been discontinued as this is the only new medication and does have leukopenia w/ neuropenia, thrombocytopenia listed as adverse reactions in 2% of the population Low H&H c/w acute blood loss anemia in setting of upper GI bleed s/p transfusion--H&H remains stable Obtained anaplasmosis dna which is pending as well as lyme which is negative Continued to monitor CBC since stopping Protonix on 10/04, pancytopenia is now improving, remains on neutropenic precautions d/t ANC of 630 which is uptrending (2) Hematemesis: Suspected UGI bleed which has since stabilized/stopped S/P EGD with findings of nonbleeding cratered gastric ulcers in the antrum s/p epinephrine injection, no fresh blood noted in the stomach Transitioned from Protonix gtt to PO BID Protonix by GI (recommend ongoing treatment x 3 months)--this will need to be stopped as noted above EtOH as biggest risk for mucosal disease. otherwise as below H&H remains stable following transfusion two nights ago. No further evidence of active bleeding. CT A/P without significant abnormalities to account for blood loss Start Carafate 1g QID which can be used short term but can discuss alf options w/ GI (all possible options have adverse reactions of pancytopenia) upon office follow up (3) Hypotension: Suspected d/t hemorrhagic shock from above as she still had residual soft pressures despite holding BP meds, IVF, and stable H&H Blood pressure on 10/05 was 122 systolic, this afternoon is 108 systolic Hypertension has sufficiently resolved and will resume Lasix, spironolactone Resume metoprolol at reduced dose (from 25mg BID to 12.5mg BID) with hold para meters Hypotension has now resolved (4) Hypokalemia: Replaced/resolved (5) Hypocalcemia: Obtained ionized calcium level which was low at 0.91 Corrected calcium w/ albumin is WNL (6) Hypomagnesemia: Critically low at 0.9 noted on afternoon labs on 10/02 which normalized 10/03 to 1.7 Started on oral MagOx 400mg BID on 10/03 Mag level has waxed and waned and required Mag riders to correct, level today is 1.6, additional riders ordered Phosphorus level 2.2, has required multiple doses of kphos during her stay (7) Alcohol abuse: Likely biggest culprit for underlying mucosal disease Continue thiamine, folate Continue AWSS Will have to work w pt on other means to treat her pain, this can be discussed upon d/c Macrocytosis noted on CBC -- obtained Vitamin B12 and Folate level--> started oral Vitamin B12 supplementation for level of 500 (8) Paroxysmal atrial fibrillation: Rate controlled despite holding Metoprolol, will resume at lower dose as outlined above Continue holding anticoagulation for now (d/t #1) Would advise holding Eliquis for minimum of two weeks, resuming can be discussed and at discretion of GI and PCP (9) GERD (gastroesophageal reflux disease): PPI contraindicated in this patient due to #1 Carafate has been added to regimen (10) Elevated LFTs: Findings of hepatic steatosis noted on CT and chronic ETOH consumption are likely underlying cause PT/OT recommend acute rehab. Pt agreeable to [facility] D/W case management, John can take her today (10/06) after 1600. Transportation will be arranged. Pt is medically and hemodynamically stable for discharge to [facility] this afternoon. Would recommend ongoing CBC monitoring to ensure her pancytopenia resolves. Again, no chemoprophylaxis for DVT prevention d/t recent GI bleeding. Eliquis has been discontinued on her med reconciliation and resumption should not be any earlier than 14 days from onset of GI bleed. Resumption at discretion of GI/PCP. Recommend close f/u with PCP upon d/c from [facility] and f/u with GI within 2 weeks. Above plan of care has been d/w Dr. Dailey who will also see this patient prior to discharge. Total Time Total Time Spent Total Time Spent (In Minutes): >30 minutes Discharge Plan Discharge Items Patient Disposition: Transfer Inpatient Rehab Fac Reason For Visit: ACUTE BLOOD LOSS ANEMIA Discharge Diagnosis: Anemia due to bleeding stomach ulcers Low blood counts related to taking Protonix Activity: As commented below Activity Comment: with assist as tolerated Non-emergency contact: Primary Care Provider and [facility]over Call non-emergency contact if: you have any medication questions and your symptoms worsen Follow-up/Referrals: Tushar Miranda MD [Primary Care Provider] - Diet: Regular Addtl Attending Provider Instructions: You were hospitalized due to vomiting blood, which was felt to be related to an upper gastrointestinal bleed. After undergoing your EGD on 10/01, you were found to have ulcers in your stomach that were not bleeding at the time of exam. It is quite possible that this was the source of the bleeding. Since her admission to the hospital, your blood thinner (Eliquis) has been on hold. You will need to continue holding this medication for a minimum of 2 weeks from the onset of your symptoms. Resuming your Eliquis will be at the discretion of your GI doctor as well as your primary care physician. Unfortunately, the medication that you were given to help heal the ulcers in your stomach and suppress gastric acid, Protonix, caused your bone marrow to be suppressed which resulted in a low white blood cell count as well as low platelets. Specifically, your neutrophil count was low. When this occurs you are at increased risk of developing opportunistic infections. We have since stopped your Protonix on 10/04/2021. Since the medication has been stopped, your blood counts are improving. I would advise that these continue to be monitored during your time at [facility] until your white blood cell count and platelets normalize. It is very likely that your alcohol intake could be contributing to the formation of ulcers. We strongly recommend that you cut back on your alcohol consumption and eventually eliminated altogether. Because you are not a candidate for Protonix, we have started you on a medication called Carafate. We will continue this medication for the next 30 days. You should take it 4 times a day total. Take it with meals and then at bedtime. Dr. Daniels recommends trial of Pepcid 20 mg twice a day. However, I would hold off on starting this medication until your CBC normalizes. Once that occurs, you could consider starting Pepcid with close monitoring. You have also been started on vitamin B12 supplementation as your level was slightly low during your stay. In addition, you have had multiple electrolyte abnormalities which is likely due to dietary insufficiency. You have been started on magnesium oxide 400 mg twice daily for supplementation of your magnesium. I would advise trying to incorporate nutrient dense foods into your diet. Your fluid pills including your Lasix and spironolactone have been resumed as prescribed prior to your hospitalization. However, your metoprolol has been adjusted to 12.5 mg twice daily as your blood pressure has been running on the lower side. If your blood pressure will allow, the dose can be adjusted back to 25mg twice daily at [facility] or by your family doctor in the near future. We recommend follow-up with your family doctor upon discharge [facility]. We also recommend follow-up with Dr. Daniels within 2 weeks. Pending Studies at Discharge: No Stand-Alone Forms: My [facility] Skilled Items Patient informed of condition?: Yes DNR: No Discharge Level of Care: Acute rehab Communicable Disease: No Discharge Prognosis: Improving Lines: None Urinary Catheter: No Medications and DC Order Prescriptions: New metoprolol tartrate 25 mg Tablet 12.5 mg PO BID Qty: 30 RF: 0 magnesium oxide 400 mg (241.3 mg magnesium) Tablet 400 mg PO BID Qty: 60 RF: 0 sucralfate 100 mg/mL Suspension 1 g PO QID 30 Days Qty: 1200 RF: 0 cyanocobalamin (vitamin B-12) 500 mcg Tablet 1,000 mcg PO QAM Qty: 60 RF: 0 Continued furosemide [Lasix] 20 mg tablet 40 mg PO QAM RF: 0 potassium chloride 20 mEq tablet extended release 10 meq PO QDD RF: 0 Creon 24,000-76,000 -120,000 unit capsule,delayed release(DR/EC) 1 cap PO QAM RF: 0 Centrum Women 18-400 mg-mcg Tablet 1 tab PO QDD RF: 0 spironolactone 25 mg tablet 50 mg PO QAM RF: 0 Discontinued metoprolol tartrate 25 mg tablet 25 mg PO BID Qty: 60 RF: 11 Eliquis 5 mg Tablet 5 mg PO BID RF: 0 Discharge Orders: Discharge Order (Routine); Ordered 10/06/21 Ordered By: Shalonda Hartmann Admission Data Admit Date/Time: 10/01/21 07:50 Attending Provider: Cade Dailey Admit Provider: Cade Dailey Primary Care Provider: Tushar Miranda Other Providers: Steve South ; Manny Daniels ; [facility] Other Interventions: Discharge Summary Assessment (RN) Last Done: 10/06/21 16:20 Supervising Physician Co-Signing Physician Notes I personally examined the patient and verified all gaytan points of history and exam, discussed case, and agree with decision making with Brenna Hartmann PAC Feeling better. Feeling up to leaving the hospital. Vitals noted. Breathing unlabored. Upper GI bleedingnow stable. Otherwise as above. Coding Level of Care Code D/C DAY MANAGEMENT >30 MINS Diagnoses Pancytopenia D61.818 Hematemesis K92.0 Hypotension I95.9 Hypokalemia E87.6 Hypocalcemia E83.51 Hypomagnesemia E83.42 Alcohol abuse F10.10 Paroxysmal atrial fibrillation I48.0 GERD (gastroesophageal reflux disease) K21.9 Elevated LFTs R79.89
== END 2021-10-06 17:54 | DRG 377 ==
LOC: ED 04:26 → SUATTDRO 07:50 → EDINP 07:50 → 2S 09:02 → 3W 10-03 16:28

== ENCOUNTER 2023-06-22 12:22 | Inpatient (IN) ==
--- NOTE | 2023-06-22 13:25 | XRay Report ---
XR chest 1V not portable CLINICAL HISTORY: generalized weakness TECHNIQUE: Single frontal radiograph of the chest was obtained. Comparison: None available at the time of this dictation. FINDINGS: No lines and tubes are seen. The cardiomediastinal silhouette is normal. The lungs are clear. No evid ence of pleural effusion or pneumothorax. IMPRESSION: No acute chest disease. ACT 112: Negative or not required by law. Electronically signed by: Richy Ortiz M.D. 06/22/2023 1:23 PM
[2023-06-22 13:52] LABS: Albumin Globulin Ratio 1.1 (0.9-2); Albumin Level 3.4 gm/dl (3.4-5.0); BUN Creatinine Ratio 23.7 (10-20); Bilirubin,Total 3.9 mg/dl (0.2-1.0); Calcium 8.6 mg/dl (8.6-10.3); Creatinine Clr Calc Pharmacy 63.3 ml/min; Est GFR (African American) 68.1 ml/min; Est GFR (Non-African American) 58.8 ml/min; Potassium 4.5 mmol/L (3.5-5.1); Total Protein 6.4 gm/dl (6.0-8.3)
[2023-06-22 13:55] LABS: Basophils # (auto) 0.03 K/uL (0.00-0.20); Basophils % (auto) 1.1 %; Eosinophils # (auto) 0.02 K/uL (0.00-0.50); Eosinophils % (auto) 0.7 %; Hematocrit (blood only) 35.5 % (37.0-47.0); Hemoglobin 12.2 g/dl (12.0-16.0); Immature Granulocytes # (auto) 0.01 K/uL (0.01-0.20); Immature Granulocytes % (auto) 0.4 %; Lymphocytes # (auto) 0.73 K/uL (1.20-3.40); Lymphocytes % (auto) 26.1 %; Mean Corpuscular Hemoglobin 37.3 pg (25.0-34.0); Mean Corpuscular Hgb Conc 34.4 g/dL (32.0-36.0); Mean Corpuscular Volume 108.6 fL (80.0-100.0); Mean Platelet Volume 11.9 fL (9.4-12.4); Monocytes # (auto) 0.48 K/uL (0.11-0.59); Monocytes % (auto) 17.1 %; Neutrophils # (auto) 1.53 K/uL (1.40-6.50); Neutrophils % (auto) 54.6 %; Platelet Count 90 K/uL (130-400); RDW Standard Deviation 60.6 fL (36.4-46.3); Red Blood Count 3.27 M/uL (4.20-5.40)
[2023-06-22 13:57] LABS: INR 1.1 (0.9-1.1); Partial Thromboplastin Ratio 0.9; Partial Thromboplastin Time 26.5 Seconds (21.0-31.0); Prothrombin Time 12.2 Seconds (9.0-12.0)
--- NOTE | 2023-06-22 14:34 | Emergency Department Note ---
Impression & Plan Elevated LFTs, Cholelithiasis, Dehydration, Nausea & vomiting ED Provider Note NAME: BELINDA ROWLAND AGE: 72 SEX: F : 1950 ARRIVES VIA: Walk-In INFORMANT: Patient, ED PROVIDER(S): Monico Mcduffie MD CHIEF COMPLAINT: Nausea vomiting diarrhea MEDICAL DECISION MAKING: Patient presented due to concern for nausea vomiting and diarrhea with upper abdominal pain. IV was established blood work is obtained and CT abdomen pelvis is ordered. Patient does have leukopenia with some thrombocytopenia at 90. Patient's kidney function is unremarkable. LFTs with bilirubin of 3.9 AST of 227. Patient's mono and Lyme's negative. Patient CT abdomen pelvis does show gallstones and possible gallbladder wall thickening. I did speak with [facility] and they recommend an MRCP and there is concern they will do an ERCP. I did speak with Dr. Vieyra who states that they will follow in consult. I subsequently did speak with Dr. Cordova and the patient was admitted pending right upper quadrant ultrasound. Discussion w/ other healthcare providers: None Prior /Outside records reviewed: I reviewed a prior primary care visit from March 14, [address] Barajas. The patient was seen for foot pain and has a known history of gastric ulcer on Nexium known history of A-fib on Eliquis 5 mg twice daily. Patient was prescribed steroids at that time. Differential diagnosis: Gastroenteritis, food borne illness, infection, appendicitis, diverticulitis, inflammatory bowel disease, obstruction among others were considered. Diagnostics, as interpreted by me: ECG: Normal sinus rhythm, rate of 77, normal intervals, normal axis T wave inversions inferiorly as well as through V3 through V6. Cardiac monitoring: An order was placed for continuous cardiac monitoring. The monitor shows a rate of 77 with sinus rhythm. Patient was placed on pulse oximetry Medical decision rules: None Imaging studies: I informally interpreted the patient's CT abdomen pelvis which does show gallstones with formal report to follow. HPI: Patient presents due to concern for p.o. intolerance nausea vomiting with anything she seems to eat and has not been able able to take her medications for the last 3 days. The patient states that her symptoms initially began about 6 days ago. Patient denies any falls or trauma. Patient does have a prior history of having GI bleeding that did require endoscopy as well as cauterization of a prior ulcer. The patient denies any current bleeding or bloody stools. The patient has had some associated diarrhea but no blood in the stool. Patient states that anytime she tries to even sipping water she has symptoms. The patient last used alcohol about 1 month ago. Patient denies any known sick contacts or recent travel. The patient does complain of upper abdominal discomfort but no lower abdominal pain. Patient does follow with Dr. Barajas. PAST MEDICAL HISTORY: See Below PAST SURGICAL HISTORY: See Below SOCIAL HISTORY: See Below HOME MEDICATIONS: See Below ALLERGIES: See Below VITALS: See Below PHYSICAL EXAMINATION: GENERAL: NAD, non-toxic. EYE EXAM: Normal conjunctiva. PERRL, no anisocoria and EOM's grossly intact w/o pain. OROPHARYNX: Moist mucus membranes, grossly normal dentition. NECK: Supple, no nuchal rigidity, no adenopathy, non-tender. No signs of meningismus. FROM of the neck with good chin to chest and neck extension. No stridor. LUNGS: Clear to auscultation. Normal chest wall mechanics. HEART: NSR, no MRG. ABDOMEN: Abdomen soft, upper abdominal discomfort without localizing to a specific area in the upper abdomen and also without lower abdominal pain, no masses, no rebound or guarding. BACK: No CVA TTP. SKIN: No rashes and no bruising. UPPER EXTREMITIES: Upper extremities are grossly normal. LOWER EXTREMITIES: Grossly normal, no edema. NEURO EXAM: A&O x3, cranial nerves II-XII grossly intact, normal speech, moves all 4 extremities. Past Med/Surg History Medical History Acute gastrointestinal bleeding 10/01/21 Paroxysmal atrial fibrillation Lumbar spondylosis Hip pain Hypomagnesemia Hypokalemia Pancytopenia Acute renal disease Obesity Osteoarthritis Carpal tunnel syndrome of left wrist LEFT HAND NEUROPATHY Diverticulitis large intestine Alcoholism Surgical History Status post right knee replacement Hx of tonsillectomy Hx of tooth extraction Hx of bilateral hip replacements LEFT DAGMAR= 06/20/17= DONE UNDER GA 2/2 PATIENT PREFERENCE AT [facility] History of colonoscopy History of carpal tunnel surgery of right wrist Hx of knee surgery B/L Family History Other Cancer Diabetes Heart disease Hypertension Social History Smoking Status: Never smoker Second Hand Exposure: No; Do You Dip or Chew Tobacco: No; Hx Alcohol Use: No Hx Substance Use: No Preferred Language: Amharic Communication Ability: Effective Manager Appointment Required: No Beliefs That Will Affect Care: None marital status: Current Living Situation: Spouse Other Information That Helps Us Care for You: No Feels Safe at Home: Yes Safety Concerns: Feels Safe At This Time Assistive Devices: Cane and Hospital Bed Allergies Allergies Allergy/AdvReac Type Severity Reaction Status Date / Time liraglutide Allergy Intermediate HIVES Verified 03/14/23 16:46 phenol Allergy Intermediate HIVES Verified 03/14/23 16:46 pregabalin Allergy Intermediate HIVES Verified 03/14/23 16:46 propylene glycol Allergy Intermediate HIVES Verified 03/14/23 16:46 sulfamethoxazole Allergy Mild Unknown Verified 06/22/23 21:43 [From Bactrim] trimethoprim [From Bactrim] Allergy Mild Unknown Verified 06/22/23 21:43 nickel Allergy Unknown Rash Verified 03/14/23 16:46 Home Meds Home Medications Medication Instructions Recorded Confirmed cyanocobalamin (vitamin B-12) 500 500 mcg PO QAM 02/15/23 06/22/23 mcg tablet metoprolol tartrate 25 mg tablet 25 mg PO DAILY 02/15/23 06/22/23 multivitamin-ferrous 0.5 tab PO DAILY 02/15/23 06/22/23 fumarate-folic acid 18 mg-400 mcg tablet (Centrum Women) BHI Mucus Relief 1 tab sublingual TID 02/21/23 06/22/23 Probiotic 1 cap PO QPM 06/22/23 06/22/23 Previous Rx's Medication Instructions Recorded apixaban 5 mg tablet (Eliquis) 5 mg PO BID #60 tabs 08/31/22 spironolactone 25 mg tablet 50 mg (2 x 25 mg) PO QAM #60 tabs 08/31/22 potassium chloride 10 mEq 10 meq PO DAILY #30 tabs 10/31/22 tablet,extended release esomeprazole magnesium 40 mg 40 mg PO DAILY #30 caps 01/18/23 capsule,delayed release (Nexium) colchicine 0.6 mg tablet 0.6 mg PO DAILY #30 tabs 03/21/23 dxydbf-msbqiami-pmgzbhf 2 cap PO BID #180 caps 05/18/23 24,000-76,000-120,000 unit capsule,delayed rel (Creon) bumetanide 2 mg tablet 2 mg PO DAILY #30 tabs 06/19/23 Results & Data (ED) Vital Signs Vital Signs - 24 hr 06/22/23 15:23 06/22/23 19:28 06/22/23 19:30 Pulse Rate 75 75 72 Respiratory Rate 13 14 12 Blood Pressure 114/74 103/64 120/65 Blood Pressure Mean 87 77 83 Pulse Oximetry 99 100 100 Oxygen Delivery Method Room Air Room Air Room Air Home Medications Current Medication List: was personally reviewed by me Laboratory Data Attestation: I reviewed the patient's lab results. 06/23/23 03:44 06/23/23 03:44 Lab Results 06/22/23 06/22/23 06/22/23 Range/Units 13:02 13:04 18:45 WBC 2.80 L (4.8-10.8) K/ul RBC 3.27 L (4.20-5.40) M/uL Hgb 12.2 (12.0-16.0) g/dl Hct 35.5 L (37.0-47.0) % MCV 108.6 H (80.0-100.0) fL MCH 37.3 H (25.0-34.0) pg MCHC 34.4 (32.0-36.0) g/dL RDW Std Deviation 60.6 H (36.4-46.3) fL RDW Coeff of Ignacio 15.0 H (11.5-14.5) % Plt Count 90 L (130-400) K/uL MPV 11.9 (9.4-12.4) fL Immature Gran % (Auto) 0.4 % Neut % (Auto) 54.6 % Lymph % (Auto) 26.1 % [place] % (Auto) 17.1 % Eos % (Auto) 0.7 % Baso % (Auto) 1.1 % Neut # (Auto) 1.53 (1.40-6.50) K/uL Lymph # (Auto) 0.73 L (1.20-3.40) K/uL [place] # (Auto) 0.48 (0.11-0.59) K/uL Eos # (Auto) 0.02 (0.00-0.50) K/uL Baso # (Auto) 0.03 (0.00-0.20) K/uL Immature Gran # (Auto) 0.01 (0.01-0.20) K/uL PT 12.2 H (9.0-12.0) Seconds INR 1.1 (0.9-1.1) APTT 26.5 (21.0-31.0) Seconds PTT Ratio 0.9 Sodium 138 (136-145) mmol/L Potassium 4.5 (3.5-5.1) mmol/L Chloride 96 L (98-107) mmol/L Carbon Dioxide 24 (21-32) mmol/L Anion Gap 18 H (3-11) BUN 23 (6-23) mg/dl Creatinine 0.97 (0.6-1.2) mg/dl Est Cr Clr Drug Dosing 63.3 ml/min Est GFR ( Amer) 68.1 ml/min Est GFR (Non-Af Amer) 58.8 ml/min BUN/Creatinine Ratio 23.7 H (10-20) Glucose 85 (70-99(Fasting)) mg/dl Calcium 8.6 (8.6-10.3) mg/dl Ferritin 1363.0 H (8-388) ng/ml Total Bilirubin 3.9 H (0.2-1.0) mg/dl AST 227 H (13-39) U/L ALT 84 H (7-52) U/L Alkaline Phosphatase 198 H (34-104) U/L Total Protein 6.4 (6.0-8.3) gm/dl Albumin 3.4 (3.4-5.0) gm/dl Globulin 3.0 (2.5-4.0) gm/dl Albumin/Globulin Ratio 1.1 (0.9-2) Lipase 16 (11-82) U/L Urine Color [place] Urine Appearance Cloudy A (Clear) Urine pH 5.5 (4.5-7.5) Ur Specific [place] > 1.045 H (1.000-1.030) Urine Protein Trace H (Negative) Urine Glucose (UA) Negative (Negative) Urine Ketones 2+ H (Negative) Urine Blood Negative (Negative) Urine Nitrite Positive A (Negative) Urine Bilirubin 2+ H (Negative) Urine Urobilinogen Negative (Negative) Ur Leukocyte Esterase Trace H (Negative) Urine WBC (Auto) 5-10 H (0-5) /hpf Urine RBC (Auto) 0-4 (0-4) /hpf U Hyaline Cast (Auto) 5-10 H (0-5) /lpf U Epithel Cells (Auto) >30 H (0-5) /lpf Urine Bacteria (Auto) Negative (Negative) Urine Yeast Not Reportable Anaplasma Smear See Comment Babesia Smear See Comment Lyme Disease IgG Ab Negative (Negative) Lyme Disease IgM Ab Negative (Negative) Monoscreen Negative (Negative) Administered Medications Bumetanide (Bumetanide 1 Mg Tab) 2 mg PO DAILY TEDDY Stop: 07/23/23 08:59 Last Admin: 06/23/23 09:28 Dose: 2 mg Documented By: SINDY Colchicine (Colchicine 0.6 Mg Tab) 0.6 mg PO DAILY TEDDY Stop: 07/23/23 08:59 Last Admin: 06/23/23 09:28 Dose: 0.6 mg Documented By: SINDY Piperacillin Sod/Tazobactam (Sod 4.5 gm/ Dextrose) 100 mls @ 25 mls/hr IV Q8H TEDDY; Protocol Stop: 07/03/23 00:00 Last Infusion: 06/23/23 14:03 Dose: Infused Documented By: Infusion: 06/23/23 12:16 Dose: 25 mls/hr Documented By: Infusion: 06/23/23 12:03 Dose: 0 mls/hr Documented By: Admin: 06/23/23 09:18 Dose: 25 mls/hr Documented By: Infusion: 06/23/23 03:28 Dose: Infused Documented By: Admin: 06/22/23 23:17 Dose: 25 mls/hr Documented By: SUMEET Heparin Sodium/Dextrose (Heparin Sodium/Dextrose) 25,000 units in 500 mls @ 20 mls/hr IV .Q24H TEDDY; Protocol Stop: 07/22/23 21:22 Last Titration: 06/23/23 13:02 Dose: 1,000 units/hr, 20 mls/hr Documented By: SINDY Co-signed By: REY Titration: 06/23/23 06:56 Dose: 1,000 units/hr, 20 mls/hr Documented By: SUMEET Co-signed By: SINDY Titration: 06/23/23 04:49 Dose: 1,000 units/hr, 20 mls/hr Documented By: SUMEET Co-signed By: RES Admin: 06/22/23 22:05 Dose: 900 units/hr, 18 mls/hr Documented By: SUMEET Co-signed By: TANNER Thiamine HCl 500 mg/ Sodium (Chloride) 55 mls @ 210 mls/hr IV Q8H TEDDY Stop: 06/25/23 11:29 Last Infusion: 06/23/23 12:16 Dose: Infused Documented By: Admin: 06/23/23 11:56 Dose: 210 mls/hr Documented By: SINDY Metoprolol Tartrate (Metoprolol Tartrate 25 Mg Tab) 25 mg PO DAILY TEDDY Stop: 07/23/23 08:59 Last Admin: 06/23/23 09:28 Dose: 25 mg Documented By: SINDY Ondansetron HCl (Ondansetron Inj 2 Mg/Ml 2 Ml Vial) 4 mg IV Q6H PRN PRN Reason: Nausea And Vomiting Stop: 07/23/23 09:20 Last Admin: 06/23/23 09:27 Dose: 4 mg Documented By: SINDY Pantoprazole Sodium (Pantoprazole 40 Mg Tab) 40 mg PO BID TEDDY Stop: 07/23/23 09:44 Last Admin: 06/23/23 11:11 Dose: 40 mg Documented By: SINDY Potassium Chloride (Potassium Chloride 10 Meq Tabcr) 10 meq PO DAILY TEDDY Stop: 07/23/23 08:59 Last Admin: 06/23/23 09:28 Dose: 10 meq Documented By: SINDY Spironolactone (Spironolactone 25 Mg Tab) 50 mg PO QAM TEDDY Stop: 07/23/23 08:59 Last Admin: 06/23/23 09:28 Dose: 50 mg Documented By: SINDY Discontinued Medications Heparin Sodium/Dextrose (Heparin Iv Adult Wt-Based Low-Dose *No* Bolus Protocol) 1 each IV ONE STA; Protocol Stop: 06/22/23 21:24 Last Admin: 06/22/23 22:08 Dose: 1 each Documented By: SUMEET Sodium Chloride (Nss) 1,000 mls @ 999 mls/hr IV .Q1H1M ONE Stop: 06/22/23 15:42 Last Infusion: 06/22/23 17:40 Dose: Infused Documented By: Admin: 06/22/23 15:26 Dose: 999 mls/hr Documented By: NICOLE Piperacillin Sod/Tazobactam Sod (Zosyn) 4.5 gm in 100 mls @ 200 mls/hr IV NOW ONE Stop: 06/22/23 16:54 Last Infusion: 06/22/23 19:23 Dose: Infused Documented By: Admin: 06/22/23 18:43 Dose: 200 mls/hr Documented By: NICOLE Pantoprazole Sodium 40 mg/ (Syringe) 10 mls @ 5 mls/min IV NOW ONE Stop: 06/22/23 21:46 Last Admin: 06/22/23 22:01 Dose: 5 mls/min Documented By: SUMEET Ioversol (Optiray 320 100ml) 93 ml IV ONCE ONE Stop: 06/22/23 15:14 Last Admin: 06/22/23 15:14 Dose: 93 ml Documented By: AVERY Ondansetron HCl (Ondansetron Inj 2 Mg/Ml 2 Ml Vial) 4 mg IV NOW STA Stop: 06/22/23 14:46 Last Admin: 06/22/23 15:26 Dose: 4 mg Documented By: NICOLE Imaging Data Radiologist's Impression: Chest X-Ray 06/22/23 12:48 XR chest 1V not portable CLINICAL HISTORY: generalized weakness TECHNIQUE: Single frontal radiograph of the chest was obtained. Comparison: None available at the time of this dictation. FINDINGS: No lines and tubes are seen. The cardiomediastinal silhouette is normal. The lungs are clear. No evidence of pleural effusion or pneumothorax. IMPRESSION: No acute chest disease. ACT 112: Negative or not required by law. Electronically signed by: Richy Ortiz M.D. 06/22/2023 1:23 PM Chest X-Ray 06/22/23 12:48 XR chest 1V not portable CLINICAL HISTORY: generalized weakness TECHNIQUE: Single frontal radiograph of the chest was obtained. Comparison: None available at the time of this dictation. FINDINGS: No lines and tubes are seen. The cardiomediastinal silhouette is normal. The lungs are clear. No evidence of pleural effusion or pneumothorax. IMPRESSION: No acute chest disease. ACT 112: Negative or not required by law. Electronically signed by: Richy Ortiz M.D. 06/22/2023 1:23 PM Abdomen/Pelvis CT 06/22/23 14:45 CT abd pelvis IV con only CLINICAL HISTORY: upper ab pain; transaminitis TECHNIQUE: Helical axial images of the abdomen and pelvis were obtained and displayed. Automated dose lowering techniques and/or adjustment according to patient size were utilized for this exam. This exam was performed with intravenous contrast. CT DOSE: 1394.82 mGy.cm COMPARISON: Comparison is made to CT abdomen pelvis 10/02/2021 FINDINGS: Lower chest: No acute abnormality. Liver: Hepatic steatosis is noted. Gallbladder and biliary tree: No calcified gallstones. Normal caliber wall. Gallbladder wall measures approximately 3 mm in diameter with the appearance of numerous dependent stones. No pericholecystic fluid is seen. Pancreas: Unremarkable, no focal lesions. Spleen: Unremarkable. Adrenals: Unremarkable. Kidneys and ureters: Perinephric stranding is noted bilaterally. Bladder: Limited evaluation due to underdistention. Reproductive organs: Right ovarian cyst is seen. Bowel: Diverticulosis is seen without evidence of diverticulitis. The appendix is unremarkable. Lymph nodes Retroperitoneal: Unremarkable. Pelvic: Unremarkable. Mesenteric: Unremarkable. Peritoneum: Normal. Vessels: Atherosclerotic calcifications are seen. Abdominal wall: Unremarkable. Bones: Degenerative changes in the visualized spine. Bilateral lower hip arthroplasties noted. IMPRESSION: 1. Prominence of gallbladder wall is noted with numerous gallstones. A few polyps cannot be excluded. Clinical correlation is recommended for acute cholecystitis. 2. Hepatic steatosis. 3. Otherwise no acute abnormalities and in particular no evidence of bowel obstruction. ACT 112: Negative or not required by law. Electronically signed by: Richy Ortiz M.D. 06/22/2023 3:34 PM Gallbladder Ultrasound 06/22/23 16:00 US gallbladder CLINICAL HISTORY: r/o acute quinn TECHNIQUE: Multiple real-time sonographic images of the right upper quadrant were obtained. Comparison: Comparison is made to CT abdomen pelvis 06/22/2023 FINDINGS: The liver is diffusely echogenic in appearance with poor ultrasound penetration, with normal contour, which is consistent with fatty infiltration. No focal mass lesions are seen. No intrahepatic ductal dilatation is seen. Linear hyperechoic foci with posterior shadowing are identified layering dependently within the gallbladder, which are consistent with gallstones. The gallbladder wall is not thickened. There is no pericholecystic fluid present. Stones are suggested in the gallbladder neck. A sonographic Lala's sign was not elicited by the wind energy technician. The common duct measures 0.8 cm in diameter at the level of the hepatic artery. The visualized portions of the pancreas appear normal. The right kidney shows normal echogenicity, cortical thickness and renal contour. The right kidney shows no evidence of hydronephrosis or mass. No ascites or free fluid is seen in Ramsay's pouch. IMPRESSION: 1. Gallstones are seen in the gallbladder and gallbladder neck without evidence of acute cholecystitis. 2. Hepatic steatosis. ACT 112: Negative or not required by law. Electronically signed by: Richy Ortiz M.D. 06/22/2023 6:11 PM Cholangiopancreatography MRI 06/22/23 16:25 MR MRCP CLINICAL HISTORY: eval transaminitis; r/o biliary obstruction TECHNIQUE: Multiplanar multisequence MR images of the abdomen were obtained, as per MRCP protocol. . COMPARISON: Comparison is made to CT abdomen pelvis 06/22/2023 FINDINGS: Lower chest: No acute abnormality Liver: Unremarkable. No focal lesions are seen. Gallbladder and biliary tree: Cholelithiasis is seen without evidence of cholecystitis. No intra- or extrahepatic biliary ductal dilation. Pancreas: Unremarkable, no focal lesions. Spleen: Unremarkable. Adrenals: Unremarkable. Kidneys and ureters: Unremarkable. Bowel: Unremarkable. Lymph nodes Retroperitoneal: Unremarkable. Mesenteric: Unremarkable. Peritoneum: Normal Vessels: Unremarkable. Abdominal wall: Unremarkable. Bones: Unremarkable. IMPRESSION: Cholelithiasis is seen without cholecystitis. ACT 112: Negative or not required by law. Electronically signed by: Richy Ortiz M.D. 06/22/2023 6:52 PM Discharge Plan Visit Data Chief Complaint: Dehydration Stated Complaint: REF BY PCP, FLUIDS NEEDED ED Provider: Monico Mcduffie Discharge Problem: Elevated LFTs, Cholelithiasis, Dehydration, Nausea & vomiting Patient Disposition: Admitted As Inpatient Discharge Instructions Interventions: ED Discharge Assessment Last Done: 06/22/23 20:39 Discharge Problem: Cholelithiasis Qualifiers: Cholelithiasis location: gallbladder Cholecystitis presence: without cholecystitis Biliary obstruction: without biliary obstruction Qualified Code(s): K80.20 - Calculus of gallbladder without cholecystitis without obstruction Nausea & vomiting Qualifiers: Vomiting type: unspecified Qualified Code(s): R11.2 - Nausea with vomiting, unspecified
[2023-06-22] MEDS ORDERED: SODIUM CHLORIDE 0.9% 1,000 ML IV ONE (14:42)
[2023-06-22] MEDS ORDERED: ONDANSETRON INJ 2 MG/ML 2 ML VIAL IV STA (14:45)
[2023-06-22] MEDS ORDERED: OPTIRAY 320 100ml IV ONE (15:13)
[2023-06-22 15:21] LABS: Monotest Negative (Negative)
--- NOTE | 2023-06-22 15:35 | CT Scan Report ---
CT abd pelvis IV con only CLINICAL HISTORY: upper ab pain; transaminitis TECHNIQUE: Helical axial images of the abdomen and pelvis were obtained and displayed. Automated dose lowering techniques and/or adjustment according to patient size were utilized for this exam. This e xam was performed with intravenous contrast. CT DOSE: 1394.82 mGy.cm COMPARISON: Comparison is made to CT abdomen pelvis 10/02/2021 FINDINGS: Lower chest: No acute abnormality. Liver: Hepatic steatosis is noted. Gallbladder and biliary tree: No calcified gallstones. Normal caliber wall. Gallbladder wall measures approximately 3 mm in diameter with the appearance of numerous dependent stones. No pericholecystic fluid is seen. Pancreas: Unremarkable, no focal lesions. Spleen: Unremarkable. Adrenals: Unremarkable. Kidneys and ureters: Perinephric stranding is noted bilaterally. Bladder: Limited evaluation due to underdistention. Reproductive organs: Right ovarian cyst is seen. Bowel: Diverticulosis is seen without evidence of diverticulitis. The appendix is unremarkable. Lymph nodes Retroperitoneal: Unremarkable. Pelvic: Unremarkable. Mesenteric: Unremarkable. Peritoneum: Normal. Vessels: Atherosclerotic calcifications are seen. Abdominal wall: Unremarkable. Bones: Degenerative changes in the visualized spine. Bilateral lower hip arthroplasties noted. IMPRESSION: 1. Prominence of gallbladder wall is noted with numerous gallstones. A few polyps cannot be excluded . Clinical correlation is recommended for acute cholecystitis. 2. Hepatic steatosis. 3. Otherwise no acute abnormalities and in particular no evidence of bowel obstruction. ACT 112: Negative or not required by law. Electronically signed by: Richy Ortiz M.D. 06/22/2023 3:34 PM
[2023-06-22 15:42] LABS: Lyme Ab IgG w/WB Rflx Negative (Negative); Lyme Ab IgM w/WB Rflx Negative (Negative)
[2023-06-22] MEDS ORDERED: PIPERACILLIN/TAZOBACTAM 4.5 GM/100 ML BAG IV ONE (16:25)
--- NOTE | 2023-06-22 17:41 | History & Physical Report ---
Date of Service June 22, 2023 Assessment & Plan (1) Abdominal pain: (2) Abdominal pain: Plan: Abdominal Pain, transaminitis Initially suspected to be acute cholecystitis based on CT and transaminitis, have MRCP does not show evidence of this - Pain greatly improved on reasssessment. ?passed stone GI consulted We will complete transaminitis work-up with ferritin, anti-smooth muscle antibody, acute hepatitis panel. Lower suspicion for PBC - CMP trended - Clears - No epigastric pain, +RUQ pain on exam. No brbpr/melena. Hgb normal GERD/Gastric Ulcer - On PPI daily, protonix 40mg daily Lymphedema - Benton/bumex continued pAfib - Eliquis temporarily held pending surgical evaluation, transition to heparin gtt while inpatient which may be held 6 hours prior to any procedures - Metoprolol continued History of Etoh use -History of alcohol use, patient has not had any alcohol in the preceding 30 days. History of Present Illness Primary Care Provider: Tushar Miranda MD Keri is a 72-year-old female who presented with nausea/vomiting, transaminitis, and an elevated bilirubin. CT shows prominence of the gallbladder wall with numerous stones. She is recommended for admission for suspected choledocholithiasis. On reassessment patient has had significant improvement in her abdominal pain. She reports that she has a long history of abdominal pain and has been on pancreatic enzymes for her pancreas, but does not know if she is ever actually had pancreas by CT criteria. She has followed with GI for intermittent low- grade transaminitis and hepatic steatosis in the past, reports that she is not had any alcohol use in over 30 days. Patient was recommended to have follow-up including hepatitis, ferritin, CMP, and autoimmune labs however had declined this at last follow-up. She reports that her pain has been worse for around a week or 2 but suddenly increased to at least a 5-6 out of 10 and was intolerable with nausea and was worsened with meals which caused her to present to the ER today. Initially was suspected to have acute cholecystitis by CT and elevated transaminitis however MRCP does not show emesis over this. This was discussed with patient at bedside. DDx includes past biliary stone, biliary sclerosis. GI consulted and will see. Patient denies chest pain, chest pressure, fever, chills, sweats. Denies bloody emesis. Denies melena/bright blood per rectum Medical History: Reviewed Medications: Reviewed Surgical History: Reviewed Family history: Reviewed Allergies: Reviewed Social History: Reviewed Code Status: Full Allergies Allergy/AdvReac Type Severity Reaction Status Date / Time liraglutide Allergy Intermediate HIVES Verified 03/14/23 16:46 phenol Allergy Intermediate HIVES Verified 03/14/23 16:46 pregabalin Allergy Intermediate HIVES Verified 03/14/23 16:46 propylene glycol Allergy Intermediate HIVES Verified 03/14/23 16:46 sulfamethoxazole Allergy Mild Verified 03/14/23 16:46 [From Bactrim] trimethoprim [From Bactrim] Allergy Mild Verified 03/14/23 16:46 nickel Allergy Unknown Rash Verified 03/14/23 16:46 nickel Allergy Uncoded 03/14/23 16:46 Home Medications Medication Instructions Recorded Confirmed Type apixaban 5 mg tablet (Eliquis) 5 mg PO BID #60 tabs 08/31/22 06/22/23 Rx spironolactone 25 mg tablet 50 mg (2 x 25 mg) PO QAM #60 tabs 08/31/22 06/22/23 Rx potassium chloride 10 mEq 10 meq PO DAILY #30 tabs 10/31/22 06/22/23 Rx tablet,extended release esomeprazole magnesium 40 mg 40 mg PO DAILY #30 caps 01/18/23 06/22/23 Rx capsule,delayed release (Nexium) cyanocobalamin (vitamin B-12) 500 500 mcg PO QAM 02/15/23 06/22/23 History mcg tablet metoprolol tartrate 25 mg tablet 25 mg PO DAILY 02/15/23 06/22/23 History multivitamin-ferrous 0.5 tab PO DAILY 02/15/23 06/22/23 History fumarate-folic acid 18 mg-400 mcg tablet (Centrum Women) BHI Mucus Relief 1 tab sublingual TID 02/21/23 06/22/23 History colchicine 0.6 mg tablet 0.6 mg PO DAILY #30 tabs 03/21/23 06/22/23 Rx qxyjzn-epkifexz-mdvjbnf 2 cap PO BID #180 caps 05/18/23 06/22/23 Rx 24,000-76,000-120,000 unit capsule,delayed rel (Creon) bumetanide 2 mg tablet 2 mg PO DAILY #30 tabs 06/19/23 06/22/23 Rx Probiotic 1 cap PO QPM 06/22/23 06/22/23 History Past Med/Surg History Medical History Acute gastrointestinal bleeding 10/01/21 Paroxysmal atrial fibrillation Lumbar spondylosis Hip pain Hypomagnesemia Hypokalemia Pancytopenia Acute renal disease Obesity Osteoarthritis Carpal tunnel syndrome of left wrist LEFT HAND NEUROPATHY Diverticulitis large intestine Alcoholism Surgical History Status post right knee replacement Hx of tonsillectomy Hx of tooth extraction Hx of bilateral hip replacements LEFT DAGMAR= 06/20/17= DONE UNDER [place] 2/2 PATIENT PREFERENCE AT [facility] History of colonoscopy History of carpal tunnel surgery of right wrist Hx of knee surgery B/L Family History Other Cancer Diabetes Heart disease Hypertension Social History Smoking Status: Never smoker Second Hand Exposure: No; Do You Dip or Chew Tobacco: No; Hx Alcohol Use: Yes Alcohol type: hard liquor Hx Substance Use: No Preferred Language: Irish Communication Ability: Effective Director Geothermal Operations Required: No Beliefs That Will Affect Care: None marital status: Current Living Situation: Spouse Feels Safe at Home: Yes Assistive Devices: Walker Physical Exam Physical Exam: General: A&Ox3. NAD. Cooperative. HEENT: Atraumatic, normocephalic. Pulm: CTAB A&P. -wheezes, -rales, -rhonchi. Symmetrical chest rise. No increased work of breathing. No respiratory distress. Cardiac: RRR, -mrg. Radial pulses intact and symmetrical. Abdominal: RUQ mild ttp. no rebound. no guarding. abd soft. BS intact Results & Data Results & Data Vital Signs (Past 12 Hours) Vital Signs Temp Pulse Resp BP Pulse Ox O2 Del Method 06/22/23 14:36 75 06/22/23 12:29 36.6 C 79 18 108/75 96 Room Air PG Care Time/CCT Total # of Minutes Spent Total Time Spent with Patient: Total time spent is greater than 50% in coordination of care (as documented) at patient's floor/unit and/or counseling patient: Coding Level of Care Code 40718 INT INP/OBS CARE MIN Diagnoses Abdominal pain R10.9
--- NOTE | 2023-06-22 18:13 | Ultrasound Report ---
US gallbladder CLINICAL HISTORY: r/o acute quinn TECHNIQUE: Multiple real-time sonographic images of the right upper quadrant were obtained. Comparison: Comparison is made to CT abdomen pelvis 06/22/2023 FINDINGS: The liver is diffusely echogenic in appearance with poor ultrasound penetration, with normal contour, which is consistent with fatty infiltration. No focal mass lesions are seen. No intrahepatic duct al dilatation is seen. Linear hyperechoic foci with posterior shadowing are identified layering depe ndently within the gallbladder, which are consistent with gallstones. The gallbladder wall is not thi ckened. There is no pericholecystic fluid present. Stones are suggested in the gallbladder neck. A s onographic Lala's sign was not elicited by the contract runner. The common duct measures 0.8 cm in di ameter at the level of the hepatic artery. The visualized portions of the pancreas appear normal. The right kidney shows normal echogenicity, cortical thickness and renal contour. The right kidney sh ows no evidence of hydronephrosis or mass. No ascites or free fluid is seen in Ramsay's pouch. IMPRESSION: 1. Gallstones are seen in the gallbladder and gallbladder neck without evidence of acute cholecystit is. 2. Hepatic steatosis. ACT 112: Negative or not required by law. Electronically signed by: Richy Ortiz M.D. 06/22/2023 6:11 PM
--- NOTE | 2023-06-22 18:54 | Magnetic Resonance Report ---
MR MRCP CLINICAL HISTORY: eval transaminitis; r/o biliary obstruction TECHNIQUE: Multiplanar multisequence MR images of the abdomen were obtained, as per MRCP protocol. . COMPARISON: Comparison is made to CT abdomen pelvis 06/22/2023 FINDINGS: Lower chest: No acute abnormality Liver: Unremarkable. No focal lesions are seen. Gallbladder and biliary tree: Cholelithiasis is seen without evidence of cholecystitis. No intra- or extrahepatic biliary ductal dilation. Pancreas: Unremarkable, no focal lesions. Spleen: Unremarkable. Adrenals: Unremarkable. Kidneys and ureters: Unremarkable. Bowel: Unremarkable. Lymph nodes Retroperitoneal: Unremarkable. Mesenteric: Unremarkable. Peritoneum: Normal Vessels: Unremarkable. Abdominal wall: Unremarkable. Bones: Unremarkable. IMPRESSION: Cholelithiasis is seen without cholecystitis. ACT 112: Negative or not required by law. Electronically signed by: Richy Ortiz M.D. 06/22/2023 6:52 PM
[2023-06-22 19:01] LABS: Appearance Urine Cloudy (Clear); Bacteria Urine Automated Negative (Negative); Blood Urine Negative (Negative); Color Urine Orange; Epithelial Cell Urine Auto >30 /lpf (0-5); Glucose Urine UA Negative (Negative); Ketones Urine 2+ (Negative); Leukocyte Esterase Urine Trace (Negative); Nitrite Urine Positive (Negative); Protein Urine Trace (Negative); RBC Urine Automated 0-4 /hpf (0-4); Specific Gravity Urine > 1.045 (1.000-1.030); Urobilinogen Urine Negative (Negative); pH Urine 5.5 (4.5-7.5)
[2023-06-22 19:22] LABS: Bilirubin Urine 2+ (Negative)
[2023-06-22] MEDS ORDERED: Heparin IV Adult Wt-Based Low-Dose *NO* INITIAL Bolus Protocol IV STA (21:23)
[2023-06-22] MEDS ORDERED: PANTOprazole 40 MG in SYRINGE 0 ML IV ONE (21:45)
[2023-06-22] MEDS: HEPARIN SODIUM/DEXTROSE 25,000 UNITS/500 ML BAG IV SCH (22:05)
[2023-06-22] MEDS: PIPERACILLIN/TAZOBACTAM 4.5 GM in DEXTROSE 5% MINI-B 100 ML IV SCH (23:17)
[2023-06-23 04:07] LABS: Basophils # (auto) 0.02 K/uL (0.00-0.20); Basophils % (auto) 0.6 %; Eosinophils # (auto) 0.08 K/uL (0.00-0.50); Eosinophils % (auto) 2.6 %; Hematocrit (blood only) 31.4 % (37.0-47.0); Hemoglobin 10.8 g/dl (12.0-16.0); Immature Granulocytes # (auto) 0.01 K/uL (0.01-0.20); Immature Granulocytes % (auto) 0.3 %; Lymphocytes % (auto) 41.5 %; Mean Corpuscular Hemoglobin 37.1 pg (25.0-34.0); Mean Corpuscular Hgb Conc 34.4 g/dL (32.0-36.0); Mean Corpuscular Volume 107.9 fL (80.0-100.0); Mean Platelet Volume 11.5 fL (9.4-12.4); Monocytes # (auto) 0.51 K/uL (0.11-0.59); Monocytes % (auto) 16.3 %; Neutrophils # (auto) 1.21 K/uL (1.40-6.50); Neutrophils % (auto) 38.7 %; Platelet Count 67 K/uL (130-400); RDW Standard Deviation 59.4 fL (36.4-46.3); Red Blood Count 2.91 M/uL (4.20-5.40); White Blood Count 3.13 K/ul (4.8-10.8)
[2023-06-23 04:17] LABS: Bilirubin,Total 3.3 mg/dl (0.2-1.0); Potassium 3.9 mmol/L (3.5-5.1)
[2023-06-23 04:23] LABS: Albumin Globulin Ratio 1.2 (0.9-2); Creatinine Clr Calc Pharmacy 72.2 ml/min; Est GFR (African American) 76.6 ml/min; Est GFR (Non-African American) 66.1 ml/min; Globulin 2.6 gm/dl (2.5-4.0); Total Protein 5.6 gm/dl (6.0-8.3)
[2023-06-23 04:30] LABS: Partial Thromboplastin Ratio 1.3; Partial Thromboplastin Time 36.6 Seconds (21.0-31.0)
[2023-06-23] MEDS ORDERED: COLCHICINE 0.6 MG TAB PO SCH (09:00)
--- NOTE | 2023-06-23 09:15 | Gastrointestinal Consultation ---
Date of Consultation June 23, 2023 Assessment & Plan (1) Abdominal pain: (2) Elevated LFTs: Plan Patient with reports of 5.5 years of abdominal pain and nausea/vomiting that is periodic, current episode with elevated LFTs, since admission she has seen significant improvement in symptoms. Her LFTs are trending down. Overall picture is suspicious for her having passed a gallstone since she is seeing resolution in symptoms. Discussed case with both Dr. Vieyra and Dr. Alvarado of the [facility] Biliary team. - trend LFTs - they are trending downward. - start protonix 40mg PO bid given history of ulcers. No role for EGD at this point as picture seems more consistent with a passed gallstone. Patient declines wanting to proceed with EGD anyway. - I discussed with the biliary team at [facility] (Dr. Alvarado) and he recommends that the patient have an EUS as an outpatient. Will coordinate with our office in having this set up as outpatient. I reviewed this with the patien and she was agreeable with EUS. - would also recommend surgical evaluation given the duration of her symptoms and evaluate the need for a cholecystectomy. History of Present Illness Reason for Consultation: Abdominal pain, nausea, vomiting, MRCP Requesting Physician: Monico Mcduffie MD Attending Physician: Lit Dawn MD History of Present Illness Patient is a 72 year old female who presented to the ED with complaints of nausea, vomiting, abdominal pain, transaminitis, and an elevated bilirubin. She tells me her symptoms started 2 days prior to admission but that she has had off and on issues with similar episodes for the past 5.[address] shown prominence of the gallbladder wall with numerous stones. She was admitted for suspected choledocholithiasis. She under went US and MRCP that did not reveal any choledocholithiasis. Since admission she has seen significant improvement in symptoms. She tells me no further vomiting, and has only had mild nausea. She tells me pain has significantly improved. she denies any nsaid use. She uses nexium 40mg once daily as an outpatient with good control of her reflux symptoms. bowel movements are regular. no blood in the stools or melena. Since admission, her LFTs have been trending downward. she has a history of etoh abuse but reports not etoh use in 2 months. EGD 09/2021 nonbleeding gastric ulcers with visible vessels. injected. bipolar cautery. Allergies Allergy/AdvReac Type Severity Reaction Status Date / Time liraglutide Allergy Intermediate HIVES Verified 03/14/23 16:46 phenol Allergy Intermediate HIVES Verified 03/14/23 16:46 pregabalin Allergy Intermediate HIVES Verified 03/14/23 16:46 propylene glycol Allergy Intermediate HIVES Verified 03/14/23 16:46 sulfamethoxazole Allergy Mild Unknown Verified 06/22/23 21:43 [From Bactrim] trimethoprim [From Bactrim] Allergy Mild Unknown Verified 06/22/23 21:43 nickel Allergy Unknown Rash Verified 03/14/23 16:46 Home Medications Medication Instructions Recorded Confirmed Type apixaban 5 mg tablet (Eliquis) 5 mg PO BID #60 tabs 08/31/22 06/22/23 Rx spironolactone 25 mg tablet 50 mg (2 x 25 mg) PO QAM #60 tabs 08/31/22 06/22/23 Rx potassium chloride 10 mEq 10 meq PO DAILY #30 tabs 10/31/22 06/22/23 Rx tablet,extended release esomeprazole magnesium 40 mg 40 mg PO DAILY #30 caps 01/18/23 06/22/23 Rx capsule,delayed release (Nexium) cyanocobalamin (vitamin B-12) 500 500 mcg PO QAM 02/15/23 06/22/23 History mcg tablet metoprolol tartrate 25 mg tablet 25 mg PO DAILY 02/15/23 06/22/23 History multivitamin-ferrous 0.5 tab PO DAILY 02/15/23 06/22/23 History fumarate-folic acid 18 mg-400 mcg tablet (Centrum Women) BHI Mucus Relief 1 tab sublingual TID 02/21/23 06/22/23 History colchicine 0.6 mg tablet 0.6 mg PO DAILY #30 tabs 03/21/23 06/22/23 Rx waegyp-rihznmqv-zeeurqe 2 cap PO BID #180 caps 05/18/23 06/22/23 Rx 24,000-76,000-120,000 unit capsule,delayed rel (Creon) bumetanide 2 mg tablet 2 mg PO DAILY #30 tabs 06/19/23 06/22/23 Rx Probiotic 1 cap PO QPM 06/22/23 06/22/23 History Patient History Medical History Acute gastrointestinal bleeding 10/01/21 Paroxysmal atrial fibrillation Lumbar spondylosis Hip pain Hypomagnesemia Hypokalemia Pancytopenia Acute renal disease Obesity Osteoarthritis Carpal tunnel syndrome of left wrist LEFT HAND NEUROPATHY Diverticulitis large intestine Alcoholism Surgical History Status post right knee replacement Hx of tonsillectomy Hx of tooth extraction Hx of bilateral hip replacements LEFT DAGMAR= 06/20/17= DONE UNDER [place] 2/2 PATIENT PREFERENCE AT [facility] History of colonoscopy History of carpal tunnel surgery of right wrist Hx of knee surgery B/L Family History Other Cancer Diabetes Heart disease Hypertension Social History Smoking Status: Never smoker Second Hand Exposure: No; Do You Dip or Chew Tobacco: No; Hx Alcohol Use: No Hx Substance Use: No Preferred Language: Turkish Communication Ability: Effective Director Of Nurses Registry Required: No Beliefs That Will Affect Care: None marital status: Current Living Situation: Spouse Other Information That Helps Us Care for You: No Feels Safe at Home: Yes Safety Concerns: Feels Safe At This Time Assistive Devices: Cane, Hospital Bed and Walker Review of Systems Review of Systems: All systems reviewed & are unremarkable except as noted in HPI & below Physical Exam Constitutional: WD/WN, vitals as above Respiratory: normal respiratory effort, lungs clear to auscultation Cardiovascular: RRR, no murmur, no edema Gastrointestinal (Abdomen): mild diffuse tenderness, no guarding, soft, normal bowel sounds. Skin: no rashes, warm and dry Psychiatric: Orientation: alert and oriented x 3 Results & Data Vital Signs (Past 12 Hours) Vital Signs Temp Pulse Resp BP Pulse Ox O2 Del Method 06/23/23 08:13 98.2 F 79 18 105/67 99 Room Air PG Care Time/CCT Total # of Minutes Spent Total Time Spent with Patient: Total time spent is greater than 50% in coordination of care (as documented) at patient's floor/unit and/or counseling patient: Coding Level of Care Code 98569 INT INP/OBS CARE 2/55MIN Diagnoses Abdominal pain R10.9 Elevated LFTs R79.89 Time Spent (min) 63
[2023-06-23] MEDS: PIPERACILLIN/TAZOBACTAM 4.5 GM in DEXTROSE 5% MINI-B 100 ML IV SCH ×2 (09:18→15:52)
[2023-06-23] MEDS ORDERED: ONDANSETRON INJ 2 MG/ML 2 ML VIAL IV PRN (09:21)
[2023-06-23] MEDS: BUMETANIDE 1 MG TAB PO SCH (09:28)
[2023-06-23] MEDS: SPIRONOLACTONE 25 MG TAB PO SCH (09:28)
[2023-06-23] MEDS: METOPROLOL TARTRATE 25 MG TAB PO SCH (09:28)
[2023-06-23] MEDS: POTASSIUM CHLORIDE 10 MEQ TABCR PO SCH (09:28)
[2023-06-23] MEDS: PANTOprazole 40 MG TAB PO SCH ×2 (11:11→20:19)
--- NOTE | 2023-06-23 11:42 | Surgery Consultation ---
Date of Consultation June 23, 2023 Assessment & Plan (1) Elevated LFTs: Her US, CT and MRCP images and results were personally viewed and interpreted by myself, no signs of acute cholecystitis on imaging or clinically GI is planning on outpatient EUS The patient can follow up with me as an outpatient to discuss elective cholecystectomy I would want her to see GI prior to cholecystectomy and would need repeat LFT's Surgery will sign off at this time, please call with any questions or concerns (2) Cholelithiasis: History of Present Illness Reason for Consultation: Eval for cholecystectomy Attending Physician: Lit Dawn MD History of Present Illness This is a 72 yo female who was admitted yesterday to the medical team. She states she has had about 5 years of off and on upper abdominal pain with N/V. She has a history of gastric ulcers and most recent EGD was one year ago. She states that her most recent episode started yesterday. She is feeling much better today without any abdominal pain. No N/V. Denies any previous abdominal surgeries. Allergies Allergy/AdvReac Type Severity Reaction Status Date / Time liraglutide Allergy Intermediate HIVES Verified 03/14/23 16:46 phenol Allergy Intermediate HIVES Verified 03/14/23 16:46 pregabalin Allergy Intermediate HIVES Verified 03/14/23 16:46 propylene glycol Allergy Intermediate HIVES Verified 03/14/23 16:46 sulfamethoxazole Allergy Mild Unknown Verified 06/22/23 21:43 [From Bactrim] trimethoprim [From Bactrim] Allergy Mild Unknown Verified 06/22/23 21:43 nickel Allergy Unknown Rash Verified 03/14/23 16:46 Home Medications Medication Instructions Recorded Confirmed Type apixaban 5 mg tablet (Eliquis) 5 mg PO BID #60 tabs 08/31/22 06/22/23 Rx spironolactone 25 mg tablet 50 mg (2 x 25 mg) PO QAM #60 tabs 08/31/22 06/22/23 Rx potassium chloride 10 mEq 10 meq PO DAILY #30 tabs 10/31/22 06/22/23 Rx tablet,extended release esomeprazole magnesium 40 mg 40 mg PO DAILY #30 caps 01/18/23 06/22/23 Rx capsule,delayed release (Nexium) cyanocobalamin (vitamin B-12) 500 500 mcg PO QAM 02/15/23 06/22/23 History mcg tablet metoprolol tartrate 25 mg tablet 25 mg PO DAILY 02/15/23 06/22/23 History multivitamin-ferrous 0.5 tab PO DAILY 02/15/23 06/22/23 History fumarate-folic acid 18 mg-400 mcg tablet (Centrum Women) BHI Mucus Relief 1 tab sublingual TID 02/21/23 06/22/23 History colchicine 0.6 mg tablet 0.6 mg PO DAILY #30 tabs 03/21/23 06/22/23 Rx pjneat-khujdzem-tdhksgr 2 cap PO BID #180 caps 05/18/23 06/22/23 Rx 24,000-76,000-120,000 unit capsule,delayed rel (Creon) bumetanide 2 mg tablet 2 mg PO DAILY #30 tabs 06/19/23 06/22/23 Rx Probiotic 1 cap PO QPM 06/22/23 06/22/23 History Patient History Medical History Acute gastrointestinal bleeding 10/01/21 Paroxysmal atrial fibrillation Lumbar spondylosis Hip pain Hypomagnesemia Hypokalemia Pancytopenia Acute renal disease Obesity Osteoarthritis Carpal tunnel syndrome of left wrist LEFT HAND NEUROPATHY Diverticulitis large intestine Alcoholism Surgical History Status post right knee replacement Hx of tonsillectomy Hx of tooth extraction Hx of bilateral hip replacements LEFT DAGMAR= 06/20/17= DONE UNDER [place] 2/2 PATIENT PREFERENCE AT [facility] History of colonoscopy History of carpal tunnel surgery of right wrist Hx of knee surgery B/L Family History Other Cancer Diabetes Heart disease Hypertension Social History Smoking Status: Never smoker Second Hand Exposure: No; Do You Dip or Chew Tobacco: No; Hx Alcohol Use: No Hx Substance Use: No Preferred Language: Greenlandic Communication Ability: Effective Triage Assistant Required: No Beliefs That Will Affect Care: None marital status: Current Living Situation: Spouse Other Information That Helps Us Care for You: No Feels Safe at Home: Yes Safety Concerns: Feels Safe At This Time Assistive Devices: Cane and Hospital Bed Review of Systems Constitutional: no fever and no chills Eyes: no blind spots and no dry eyes Ear, Nose, Mouth, Throat: no ear pain, no tinnitus and no hearing loss Respiratory: no cough and no dyspnea Cardiovascular: no chest pain and no dyspnea on exertion Gastrointestinal: no abdominal pain, no nausea and no vomiting Genitourinary: no dysuria and no urinary urgency Musculoskeletal: no back pain and no neck pain Integumentary: no acne, no skin ulcer, no sores and no erythema Neurologic: no gait abnormality, no numbness and no paresthesia Psychiatric: no behavioral changes, no depression and no anhedonia Endocrine: no fatigue Hematologic / Lymphatic: no easy bleeding and no easy bruising Physical Exam Constitutional: WD/WN, vitals as above Eyes: PERRL, conjunctivae normal, anicteric sclerae ENMT: external ear and nose normal, oropharynx normal Neck: trachea midline, no thyromegaly Respiratory: normal respiratory effort, lungs clear to auscultation Cardiovascular: RRR, no murmur, no edema Gastrointestinal (Abdomen): normal bowel sounds, soft, nontender, no h epatosplenomegaly Musculoskeletal: no cyanosis or clubbing, extremities motor strength 5/5 Skin: no rashes, warm and dry Neurologic: PERRL, EOMI, accommodation nl, no face palsy, no dysarthria Psychiatric: A+Ox3, euthymic affect Results & Data Vital Signs (Past 12 Hours) Vital Signs Temp Pulse Resp BP Pulse Ox O2 Del Method 06/23/23 08:13 36.8 C 79 18 105/67 99 Room Air PG Care Time/CCT Total # of Minutes Spent Total Time Spent with Patient: Total time spent is greater than 50% in coordination of care (as documented) at patient's floor/unit and/or counseling patient: Coding Level of Care Code 24086 INT INP/OBS CARE 3/75MIN Diagnoses Elevated LFTs R79.89 Cholelithiasis K80.20 Cholelithiasis location: gallbladder Cholecystitis presence: without cholecystitis (2) Cholelithiasis Cholelithiasis location: gallbladder Cholecystitis presence: without cholecystitis
[2023-06-23] MEDS: THIAMINE HCL 500 MG in SODIUM CHLORIDE 0.9% 50 ML IV SCH ×2 (11:56→19:42)
[2023-06-23 12:24] LABS: Partial Thromboplastin Ratio 2.1
--- NOTE | 2023-06-23 12:48 | Electrocardiogram Report ---
Test Reason : Blood Pressure : / mmHG Vent. Rate : 077 BPM Atrial Rate : 077 BPM P-R Int : 134 ms QRS Dur : 076 ms QT Int : 408 ms P-R-T Axes : 035 068 267 degrees QTc Int : 461 ms Normal sinus rhythm Low voltage QRS Abnormal ECG When compared with ECG of 01-OCT-2021 04:44, Questionable change in QRS axis Nonspecific T wave abnormality has replaced inverted T waves in Anterior leads Confirmed by Thanh Gibson ([id number]) on 06/23/2023 12:48:14 PM Referred By: REFERRED SELF Confirmed By:Thanh Gibson
[2023-06-23 12:56] LABS: Partial Thromboplastin Time 60.1 Seconds (21.0-31.0)
--- NOTE | 2023-06-23 15:53 | Hospitalist Progress Note ---
Date of Service June 23, 2023 Assessment & Plan (1) Acute generalized abdominal pain: Plan: x 5-6 days. associated with acute on chronic abnormal LFTs in the setting of multiple imaging studies with gallstones. ?passed gallstone? PUD? gastritis? combination of factors? appreciate gen surg consultation. appreciate GI consultation. Plan - outpatient EUS. Then f/u gen surg to discuss elective cholecystectomy. Patient still with abdominal pain today despite fasting overnight. Agree with PPI twice daily to cover PUD / gastritis. Check stool Biofire panel - r/o infectious enteritis. Lipase noted to be normal. Re-eval tomorrow. (2) Chronic abdominal pain: Plan: x 5 years. biliary in etiology? 2nd chronic pancreatitis? (imaging studies with atrophy but no calcifications, however) gastritis from etoh abuse? other? Outpatient EUS. ?elective cholecystectomy? Put back on PPI twice daily. (3) Diarrhea: Plan: Check stool Biofire. If negative may be 2nd to abx-associated diarrhea or pancreatic insufficiency vs other. (4) Elevated LFTs: Plan: CHRONIC Present since 2019 This coincides with pancytopenia Picture looks like someone with chronic liver disease - early cirrhosis? However, CT and u/s without anatomical features of such Agree with hepatitis w/u (hepB, C; smooth muscle ab, ALAN, etc) Acute worsening of LFTs - passed gallstone? trend the LFTs (5) Cholelithiasis: Plan: no radiographic evidence of cholecystitis appreciate GI and gen surg consultations outpatient gen surg f/u needed to discuss elective cholecystectomy (6) Pancytopenia: Plan: peripheral smear without suspicious features for bone marrow malignancy B12, TSH, folic acid wnl in 02/2023 2nd to liver disease? 2nd to etoh abuse? either way it is chronic going back 1-2 years will need serial CBCs (7) Hepatic steatosis: Plan: agree with hepatitis w/u repeat LFTs am (8) Lymphedema: Plan: chronic (9) Paroxysmal atrial fibrillation: Plan: follows [facility] [place] Cardiology can d/c heparin in am, resume Eliquis (cautiously due to low platelets) then cont metoprolol (10) Gastric ulcer: Plan: 09/2021 - EGD confirmed with ongoing abd pain -- resume PPI twice daily (11) Exocrine pancreatic insufficiency: Plan: resume Creon with meals (12) Severe protein-calorie malnutrition: Plan: 125 pounds of weight loss over 5 years albumin is low at 3 etiology?? (13) Alcohol dependence with physiological dependence: Plan: reports no etoh in 1 month thiamine supplementation (14) GERD (gastroesophageal reflux disease): Plan: add back PPI (15) Gout: Plan: office visit in 03/2023 with concerns for gout in feet uric acid at that time was >9 placed on once daily colchicine at that time will hold this could be contributing to GI tract symptoms (16) DVT prophylaxis: Plan: heparin drip Admission and Anticipated Discharge Date Admission Date: June 22, 2023 Subjective patient reports 125# of weight loss over 5 years some of this is intentional, some of it is due to inability to eat solids? only eats a "bite or 2" of solids at each meal each day eating solids leads to upper abdominal pain pain has been present for "years" ? this past week - starting about Monday - more diffuse abdominal pain had diarrhea early in the week - resolved - then had 3 loose stools today nausea with vomiting much of this week long history of etoh abuse - none in 1 month no fevers but did have hot/cold chills this week stool is watery - nonbloody Review of Systems Review of Systems: gen - no fevers cv - no chest pain or exertional chest pain pulm - no dyspnea or HARVEY GI - no melena stool - no dysuria, no frequency of urination at home, no foul-smelling urine, no change in urinary habits (voiding more frequently here, however) musculo - no swelling of joints today or pain Physical Exam Physical Exam: gen - obese, NAD mouth - MMM, no lesions neck - no JVD heart - RRR, s1 s2 lungs - CTA b/l abd - soft, tender epigastric region, BS+, no peritoneal signs, ND ext - lymphedema b/l legs, pulses 2+ b/l psych - a/o x 3 Results & Data Results & Data Vital Signs (Past 12 Hours) Vital Signs Temp Pulse Resp BP Pulse Ox O2 Del Method 06/23/23 15:50 36.7 C 72 18 110/61 100 Room Air 06/23/23 08:13 36.8 C 79 18 105/67 99 Room Air Laboratory Results Laboratory Results 06/22/23 06/22/23 06/22/23 13:02 13:04 18:45 WBC 2.80 L RBC 3.27 L Hgb 12.2 Hct 35.5 L MCV 108.6 H MCH 37.3 H MCHC 34.4 RDW Std Deviation 60.6 H RDW Coeff of Ignacio 15.0 H Plt Count 90 L MPV 11.9 Immature Gran % (Auto) 0.4 Neut % (Auto) 54.6 Lymph % (Auto) 26.1 Ransom % (Auto) 17.1 Eos % (Auto) 0.7 Baso % (Auto) 1.1 Neut # (Auto) 1.53 Lymph # (Auto) 0.73 L Ransom # (Auto) 0.48 Eos # (Auto) 0.02 Baso # (Auto) 0.03 Immature Gran # (Auto) 0.01 Peripher Smr Path Cons PT 12.2 H INR 1.1 APTT 26.5 PTT Ratio 0.9 Sodium 138 Potassium 4.5 Chloride 96 L Carbon Dioxide 24 Anion Gap 18 H BUN 23 Creatinine 0.97 Est Cr Clr Drug Dosing 63.3 Est GFR ( Amer) 68.1 Est GFR (Non-Af Amer) 58.8 BUN/Creatinine Ratio 23.7 H Glucose 85 Calcium 8.6 Ferritin 1363.0 H Total Bilirubin 3.9 H AST 227 H ALT 84 H Alkaline Phosphatase 198 H Total Protein 6.4 Albumin 3.4 Globulin 3.0 Albumin/Globulin Ratio 1.1 Lipase 16 Urine Color [place] Urine Appearance Cloudy A Urine pH 5.5 Ur Specific [place] > 1.045 H Urine Protein Trace H Urine Glucose (UA) Negative Urine Ketones 2+ H Urine Blood Negative Urine Nitrite Positive A Urine Bilirubin 2+ H Urine Urobilinogen Negative Ur Leukocyte Esterase Trace H Urine WBC (Auto) 5-10 H Urine RBC (Auto) 0-4 U Hyaline Cast (Auto) 5-10 H U Epithel Cells (Auto) >30 H Urine Bacteria (Auto) Negative Urine Yeast Not Reportable Stl C. cayetanensis PCR Stool Rotavirus A PCR Stl Adenov F 40/41 PCR Stool Astrovirus (PCR) Stool Campylobacter PCR Stool Cryptosporidium PCR Stl E.coli Shiga Tox PCR Stl Enterotoxigenic E PCR Stool EPEC (PCR) Stool EAEC (PCR) Stl E. histolytica PCR Stool Giardia Lamblia PCR Stool Salmonella PCR Stool Sapovirus (PCR) Stl P. shigelloides PCR Stl Shigella/EIEC PCR St Y.enterocolitica PCR Stool Vibrio (PCR) Stl Vibrio cholerae PCR Stl Norovirus GI/GII PCR Anaplasma Smear See Comment Babesia Smear See Comment Lyme Disease IgG Ab Negative Lyme Disease IgM Ab Negative Monoscreen Negative 06/23/23 06/23/23 06/23/23 03:44 11:00 Unknown WBC 3.13 L RBC 2.91 L Hgb 10.8 L Hct 31.4 L MCV 107.9 H MCH 37.1 H MCHC 34.4 RDW Std Deviation 59.4 H RDW Coeff of Ignacio 15.0 H Plt Count 67 L MPV 11.5 Immature Gran % (Auto) 0.3 Neut % (Auto) 38.7 Lymph % (Auto) 41.5 Ransom % (Auto) 16.3 Eos % (Auto) 2.6 Baso % (Auto) 0.6 Neut # (Auto) 1.21 L Lymph # (Auto) 1.30 Ransom # (Auto) 0.51 Eos # (Auto) 0.08 Baso # (Auto) 0.02 Immature Gran # (Auto) 0.01 Peripher Smr Path Cons PT INR APTT 36.6 H 60.1 H* PTT Ratio 1.3 2.1 Sodium 137 Potassium 3.9 Chloride 99 Carbon Dioxide 23 Anion Gap 15 H BUN 22 Creatinine 0.88 Est Cr Clr Drug Dosing 72.2 Est GFR ( Amer) 76.6 Est GFR (Non-Af Amer) 66.1 BUN/Creatinine Ratio 25.0 H Glucose 75 Calcium 8.0 L Ferritin Total Bilirubin 3.3 H AST 177 H ALT 68 H Alkaline Phosphatase 160 H Total Protein 5.6 L Albumin 3.0 L Globulin 2.6 Albumin/Globulin Ratio 1.2 Lipase Urine Color Urine Appearance Urine pH Ur Specific [place] Urine Protein Urine Glucose (UA) Urine Ketones Urine Blood Urine Nitrite Urine Bilirubin Urine Urobilinogen Ur Leukocyte Esterase Urine WBC (Auto) Urine RBC (Auto) U Hyaline Cast (Auto) U Epithel Cells (Auto) Urine Bacteria (Auto) Urine Yeast Stl C. cayetanensis PCR Not Detected Stool Rotavirus A PCR Not Detected Stl Adenov F 40 PCR Not Detected Stool Astrovirus (PCR) Not Detected Stool Campylobacter PCR Not Detected Stool Cryptosporidium PCR Not Detected Stl E.coli Shiga Tox PCR Not Detected Stl Enterotoxigenic E PCR Not Detected Stool EPEC (PCR) Not Detected Stool EAEC (PCR) Not Detected Stl E. histolytica PCR Not Detected Stool Giardia Lamblia PCR Not Detected Stool Salmonella PCR Not Detected Stool Sapovirus (PCR) Not Detected Stl P. shigelloides PCR Not Detected Stl Shigella/EIEC PCR Not Detected St Y.enterocolitica PCR Not Detected Stool Vibrio (PCR) Not Detected Stl Vibrio cholerae PCR Not Detected Stl Norovirus GI/GII PCR Not Detected Anaplasma Smear Babesia Smear Lyme Disease IgG Ab Lyme Disease IgM Ab Monoscreen PG Care Time/CCT Total # of Minutes Spent Total Time Spent with Patient: Total time spent is greater than 50% in coordination of care (as documented) at patient's floor/unit and/or counseling patient: Coding Level of Care Code 92003 SUB INP/OBS CARE 3/50MIN Diagnoses Acute generalized abdominal pain R10.84 Chronic abdominal pain R10.9; G89.29 Diarrhea R19.7 Elevated LFTs R79.89 Cholelithiasis K80.20 Cholelithiasis location: gallbladder Cholecystitis presence: without cholecystitis Biliary obstruction: without biliary obstruction Pancytopenia D61.818 Hepatic steatosis K76.0 Lymphedema I89.0 Paroxysmal atrial fibrillation I48.0 Gastric ulcer K25.9 Exocrine pancreatic insufficiency K86.81 Severe protein-calorie malnutrition E43 Alcohol dependence with physiological dependence F10.20 GERD (gastroesophageal reflux disease) K21.9 Gout M10.9 DVT prophylaxis Z29.9 (5) Cholelithiasis Cholelithiasis location: gallbladder Cholecystitis presence: without cholecystitis Biliary obstruction: without biliary obstruction Qualified Code(s): K80.20 - Calculus of gallbladder without cholecystitis without obstruction
[2023-06-23 18:33] LABS: Adenovirus F 40/41 PCR Not Detected (NotDetected); Astrovirus PCR Not Detected (NotDetected); Campylobacter PCR Not Detected (NotDetected); Cryptosporidium PCR Not Detected (NotDetected); Cyclospora cayetanensis PCR Not Detected (NotDetected); Entamoeba histolytica PCR Not Detected (NotDetected); Enteroaggregative E.coli(EAEC) Not Detected (NotDetected); Enteropathogenic E.coli (EPEC) Not Detected (NotDetected); Enterotoxigenic E.coli (ETEC) Not Detected (NotDetected); Giardia lamblia PCR Not Detected (NotDetected); Norovirus GI/GII PCR Not Detected (NotDetected); Plesiomonas shigelloides PCR Not Detected (NotDetected); Rotavirus A PCR Not Detected (NotDetected); Salmonella PCR Not Detected (NotDetected); Sapovirus PCR Not Detected (NotDetected); Shiga-like Toxin E.coli (STEC) Not Detected (NotDetected); Shigella/Enteroinvasive E.coli Not Detected (NotDetected); Vibrio cholerae PCR Not Detected (NotDetected); Vibrio species PCR Not Detected (NotDetected); Yersinia enterocolitica PCR Not Detected (NotDetected)
[2023-06-23] MEDS: HEPARIN SODIUM/DEXTROSE 25,000 UNITS/500 ML BAG IV SCH (22:06)
[2023-06-24] MEDS: PIPERACILLIN/TAZOBACTAM 4.5 GM in DEXTROSE 5% MINI-B 100 ML IV SCH ×2 (00:07→09:24)
[2023-06-24] MEDS: THIAMINE HCL 500 MG in SODIUM CHLORIDE 0.9% 50 ML IV SCH ×3 (03:17→19:43)
[2023-06-24 08:16] LABS: Albumin Globulin Ratio 1.2 (0.9-2); Albumin Level 2.8 gm/dl (3.4-5.0); BUN Creatinine Ratio 13.5 (10-20); Bilirubin,Total 2.8 mg/dl (0.2-1.0); Creatinine Clr Calc Pharmacy 57.2 ml/min; Est GFR (African American) 57.9 ml/min; Est GFR (Non-African American) 49.9 ml/min; Globulin 2.4 gm/dl (2.5-4.0); Potassium 3.1 mmol/L (3.5-5.1); Total Protein 5.2 gm/dl (6.0-8.3)
[2023-06-24 08:21] LABS: Partial Thromboplastin Ratio 1.6
[2023-06-24 08:22] LABS: Hematocrit (blood only) 28.4 % (37.0-47.0); Hemoglobin 10.2 g/dl (12.0-16.0); Mean Corpuscular Hemoglobin 36.6 pg (25.0-34.0); Mean Corpuscular Hgb Conc 35.9 g/dL (32.0-36.0); Mean Corpuscular Volume 101.8 fL (80.0-100.0); Mean Platelet Volume 11.2 fL (9.4-12.4); Platelet Count 56 K/uL (130-400); RDW Coefficient of Variation 14.8 % (11.5-14.5); RDW Standard Deviation 56.1 fL (36.4-46.3); Red Blood Count 2.79 M/uL (4.20-5.40); White Blood Count 2.32 K/ul (4.8-10.8)
[2023-06-24 08:26] LABS: Basophils # (auto) 0.03 K/uL (0.00-0.20); Basophils % (auto) 1.3 %; Eosinophils # (auto) 0.11 K/uL (0.00-0.50); Eosinophils % (auto) 4.7 %; Lymphocytes # (auto) 0.99 K/uL (1.20-3.40); Lymphocytes % (auto) 42.7 %; Monocytes # (auto) 0.44 K/uL (0.11-0.59); Neutrophils # (auto) 0.75 K/uL (1.40-6.50); Neutrophils % (auto) 32.3 %
[2023-06-24 08:53] LABS: Partial Thromboplastin Time 46.1 Seconds (21.0-31.0)
[2023-06-24] MEDS: PANTOprazole 40 MG TAB PO SCH ×2 (09:24→20:09)
[2023-06-24] MEDS: SPIRONOLACTONE 25 MG TAB PO SCH (09:24)
[2023-06-24] MEDS: POTASSIUM CHLORIDE 10 MEQ TABCR PO SCH (09:24)
[2023-06-24] MEDS: BUMETANIDE 1 MG TAB PO SCH (09:25)
[2023-06-24] MEDS: METOPROLOL TARTRATE 25 MG TAB PO SCH (09:25)
[2023-06-24] MEDS: PANCREAZE (LIPASE 10,500U) CAP PO SCH ×3 (09:27→17:10)
[2023-06-24] MEDS: metroNIDAZOLE 500 MG TAB PO SCH ×3 (10:37→20:08)
[2023-06-24] MEDS: CIPROFLOXACIN 500 MG TAB PO SCH ×2 (10:37→20:08)
[2023-06-24] MEDS: POTASSIUM CHLORIDE CRTAB 20 MEQ TABCR PO SCH ×3 (10:38→20:07)
[2023-06-24] MEDS: SUCRALFATE 1 GM/10 ML UDC PO SCH ×2 (17:10→20:07)
--- NOTE | 2023-06-24 21:33 | Hospitalist Progress Note ---
Date of Service June 24, 2023 Assessment & Plan (1) Acute generalized abdominal pain: Plan: present for about 1 week. her acute pain is different in location & quality than her chronic pain. her acute illness has been associated with acute on chronic abnormal LFTs. she has gallstones on imaging. etiology of acute pain?? there had been some discussion about a passed gallstone a couple of days ago but if that is true her pain should have resolved at this point. PUD? gastritis? some sort of GI illness - but stool Biofire negative. combination of factors? appreciate gen surg consultation. appreciate GI consultation. Agree with PPI twice daily to cover PUD / gastritis. Add carafate qid. Check cdiff. Repeat LFTs and lipase in am. For completeness, in light of chronic abd pain, will obtain mesenteric duplex study. Downgrade diet to full liquids as regular food bothered her stomach today. Continue creo TID w/ meals. Re-eval tomorrow. (2) Chronic abdominal pain: Plan: x 5 years. biliary in etiology? 2nd chronic pancreatitis? (imaging studies with atrophy but no calcifications, however) gastritis from etoh abuse? other? Outpatient EUS. ?elective cholecystectomy? PPI twice daily. Add carafate. If she fails to improved with her pains will ask GI to re-consider doing her endoscopies while hospitalized. Consider HIDA scan while here but defer for now. (3) Diarrhea: Plan: stool Biofire negative. check a cdiff. If negative may be 2nd to abx-associated diarrhea or pancreatic insufficiency vs other. check a COVID test. some individuals with COVID have severe acute GI symptoms including diarrhea, pain, nausea, etc. (4) Elevated LFTs: Plan: CHRONIC Present since 2019 This coincides with pancytopenia Picture looks like someone with chronic liver disease - early cirrhosis? However, CT and u/s without anatomical features of such Agree with hepatitis w/u (hepB, C; smooth muscle ab, ALAN, etc) Acute worsening of LFTs - passed gallstone? LFTs are improving cont to trend the LFTs (5) Cholelithiasis: Plan: no radiographic evidence of cholecystitis appreciate GI and gen surg consultations outpatient gen surg f/u needed to discuss elective cholecystectomy (6) Pancytopenia: Plan: peripheral smear without suspicious features for bone marrow malignancy B12, TSH, folic acid wnl in 02/2023 2nd to liver disease? 2nd to etoh abuse? either way it is chronic going back 1-2 years will need serial CBCs mild neutropenia on CBC today - neutropenic precautions ordered (7) Hepatic steatosis: Plan: agree with hepatitis w/u repeat LFTs am (8) Lymphedema: Plan: chronic (9) Paroxysmal atrial fibrillation: Plan: follows [facility] [place] Cardiology cont metoprolol in the event she has GI bleeding (H/H have dropped since admission) stop heparin drip and hold Eliquis for now (10) Gastric ulcer: Plan: 09/2021 - EGD confirmed with ongoing abd pain -- resumed PPI twice daily add carafate QID as well (11) Exocrine pancreatic insufficiency: Plan: Creon with meals (12) Severe protein-calorie malnutrition: Plan: 125 pounds of weight loss over 5 years albumin is low at 3 etiology?? (13) Alcohol dependence with physiological dependence: Plan: reports no etoh in 1 month thiamine supplementation folic acid (14) GERD (gastroesophageal reflux disease): Plan: PPI (15) Gout: Plan: office visit in 03/2023 with concerns for gout in feet uric acid at that time was >9 placed on once daily colchicine at that time will hold this could be contributing to GI tract symptoms (16) DVT prophylaxis: Plan: stop heparin drip and hold Eliquis - see above Admission and Anticipated Discharge Date Admission Date: June 22, 2023 Subjective patient reports ongoing diarrhea (nonbloody) despite negative stool Biofire she is also having fairly diffuse pain in multiple locations of her abdomen the location of the pain is different than her chronic pain she has been having for a few years within 20-30 minutes following meals today she would have pain and some diarrhea this is despite improving LFTs and resumption of PPI therapy she is afraid to eat solids because of the above symptoms still no fevers or chills no vomiting despite the above symptoms Review of Systems Review of Systems: gen - no fevers or chills cv - no chest pain pulm - no cough or dyspnea GI - no blood per rectum Physical Exam Physical Exam: gen - obese, NAD mouth - MMM, no lesions neck - no JVD heart - RRR, s1 s2, no murmur lungs - CTA b/l abd - soft, tender multiple locations including epigastric region, RLQ & LLQ, mild distension, BS+, no peritoneal signs ext - lymphedema b/l legs, pulses 2+ b/l psych - a/o x 3 Results & Data Results & Data Vital Signs (Past 12 Hours) Vital Signs Temp Pulse Resp BP Pulse Ox O2 Del Method 06/24/23 20:25 36.7 C 78 16 102/67 97 Room Air 06/24/23 15:16 36.6 C 78 20 98/65 L 100 Room Air Laboratory Results Laboratory Results - last 24 hr 06/24/23 07:19 WBC 2.32 L RBC 2.79 L Hgb 10.2 L Hct 28.4 L MCV 101.8 H D MCH 36.6 H MCHC 35.9 RDW Std Deviation 56.1 H RDW Coeff of Ignacio 14.8 H Plt Count 56 L MPV 11.2 Immature Gran % (Auto) 0.0 Neut % (Auto) 32.3 Lymph % (Auto) 42.7 [place] % (Auto) 19.0 Eos % (Auto) 4.7 Baso % (Auto) 1.3 Neut # (Auto) 0.75 L* Lymph # (Auto) 0.99 L [place] # (Auto) 0.44 Eos # (Auto) 0.11 Baso # (Auto) 0.03 Immature Gran # (Auto) 0.00 L APTT 46.1 H* PTT Ratio 1.6 Sodium 139 Potassium 3.1 L D Chloride 97 L Carbon Dioxide 33 H Anion Gap 9 BUN 15 Creatinine 1.11 Est Cr Clr Drug Dosing 57.2 Est GFR ( Amer) 57.9 Est GFR (Non-Af Amer) 49.9 BUN/Creatinine Ratio 13.5 Glucose 91 Calcium 8.0 L Total Bilirubin 2.8 H AST 112 H ALT 56 H Alkaline Phosphatase 134 H Total Protein 5.2 L Albumin 2.8 L Globulin 2.4 L Albumin/Globulin Ratio 1.2 Stl C. diff Tox B Gene PG Care Time/CCT Total # of Minutes Spent Total Time Spent with Patient: Total time spent is greater than 50% in coordination of care (as documented) at patient's floor/unit and/or counseling patient: Coding Level of Care Code 90230 SUB INP/OBS CARE 3/50MIN Diagnoses Acute generalized abdominal pain R10.84 Chronic abdominal pain R10.9; G89.29 Diarrhea R19.7 Elevated LFTs R79.89 Cholelithiasis K80.20 Biliary obstruction: without biliary obstruction Cholecystitis presence: without cholecystitis Cholelithiasis location: gallbladder Pancytopenia D61.818 Hepatic steatosis K76.0 Lymphedema I89.0 Paroxysmal atrial fibrillation I48.0 Gastric ulcer K25.9 Exocrine pancreatic insufficiency K86.81 Severe protein-calorie malnutrition E43 Alcohol dependence with physiological dependence F10.20 GERD (gastroesophageal reflux disease) K21.9 Gout M10.9 DVT prophylaxis Z29.9 (5) Cholelithiasis Biliary obstruction: without biliary obstruction Cholecystitis presence: without cholecystitis Cholelithiasis location: gallbladder Qualified Code(s): K80.20 - Calculus of gallbladder without cholecystitis without obstruction
[2023-06-25] MEDS ORDERED: LOPERAMIDE HCL 2 MG CAP PO STA (00:22)
[2023-06-25] MEDS: THIAMINE HCL 500 MG in SODIUM CHLORIDE 0.9% 50 ML IV SCH (02:48)
[2023-06-25 06:58] LABS: Hematocrit (blood only) 29.6 % (37.0-47.0); Hemoglobin 10.4 g/dl (12.0-16.0); Mean Corpuscular Hemoglobin 36.9 pg (25.0-34.0); Mean Corpuscular Hgb Conc 35.1 g/dL (32.0-36.0); Mean Platelet Volume 11.7 fL (9.4-12.4); Platelet Count 56 K/uL (130-400); RDW Standard Deviation 58.4 fL (36.4-46.3); Red Blood Count 2.82 M/uL (4.20-5.40); White Blood Count 2.38 K/ul (4.8-10.8)
[2023-06-25 07:19] LABS: Albumin Globulin Ratio 1.2 (0.9-2); Albumin Level 2.8 gm/dl (3.4-5.0); BUN Creatinine Ratio 11.5 (10-20); Bilirubin,Total 2.2 mg/dl (0.2-1.0); Calcium 8.2 mg/dl (8.6-10.3); Creatinine Clr Calc Pharmacy 56.2 ml/min; Est GFR (African American) 56.6 ml/min; Est GFR (Non-African American) 48.9 ml/min; Globulin 2.4 gm/dl (2.5-4.0); Total Protein 5.2 gm/dl (6.0-8.3)
[2023-06-25 07:26] LABS: Basophils # (auto) 0.02 K/uL (0.00-0.20); Basophils % (auto) 0.8 %; Eosinophils # (auto) 0.07 K/uL (0.00-0.50); Eosinophils % (auto) 2.9 %; Hypochromasia Present; Lymphocytes # (auto) 1.09 K/uL (1.20-3.40); Lymphocytes % (auto) 45.8 %; Macrocytosis Present; Monocytes # (auto) 0.49 K/uL (0.11-0.59); Monocytes % (auto) 20.6 %; Neutrophils # (auto) 0.71 K/uL (1.40-6.50); Neutrophils % (auto) 29.9 %; Polychromasia 1+
[2023-06-25 07:46] LABS: Partial Thromboplastin Ratio 0.9; Partial Thromboplastin Time 24.8 Seconds (21.0-31.0)
[2023-06-25] MEDS: metroNIDAZOLE 500 MG TAB PO SCH ×3 (08:12→21:28)
[2023-06-25] MEDS: PANTOprazole 40 MG TAB PO SCH ×2 (08:12→21:28)
[2023-06-25] MEDS: BUMETANIDE 1 MG TAB PO SCH (08:13)
[2023-06-25] MEDS: CIPROFLOXACIN 500 MG TAB PO SCH ×2 (08:13→21:28)
[2023-06-25] MEDS: METOPROLOL TARTRATE 25 MG TAB PO SCH (08:13)
[2023-06-25] MEDS: SUCRALFATE 1 GM/10 ML UDC PO SCH ×4 (08:13→21:28)
[2023-06-25] MEDS: SPIRONOLACTONE 25 MG TAB PO SCH (08:14)
[2023-06-25] MEDS: POTASSIUM CHLORIDE 10 MEQ TABCR PO SCH (08:14)
--- NOTE | 2023-06-25 08:14 | Ultrasound Report ---
US duplex mesenteric CLINICAL HISTORY: postprandial abd pain COMPARISON STUDY: MRCP 06/22/2023. FINDINGS: The systolic velocity within the celiac artery is 148 cm/s and the superior mesenteric jade ry is 165 cm/s. The inferior mesenteric artery was not identified due to overlying bowel gas. Aortic systolic velocity 83 cm/s. The splenic artery demonstrates a peak systolic velocity of 103 cm/s. No e vidence for arterial occlusion. IMPRESSION: No significant stenosis or occlusion within the celiac or superior mesenteric arteries. ACT 112: Negative or not required by law. Electronically signed by: Vineet Bateman M.D. 06/25/2023 8:13 AM
[2023-06-25] MEDS: PANCREAZE (LIPASE 10,500U) CAP PO SCH ×3 (08:41→18:03)
[2023-06-25] MEDS: LOPERAMIDE HCL 2 MG CAP PO PRN ×2 (11:22→18:04)
--- NOTE | 2023-06-25 20:43 | Hospitalist Progress Note ---
Date of Service June 25, 2023 Assessment & Plan (1) Acute generalized abdominal pain: Plan: present for about 1 week. her acute pain is different in location & quality than her chronic pain. her acute illness has been associated with acute on chronic abnormal LFTs. she has had diarrhea this week off/on. etiology of acute pain?? there had been some discussion about a passed gallstone a couple of days ago but if that is true her pain should have resolved at this point. PUD? has had ulcers in the past (gastric ulcers - 09/2021 - requiring intervention on EGD). gastritis? some sort of GI illness - but stool Biofire negative. checked cdiff - also negative. checked COVID-19 - negative. appreciate gen surg consultation. appreciate GI consultation. Agree with PPI twice daily to cover PUD / gastritis. Added carafate qid. Repeat LFTs stable. Lipase has been negative. For completeness, in light of chronic abd pain, obtained mesenteric duplex study -- this was wnl. Continue creon TID w/ meals. This is a chronic med. Will make NPO at midnight tonight in the event she needs an EGD to exclude PUD, etc. will d/w [facility] in am. (2) Chronic abdominal pain: Plan: x 5 years. biliary in etiology? 2nd chronic pancreatitis? (imaging studies with atrophy but no calcifications, however) gastritis from etoh abuse? other? Outpatient EUS has been discussed. ?elective cholecystectomy due to gallstones? PPI twice daily. QID carafate. Consider HIDA scan while here but defer for now. Will speak with GI in am - see #1 above. (3) Diarrhea: Plan: Stool Biofire negative. C diff negative. COVID negative. Is on her usual creon for pancreatic insufficiency. colchicine STOPPED as this causes diarrhea. diarrhea continues - cause?? since c diff is negative -- loperamide prn. (4) Elevated LFTs: Plan: CHRONIC Present since 2019 This coincides with pancytopenia Picture looks like someone with chronic liver disease - early cirrhosis? However, CT and u/s without anatomical features of such Agree with hepatitis w/u (hepB, C; smooth muscle ab, ALAN, etc) -- all labs pending Acute worsening of LFTs - passed gallstone? LFTs cont to improve to her "baseline," chronically elevated LFTs repeat LFTs in am (5) Cholelithiasis: Plan: no radiographic evidence of cholecystitis on multiple imaging studies appreciate GI and gen surg consultations outpatient gen surg f/u needed to discuss elective cholecystectomy (6) Pancytopenia: Plan: peripheral smear without suspicious features for bone marrow malignancy B12, TSH, folic acid wnl in 02/2023 2nd to liver disease? 2nd to etoh abuse? either way it is chronic going back 1-2 years will need serial CBCs mild-moderate neutropenia on CBC - cont neutropenic precautions CBC am (7) Hepatic steatosis: Plan: agree with hepatitis w/u repeat LFTs am (8) Lymphedema: Plan: chronic (9) Paroxysmal atrial fibrillation: Plan: follows [facility] cont metoprolol in the event she has GI bleeding (H/H have dropped mildly since admission) stop heparin drip and hold Eliquis for now (10) Gastric ulcer: Plan: 09/2021 - EGD confirmed with ongoing abd pain -- resumed PPI twice daily and added carafate QID (11) Exocrine pancreatic insufficiency: Plan: Creon with meals (12) Severe protein-calorie malnutrition: Plan: 125 pounds of weight loss over 5 years albumin is low at 3 etiology?? needs EGD, colonoscopy, etc (13) Alcohol dependence with physiological dependence: Plan: reports no etoh in 1 month thiamine supplementation folic acid supplementation (14) GERD (gastroesophageal reflux disease): Plan: PPI (15) Gout: Plan: office visit in 03/2023 with concerns for gout in feet uric acid at that time was >9 placed on once daily colchicine at that time will hold this could be contributing to GI tract symptoms (16) DVT prophylaxis: Plan: stop heparin drip and hold Eliquis - see above Plan pt requests we hold her bumex and ladactone for now - reasonable; she is not volume overloaded updated at bedside Admission and Anticipated Discharge Date Admission Date: June 22, 2023 Subjective continues with abdominal pain - not as severe - but still present still having diarrhea within minutes of eating she has the abdominal pain appetite is poor although she did tolerate the full liquids at bedside questions answered she is frustrated by the ongoing abdominal pain and abdominal symptoms fortunately no vomiting overnight Review of Systems Review of Systems: gen - no fevers or chills cv - no chest pain pulm - no dyspnea GI - no melena stool; no BRBPR Physical Exam Physical Exam: gen - obese, NAD mouth - MMM, no lesions, no thrush neck - no JVD heart - RRR, s1 s2, no murmur lungs - CTA b/l abd - soft, tender multiple locations especially the epigastric region, no distension, BS+, no peritoneal signs ext - lymphedema b/l legs about 1+ b/l, pulses 2+ b/l psych - a/o x 3 skin - mild pallor, no rash Results & Data Results & Data Vital Signs (Past 12 Hours) Vital Signs Temp Pulse Resp BP Pulse Ox O2 Del Method 06/25/23 14:42 36.7 C 84 16 99/60 L 98 Room Air Laboratory Results Laboratory Results - last 24 hr 06/24/23 06/25/23 06/25/23 20:44 06:42 08:49 WBC 2.38 L RBC 2.82 L Hgb 10.4 L Hct 29.6 L MCV 105.0 H MCH 36.9 H MCHC 35.1 RDW Std Deviation 58.4 H RDW Coeff of Ignacio 15.0 H Plt Count 56 L MPV 11.7 Immature Gran % (Auto) 0.0 Neut % (Auto) 29.9 Lymph % (Auto) 45.8 Bill[place] % (Auto) 20.6 Eos % (Auto) 2.9 Baso % (Auto) 0.8 Neut # (Auto) 0.71 L* Lymph # (Auto) 1.09 L Bill[place] # (Auto) 0.49 Eos # (Auto) 0.07 Baso # (Auto) 0.02 Immature Gran # (Auto) 0.00 L Polychromasia 1+ Hypochromasia Present Macrocytosis Present APTT 24.8 PTT Ratio 0.9 Sodium 139 Potassium 4.0 D Chloride 101 Carbon Dioxide 32 Anion Gap 6 BUN 13 Creatinine 1.13 Est Cr Clr Drug Dosing 56.2 Est GFR ( Amer) 56.6 Est GFR (Non-Af Amer) 48.9 BUN/Creatinine Ratio 11.5 Glucose 89 Calcium 8.2 L Total Bilirubin 2.2 H AST 104 H ALT 53 H Alkaline Phosphatase 134 H Total Protein 5.2 L Albumin 2.8 L Globulin 2.4 L Albumin/Globulin Ratio 1.2 Lipase 18 Stl C. diff Tox B Gene Negative Cdiff Gene SARS-CoV-2 (PCR) NEGATIVE PG Care Time/CCT Total # of Minutes Spent Total Time Spent with Patient: Total time spent is greater than 50% in coordination of care (as documented) at patient's floor/unit and/or counseling patient: Coding Level of Care Code 30349 SUB INP/OBS CARE 3/50MIN Diagnoses Acute generalized abdominal pain R10.84 Chronic abdominal pain R10.9; G89.29 Diarrhea R19.7 Elevated LFTs R79.89 Cholelithiasis K80.20 Biliary obstruction: without biliary obstruction Cholecystitis presence: without cholecystitis Cholelithiasis location: gallbladder Pancytopenia D61.818 Hepatic steatosis K76.0 Lymphedema I89.0 Paroxysmal atrial fibrillation I48.0 Gastric ulcer K25.9 Exocrine pancreatic insufficiency K86.81 Severe protein-calorie malnutrition E43 Alcohol dependence with physiological dependence F10.20 GERD (gastroesophageal reflux disease) K21.9 Gout M10.9 DVT prophylaxis Z29.9 (5) Cholelithiasis Biliary obstruction: without biliary obstruction Cholecystitis presence: without cholecystitis Cholelithiasis location: gallbladder Qualified Code(s): K80.20 - Calculus of gallbladder without cholecystitis without obstruction
[2023-06-26] MEDS: LOPERAMIDE HCL 2 MG CAP PO PRN ×2 (02:20→06:20)
[2023-06-26 07:39] LABS: Hematocrit (blood only) 30.9 % (37.0-47.0); Hemoglobin 10.7 g/dl (12.0-16.0); Mean Corpuscular Hgb Conc 34.6 g/dL (32.0-36.0); Mean Corpuscular Volume 106.9 fL (80.0-100.0); Mean Platelet Volume 11.7 fL (9.4-12.4); Platelet Count 53 K/uL (130-400); RDW Coefficient of Variation 14.9 % (11.5-14.5); RDW Standard Deviation 58.6 fL (36.4-46.3); Red Blood Count 2.89 M/uL (4.20-5.40)
[2023-06-26 07:55] LABS: Polychromasia 1+; Target Cells 1+
[2023-06-26 07:58] LABS: Basophils # (auto) 0.01 K/uL (0.00-0.20); Basophils % (auto) 0.5 %; Eosinophils # (auto) 0.11 K/uL (0.00-0.50); Lymphocytes # (auto) 0.96 K/uL (1.20-3.40); Lymphocytes % (auto) 43.6 %; Monocytes # (auto) 0.46 K/uL (0.11-0.59); Monocytes % (auto) 20.9 %; Neutrophils # (auto) 0.66 K/uL (1.40-6.50)
[2023-06-26] MEDS: CIPROFLOXACIN 500 MG TAB PO SCH (08:14)
[2023-06-26] MEDS: PANTOprazole 40 MG TAB PO SCH ×2 (08:14→19:35)
[2023-06-26] MEDS: PANCREAZE (LIPASE 10,500U) CAP PO SCH ×3 (08:14→17:09)
[2023-06-26] MEDS: METOPROLOL TARTRATE 25 MG TAB PO SCH (08:16)
[2023-06-26] MEDS: SUCRALFATE 1 GM/10 ML UDC PO SCH ×4 (08:17→19:35)
[2023-06-26 08:39] LABS: Albumin Globulin Ratio 1.2 (0.9-2); Albumin Level 2.8 gm/dl (3.4-5.0); BUN Creatinine Ratio 9.6 (10-20); Bilirubin,Total 2.2 mg/dl (0.2-1.0); Calcium 7.8 mg/dl (8.6-10.3); Creatinine Clr Calc Pharmacy 55.2 ml/min; Est GFR (African American) 55.4 ml/min; Est GFR (Non-African American) 47.8 ml/min; Globulin 2.4 gm/dl (2.5-4.0); Potassium 3.3 mmol/L (3.5-5.1); Total Protein 5.2 gm/dl (6.0-8.3)
[2023-06-26] MEDS ORDERED: POTASSIUM CHLORIDE CRTAB 20 MEQ TABCR PO STA ×2 (09:32→21:16)
--- NOTE | 2023-06-26 10:24 | Gastroenterology Progress Note ---
Date of Service June 26, 2023 Assessment & Plan (1) Acute generalized abdominal pain: (2) Diarrhea: Plan Discussed case with Dr. Daniels who helped advise on plan. I also discussed with Dr. Dawn. - EGD unlikely to change what we are doing and she tells me she feels signifi cantly better with combination carafate and protonix. she is not interested in EGD. - continue with carafate 1 gm qid and protonix 40mg bid. - I reviewed case with Dr. Alberts of [facility] GI team since they had recommended EUS earlier in admission for possible biliary issues. They still recommend outpatient EUS at this time. - I discussed with the patient about having a KUB to assess symptoms but she does not want additional testing at this time. - okay from GI standpoint to advance diet as tolerated. Admission and Anticipated Discharge Date Admission Date: June 22, 2023 Supervising Physician Co-Signing Physician Notes patient discharged before i could see her. Subjective GI asked to reevaluate the patient today. She tells me she feels significantly better than previous. she tells me her abdominal pain is only 1/10 on the pain scale. She feels the combination of protonix and carafate has helped. currently she is NPO in case EGD was needed. She does not wish to proceed with this. she admits to some diarrhea since inpatient but biofire and c diff testing has been negative. she feels this may have been antibiotic related. she tells me that flagyl had similar effect on her in the past. she feels diarrhea is somewhat better today. she tells me she is not interested in testing but rather wants to see how she does with advancing diet. Review of Systems Review of Systems: All systems reviewed & are unremarkable except as noted in HPI & below Physical Exam Constitutional: WD/WN, vitals as above Respiratory: normal respiratory effort, lungs clear to auscultation Cardiovascular: RRR, no murmur, no edema Gastrointestinal (Abdomen): normal bowel sounds, soft, nontender, no hepatosplenomegaly Musculoskeletal: using walker to ambulate. Skin: no rashes, warm and dry Psychiatric: Orientation: alert and oriented x 3 Affect: euthymic affect Results & Data Results & Data Vital Signs (Past 12 Hours) Vital Signs Temp Pulse Resp BP Pulse Ox O2 Del Method 06/26/23 08:04 97.5 F L 72 16 90/50 L 98 Room Air PG Care Time/CCT Total # of Minutes Spent Total Time Spent with Patient: Total time spent is greater than 50% in coordination of care (as documented) at patient's floor/unit and/or counseling patient: Coding Level of Care Code 97424 SUB INP/OBS CARE 2/35MIN Diagnoses Acute generalized abdominal pain R10.84 Diarrhea R19.7 Time Spent (min) 39
[2023-06-26 10:47] LABS: Magnesium 0.7 mg/dl (1.7-2.4)
[2023-06-26] MEDS: MAGNESIUM SULFATE / D5W 1 GM/100 ML BAG IV SCH ×4 (11:05→17:08)
[2023-06-26] MEDS: FOLIC ACID 1 MG TAB PO SCH (14:33)
[2023-06-26 14:57] LABS: Anti Mitochondrial Antibody NEGATIVE (NEGATIVE); HBSAG NON-REACTIVE (NON-REACTIVE); Hepatitis A Antibody IgM NON-REACTIVE (NON-REACTIVE); Hepatitis B Core Antibody IgM NON-REACTIVE (NON-REACTIVE); Smooth Muscle Antibody NEGATIVE (NEGATIVE)
[2023-06-26 21:03] LABS: Magnesium 1.7 mg/dl (1.7-2.4); Potassium 3.3 mmol/L (3.5-5.1)
[2023-06-26] MEDS ORDERED: MAGNESIUM SULFATE / D5W 1 GM/100 ML BAG IV ONE (21:16)
--- NOTE | 2023-06-26 21:18 | Hospitalist Progress Note ---
Date of Service June 26, 2023 Assessment & Plan (1) Hypomagnesemia: Plan: SEVERE level of 0.7 earlier today s/p mag sulfate 4 grams IV x 1 repeat level post-infusion was 1.7 give 1 additional gram of mag repeat level in am replace low K stable on tele since transfer from med/surg etiology? suspect etoh abuse, chronic bumex, and recent diarrhea all contributing would send home with mag supplement at discharge (2) Acute generalized abdominal pain: Plan: present for about 1 week. her acute pain is different in location & quality than her chronic abdominal pains (acute - upper abdomen in location; chronic pain - lower). her acute illness also has been associated with acute/chronic abnormal LFTs. she has had diarrhea this week on and off. etiology of acute pain?? suspect PUD and/or gastritis. pain has resolved with PPI twice daily + carafate qid. of note - she had gastric ulcers in 09/2021 confirmed with EGD. appreciate gen surg consultation. appreciate GI consultation. Cont PPI twice daily to cover PUD / gastritis. Added carafate qid - at discharge would sent out on ~1 week of Rx then stop. Repeat LFTs today stable. Lipase has been negative. For completeness, in light of chronic abd pain, obtained mesenteric duplex study -- this was wnl. Continue creon TID w/ meals. This is a chronic med. EGD deferred by [facility] today since pain is resolved with antacids as noted above. (3) Chronic abdominal pain: Plan: x 5 years. biliary in etiology? 2nd chronic pancreatitis? (imaging studies with atrophy but no calcifications, however) gastritis from etoh abuse? other? combination of factors?? Outpatient EUS has been discussed. This would be performed by [facility]. ?elective cholecystectomy due to gallstones? Gen surg recommends f/u with them in clinic to discuss candidacy for lap quinn. Cont PPI twice daily and QID carafate for suspected PUD/gastritis. [facility]. (4) Diarrhea: Plan: Stool Biofire negative. C diff negative. COVID negative. Is on her usual creon for pancreatic insufficiency. colchicine STOPPED as this causes diarrhea. diarrhea continues - cause?? perhaps abx-associated (is on abx for UTI). stop antibiotics. since c diff is negative -- loperamide prn. (5) Elevated LFTs: Plan: CHRONIC Present since 2019 This coincides with pancytopenia Picture looks like someone with chronic liver disease - early cirrhosis? However, CT and u/s without anatomical features of such Agree with hepatitis w/u (hepB, C; smooth muscle ab, ALAN, etc) Infectious hep profile returned negative; await other labs Acute worsening of LFTs - passed gallstone? LFTs cont to improve to her "baseline," chronically elevated LFTs repeat LFTs in am (6) Cholelithiasis: Plan: no radiographic evidence of cholecystitis on multiple imaging studies appreciate GI and gen surg consultations outpatient gen surg f/u needed to discuss elective cholecystectomy (7) Pancytopenia: Plan: peripheral smear without suspicious features for bone marrow malignancy B12, TSH, folic acid wnl in 02/2023 2nd to liver disease? 2nd to etoh abuse? either way it is chronic going back 1-2 years serial CBCs mild-moderate neutropenia on CBC - cont neutropenic precautions recommended to her today she see hematology post-d/c for additional work-up (8) Hepatic steatosis: Plan: await hepatitis w/u repeat LFTs am (9) Lymphedema: Plan: chronic holding bumex/aldactone for now (10) Paroxysmal atrial fibrillation: Plan: follows [facility] cont metoprolol Eliquis on hold as platelets are low 50s today repeat CBC in am (11) Gastric ulcer: Plan: 09/2021 - EGD confirmed with ongoing abd pain -- resumed PPI twice daily and added carafate QID see discussion above (12) Exocrine pancreatic insufficiency: Plan: Creon with meals (13) Severe protein-calorie malnutrition: Plan: 125 pounds of weight loss over 5 years albumin is low at 3 etiology?? needs EGD, colonoscopy, etc (14) Alcohol dependence with physiological dependence: Plan: reports no etoh in 1 month thiamine supplementation folic acid supplementation (15) GERD (gastroesophageal reflux disease): Plan: PPI (16) Gout: Plan: office visit in 03/2023 with concerns for gout in feet uric acid at that time was >9 placed on once daily colchicine at that time will hold this could be contributing to GI tract symptoms (17) DVT prophylaxis: Plan: stopped heparin drip and holding Eliquis - platelets only 53 today (18) UTI (urinary tract infection): Plan: 2nd e.coli s/p course of antibiotics stop all abx Rx Plan updated at bedside yesterday replace low mag replace low K if she feels well tomorrow and electrolytes/other labs are stable can d/c home Admission and Anticipated Discharge Date Admission Date: June 22, 2023 Subjective patient reports her abdominal pains are SIGNIFICANTLY better today I had asked GARRETT ROWLAND to re-eval her today to see if EGD was needed as she had ongoing abd pain all weekend however, when GI met w/ her this am, her pain was much better - thus, EGD deferred she states "this is the first time in 5 years that I don't have pain" she was anticipating d/c home today but mag level was checked because of persistent hypokalemia and mag found to be 0.7 transferred to telemetry from med/surg 4 grams mag sulfate ordered I saw the patient on tele while she was receiving her IV mag again she reports feeling much better still some diarrhea but not severe tolerating diet no new complaints Review of Systems Review of Systems: gen - tolerating low fat diet cv - no chest pain, no orthopnea pulm - no dyspnea at rest, no cough GI - abd pain resolved; no nausea; some diarrhea overnight Physical Exam Physical Exam: gen - obese, NAD, best she has looked since admission mouth - MMM, no lesions, no thrush neck - no JVD heart - RRR, s1 s2, no murmur lungs - CTA b/l abd - soft, nontender, nondistended, BS+, no peritoneal signs ext - lymphedema b/l legs <1+ b/l, pulses 2+ b/l psych - a/o x 3 skin - mild pallor, no rash Results & Data Results & Data Vital Signs (Past 12 Hours) Vital Signs Temp Pulse Pulse Resp BP BP Pulse Ox 06/26/23 20:33 36.8 C 80 18 105/66 96 06/26/23 16:06 36.4 C L 81 16 107/75 93 06/26/23 15:13 87 06/26/23 13:47 36.8 C 80 14 116/68 96 O2 Del Method 06/26/23 20:33 Room Air 06/26/23 16:06 Room Air 06/26/23 15:13 06/26/23 13:47 Room Air Laboratory Results Laboratory Results - last 24 hr 06/23/23 06/26/23 06/26/23 03:44 07:12 20:26 WBC 2.20 L RBC 2.89 L Hgb 10.7 L Hct 30.9 L MCV 106.9 H MCH 37.0 H MCHC 34.6 RDW Std Deviation 58.6 H RDW Coeff of Ignacio 14.9 H Plt Count 53 L MPV 11.7 Immature Gran % (Auto) 0.0 Neut % (Auto) 30.0 Lymph % (Auto) 43.6 [place] % (Auto) 20.9 Eos % (Auto) 5.0 Baso % (Auto) 0.5 Neut # (Auto) 0.66 L* Lymph # (Auto) 0.96 L Sanders # (Auto) 0.46 Eos # (Auto) 0.11 Baso # (Auto) 0.01 Immature Gran # (Auto) 0.00 L Polychromasia 1+ Target Cells 1+ Sodium 140 Potassium 3.3 L 3.3 L Chloride 99 Carbon Dioxide 34 H Anion Gap 7 BUN 11 Creatinine 1.15 Est Cr Clr Drug Dosing 55.2 Est GFR ( Amer) 55.4 Est GFR (Non-Af Amer) 47.8 BUN/Creatinine Ratio 9.6 L Glucose 104 H Calcium 7.8 L Magnesium 0.7 L* 1.7 Total Bilirubin 2.2 H AST 80 H ALT 45 Alkaline Phosphatase 127 H Total Protein 5.2 L Albumin 2.8 L Globulin 2.4 L Albumin/Globulin Ratio 1.2 Anti-Mitochondrial Ab NEGATIVE Anti-Smooth Muscle Ab NEGATIVE Hepatitis A IgM Ab NON-REACTIVE Hep Bs Antigen NON-REACTIVE Hep Bs Ag Confirmation TNP Hep B Core IgM Ab NON-REACTIVE Hepatitis C Ab (EIA) NON-REACTIVE PG Care Time/CCT Total # of Minutes Spent Total Time Spent with Patient: Total time spent is greater than 50% in coordination of care (as documented) at patient's floor/unit and/or counseling patient: Coding Level of Care Code 73859 SUB INP/OBS CARE 3/50MIN Diagnoses Hypomagnesemia E83.42 Acute generalized abdominal pain R10.84 Chronic abdominal pain R10.9; G89.29 Diarrhea R19.7 Elevated LFTs R79.89 Cholelithiasis K80.20 Biliary obstruction: without biliary obstruction Cholecystitis presence: without cholecystitis Cholelithiasis location: gallbladder Pancytopenia D61.818 Hepatic steatosis K76.0 Lymphedema I89.0 Paroxysmal atrial fibrillation I48.0 Gastric ulcer K25.9 Exocrine pancreatic insufficiency K86.81 Severe protein-calorie malnutrition E43 Alcohol dependence with physiological dependence F10.20 GERD (gastroesophageal reflux disease) K21.9 Gout M10.9 DVT prophylaxis Z29.9 UTI (urinary tract infection) N39.0 (6) Cholelithiasis Biliary obstruction: without biliary obstruction Cholecystitis presence: without cholecystitis Cholelithiasis location: gallbladder Qualified Code(s): K80.20 - Calculus of gallbladder without cholecystitis without obstruction
[2023-06-27 03:44] LABS: Babesia microti DNA Not Detected (Not Detected)
[2023-06-27] MEDS: PANTOprazole 40 MG TAB PO SCH (07:45)
[2023-06-27] MEDS: PANCREAZE (LIPASE 10,500U) CAP PO SCH ×2 (07:45→12:25)
[2023-06-27] MEDS: SUCRALFATE 1 GM/10 ML UDC PO SCH ×2 (07:46→12:25)
[2023-06-27] MEDS: FOLIC ACID 1 MG TAB PO SCH (07:46)
[2023-06-27 08:44] LABS: Hematocrit (blood only) 31.5 % (37.0-47.0); Hemoglobin 10.8 g/dl (12.0-16.0); Mean Corpuscular Hemoglobin 36.6 pg (25.0-34.0); Mean Corpuscular Hgb Conc 34.3 g/dL (32.0-36.0); Mean Corpuscular Volume 106.8 fL (80.0-100.0); Mean Platelet Volume 11.2 fL (9.4-12.4); Platelet Count 54 K/uL (130-400); RDW Standard Deviation 59.3 fL (36.4-46.3); Red Blood Count 2.95 M/uL (4.20-5.40); White Blood Count 2.38 K/ul (4.8-10.8)
[2023-06-27 08:54] LABS: Albumin Globulin Ratio 1.2 (0.9-2); BUN Creatinine Ratio 9.1 (10-20); Bilirubin,Total 2.1 mg/dl (0.2-1.0); Calcium 8.5 mg/dl (8.6-10.3); Creatinine Clr Calc Pharmacy 63.4 ml/min; Est GFR (African American) 66.4 ml/min; Est GFR (Non-African American) 57.3 ml/min; Globulin 2.5 gm/dl (2.5-4.0); Magnesium 1.7 mg/dl (1.7-2.4); Potassium 3.7 mmol/L (3.5-5.1); Total Protein 5.5 gm/dl (6.0-8.3)
[2023-06-27 09:06] LABS: Target Cells 2+
[2023-06-27 09:07] LABS: Basophils # (auto) 0.02 K/uL (0.00-0.20); Basophils % (auto) 0.8 %; Eosinophils # (auto) 0.12 K/uL (0.00-0.50); Lymphocytes # (auto) 0.87 K/uL (1.20-3.40); Lymphocytes % (auto) 36.6 %; Monocytes # (auto) 0.55 K/uL (0.11-0.59); Monocytes % (auto) 23.1 %; Neutrophils # (auto) 0.82 K/uL (1.40-6.50); Neutrophils % (auto) 34.5 %
[2023-06-27] MEDS ORDERED: MAGNESIUM SULFATE / D5W 1 GM/100 ML BAG IV ONE (09:24)
--- NOTE | 2023-06-27 19:58 | Discharge Summary ---
Date of Service June 27, 2023 Admission HPI Per Admitting Provider Keri is a 72-year-old female who presented with nausea/vomiting, transaminitis, and an elevated bilirubin. CT shows prominence of the gallbladder wall with numerous stones. She is recommended for admission for s uspected choledocholithiasis. On reassessment patient has had significant improvement in her abdominal pain. She reports that she has a long history of abdominal pain and has been on pancreatic enzymes for her pancreas, but does not know if she is ever actually had pancreas by CT criteria. She has followed with GI for intermittent low- grade transaminitis and hepatic steatosis in the past, reports that she is not had any alcohol use in over 30 days. Patient was recommended to have follow-up including hepatitis, ferritin, CMP, and autoimmune labs however had declined this at last follow-up. She reports that her pain has been worse for around a week or 2 but suddenly increased to at least a 5-6 out of 10 and was intolerable with nausea and was worsened with meals which caused her to present to the ER today. Initially was suspected to have acute cholecystitis by CT and elevated transaminitis however MRCP does not show emesis over this. This was discussed with patient at bedside. DDx includes past biliary stone, biliary sclerosis. GI consulted and will see. Patient denies chest pain, chest pressure, fever, chills, sweats. Denies bloody emesis. Denies melena/bright blood per rectum Principal Diagnosis abdominal pain nausea and vomiting resolved with GERD/gastritis treatment, abnormal LFT, hepatic steatosis suspicious for cirrhosis, cholelithiasis, Discharge Exam PHYSICAL EXAMINATION Last 24h vital signs reviewed, see documentation in flowsheet General: comfortable appearing, no distress, sitting up in bed looks well HEENT: Normocephalic, atraumatic, pupils round and equal, sclerae anicteric, no conjunctival injection, moist mucus membranes Lungs: Normal respiratory effort. Clear to auscultation bilaterally. No RRW Heart: Regular rate and rhythm, no murmurs. No JVD Abdomen: Soft, nontender, nondistended. Bowel sounds present. Extremities: Warm, dry, well-perfused. No extremity edema. Neuro: Alert and oriented x 4, face symmetric, moves 4 extremities well Psych: Normal affect and behavior Discharge Data Allergies Allergy/AdvReac Type Severity Reaction Status Date / Time liraglutide Allergy Intermediate HIVES Verified 03/14/23 16:46 phenol Allergy Intermediate HIVES Verified 03/14/23 16:46 pregabalin Allergy Intermediate HIVES Verified 03/14/23 16:46 propylene glycol Allergy Intermediate HIVES Verified 03/14/23 16:46 sulfamethoxazole Allergy Mild Unknown Verified 06/22/23 21:43 [From Bactrim] trimethoprim [From Bactrim] Allergy Mild Unknown Verified 06/22/23 21:43 nickel Allergy Unknown Rash Verified 03/14/23 16:46 Consultations 06/22/23 16:25 Consult Gastroenterology Routine 06/22/23 16:27 ED Decision to Admit Stat 06/23/23 10:59 Consult General Surgery Routine Ordered Studies 06/22/23 14:45 CT abd pelvis IV con only Stat 06/22/23 16:00 US gallbladder Stat 06/22/23 16:25 MR MRCP Stat 06/25/23 US duplex mesenteric Routine Chest X-Ray 06/22/23 12:48 XR chest 1V not portable CLINICAL HISTORY: generalized weakness TECHNIQUE: Single frontal radiograph of the chest was obtained. Comparison: None available at the time of this dictation. FINDINGS: No lines and tubes are seen. The cardiomediastinal silhouette is normal. The lungs are clear. No evidence of pleural effusion or pneumothorax. IMPRESSION: No acute chest disease. ACT 112: Negative or not required by law. Electronically signed by: Richy Ortiz M.D. 06/22/2023 1:23 PM Abdomen/Pelvis CT 06/22/23 14:45 CT abd pelvis IV con only CLINICAL HISTORY: upper ab pain; transaminitis TECHNIQUE: Helical axial images of the abdomen and pelvis were obtained and displayed. Automated dose lowering techniques and/or adjustment according to patient size were utilized for this exam. This exam was performed with intravenous contrast. CT DOSE: 1394.82 mGy.cm COMPARISON: Comparison is made to CT abdomen pelvis 10/02/2021 FINDINGS: Lower chest: No acute abnormality. Liver: Hepatic steatosis is noted. Gallbladder and biliary tree: No calcified gallstones. Normal caliber wall. Gallbladder wall measures approximately 3 mm in diameter with the appearance of numerous dependent stones. No pericholecystic fluid is seen. Pancreas: Unremarkable, no focal lesions. Spleen: Unremarkable. Adrenals: Unremarkable. Kidneys and ureters: Perinephric stranding is noted bilaterally. Bladder: Limited evaluation due to underdistention. Reproductive organs: Right ovarian cyst is seen. Bowel: Diverticulosis is seen without evidence of diverticulitis. The appendix is unremarkable. Lymph nodes Retroperitoneal: Unremarkable. Pelvic: Unremarkable. Mesenteric: Unremarkable. Peritoneum: Normal. Vessels: Atherosclerotic calcifications are seen. Abdominal wall: Unremarkable. Bones: Degenerative changes in the visualized spine. Bilateral lower hip arthroplasties noted. IMPRESSION: 1. Prominence of gallbladder wall is noted with numerous gallstones. A few polyps cannot be excluded. Clinical correlation is recommended for acute cholecystitis. 2. Hepatic steatosis. 3. Otherwise no acute abnormalities and in particular no evidence of bowel obstruction. ACT 112: Negative or not required by law. Electronically signed by: Richy Ortiz M.D. 06/22/2023 3:34 PM Gallbladder Ultrasound 06/22/23 16:00 US gallbladder CLINICAL HISTORY: r/o acute quinn TECHNIQUE: Multiple real-time sonographic images of the right upper quadrant were obtained. Comparison: Comparison is made to CT abdomen pelvis 06/22/2023 FINDINGS: The liver is diffusely echogenic in appearance with poor ultrasound penetration, with normal contour, which is consistent with fatty infiltration. No focal mass lesions are seen. No intrahepatic ductal dilatation is seen. Linear hyperechoic foci with posterior shadowing are identified layering dependently within the gallbladder, which are consistent with gallstones. The gallbladder wall is not thickened. There is no pericholecystic fluid present. Stones are suggested in the gallbladder neck. A sonographic Lala's sign was not elicited by the termite technician. The common duct measures 0.8 cm in diameter at the level of the hepatic artery. The visualized portions of the pancreas appear normal. The right kidney shows normal echogenicity, cortical thickness and renal contour. The right kidney shows no evidence of hydronephrosis or mass. No ascites or free fluid is seen in Ramsay's pouch. IMPRESSION: 1. Gallstones are seen in the gallbladder and gallbladder neck without evidence of acute cholecystitis. 2. Hepatic steatosis. ACT 112: Negative or not required by law. Electronically signed by: Richy Ortiz M.D. 06/22/2023 6:11 PM Cholangiopancreatography MRI 06/22/23 16:25 MR MRCP CLINICAL HISTORY: eval transaminitis; r/o biliary obstruction TECHNIQUE: Multiplanar multisequence MR images of the abdomen were obtained, as per MRCP protocol. . COMPARISON: Comparison is made to CT abdomen pelvis 06/22/2023 FINDINGS: Lower chest: No acute abnormality Liver: Unremarkable. No focal lesions are seen. Gallbladder and biliary tree: Cholelithiasis is seen without evidence of cholecystitis. No intra- or extrahepatic biliary ductal dilation. Pancreas: Unremarkable, no focal lesions. Spleen: Unremarkable. Adrenals: Unremarkable. Kidneys and ureters: Unremarkable. Bowel: Unremarkable. Lymph nodes Retroperitoneal: Unremarkable. Mesenteric: Unremarkable. Peritoneum: Normal Vessels: Unremarkable. Abdominal wall: Unremarkable. Bones: Unremarkable. IMPRESSION: Cholelithiasis is seen without cholecystitis. ACT 112: Negative or not required by law. Electronically signed by: Richy Ortiz M.D. 06/22/2023 6:52 PM Mesenteric US 06/25/23 00:00 US duplex mesenteric CLINICAL HISTORY: postprandial abd pain COMPARISON STUDY: MRCP 06/22/2023. FINDINGS: The systolic velocity within the celiac artery is 148 cm/s and the superior mesenteric artery is 165 cm/s. The inferior mesenteric artery was not identified due to overlying bowel gas. Aortic systolic velocity 83 cm/s. The splenic artery demonstrates a peak systolic velocity of 103 cm/s. No evidence for arterial occlusion. IMPRESSION: No significant stenosis or occlusion within the celiac or superior mesenteric arteries. ACT 112: Negative or not required by law. Electronically signed by: Vineet Bateman M.D. 06/25/2023 8:13 AM 06/27/23 06/26/23 06/22/23 Range/Units 08:18 20:26 15:45 WBC 2.38 L (4.8-10.8) K/ul RBC 2.95 L (4.20-5.40) M/uL Hgb 10.8 L (12.0-16.0) g/dl Hct 31.5 L (37.0-47.0) % MCV 106.8 H (80.0-100.0) fL MCH 36.6 H (25.0-34.0) pg MCHC 34.3 (32.0-36.0) g/dL RDW Std Deviation 59.3 H (36.4-46.3) fL RDW Coeff of Ignacio 15.0 H (11.5-14.5) % Plt Count 54 L (130-400) K/uL MPV 11.2 (9.4-12.4) fL Immature Gran % (Auto) 0.0 % Neut % (Auto) 34.5 % Lymph % (Auto) 36.6 % Brown % (Auto) 23.1 % Eos % (Auto) 5.0 % Baso % (Auto) 0.8 % Neut # (Auto) 0.82 L* (1.40-6.50) K/uL Lymph # (Auto) 0.87 L (1.20-3.40) K/uL Brown # (Auto) 0.55 (0.11-0.59) K/uL Eos # (Auto) 0.12 (0.00-0.50) K/uL Baso # (Auto) 0.02 (0.00-0.20) K/uL Immature Gran # (Auto) 0.00 L (0.01-0.20) K/uL Target Cells 2+ Sodium 138 (136-145) mmol/L Potassium 3.7 3.3 L (3.5-5.1) mmol/L Chloride 100 (98-107) mmol/L Carbon Dioxide 32 (21-32) mmol/L Anion Gap 6 (3-11) BUN 9 (6-23) mg/dl Creatinine 0.99 (0.6-1.2) mg/dl Est Cr Clr Drug Dosing 63.4 ml/min Est GFR ( Amer) 66.4 ml/min Est GFR (Non-Af Amer) 57.3 ml/min BUN/Creatinine Ratio 9.1 L (10-20) Glucose 122 H (70-99(Fasting)) mg/dl Calcium 8.5 L (8.6-10.3) mg/dl Magnesium 1.7 1.7 (1.7-2.4) mg/dl Total Bilirubin 2.1 H (0.2-1.0) mg/dl AST 69 H (13-39) U/L ALT 41 (7-52) U/L Alkaline Phosphatase 136 H (34-104) U/L Total Protein 5.5 L (6.0-8.3) gm/dl Albumin 3.0 L (3.4-5.0) gm/dl Globulin 2.5 (2.5-4.0) gm/dl Albumin/Globulin Ratio 1.2 (0.9-2) Babesia microti DNA PCR Not Detected (Not Detected) Hospital Course (1) Acute generalized abdominal pain: present for about 1 week. her acute pain is different in location & quality than her chronic abdominal pains (acute - upper abdomen in location; chronic pain - lower). her acute illness also has been associated with acute/chronic abnormal LFTs. she has had diarrhea this week on and off. suspect PUD and/or gastritis. pain has resolved with PPI twice daily + carafate qid. -colchicine may also have been aggravating the GI symptoms, especially diarrhea - stopped of note - she had gastric ulcers in 09/2021 confirmed with EGD. appreciate gen surg consultation. appreciate GI consultation. Cont PPI twice daily to cover PUD / gastritis. Added carafate qid - at discharge sent out on ~1 week of Rx then stop. Serial LFTs stable. Lipase has been negative. For completeness, in light of chronic abd pain, obtained mesenteric duplex study -- this was wnl. Continue creon TID w/ meals. This is a chronic med. [place] [facility] since pain was resolved with antacids as noted above. (2) Hypomagnesemia: SEVERE with low of 0.7. Multifactorial including low oral intake, nausea/vomiting/diarrhea. Stated that she drinks very little alcohol recently Required multiple IV replacements. Hypokalemia also replaced. Discharged with oral magnesium supplement -recommend repeat BMP and Mag check later this week and one week later if necessary - message sent to primary care (3) Chronic abdominal pain: x 5 years. biliary in etiology? 2nd chronic pancreatitis? (imaging studies with atrophy but no calcifications, however) gastritis from etoh abuse? other? combination of factors?? Outpatient EUS has been discussed. This would be performed by [facility]. consider elective cholecystectomy due to gallstones? Gen surg recommends f/u with them in clinic to discuss candidacy for lap quinn. -MRCP and abdominal US showed cholelithiasis without biliary obstruction or e vidence of acute cholecystitis Cont PPI twice daily and QID carafate for suspected PUD/gastritis. [facility] post-discharge. (4) Diarrhea: Stool Biofire negative. C diff negative. COVID negative. Is on her usual creon for pancreatic insufficiency. colchicine STOPPED as this causes diarrhea. (5) Elevated LFTs: CHRONIC Present since 2019 This coincides with pancytopenia Picture looks like someone with chronic liver disease - early cirrhosis? However, CT and u/s without anatomical features of such Hepatitis workup unremarkable - Hep B/C, asma, anti mitochondrial antibody negative, recent ALAN negative Suspect hepatic steatosis due to combination of ALD and NAFLD - significant alcohol history though states she has reduced it to very little, has abdominal obesity though recent weight loss is significant -counseled to avoid all alcohol (6) Cholelithiasis: no radiographic evidence of cholecystitis on multiple imaging studies appreciate GI and gen surg consultations outpatient gen surg f/u needed to discuss elective cholecystectomy (7) Pancytopenia: peripheral smear without suspicious features for bone marrow malignancy B12, TSH, folic acid wnl in 02/2023 chronic pancytopenia going back 1-2 years based on lab review could be related to underlying cirrhosis, but suspect worsened recently related to effect of colchicine on bone marrow - stopped ANC slightly improved to 850 and platelets stable around 50 -apixaban held until/unless platelet count improves -instructed return to ED if any fever or symptoms of infection until ANC recovers -recommend follow up CBC with diff later this week as outpatient and in 1 week following if necessary -outpatient referral to hematology was made (8) Hepatic steatosis: (9) Lymphedema: (10) Paroxysmal atrial fibrillation: [place] [facility] cont metoprolol apixaban held until platelet count improved at least into 70s. risk outweighs benefit at this time (11) Gastric ulcer: 09/2021 - EGD confirmed with ongoing abd pain -- resumed PPI twice daily and added carafate QID see discussion above (12) Exocrine pancreatic insufficiency: Creon with meals (13) Severe protein-calorie malnutrition: 125 pounds of weight loss over 5 years albumin is low at 3 etiology?? needs EGD, colonoscopy, etc (14) Alcohol dependence with physiological dependence: reports no etoh in 1 month thiamine supplementation folic acid supplementation (15) GERD (gastroesophageal reflux disease): PPI (16) Gout: office visit in 03/2023 with concerns for gout in feet uric acid at that time was >9 placed on once daily colchicine at that time colchicine stopped because of likely GI and bone marrow toxicity (17) UTI (urinary tract infection): e.coli on urine culture s/p course of antibiotics Plan Total Time Total Time Spent Total Time Spent (In Minutes): 50 minutes spent coordinating care for discharge Discharge Plan Discharge Items Patient Disposition: Home - Self-Care Reason For Visit: ABD PAIN, TRANSAMINITIS Discharge Diagnosis: abdominal pain and diarrhea, pancytopenia, abnormal LFTs suspect cirrhosis, hypokalemia, hypomagnesemia Activity: Resume your previous activity Non-emergency contact: Primary Care Provider Call non-emergency contact if: you have any medication questions and your symptoms worsen Follow-up/Referrals: Anthony Argueta DO [Physician] - 07/12/23 9:15 am (Appt. scheduled with Dr. Argueta for 07/12/23 @9:15am) Alicia Alberts DO [Physician] - (PLEASE CALL PRIMARY CARE PROVIDER TO SET UP APPT. 7-10 DAYS AFTER DISCHARGE) Tushar Castillo MD [Primary Care Provider] - 07/05/23 11:30 am (APPT. SCHEDULED WITH DR. CASTILLO FOR HOSPITAL FOLLOW UP 07/05/23 @11:30) Diet: Regular Addtl Attending Provider Instructions: Dear Ms Chapman, You were treated empirically for gastritis with carafate and pantoprazole and stomach pain resolved -take the carafate for one week, then continue taking nexium (esomeprazole) twice a day alone after that -there could be underlying stomach ulcers -you have fatty liver and might have liver cirrhosis - continue to avoid all alcohol -follow up with [facility] for additional testing -follow up with general surgery to discuss whether to have your gallbladder removed You have low blood counts (pancytopenia) for many years, but they were worse than usual this week -cirrhosis can cause chronic low blood counts -I am suspicious that the colchicine was causing diarrhea and making your blood counts even worse. I advise you to STOP taking colchicine -I made a referral to convenience recycle center tech (blood specialist) to check on whether there is another explanation for your low blood counts - they should call you to schedule HOLD the eliquis and bumex until Dr. Castillo tells you it is okay to restart -eliquis is held because of low platelet count -bumex is held because of low potassium and magnesium. you will probably be able to restart this medicine if your labs are okay You also need to take a magnesium supplement - if it is giving you diarrhea you can try to decrease the dose a little bit. If you can't tolerate magnesium oxide because of diarrhea then you can try taking "slow-mag" instead. This type isn't usually covered by insurance but you can buy it over the counter at the [employer], [employer] or [employer] ([place]) Follow up with Dr. Castillo and get your labs checked late this week (CBC with differential, BMP, magnesium). I sent him a message about this. Nga Wong MD Pending Studies at Discharge: No Stand-Alone Forms: My [facility] [employer], Smoking Cessation Medications and DC Order Prescriptions: New loperamide 2 mg Capsule 2 mg PO Q4H PRN (Reason: diarrhea) Qty: 0 0RF Rx Instructions: buy over the counter, use as directed sucralfate 100 mg/mL Suspension 1 g PO QID 7 Days Qty: 280 0RF folic acid 1 mg Tablet 1 mg PO QAM Qty: 30 0RF magnesium oxide 400 mg magnesium tablet 400 mg PO DAILY Qty: 30 0RF Continued spironolactone 25 mg tablet 50 mg PO QAM Qty: 60 11RF potassium chloride 10 mEq tablet extended release 10 meq PO DAILY Qty: 30 11RF Creon 24,000-76,000 -120,000 unit capsule,delayed release(DR/EC) 2 cap PO BID Qty: 180 3RF Rx Instructions: administer with meals and/or snacks BHI Mucus Relief 1 tab sublingual TID Rx Instructions: SUB 3 TIMES A DAY cyanocobalamin (vitamin B-12) 500 mcg tablet 500 mcg PO QAM metoprolol tartrate 25 mg tablet 25 mg PO DAILY Patient Comments: PER PATIENT Centrum Women 18-400 mg-mcg tablet 0.5 tab PO DAILY Probiotic 1 cap PO QPM Changed esomeprazole magnesium [Nexium] 40 mg capsule,delayed release(DR/EC) 40 mg PO BID Qty: 60 0RF Held Eliquis 5 mg tablet 5 mg PO BID Qty: 60 11RF Hold Instructions: hold until Dr. Castillo says it is ok to restart it bumetanide 2 mg tablet 2 mg PO DAILY Qty: 30 2RF Hold Instructions: Hold until Dr. Castillo tells you it is ok to restart it Discontinued colchicine 0.6 mg tablet 0.6 mg PO DAILY Qty: 30 2RF Discharge Orders: Discharge Order (Routine); Ordered 06/27/23 Ordered By: Nga Lomeli/Other Patient Handouts: Treating Gallstones, Hypomagnesemia Dc, ED Gallstones with Biliary Colic Admission Data Admit Date/Time: 06/22/23 19:31 Attending Provider: Nga Wong Admit Provider: Preston Cordova Primary Care Provider: Tushar Castillo Other Providers: Thomas Vieyra; Preston Cordova; Anthony Argueta Other Interventions: Discharge Summary Assessment (RN) Last Done: 06/27/23 15:53 Coding Level of Care Code 74633 INP/OBS DISCH >30 MIN Diagnoses Acute generalized abdominal pain R10.84 Hypomagnesemia E83.42 Chronic abdominal pain R10.9; G89.29 Diarrhea R19.7 Elevated LFTs R79.89 Cholelithiasis K80.20 Cholelithiasis location: gallbladder Cholecystitis presence: without cholecystitis Biliary obstruction: without biliary obstruction Pancytopenia D61.818 Hepatic steatosis K76.0 Lymphedema I89.0 Paroxysmal atrial fibrillation I48.0 Gastric ulcer K25.9 Exocrine pancreatic insufficiency K86.81 Severe protein-calorie malnutrition E43 Alcohol dependence with physiological dependence F10.20 GERD (gastroesophageal reflux disease) K21.9 Gout M10.9 UTI (urinary tract infection) N39.0
== END 2023-06-27 16:28 | disposition home or self-care (01) | DRG 383 ==
LOC: ED 12:22 → 3N 19:31 → SUATTDRO 19:31 → 3N 20:39 → 2W 06-26 13:48

== ENCOUNTER 2024-12-27 12:48 | Inpatient (IN) ==
[2024-12-27 13:20] LABS: Basophils # (auto) 0.03 K/uL (0.00-0.20); Basophils % (auto) 0.8 %; Eosinophils # (auto) 0.21 K/uL (0.00-0.50); Eosinophils % (auto) 5.6 %; Hematocrit (blood only) 37.7 % (37.0-47.0); Hemoglobin 12.7 g/dl (12.0-16.0); Immature Granulocytes # (auto) 0.05 K/uL (0.01-0.20); Immature Granulocytes % (auto) 1.3 %; Lymphocytes # (auto) 0.82 K/uL (1.20-3.40); Lymphocytes % (auto) 21.9 %; Mean Corpuscular Hemoglobin 34.2 pg (25.0-34.0); Mean Corpuscular Hgb Conc 33.7 g/dL (32.0-36.0); Mean Corpuscular Volume 101.6 fL (80.0-100.0); Mean Platelet Volume 10.5 fL (9.4-12.4); Monocytes # (auto) 0.34 K/uL (0.11-0.59); Monocytes % (auto) 9.1 %; Neutrophils % (auto) 61.3 %; Platelet Count 87 K/uL (130-400); RDW Coefficient of Variation 13.9 % (11.5-14.5); RDW Standard Deviation 52.1 fL (36.4-46.3); Red Blood Count 3.71 M/uL (4.20-5.40); White Blood Count 3.75 K/ul (4.8-10.8)
[2024-12-27 13:44] LABS: Albumin Globulin Ratio 1.1 (0.9-2); Albumin Level 3.6 gm/dl (3.4-5.0); BUN Creatinine Ratio 19.3 (10-20); Bilirubin,Total 2.2 mg/dl (0.2-1.0); Calcium 8.7 mg/dl (8.6-10.3); Creatinine Clr Calc Pharmacy 106.2 ml/min; Globulin 3.4 gm/dl (2.5-4.0); Potassium 3.6 mmol/L (3.5-5.1)
[2024-12-27 13:49] LABS: Troponin I High Sensitivity 4.7 pg/ml (0-14)
[2024-12-27] MEDS: SODIUM CHLORIDE 0.9% 1,000 ML IV ONE (13:56)
--- NOTE | 2024-12-27 14:00 | XRay Report ---
XR chest 1V portable CLINICAL HISTORY: Chest pain, nonspecific COMPARISON STUDY: 06/22/2023 FINDINGS: There is mild cardiomegaly without pulmonary vascular congestion. No effusion, consolidatio n, or pneumothorax. IMPRESSION: No acute findings. ACT 112: Negative or not required by law. Electronically signed by: Naren Max M.D. 12/27/2024 1:59 PM
--- NOTE | 2024-12-27 14:00 | CT Scan Report ---
CT cervical spine wo con CLINICAL HISTORY: fall. COMPARISON: None TECHNIQUE: Multiple axial CT images of the cervical spine were obtained without contrast. A dose low ering technique was utilized adhering to the principles of ALARA. FINDINGS: There is diffuse cervical degenerative disc disease. 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 No fracture or subluxation seen. IMPRESSION: No cervical spine fracture seen. ACT 112: Negative or not required by law. The above report was generated using voice recognition software. It may contain grammatical, syntax o r spelling errors. Electronically signed by: Naren Max M.D. 12/27/2024 1:58 PM
--- NOTE | 2024-12-27 14:01 | Emergency Department Note ---
Impression & Plan Atrial fibrillation with rapid ventricular response, Seizure ED Provider Note NAME: BELINDA ROWLAND AGE: 74 SEX: F : 1950 ARRIVES VIA: Ambulance INFORMANT: Patient ED PROVIDER(S): Caed Mario DO CHIEF COMPLAINT: Unresponsive episode HPI: Patient is a 74-year-old female with a past medical history of gout, pancytopenia, paroxysmal A-fib, exocrine pancreatic insufficiency, alcohol dependence who presents to the ER following waking up on the floor. She notes she was sitting in the chair and the next thing she knows she woke up on the floor and she was confused. She denies any headache or change in vision. No chest pain or shortness of breath. No nausea vomiting or diarrhea. No dysuria, urgency, or frequency. No focal weakness or numbness in the arms or legs. No other exacerbating or remitting factors. ADDITIONAL HISTORY OBTAINED: Per HPI Chronic Medical/Social Conditions Affecting Care: Per HPI PAST MEDICAL HISTORY:See Below PAST SURGICAL HISTORY:See Below FAMILY HISTORY:See Below SOCIAL HISTORY:See Below HOME MEDICATIONS:See Below ALLERGIES:See Below VITALS:See Below PHYSICAL EXAMINATION: GENERAL: Sitting up in bed, alert, well appearing, well nourished, no distress, non-toxic HEAD: NC/AT EYE EXAM: normal conjunctiva. PERRL and EOM's grossly intact. OROPHARYNX: no exudate, no erythema, lips, buccal mucosa, but she does have bite victoria on the bilateral tongue and mucous membranes are moist NECK: supple, no nuchal rigidity, no adenopathy, non-tender LUNGS: Clear to auscultation. Normal chest wall mechanics HEART: Tachycardic and irregular regular, S1 normal and S2 normal ABDOMEN: abdomen soft, non-tender, normo-active bowel sounds, no masses, no rebound or guarding. BACK: Back is symmetrical on inspection and there is no deformity, no midline tenderness, no CVA tenderness. SKIN: no rashes and no bruising UPPER EXTREMITIES: upper extremities are grossly normal. LOWER EXTREMITIES: No pitting edema. NEURO EXAM: Normal sensorium, cranial nerves II-XII intact, normal speech, no weakness of arms, no weakness of legs. No drift. Finger to nose intact. Gross sensation intact. MEDICAL DECISION MAKING: Patient is a 74-year-old female who presents ER for above-stated complaint. IV was established and blood work was obtained. Labs show mild leukopenia at 3.7. No significant anemia. Mild thrombocytopenia at 87. BMP is fairly unremarkable. T. bili at 2.2. LFTs and troponin were negative. Lipase was normal. CT of the head and cervical spine showed no acute fractures. Chest x- ray was clean. Patient was neurologically intact. She did bite her tongue. Patient was given thiamine, folic acid and a dose of IV metoprolol for A-fib with RVR. She was given fluids initially upon arrival and heart rate did trend down to the 120. Case was discussed with the hospitalist for further evaluation management treatment. Did also discussed with neurology who recommended holding on antiepileptics at this time. Consults/Care Managements Discussions: Per MDM Triage Nursing notes reviewed. Limited review of prior medical records performed Vital Signs: reviewed and remarkable for tachy Differential diagnosis: Differential diagnosis includes etiologies such as infection, hypoglycemia, electrolyte abnormalities, cardiac sources, intracerebral event, trauma, toxicologic, neurologic, as well as others were entertained. ER treatment provided: See below Diagnostics interpreted by me include EKG and cardiac monitoring as listed below: -Cardiac Monitoring: An order was placed for continuous cardiac monitoring. The monitor shows a rate of 120 with A-fib rhythm. -ECG: A-fib rate of 124 Normal axis No PVCs Septal Q waves QTc 439 -Laboratory studies:Interpreted by me as stated above in MDM and shown below. Imaging studies: Xrays: As interpreted by me: Portable AP upright 1 view of the chest shows no focal M-Trate CTs show: CT head and cervical spine was negative per radiology Procedures:none Critical Care: None Past Med/Surg History Problem List (Updated 12/27/24 @ 16:22 by Cade Mario DO) Seizure (Acute) Atrial fibrillation with rapid ventricular response (Acute) Chronic nausea Concussion Syncope Osteoarthritis Shoulder pain Tendinitis of both rotator cuffs Diarrhea Impaired gait and mobility Lower extremity weakness Rotator cuff (capsule) sprain UTI (urinary tract infection) COVID Hypomagnesemia Pancytopenia Gout Chronic abdominal pain Cholelithiasis (Chronic) Hepatic steatosis Foot pain Iron storage disorder Lymphedema B/L LE; WEARS COMPRESSION STOCKING Paroxysmal atrial fibrillation Gastric ulcer Joint pain Endometrial hyperplasia Exocrine pancreatic insufficiency Anemia CYP2D6 poor metabolizer Severe protein-calorie malnutrition Alcohol dependence with physiological dependence Lumbar spondylosis Hip pain Peptic ulcer disease Chronic pancreatitis Elevated LFTs (Acute) GERD (gastroesophageal reflux disease) Myalgia (Acute) Medical History Acute gastrointestinal bleeding 10/01/21 Paroxysmal atrial fibrillation Hypokalemia Acute renal disease Obesity Carpal tunnel syndrome of left wrist LEFT HAND NEUROPATHY Diverticulitis large intestine Alcoholism Surgical History Status post right knee replacement Hx of tonsillectomy Hx of tooth extraction Hx of bilateral hip replacements LEFT DAGMAR= 06/20/17= DONE UNDER GA 2/2 PATIENT PREFERENCE AT [facility] History of colonoscopy History of carpal tunnel surgery of right wrist Hx of knee surgery B/L Family History Grandmother (Maternal) Colorectal cancer Mother Colorectal cancer Myocardial infarction Stroke Other Cancer Diabetes Heart disease Hypertension Denies family history of Ovarian cancer Breast cancer Lung cancer Social History Smoking Status: Current every day smoker Tobacco Type: E-cigarettes / Vaping Second Hand Exposure: No; Do You Dip or Chew Tobacco: No; Hx Alcohol Use: No Hx Substance Use: No Preferred Language: Fijian Communication Ability: Effective Visual Impairment: Diminished Hearing Ability: Use of Hearing Aid [place] Hardware Installer Required: No Beliefs That Will Affect Care: None marital status: Current Living Situation: Spouse current occupational status: retired How many Children do You have: 2 Feels Safe at Home: Yes Childhood Exposure to Second-Hand Smoke: Yes Diet: other Diet Comment: mediterranean caffeine: Yes Dental Care, Regularly: Yes Physical Activity Frequency: Does not Exercise Seatbelt Use: always Sunscreen Use: No Assistive Devices: Cane, Glasses, Hospital Bed and Walker Allergies Allergies Allergy/AdvReac Type Severity Reaction Status Date / Time liraglutide Allergy Intermediate HIVES Verified 12/27/24 15:02 phenol Allergy Intermediate HIVES Verified 12/27/24 15:02 pregabalin Allergy Intermediate HIVES Verified 12/27/24 15:02 propylene glycol Allergy Intermediate HIVES Verified 12/27/24 15:02 sulfamethoxazole Allergy Mild Unknown Verified 12/27/24 15:02 [From Bactrim] trimethoprim [From Bactrim] Allergy Mild Unknown Verified 12/27/24 15:02 nickel Allergy Unknown Rash Verified 12/27/24 15:02 Home Meds Home Medications Medication Instructions Recorded Confirmed multivitamin-ferrous 1 tab PO DAILY 10/31/23 12/27/24 fumarate-folic acid 18 mg-400 mcg tablet (Centrum Women) lactase 3,000 unit tablet (Lactaid) 3,000 unit PO QID PRN Meals 11/18/24 12/27/24 Maglite 1 cap PO DAILY 12/27/24 12/27/24 [id number]-[id number] 1 cap PO BIDWMEAL 12/27/24 12/27/24 24,000-76,000-120,000 unit capsule,delayed rel (Creon) Previous Rx's Medication Instructions Recorded folic acid 1 mg tablet 1 mg PO QAM #30 tabs 08/02/23 potassium chloride 10 mEq 10 meq PO DAILY #30 tabs 12/13/23 tablet,extended release esomeprazole magnesium 40 mg 40 mg PO BID #180 caps 11/18/24 capsule,delayed release (Nexium) metoprolol tartrate 25 mg tablet 25 mg PO DAILY #90 tabs 11/18/24 Results & Data (ED) Vital Signs Vital Signs - 24 hr 12/27/24 13:01 12/27/24 13:06 12/27/24 13:09 Temperature 36.9 C Temperature Source Oral Pulse Rate 130 H 129 H Pulse Rate [Apical] 122 H Pulse Rate from SpO2 Sensor Respiratory Rate 20 17 18 Respiratory Effort / Characteristics Non-Labored Spontaneous Respiratory Depth Normal Respiratory Pattern Regular Blood Pressure 124/93 Blood Pressure [Right Arm] 139/93 Blood Pressure Mean 103 Blood Pressure Mean [Right Arm] 108 Blood Pressure Position [Right Arm] Semi-fowlers Pulse Oximetry 95 98 96 Oxygen Delivery Method Room Air Room Air Room Air Sepsis Recent Fever Within 48 Hours No Sepsis New/Unexplained Change in Mental Status N/A Sepsis Action Taken by Nursing No Action Required 12/27/24 13:36 12/27/24 13:51 12/27/24 14:15 Temperature Temperature Source Pulse Rate 125 H 122 H 115 H Pulse Rate [Apical] Pulse Rate from SpO2 Sensor 119 H 126 H Respiratory Rate 24 21 Respiratory Effort / Characteristics Respiratory Depth Respiratory Pattern Blood Pressure Blood Pressure [Right Arm] Blood Pressure Mean Blood Pressure Mean [Right Arm] Blood Pressure Position [Right Arm] Pulse Oximetry 100 97 Oxygen Delivery Method Sepsis Recent Fever Within 48 Hours Sepsis New/Unexplained Change in Mental Status Sepsis Action Taken by Nursing 12/27/24 14:54 12/27/24 14:56 12/27/24 14:57 Temperature Temperature Source Pulse Rate 131 H 132 H Pulse Rate [Apical] Pulse Rate from SpO2 Sensor 131 H 131 H Respiratory Rate 19 22 Respiratory Effort / Characteristics Respiratory Depth Respiratory Pattern Blood Pressure 128/94 128/94 Blood Pressure [Right Arm] Blood Pressure Mean 105 110 Blood Pressure Mean [Right Arm] Blood Pressure Position [Right Arm] Pulse Oximetry 97 99 Oxygen Delivery Method Sepsis Recent Fever Within 48 Hours Sepsis New/Unexplained Change in Mental Status Sepsis Action Taken by Nursing 12/27/24 15:00 12/27/24 15:00 12/27/24 15:00 Temperature Temperature Source Pulse Rate 126 H Pulse Rate [Apical] Pulse Rate from SpO2 Sensor 126 H Respiratory Rate 17 Respiratory Effort / Characteristics Respiratory Depth Respiratory Pattern Blood Pressure 132/88 132/88 132/88 Blood Pressure [Right Arm] Blood Pressure Mean 96 96 96 Blood Pressure Mean [Right Arm] Blood Pressure Position [Right Arm] Pulse Oximetry 98 Oxygen Delivery Method Sepsis Recent Fever Within 48 Hours Sepsis New/Unexplained Change in Mental Status Sepsis Action Taken by Nursing Laboratory Data 12/27/24 12:59 12/27/24 12:59 Lab Results 12/27/24 Range/Units 12:59 WBC 3.75 L (4.8-10.8) K/ul RBC 3.71 L (4.20-5.40) M/uL Hgb 12.7 (12.0-16.0) g/dl Hct 37.7 (37.0-47.0) % MCV 101.6 H (80.0-100.0) fL MCH 34.2 H (25.0-34.0) pg MCHC 33.7 (32.0-36.0) g/dL RDW Std Deviation 52.1 H (36.4-46.3) fL RDW Coeff of Ignacio 13.9 (11.5-14.5) % Plt Count 87 L (130-400) K/uL MPV 10.5 (9.4-12.4) fL Immature Gran % (Auto) 1.3 % Neut % (Auto) 61.3 % Lymph % (Auto) 21.9 % [place] % (Auto) 9.1 % Eos % (Auto) 5.6 % Baso % (Auto) 0.8 % Neut # (Auto) 2.30 (1.40-6.50) K/uL Lymph # (Auto) 0.82 L (1.20-3.40) K/uL [place] # (Auto) 0.34 (0.11-0.59) K/uL Eos # (Auto) 0.21 (0.00-0.50) K/uL Baso # (Auto) 0.03 (0.00-0.20) K/uL Immature Gran # (Auto) 0.05 (0.01-0.20) K/uL Sodium 141 (136-145) mmol/L Potassium 3.6 (3.5-5.1) mmol/L Chloride 101 (98-107) mmol/L Carbon Dioxide 27 (21-32) mmol/L Anion Gap 13 H (3-11) BUN 11 (6-23) mg/dl Creatinine 0.57 L (0.6-1.2) mg/dl Est Cr Clr Drug Dosing 106.2 ml/min eGFR 95.90 BUN/Creatinine Ratio 19.3 (10-20) Glucose 94 (70-99(Fasting)) mg/dl Calcium 8.7 (8.6-10.3) mg/dl Total Bilirubin 2.2 H (0.2-1.0) mg/dl AST 90 H (13-39) U/L ALT 30 (7-52) U/L Alkaline Phosphatase 158 H (34-104) U/L Troponin I High Sens 4.7 (0-14) pg/ml Total Protein 7.0 (6.0-8.3) gm/dl Albumin 3.6 (3.4-5.0) gm/dl Globulin 3.4 (2.5-4.0) gm/dl Albumin/Globulin Ratio 1.1 (0.9-2) Lipase 9 L (11-82) U/L Administered Medications Discontinued Medications Sodium Chloride (Nss) 1,000 mls @ 999 mls/hr IV .Q1H1M ONE Stop: 12/27/24 14:06 Last Admin: 12/27/24 13:56 Dose: Not Given Documented By: BLAISE Thiamine HCl 100 mg/ Syringe 10 mls @ 2 mls/min IV NOW STA Stop: 12/27/24 14:44 Last Admin: 12/27/24 15:13 Dose: 2 mls/min Documented By: MORIAH Folic Acid 1 mg/ Syringe 10 mls @ 5 mls/min IV NOW STA Stop: 12/27/24 14:41 Last Admin: 12/27/24 15:14 Dose: 5 mls/min Documented By: MORIAH Metoprolol Tartrate (Metoprolol Tartrate 1 Mg/Ml Vial) 5 mg IV NOW STA Stop: 12/27/24 14:25 Last Admin: 12/27/24 15:13 Dose: 5 mg Documented By: MORIAH Imaging Data Radiologist's Impression: Cervical Spine CT 12/27/24 13:06 CT cervical spine wo con CLINICAL HISTORY: fall. COMPARISON: None TECHNIQUE: Multiple axial CT images of the cervical spine were obtained without contrast. A dose lowering technique was utilized adhering to the principles of ALARA. FINDINGS: There is diffuse cervical degenerative disc disease. 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 No fracture or subluxation seen. IMPRESSION: No cervical spine fracture seen. ACT 112: Negative or not required by law. The above report was generated using voice recognition software. It may contain grammatical, syntax or spelling errors. Electronically signed by: Naren Max M.D. 12/27/2024 1:58 PM Chest X-Ray 12/27/24 13:06 XR chest 1V portable CLINICAL HISTORY: Chest pain, nonspecific COMPARISON STUDY: 06/22/2023 FINDINGS: There is mild cardiomegaly without pulmonary vascular congestion. No effusion, consolidation, or pneumothorax. IMPRESSION: No acute findings. ACT 112: Negative or not required by law. Electronically signed by: Naren Max M.D. 12/27/2024 1:[address] 12/27/24 13:06 CT head/brain wo con CLINICAL HISTORY: 74 years-old Female with syncope vs seizure. Acute seizure- like activity TECHNIQUE: Multiple axial CT images of the head were obtained without contrast. A dose lowering technique was utilized adhering to the principles of ALARA. CT DOSE: 1236.56 mGy.cm COMPARISON: CT cervical spine of same day FINDINGS: No acute intracranial hemorrhage, midline shift, intracranial mass, hydrocephalus, territorial ischemia or abnormal extra-axial collection. Involutional changes with white matter hypodensities likely representing chronic microvascular ischemic disease. The calvarium is intact. Developmental incomplete bony fusion involves the posterior arch of C1. The paranasal sinuses, mastoid air cells, and middle ear cavities are clear. IMPRESSION: No acute intracranial abnormality identified. ACT 112: Negative or not required by law. The above report was generated using voice recognition software. It may contain grammatical, syntax or spelling errors. Electronically signed by: Benjamin Wilson M.D. 12/27/2024 2:22 PM Discharge Plan Visit Data Chief Complaint: Fall Stated Complaint: SYNCOPE, FALL ED Provider: Cade Mario Discharge Problem: Atrial fibrillation with rapid ventricular response, Seizure Condition: Fair Forms Stand Alone Forms: [employer] Prescriptions Prescriptions: No Action potassium chloride 10 mEq tablet extended release 10 meq PO DAILY Qty: 30 11RF folic acid 1 mg tablet 1 mg PO QAM Qty: 30 11RF lactase [Lactaid] 3,000 unit tablet 3,000 unit PO QID PRN (Reason: Meals) Rx Instructions: administer with meals and/or snacks metoprolol tartrate 25 mg tablet 25 mg PO DAILY Qty: 90 3RF esomeprazole magnesium [Nexium] 40 mg capsule,delayed release(DR/EC) 40 mg PO BID Qty: 180 3RF Centrum Women 18-400 mg-mcg tablet 1 tab PO DAILY Maglite 1 cap PO DAILY Creon 24,000-76,000 -120,000 unit capsule,delayed release(DR/EC) 1 cap PO BIDWMEAL Rx Instructions: administer with meals and/or snacks Referrals Referrals: Tushar Miranda MD [Primary Care Provider] -
--- NOTE | 2024-12-27 14:24 | CT Scan Report ---
CT head/brain wo con CLINICAL HISTORY: 74 years-old Female with syncope vs seizure. Acute seizure-like activity TECHNIQUE: Multiple axial CT images of the head were obtained without contrast. A dose lowering tech nique was utilized adhering to the principles of ALARA. CT DOSE: 1236.56 mGy.cm COMPARISON: CT cervical spine of same day FINDINGS: No acute intracranial hemorrhage, midline shift, intracranial mass, hydrocephalus, territorial ischem ia or abnormal extra-axial collection. Involutional changes with white matter hypodensities likely re presenting chronic microvascular ischemic disease. The calvarium is intact. Developmental incomplete bony fusion involves the posterior arch of C1. The paranasal sinuses, mastoid air cells, and middle ear cavities are clear. IMPRESSION: No acute intracranial abnormality identified. ACT 112: Negative or not required by law. The above report was generated using voice recognition software. It may contain grammatical, syntax o r spelling errors. Electronically signed by: Benjamin Wilson M.D. 12/27/2024 2:22 PM
--- NOTE | 2024-12-27 15:05 | Electrocardiogram Report ---
Test Reason : Blood Pressure : */* mmHG Vent. Rate : 124 BPM Atrial Rate : * BPM P-R Int : * ms QRS Dur : 74 ms QT Int : 306 ms P-R-T Axes : * 1 30 degrees QTcB Int : 439 ms Atrial fibrillation with rapid ventricular response Low voltage QRS Abnormal ECG When compared with ECG of 22-Jun-2023 12:55, Atrial fibrillation has replaced Sinus rhythm Vent. rate has increased by 47 bpm T wave inversion no longer evident in Lateral leads Confirmed by Michael Berg ([id number]) on 12/27/2024 3:04:50 PM Referred By: Confirmed By: Michael Berg
[2024-12-27] MEDS: THIAMINE HCL 100 MG in SYRINGE 9 ML IV STA (15:13)
[2024-12-27] MEDS: METOPROLOL TARTRATE 1 MG/ML VIAL IV STA (15:13)
[2024-12-27] MEDS: FOLIC ACID 1 MG in SYRINGE 9.8 ML IV STA (15:14)
--- NOTE | 2024-12-27 16:19 | History & Physical Report ---
Date of Service December 27, 2024 Assessment & Plan (1) Syncope: (2) Concussion: (3) Severe protein-calorie malnutrition: (4) Chronic nausea: (5) Paroxysmal atrial fibrillation: History of Present Illness Chief Complaint: syncope Primary Care Provider: Tushar Miranda MD patient is a very pleasant 74-year-old female accompanied by her . To her recollection she notes she was sitting at the kitchen table on her laptop and the next thing she knew she was on the floor and vaguely remembers the EMS standing over, does not really know how she got out of her house has vague snippets of memory of being in the ambulance, and really did not feel like himself again so being here in the hospital. Her notes he was not in the same room but heard a very loud thump, came to see her, and she was slumped head down on the table. She would not really respond to voice, he called 911, and she gradually came back to consciousness. He notes no tonic-clonic movements, and both of them note no loss of bowel or bladder Even before she is done describing her syncopal event, she quickly moved into a discussion of chronic nausea that has been worse. After she eats she really feels ill, sometimes she notes taking a PPI and lactase (in spite of not having lactose intolerance) does help some, but at the same time she has not been doing well overall and has lost another 4-6 pounds over the last month (and notes that over the 7 years she has struggled with this chronic nausea she has lost about 160 pounds involuntarily overall). Allergies Allergy/AdvReac Type Severity Reaction Status Date / Time liraglutide Allergy Intermediate HIVES Verified 12/27/24 15:02 phenol Allergy Intermediate HIVES Verified 12/27/24 15:02 pregabalin Allergy Intermediate HIVES Verified 12/27/24 15:02 propylene glycol Allergy Intermediate HIVES Verified 12/27/24 15:02 sulfamethoxazole Allergy Mild Unknown Verified 12/27/24 15:02 [From Bactrim] trimethoprim [From Bactrim] Allergy Mild Unknown Verified 12/27/24 15:02 nickel Allergy Unknown Rash Verified 12/27/24 15:02 Home Medications Medication Instructions Recorded Confirmed Type folic acid 1 mg tablet 1 mg PO QAM #30 tabs 08/02/23 12/27/24 Rx multivitamin-ferrous 1 tab PO DAILY 10/31/23 12/27/24 History fumarate-folic acid 18 mg-400 mcg tablet (Centrum Women) potassium chloride 10 mEq 10 meq PO DAILY #30 tabs 12/13/23 12/27/24 Rx tablet,extended release esomeprazole magnesium 40 mg 40 mg PO BID #180 caps 11/18/24 12/27/24 Rx capsule,delayed release (Nexium) lactase 3,000 unit tablet (Lactaid) 3,000 unit PO QID PRN Meals 11/18/24 12/27/24 History metoprolol tartrate 25 mg tablet 25 mg PO DAILY #90 tabs 11/18/24 12/27/24 Rx Maglite 1 cap PO DAILY 12/27/24 12/27/24 History efqbhl-gnsqqzyy-xebuwna 1 cap PO BIDWMEAL 12/27/24 12/27/24 History 24,000-76,000-120,000 unit capsule,delayed rel (Creon) Past Med/Surg History Problem List (Updated 12/27/24 @ 16:22 by Cade Mario DO) Seizure (Acute) Atrial fibrillation with rapid ventricular response (Acute) Chronic nausea Concussion Syncope Osteoarthritis Shoulder pain Tendinitis of both rotator cuffs Diarrhea Impaired gait and mobility Lower extremity weakness Rotator cuff (capsule) sprain UTI (urinary tract infection) COVID Hypomagnesemia Pancytopenia Gout Chronic abdominal pain Cholelithiasis (Chronic) Hepatic steatosis Foot pain Iron storage disorder Lymphedema B/L LE; WEARS COMPRESSION STOCKING Paroxysmal atrial fibrillation Gastric ulcer Joint pain Endometrial hyperplasia Exocrine pancreatic insufficiency Anemia CYP2D6 poor metabolizer Severe protein-calorie malnutrition Alcohol dependence with physiological dependence Lumbar spondylosis Hip pain Peptic ulcer disease Chronic pancreatitis Elevated LFTs (Acute) GERD (gastroesophageal reflux disease) Myalgia (Acute) Medical History Acute gastrointestinal bleeding 10/01/21 Paroxysmal atrial fibrillation Hypokalemia Acute renal disease Obesity Carpal tunnel syndrome of left wrist LEFT HAND NEUROPATHY Diverticulitis large intestine Alcoholism Surgical History Status post right knee replacement Hx of tonsillectomy Hx of tooth extraction Hx of bilateral hip replacements LEFT DAGMAR= 06/20/17= DONE UNDER GA 2/2 PATIENT PREFERENCE AT [facility] History of colonoscopy History of carpal tunnel surgery of right wrist Hx of knee surgery B/L Family History Grandmother (Maternal) Colorectal cancer Mother Colorectal cancer Myocardial infarction Stroke Other Cancer Diabetes Heart disease Hypertension Denies family history of Ovarian cancer Breast cancer Lung cancer Social History Smoking Status: Current every day smoker Tobacco Type: E-cigarettes / Vaping Second Hand Exposure: No; Do You Dip or Chew Tobacco: No; Hx Alcohol Use: No Hx Substance Use: No Preferred Language: Hungarian Communication Ability: Effective Visual Impairment: Diminished Hearing Ability: Use of Hearing Aid Digital Media Representative Required: No Beliefs That Will Affect Care: None marital status: Current Living Situation: Spouse current occupational status: retired How many Children do You have: 2 Feels Safe at Home: Yes Childhood Exposure to Second-Hand Smoke: Yes Diet: other Diet Comment: mediterranean caffeine: Yes Dental Care, Regularly: Yes Physical Activity Frequency: Does not Exercise Seatbelt Use: always Sunscreen Use: No Assistive Devices: Cane, Glasses, Hospital Bed and Walker Review of Systems Review of Systems: All systems reviewed & are unremarkable except as noted in HPI & below Physical Exam Physical Exam: General she is awake alert oriented x 3 pleasant no acute distress. HEENT normocephalic atraumatic mucous membranes moist. Cardio is irregular and slightly tachycardic without rubs murmurs or gallops. Lungs are clear to auscultation bilaterally no rales rhonchi wheezes good effort. Neck is supple with no C-spine tenderness. Head shows no signs of trauma or lesions. Abdomen is soft nondistended no epigastric tenderness, she points to where she hurts and there is a very discrete very palpable trigger point that reproduces not just pain but nausea rather intensely. Keeping my finger on the trigger point as a reference point, whenever I push diagonally across her belly to what would be the same spot in her abdomen under the trigger point does not really reproduce pain nearly in the intensity as pushing directly on the trigger point. Extremities show no sinus clubbing or edema, neuro shows no focal deficits. Results & Data Results & Data Vital Signs (Past 12 Hours) Vital Signs Temp Pulse Pulse Resp BP BP Pulse Ox 12/27/24 15:00 126 H 17 132/88 98 12/27/24 15:00 132/88 12/27/24 15:00 132/88 12/27/24 14:57 132 H 22 99 12/27/24 14:56 128/94 12/27/24 14:54 131 H 19 128/94 97 12/27/24 14:15 115 H 21 97 12/27/24 13:51 122 H 24 100 12/27/24 13:36 125 H 12/27/24 13:09 129 H 18 96 12/27/24 13:06 122 H 17 139/93 98 12/27/24 13:01 98.4 F 130 H 20 124/93 95 O2 Del Method 12/27/24 15:00 12/27/24 15:00 12/27/24 15:00 12/27/24 14:57 12/27/24 14:56 12/27/24 14:54 12/27/24 14:15 12/27/24 13:51 12/27/24 13:36 12/27/24 13:09 Room Air 12/27/24 13:06 Room Air 12/27/24 13:01 Room Air Code Status & VTE Plan VTE Prophylaxis Plan VTE Prophylaxis will be ordered: Yes Supervising Physician Co-Signing Physician Notes #Syncope - while the ER raise concern of seizure, in discussion with her there was absolutely no tonic-clonic movement, however she did seem to hit her head pretty hard, currently has a headacheI suspect her slow waking up and postevent confusion was more likely a concussion. As far as the cause of syncopeno overt findings are evident. Given her poor p.o. intake and loss of about 6 pounds involuntarily over the last month or so, I would favor dehydration, and with her chronic nausea possibly a vagal "final common pathway" causing loss of consciousness. However, given that she does not have any real recall of the situation (which may simply be because of concussion and retrograde amnesia) we will evaluate for cardiac/rhythm issuescardiac monitoring overnight, consider an event monitor, echocardiogram (especially since it has been about 4 years) - IV fluids, serial exams, neurochecks #A-fib with RVR - suspect this is because of dehydration, the headache, and the overall stress of the situation. While it is possible that A-fib converting to sinus with a pause could lead to presyncope, this is fairly rare and seems rather unlikelyespecially given that she is currently in A-fib with RVR. Gentle rate control with additional metoprololshe seems to be asymptomatic from heart rates. Chronically not on anticoagulation. Defer to PCP follow-up in this regard #chronic nausea - has had repeated and rather extensive workupsdid have peptic ulcer disease several years ago, but her alcohol consumption is minimal and she is currently on a PPI. The remainder of her workup focused on whether or not her gallstones were of clinical significance or not. Given how markedly reproducible her nausea is with palpation of her abdominal wall trigger points, we discussed the approach of managing as though it is trigger point related nausea first, with a secondary revisit of her GI workup (probably repeat EGD plus or minus HIDA scan) if managing as a trigger point does not improve symptoms, versus conversely revisiting an extensive GI workup and then managing as a trigger point secondarily. She prefers the approach that may get her the quickest relief with nauseain which case we will be proceeding with trigger point injections and topical Voltaren. Discussed with how long this has been going on it may not be a "overnight success" and therefore we may need multiple injections and Voltaren for a whileif were not seeing any significant findings to support that she is improving by about mid January, then would cantwell back and revisit a more "conventional" GI workup #abdominal wall trigger point - just right of midline, a little above the periumbilical, very discrete, and palpation reproduces her nausea rather intensely. Discussed pathophysiology/management, and we will proceed with injection today #pancytopenia - probably related to chronic alcohol use and bone marrow suppression. Typically runs low, most recently had not, but not very far out of her usual ranges. Outpatient follow-up #concussion - most likely her syncope led to head trauma with a concussion. Fortunately no skull fractures or bleeds on imaging and have no clinical suspicion of either as well, but most likely her confusion and headache related to a concussion. Follow progress, symptom control for now #alcohol abusedown to only drinking once every few weeks. Appears to be a largely resolved issue, just with some chronic "fallout" #DVT prophylaxisSCDs PG Care Time/CCT Total # of Minutes Spent Total Time Spent with Patient: Total time spent is greater than 50% in coordination of care (as documented) at patient's floor/unit and/or counseling patient: Coding Level of Care Code 05567 INT INP/OBS CARE MIN Diagnoses Syncope R55 Concussion S06.0XAA Severe protein-calorie malnutrition E43 Chronic nausea R11.0 Paroxysmal atrial fibrillation I48.0
[2024-12-27] MEDS: traMADol HCL 50 MG TABLET PO STA (17:23)
--- NOTE | 2024-12-27 17:25 | Communication Note ---
Date of Service: December 27, 2024 abdominal wall trigger point injection procedure note. Informed consent, risk/benefits/alternatives discussed. Patient would like to proceed. Area cleansed with ethanol, 3 discrete trigger points identified 2 of which markedly reproduce the nausea, the third did on initial palpation but after injecting the other 2 trigger points it was less nausea inducing with palpation, however in discussion with patient we both agreed to proceed with injecting it as well. All 3 were injected easily, dry needled, and then approximately 1.5 mL of lidocaine in each. Hemostasis was spontaneous. Patient tolerated procedure well. Discussed to follow for any change in GI feeling symptomsgiven that these are myofascial structures, obviously improvement in nausea would be desired, but even a worsening in nausea would be indicative that there truly is a somatic visceral reflex going on. Voltaren gel 4 times daily for the next 2 weeks, and then she may need follow-up injections depending on progress. if no improvement with dedicated trigger point regimen over ~4wks, the revisit more "conventional" GI w/u (probably would move forward with EGD and HIDA - but again situation currently seeming more c/w trigger points)
[2024-12-27] MEDS ORDERED: POLYETHYLENE (MIRALAX) 17 GM PACK PO PRN (19:56)
[2024-12-27] MEDS ORDERED: MAGNESIUM HYDROXIDE SUSP 30 ML UDC PO PRN (19:56)
[2024-12-27] MEDS ORDERED: ALUMINUM/MAGNESIUM SUSP 30 ML UDC PO PRN (19:56)
[2024-12-27] MEDS ORDERED: ONDANSETRON INJ 2 MG/ML 2 ML VIAL IV PRN (19:56)
[2024-12-27] MEDS ORDERED: METOPROLOL TARTRATE 25 MG TAB PO PRN (19:56)
[2024-12-27] MEDS: LIDOCAINE 2% LOCAL 50 ML VIAL ONE (19:57)
[2024-12-27] MEDS: LACTATED RINGER'S 1,000 ML IV SCH (20:33)
[2024-12-27] MEDS: DICLOFENAC SOD 1% GEL 100 GM TUBE EXT SCH (20:38)
[2024-12-27] MEDS: ACETAMINOPHEN 325 MG TAB PO PRN (21:35)
[2024-12-27] MEDS: PANCREAZE (LIPASE 10,500U) CAP PO SCH (21:36)
[2024-12-27] MEDS: PANTOprazole 40 MG TAB PO SCH (21:37)
[2024-12-27] MEDS: traMADol HCL 50 MG TABLET PO PRN (23:21)
[2024-12-28 06:27] LABS: Basophils # (auto) 0.01 K/uL (0.00-0.20); Basophils % (auto) 0.3 %; Eosinophils % (auto) 3.2 %; Hematocrit (blood only) 33.1 % (37.0-47.0); Hemoglobin 11.2 g/dl (12.0-16.0); Lymphocytes # (auto) 1.02 K/uL (1.20-3.40); Mean Corpuscular Hemoglobin 34.8 pg (25.0-34.0); Mean Corpuscular Hgb Conc 33.8 g/dL (32.0-36.0); Mean Corpuscular Volume 102.8 fL (80.0-100.0); Mean Platelet Volume 11.5 fL (9.4-12.4); Monocytes % (auto) 12.9 %; Neutrophils # (auto) 1.56 K/uL (1.40-6.50); Neutrophils % (auto) 50.6 %; Platelet Count 72 K/uL (130-400); Red Blood Count 3.22 M/uL (4.20-5.40); White Blood Count 3.09 K/ul (4.8-10.8)
[2024-12-28 06:38] LABS: BUN Creatinine Ratio 23.2 (10-20); Calcium 8.2 mg/dl (8.6-10.3); Creatinine Clr Calc Pharmacy 108.6 ml/min; Potassium 3.6 mmol/L (3.5-5.1)
[2024-12-28] MEDS: METOPROLOL TARTRATE 25 MG TAB PO SCH (08:50)
[2024-12-28] MEDS: FOLIC ACID 1 MG TAB PO SCH (08:50)
[2024-12-28] MEDS: CEROVITE ADV FORMULA TAB PO SCH (08:51)
[2024-12-28] MEDS: POTASSIUM CHLORIDE 10 MEQ TABCR PO SCH (08:56)
[2024-12-28] MEDS ORDERED: [UNRECOGNIZED DRUG - OTHER] PO SCH (09:00)
[2024-12-28 09:24] LABS: Albumin Level 3.1 gm/dl (3.4-5.0); Bilirubin Direct 0.9 mg/dl (0-0.2); Bilirubin,Total 2.7 mg/dl (0.2-1.0); Total Protein 5.8 gm/dl (6.0-8.3)
[2024-12-28 09:39] LABS: Thyroid Stimulating Hormone 3.125 uIu/ml (0.300-4.500)
[2024-12-28] MEDS: OPTIRAY 320 100ml IV ONE (10:03)
--- NOTE | 2024-12-28 10:55 | CT Scan Report ---
CHEST CT WITH CONTRAST; CT ABDOMEN AND PELVIS WITH IV CONTRAST ONLY CT DOSE: 2348.97 mGy.cm HISTORY: peripheral monocytosis; R/O solid organ malignancy TECHNIQUE: Multiaxial CT images of the chest, abdomen and pelvis were performed following the IV admi nistration of 93 cc of Optiray. A dose lowering technique was utilized adhering to the principles o f ALARA. COMPARISON: CT abdomen and pelvis 06/22/2023, MRCP 06/22/2023 FINDINGS: CT CHEST: Unremarkable thyroid. No pathologically enlarged lymph nodes. Moderate coronary artery calc ifications. No thoracic aortic aneurysm or dissection. No pulmonary emboli. Trace pleural effusions w ith mild dependent subsegmental bibasilar atelectasis. There are no suspicious pulmonary nodules or m asses identified. 2 mm subpleural nodule left upper lobe on image 78, likely benign. Central airways are patent. Unremarkable soft tissues. No acute fracture. No destructive bone lesions are seen. CT ABDOMEN/PELVIS: No pneumatosis or pneumoperitoneum. Unremarkable spleen, mildly atrophic pancreas and adrenal glands. Cholelithiasis without CT evidence of acute cholecystitis. Common bile duct measu res up to 7 mm. Hepatic steatosis. Contrast noted within the renal collecting systems. No hydronephro sis. Pelvic structures are not well visualized secondary to streak artifact from bilateral hip arthro plasties. Fibroid uterus noted. Atherosclerosis of the aorta without aneurysm. No lymphadenopathy. 4. 4 cm soft tissue attenuating right adnexal lesion is stable. Colonic diverticulosis. There is mild ac [place] diverticulitis of the distal ileum, image 235 series 7. No abscess or pneumoperitoneum. T11 verte bral body hemangioma within T12 superior endplate Schmorl's node. No acute fracture or destructive sophie ne lesion. IMPRESSION: 1. Trace pleural effusions with mild bibasilar atelectasis. 2. Large and small bowel diverticulosis with mild acute diverticulitis involving the distal ileum. 3. No bowel obstruction, pneumoperitoneum or abscess. 4. Cholelithiasis without CT evidence of acute cholecystitis. 5. No lymphadenopathy or definite evidence of malignancy. ACT 112: Negative or not required by law. Electronically signed by: Benjamin Wilson M.D. 12/28/2024 10:53 AM
[2024-12-28 13:05] LABS: Appearance Urine Clear (Clear); Bacteria Urine Automated 4+ (None Seen); Bilirubin Urine 1+ (Negative); Blood Urine 1+ (Negative); Cast Urine Automated 0-2 /lpf (0-2); Color Urine Dark Yellow; Glucose Urine UA Negative (Negative); Ketones Urine Trace (Negative); Leukocyte Esterase Urine Trace (Negative); Nitrite Urine Positive (Negative); Protein Urine 1+ (Negative); Specific Gravity Urine > 1.045 (1.000-1.030); Urobilinogen Urine Positive (Negative); WBC Urine Automated >50 /hpf (0-5); pH Urine 7.5 (4.5-7.5)
--- NOTE | 2024-12-28 13:11 | XCELERA ---
[id number]
[2024-12-28] MEDS: PIPERACILLIN/TAZOBACTAM 4.5 GM/100 ML BAG IV ONE (14:49)
--- NOTE | 2024-12-28 17:24 | Hospitalist Progress Note ---
Date of Service December 28, 2024 Assessment & Plan (1) Syncope: Plan: 74 years old female with PMH of FULL CODE @ home, obesity with BMI 36.7 (height 167.64 cm; weight 103.19 kg), former ETOH abuse with subsequent diagnosis of chronic transaminitis (cf., baseline AST range, 43-227 (07/31/2018 - 07/03/2023; baseline ALK PHOS range, 121-221 U/L (04/16/2017 - 11/02/2023)), and chronic pancytopenia (cf., baseline WBC range, 1.37 - 4.69 (11/02/2018 - 11/02/2023), baseline Hb range, 8.7 - 11.3 g/dL (04/16/2017 - 06/27/2023), baseline platelet range, 54-93 (10/02/2021 - 06/27/2023)), ampicillin-resistant, unasyn-intermediate E. coli UTI (as noted on 10/30/2018 urine culture), ampicillin-resistant, unasyn-resistant E. coli UTI (as noted on 06/22/2023 urine culture), HTN on metoprolol tartrate 25mg PO daily, paroxysmal AFIB on metoprolol tartrate 25mg PO daily, not on A/C with eliquis as patient reports receiving conflicting reports from various physicians (some saying that she has paroxysmal AFIB and others saying that she doesn't have paroxysmal AFIB), GERD on esomeprazole 40mg PO bid, and unintentional weight loss of 160 pounds over the past 7 years, including 4-6 pounds of unintentional weight loss over the past 1 month, with early satiety, but no night sweats or day sweats, in association with chronic nausea, non-bilious emesis without hematemesis, over the past 7 years, with known history of cholelithiasis and with known history of pancreatic exocrine insufficiency on lipase 01454 - protease 51408 - amylase 237182 units/capsule, 1 capsule PO bid with meals, in the absence of any diabetes mellitus (cf., HbA1c 5.0% (06/01/2018, 10:31am) to 4.3% (02/15/2023, 12:49pm) to (12/28/2024, 6:10pm), who was admitted to the inpatient hospitalist service @ [facility] on 12/27/2024 with the following diagnoses: 1. Syncope of unclear etiology. 2. Recurrent, paroxysmal AFIB with RVR (cf., EKG (12/27/2024, 1:01pm): AFIB @ 124, QTC 439, low voltage QRS, no acute ST depressions/elevations (by my review). The following issues are being addressed on 12/28/2024: 1. Syncope of unclear etiology. Probably due to acute dehydration, which in turn, is due to (a) acute distal ileal diverticulitis; (b) acute UTI. Hence, to treat acute dehydration, patient received 1 liter of 0.9% NS @ 999 mL/hr (12/27/2024, 1:56pm), followed by 1 liter of lactated Ringers @ 125mL/hr (12/27/2024, 8:33pm), followed by regular diet with lipase/protease/amylase 2 capsules PO bid with meals given chronic pancreatic exocrine insufficiency. Subsequently, patient reports no recurrent episodes of syncope. a. Acute distal ileal diverticulitis (as noted on 12/28/2024, 8:25am CT abd/pelvis with IV contrast). Given patient's complaints of nausea with non- bilious emesis without hematemesis at home, and dry heaving at [facility], patient was started on zosyn 4.5g IV q8 (day #1/7 on 12/28/2024, 2:49pm). I will check vitals, abdominal exam, and WBC w/diff in the 12/29/2024 am. Of note, patient was also advised to undergo repeat CT abd/pelvis with IV contrast and/or screening colonoscopy within 4-6 weeks of hospital discharge, to ensure that acute distal ileal diverticulitis has RESOLVED, and is not colon carcinoma masquerading as acute distal ileal diverticulitis on 12/28/2024. Patient reports that she will comply with this recommendation. b. Acute UTI (as noted on 12/28/2024, 12:45pm urinalysis). Given patient's past medical history of ampicillin-resistant, unasyn-intermediate E. coli UTI (as noted on 10/30/2018 urine culture), ampicillin-resistant, unasyn-resistant E. coli UTI (as noted on 06/22/2023 urine culture), and given patient's current medical history of acute ileal diverticulitis (as noted on 12/28/2024, 8:25am CT abd/pelvis with IV contrast), patient was started on zosyn 4.5g IV q8 (day #1/7 on 12/28/2024, 2:49pm). I will check vitals, genito-urinary exam, WBC w/diff, and urine culture (12/28/2024, 12:45pm) in the 12/29/2024 am. 2. Recurrent, paroxysmal AFIB with RVR (cf., EKG (12/27/2024, 1:01pm): AFIB @ 124, QTC 439, low voltage QRS, no acute ST depressions/elevations (by my review). Continue rate-control with patient's home-scheduled metoprolol tartrate 25mg PO daily with patient remaining in AFIB on 12/28/2024 with a resting HR 89 bpm (12/28/2024, 3:35pm). Given CHADS2-VASC score = 3 points (e.g., 1 point for age 65-74 years, 1 point for female sex, and 1 point for HTN), patient stands to benefit from long-term, active anticoagulation with eliquis 5mg PO bid. Patient concurs. Patient was subsequently started on eliquis 5mg PO bid (12/28/2024, 5:45pm). (2) Concussion: (3) Severe protein-calorie malnutrition: (4) Chronic nausea: (5) Paroxysmal atrial fibrillation: Admission and Anticipated Discharge Date Admission Date: December 27, 2024 Subjective "I had some nausea and dry heaving today. My belly hurts a little; it's like a 3 or 4 (out of 10 point intensity scale) today, just below the belly button and it also hurts on the left and right sides. No diarrhea today, but I have had diarrhea in the past. No fevers or chills." Review of Systems Constitutional: Patient denies antecedent/coincident fevers, chills, diaphoresis, cough, wheeze, sore throat, hemoptysis, chest pains, palpitations, pleurisy, diarrhea, pelvic pain, hematemesis, hematochezia, melena, hematuria, dysuria, frequency, urgency, headaches, dizziness, lightheadedness, visual changes, hearing changes, syncope, falls, trauma, travel history, sick contacts, or food/drug ingestions novel or new. All other review of systems are reported as negative by the patient on 12/28/2024. Physical Exam Constitutional: General: Comfortable, coherent, and cooperative. Wide awake and alert. Not confused, lethargic, or obtunded. Patient speaks in complete, fluent, and articulate sentences without pause, interruption, cough, or wheeze. HEENT: Normocephalic, atraumatic. No nystagmus, gaze paresis, anisocoria, miosis, mydriasis, hyphema, scleral injection, conjunctivitis, or pterygium. No otorrhea or rhinorrhea. No pharyngeal erythema, edema, or discharge. Neck: Supple, no stridor, bruit, goiter, or hepato-jugular reflux. Jugular venous pressure is estimated to be 3 cm above the sternal angle of [place], which in turn, is 5 cm above the level of the right atrium; with jugular venous pressure estimated to be 8 cm, then, there is no jugular venous distention on 12/28/2024. Lymphatics: No cervical (anterior/posterior), supraclavicular, infraclavicular, axillary, epitrochlear, or inguinal adenopathy. Chest: Symmetric rise and fall with respirations. Non-tender to palpation. Lungs: Clear to auscultation and percussion. Heart: Irregularly irregular rhythm, normal rate on 12/28/2024. S1 and S2 noted. No S3 or S4 summation gallop. No tripartite friction rub. Grade II/ early systolic murmur @ LLSB without radiation to the carotids, axilla, or back, and which remains invariant in regards to the respiratory cycle. Abdomen: Soft, non-tender, non-distended. No rebound, guarding, Lala's sign, or organomegaly. Bowel sounds auscultated in all 4 quadrants. Barf bag at the bedside, empty, but open and ready to receive any vomitus on 12/28/2024. Extremities: No clubbing, cyanosis. 2+ pitting pedal edema with extension to the bilateral mid-shins, sparing the bilateral upper shins, knees, hips, thighs, abdomen. 2+ pedal pulses bilaterally. Skin: No decubitus ulcer, exanthem, or enanthem. Genito-urinary: No urethral discharge. No cruz catheter. Neurology: Alert and oriented in regards to person, place, time, and situation. DTR+ and symmetric. 5/5 motor strength in all 4 extremities, both proximally and distally. No pronator drift. No facial droop. No dysarthria. Psychiatry: No homicidal ideation. No suicidal ideation. No flat affect; smiles appropriately. Results & Data Results & Data Vital Signs (Past 12 Hours) Vital Signs Temp Pulse Pulse Resp BP Pulse Ox O2 Del Method 12/28/24 15:35 36.8 C 89 18 120/92 95 Room Air 12/28/24 11:34 36.8 C 82 18 107/74 97 Room Air 12/28/24 08:25 81 12/28/24 08:00 Room Air 12/28/24 07:41 36.8 C 83 19 130/84 96 Room Air Laboratory Results U/A (12/28/2024, 12:45pm): clear yellow, trace ketones, LE trace, nitrite+, WBC > 50, blood 1+ with RBC 11-20, epithelial cells 6-10, bacteria 4+ urine culture (12/28/2024; 12:45pm): WBC 3.75, N61 L22 M 9 E6 B1, Hb 12.7, MCV 101.6, MCHC 33.7, platelet 87 (12/27/2024, 12:59pm). WBC 3.09, N51 L33 M13 E3, Hb 11.2, MCV 102.8, MCHC 33.8, platelet 72 (12/28/2024, 5:27am). Na 141, K 3.6, BUN 11, creatinine 0.57, glucose 94, Ca 8.7 (12/27/2024, 12:59pm). Na 139, K 3.6, BUN 13, creatinine 0.56, glucose 89, Ca 8.2 (12/28/2024, 5:27am). AST 90, ALT 30, ALK PHOS 158 (12/27/2024, 12:59pm). AST 51, ALT 22, ALK PHOS 130 (12/28/2024, 5:27am). Lactic acid #1 1.1 mmol/L (12/28/2024, 8:50am). Procalcitonin #1 0.12 ng/mL (12/28/2024, 8:50am). Lipase 9 (12/27/2024, 12:59pm). Diagnostic Findings EKG (12/27/2024, 1:01pm): AFIB @ 124, QTC 439, low voltage QRS, no acute ST depressions/elevations (by my review). Portable CXR (12/27/2024, 1:06pm): No infiltrate, effusion, cardiomegaly, pulmonary vascular congestion, or pneumothorax (by my review). CT brain without contrast (12/27/2024, 1:06pm): No acute bleed, mass, or midline shift. CT abd/pelvis with IV contrast (12/28/2024, 8:25am): 1. Trace pleural effusions with mild bibasilar atelectasis. 2. Large and small bowel diverticulosis with mild acute diverticulitis involving the distal ileum. 3. No bowel obstruction, pneumoperitoneum or abscess. 4. Cholelithiasis without CT evidence of acute cholecystitis. 5. No lymphadenopathy or definite evidence of malignancy. CT chest with IV ontrast (12/28/2024, 9:12am): 1. Trace pleural effusions with mild bibasilar atelectasis. 2. Large and small bowel diverticulosis with mild acute diverticulitis involving the distal ileum. 3. No bowel obstruction, pneumoperitoneum or abscess. 4. Cholelithiasis without CT evidence of acute cholecystitis. 5. No lymphadenopathy or definite evidence of malignancy. TTE (12/28/2024, 1:11pm): 1. LVEF 55-60%. 2. No regional wall motion abnormalities. 3. Mild concentric LVH. 4. RV not well visualized; RV systolic function normal as assessed by tricuspid annular plane systolic excursion (TAPSE). 5. LA mildly dilated. RA mildly dilated. No ASD. 6. AV sclerosis mild; no /no AR. 7. PV not well visualized. 8. Mild-moderate MR. No MS. 9. Mild TR. No TS. 10.Aortic root normal size. PA not well visualized. Normal IVC size and collapsibility with sniff indicates normal RAP 3 mm Hg. 11.No pericardial effusion. (as per CARDS Dr. Thanh Gibson). PG Care Time/CCT Total # of Minutes Spent Total Time Spent with Patient: Total time spent is greater than 50% in coordination of care (as documented) at patient's floor/unit and/or counseling patient: Coding Level of Care Code 19799 SUB INP/OBS CARE 2/35MIN Diagnoses Syncope R55 Concussion S06.0XAA Severe protein-calorie malnutrition E43 Chronic nausea R11.0 Paroxysmal atrial fibrillation I48.0
[2024-12-28 19:08] LABS: Estimated Average Glucose 82 mg/dl; Hemoglobin A1C 4.5 % (4.5-5.6)
[2024-12-28] MEDS: PIPERACILLIN/TAZOBACTAM 4.5 GM/100 ML BAG IV SCH (20:13)
[2024-12-28] MEDS: MELATONIN 3 MG TAB PO PRN (20:15)
[2024-12-28] MEDS: APIXABAN 5 MG TABLET PO SCH (20:16)
[2024-12-29] MEDS: LACTASE 3000 UNIT TAB PO PRN (08:06)
[2024-12-29 09:12] LABS: Basophils # (auto) 0.03 K/uL (0.00-0.20); Basophils % (auto) 0.8 %; Eosinophils # (auto) 0.17 K/uL (0.00-0.50); Eosinophils % (auto) 4.3 %; Hematocrit (blood only) 34.4 % (37.0-47.0); Hemoglobin 11.6 g/dl (12.0-16.0); Immature Granulocytes # (auto) 0.02 K/uL (0.01-0.20); Immature Granulocytes % (auto) 0.5 %; Lymphocytes # (auto) 0.74 K/uL (1.20-3.40); Lymphocytes % (auto) 18.9 %; Mean Corpuscular Hemoglobin 34.5 pg (25.0-34.0); Mean Corpuscular Hgb Conc 33.7 g/dL (32.0-36.0); Mean Corpuscular Volume 102.4 fL (80.0-100.0); Mean Platelet Volume 11.1 fL (9.4-12.4); Monocytes # (auto) 0.51 K/uL (0.11-0.59); Neutrophils # (auto) 2.44 K/uL (1.40-6.50); Neutrophils % (auto) 62.5 %; Platelet Count 66 K/uL (130-400); RDW Coefficient of Variation 13.8 % (11.5-14.5); RDW Standard Deviation 51.7 fL (36.4-46.3); Red Blood Count 3.36 M/uL (4.20-5.40); White Blood Count 3.91 K/ul (4.8-10.8)
[2024-12-29 09:30] LABS: Albumin Level 3.3 gm/dl (3.4-5.0); Bilirubin,Total 1.9 mg/dl (0.2-1.0); Calcium 8.3 mg/dl (8.6-10.3); Potassium 3.4 mmol/L (3.5-5.1)
[2024-12-29 09:36] LABS: Albumin Globulin Ratio 1.2 (0.9-2); BUN Creatinine Ratio 19.7 (10-20); Globulin 2.7 gm/dl (2.5-4.0)
--- NOTE | 2024-12-29 17:50 | Hospitalist Progress Note ---
Date of Service December 29, 2024 Assessment & Plan (1) Syncope: Plan: 74 years old female with PMH of FULL CODE @ home, obesity with BMI 36.7 (height 167.64 cm; weight 103.19 kg), former ETOH abuse with subsequent diagnosis of chronic transaminitis (cf., baseline AST range, 43-227 (07/31/2018 - 07/03/2023; baseline ALK PHOS range, 121-221 U/L (04/16/2017 - 11/02/2023)), and chronic pancytopenia (cf., baseline WBC range, 1.37 - 4.69 (11/02/2018 - 11/02/2023), baseline Hb range, 8.7 - 11.3 g/dL (04/16/2017 - 06/27/2023), baseline platelet range, 54-93 (10/02/2021 - 06/27/2023)), ampicillin-resistant, unasyn-intermediate E. coli UTI (as noted on 10/30/2018 urine culture), ampicillin-resistant, unasyn-resistant E. coli UTI (as noted on 06/22/2023 urine culture), HTN on metoprolol tartrate 25mg PO daily, paroxysmal AFIB on metoprolol tartrate 25mg PO daily, not on A/C with eliquis as patient reports receiving conflicting reports from various physicians (some saying that she has paroxysmal AFIB and others saying that she doesn't have paroxysmal AFIB), GERD on esomeprazole 40mg PO bid, and unintentional weight loss of 160 pounds over the past 7 years, including 4-6 pounds of unintentional weight loss over the past 1 month, with early satiety, but no night sweats or day sweats, in association with chronic nausea, non-bilious emesis without hematemesis, over the past 7 years, with known history of cholelithiasis and with known history of pancreatic exocrine insufficiency on lipase 16059 - protease 67710 - amylase [id number] units/capsule, 1 capsule PO bid with meals, in the absence of any diabetes mellitus (cf., HbA1c 5.0% (06/01/2018, 10:31am) to 4.3% (02/15/2023, 12:49pm) to 4.5% (12/28/2024, 5:27am), who was admitted to the inpatient hospitalist service @ [facility] on 12/27/2024 with the following diagnoses: 1. Syncope of unclear etiology. 2. Recurrent, paroxysmal AFIB with RVR (cf., EKG (12/27/2024, 1:01pm): AFIB @ 124, QTC 439, low voltage QRS, no acute ST depressions/elevations (by my review). The following issues are being addressed on 12/29/2024: 1. Syncope of unclear etiology. Probably due to acute dehydration, which in turn, is due to (a) acute distal ileal diverticulitis; (b) acute UTI. Hence, to treat acute dehydration, patient received 1 liter of 0.9% NS @ 999 mL/hr (12/27/2024, 1:56pm), followed by 1 liter of lactated Ringers @ 125mL/hr (12/27/2024, 8:33pm), followed by regular diet with lipase/protease/amylase 2 capsules PO bid with meals given chronic pancreatic exocrine insufficiency. Subsequently, patient reports no recurrent episode(s) of syncope. a. Acute distal ileal diverticulitis (as noted on 12/28/2024, 8:25am CT abd/pelvis with IV contrast). Given patient's complaints of nausea with non- bilious emesis without hematemesis at home, and dry heaving at [facility], patient was started on zosyn 4.5g IV q8 (day #1/7 on 12/28/2024, 2:49pm). I will check vitals, abdominal exam, and WBC w/diff in the 12/30/2024 am. Of note, patient was also advised to undergo repeat CT abd/pelvis with IV contrast and/or screening colonoscopy within 4-6 weeks of hospital discharge, to ensure that acute distal ileal diverticulitis has RESOLVED, and is not colon carcinoma masquerading as acute distal ileal diverticulitis on 12/28/2024 - 12/29/2024. Patient reports that she will comply with this recommendation. b. Acute UTI (as noted on 12/28/2024, 12:45pm urinalysis). Given patient's past medical history of ampicillin-resistant, unasyn-intermediate E. coli UTI (as noted on 10/30/2018 urine culture), ampicillin-resistant, unasyn-resistant E. coli UTI (as noted on 06/22/2023 urine culture), and given patient's current medical history of acute ileal diverticulitis (as noted on 12/28/2024, 8:25am CT abd/pelvis with IV contrast), patient was started on zosyn 4.5g IV q8 (day #1/7 on 12/28/2024, 2:49pm). I will check vitals, genito-urinary exam, WBC w/diff, and urine culture (12/28/2024, 12:45pm) in the 12/30/2024 am. 2. Recurrent, paroxysmal AFIB with RVR (cf., EKG (12/27/2024, 1:01pm): AFIB @ 124, QTC 439, low voltage QRS, no acute ST depressions/elevations (by my review). Continue rate-control with patient's home-scheduled metoprolol tartrate 25mg PO daily with patient remaining in AFIB on 12/28/2024 with a resting HR 89 bpm (12/28/2024, 3:35pm). Given CHADS2-VASC score = 3 points (e.g., 1 point for age 65-74 years, 1 point for female sex, and 1 point for HTN), patient stands to benefit from long-term, active anticoagulation with eliquis 5mg PO bid. Patient concurs. Patient was subsequently started on eliquis 5mg PO bid (12/28/2024, 5:45pm). Other secondary issue includes: 3. Acute hypokalemia with post-admission K 3.4 mmol/L (12/29/2024, 8:52am). cf., admission K 3.6 mmol/L (12/27/2024, 12:59pm; repeat K 3.6 mmol/L (12/28/2024, 5:27am). Patient continues to receive KCl 10meq PO daily (12/28/2024, 8:56am; 12/29/2024, 8:13am) and acute hypokalemia PERSISTS, most probably because of decreased oral intake of potassium-containing foods. Hence, I have opted to supplement patient with KCl 40meq PO x 1 dose (12/29/2024, 5:50pm), and I will check repeat K level in the 12/30/2024 am. (2) Concussion: (3) Severe protein-calorie malnutrition: (4) Chronic nausea: (5) Paroxysmal atrial fibrillation: Admission and Anticipated Discharge Date Admission Date: December 27, 2024 Subjective "I was a little confused earlier this morning. I feel ok now. No problems. How much longer will I be here?" Review of Systems Constitutional: Patient denies antecedent/coincident fevers, chills, diaphoresis, cough, wheeze, sore throat, hemoptysis, chest pains, palpitations, pleurisy, diarrhea, pelvic pain, hematemesis, hematochezia, melena, hematuria, dysuria, frequency, urgency, headaches, dizziness, lightheadedness, visual changes, hearing changes, syncope, falls, trauma, travel history, sick contacts, or food/drug ingestions novel or new. All other review of systems are reported as negative by the patient on 12/29/2024. Physical Exam Constitutional: General: Comfortable, coherent, and cooperative. Wide awake and alert. Not confused, lethargic, or obtunded. Patient speaks in complete, fluent, and articulate sentences without pause, interruption, cough, or wheeze. HEENT: Normocephalic, atraumatic. No nystagmus, gaze paresis, anisocoria, miosis, mydriasis, hyphema, scleral injection, conjunctivitis, or pterygium. No otorrhea or rhinorrhea. No pharyngeal erythema, edema, or discharge. Neck: Supple, no stridor, bruit, goiter, or hepato-jugular reflux. Jugular venous pressure is estimated to be 3 cm above the sternal angle of [place], which in turn, is 5 cm above the level of the right atrium; with jugular venous pressure estimated to be 8 cm, then, there is no jugular venous distention on 12/29/2024. Lymphatics: No cervical (anterior/posterior), supraclavicular, infraclavicular, axillary, epitrochlear, or inguinal adenopathy. Chest: Symmetric rise and fall with respirations. Non-tender to palpation. Lungs: Clear to auscultation and percussion. Heart: Irregularly irregular rhythm, normal rate on 12/28/2024 and on 12/29/2024. S1 and S2 noted. No S3 or S4 summation gallop. No tripartite friction rub. Grade II/ early systolic murmur @ LLSB without radiation to the carotids, axilla, or back, and which remains invariant in regards to the respiratory cycle. Abdomen: Soft, non-tender, non-distended. No rebound, guarding, Lala's sign, or organomegaly. Bowel sounds auscultated in all 4 quadrants. Barf bag at the bedside, empty, but open and ready to receive any vomitus on 12/28/2024. No barf bag needed on 12/29/2024. Extremities: No clubbing, cyanosis. 2+ pitting pedal edema with extension to the bilateral mid-shins, sparing the bilateral upper shins, knees, hips, thighs, abdomen. 2+ pedal pulses bilaterally. Skin: No decubitus ulcer, exanthem, or enanthem. Genito-urinary: No urethral discharge. No cruz catheter. Neurology: Alert and oriented in regards to person, place, time, and situation. DTR+ and symmetric. 5/5 motor strength in all 4 extremities, both proximally and distally. No pronator drift. No facial droop. No dysarthria. Psychiatry: No homicidal ideation. No suicidal ideation. No flat affect; smiles appropriately. Results & Data Results & Data Vital Signs (Past 12 Hours) Vital Signs Temp Pulse Pulse Resp BP Pulse Ox O2 Del Method 12/29/24 15:36 36.7 C 95 H 19 131/84 95 Room Air 12/29/24 11:21 36.7 C 87 20 137/93 94 Room Air 12/29/24 07:34 90 12/29/24 07:25 36.5 C 85 20 120/82 95 Room Air Laboratory Results U/A (12/28/2024, 12:45pm): clear yellow, trace ketones, LE trace, nitrite+, WBC > 50, blood 1+ with RBC 11-20, epithelial cells 6-10, bacteria 4+ urine culture (12/28/2024; 12:45pm): WBC 3.75, N61 L22 M 9 E6 B1, Hb 12.7, MCV 101.6, MCHC 33.7, platelet 87 (12/27/2024, 12:59pm). WBC 3.09, N51 L33 M13 E3, Hb 11.2, MCV 102.8, MCHC 33.8, platelet 72 (12/28/2024, 5:27am). WBC 3.91, N63 L19 M13 E4 B1, Hb 11.6, MCV 102.4, MCHC 33.7, platelet 66 (12/29/2024, 8:52am). Na 141, K 3.6, BUN 11, creatinine 0.57, glucose 94, Ca 8.7 (12/27/2024, 12:59pm). Na 139, K 3.6, BUN 13, creatinine 0.56, glucose 89, Ca 8.2 (12/28/2024, 5:27am). Na 135, K 3.4, BUN 12, creatinine 0.61, glucose 171, Ca 8.3 (12/29/2024, 8:52am). AST 90, ALT 30, ALK PHOS 158 (12/27/2024, 12:59pm). AST 51, ALT 22, ALK PHOS 130 (12/28/2024, 5:27am). AST 36, ALT 18, ALK PHOS 129 (12/29/2024, 8:52am). NH3 37 umol/L (12/29/2024, 8:52am). Lactic acid #1 1.1 mmol/L (12/28/2024, 8:50am). Lactic acid #2 1.7 mmol/L (12/29/2024, 8:52am). Procalcitonin #1 0.12 ng/mL (12/28/2024, 8:50am). Procalcitonin #2 0.12 ng/mL (12/29/2024, 8:52am). Lipase 9 (12/27/2024, 12:59pm). Diagnostic Findings EKG (12/27/2024, 1:01pm): AFIB @ 124, QTC 439, low voltage QRS, no acute ST depressions/elevations (by my review). Portable CXR (12/27/2024, 1:06pm): No infiltrate, effusion, cardiomegaly, pulmonary vascular congestion, or pneumothorax (by my review). CT brain without contrast (12/27/2024, 1:06pm): No acute bleed, mass, or midline shift. CT abd/pelvis with IV contrast (12/28/2024, 8:25am): 1. Trace pleural effusions with mild bibasilar atelectasis. 2. Large and small bowel diverticulosis with mild acute diverticulitis involving the distal ileum. 3. No bowel obstruction, pneumoperitoneum or abscess. 4. Cholelithiasis without CT evidence of acute cholecystitis. 5. No lymphadenopathy or definite evidence of malignancy. CT chest with IV ontrast (12/28/2024, 9:12am): 1. Trace pleural effusions with mild bibasilar atelectasis. 2. Large and small bowel diverticulosis with mild acute diverticulitis involving the distal ileum. 3. No bowel obstruction, pneumoperitoneum or abscess. 4. Cholelithiasis without CT evidence of acute cholecystitis. 5. No lymphadenopathy or definite evidence of malignancy. TTE (12/28/2024, 1:11pm): 1. LVEF 55-60%. 2. No regional wall motion abnormalities. 3. Mild concentric LVH. 4. RV not well visualized; RV systolic function normal as assessed by tricuspid annular plane systolic excursion (TAPSE). 5. LA mildly dilated. RA mildly dilated. No ASD. 6. AV sclerosis mild; no /no AR. 7. PV not well visualized. 8. Mild-moderate MR. No MS. 9. Mild TR. No TS. 10.Aortic root normal size. PA not well visualized. Normal IVC size and collapsibility with sniff indicates normal RAP 3 mm Hg. 11.No pericardial effusion. (as per CARDS Dr. Thanh Gibson). PG Care Time/CCT Total # of Minutes Spent Total Time Spent with Patient: Total time spent is greater than 50% in coordination of care (as documented) at patient's floor/unit and/or counseling patient: Coding Level of Care Code 22760 SUB INP/OBS CARE 2/35MIN Diagnoses Syncope R55 Concussion S06.0XAA Severe protein-calorie malnutrition E43 Chronic nausea R11.0 Paroxysmal atrial fibrillation I48.0
[2024-12-29] MEDS: POTASSIUM CHLORIDE CRTAB 20 MEQ TABCR PO STA ×2 (20:29→20:30)
[2024-12-29] MEDS ORDERED: Nursing to Pharmacy Communication SCH (20:30)
[2024-12-30 07:18] LABS: Basophils # (auto) 0.02 K/uL (0.00-0.20); Basophils % (auto) 0.8 %; Eosinophils # (auto) 0.11 K/uL (0.00-0.50); Eosinophils % (auto) 4.2 %; Hematocrit (blood only) 33.8 % (37.0-47.0); Hemoglobin 11.5 g/dl (12.0-16.0); Immature Granulocytes # (auto) 0.01 K/uL (0.01-0.20); Immature Granulocytes % (auto) 0.4 %; Lymphocytes # (auto) 0.39 K/uL (1.20-3.40); Lymphocytes % (auto) 14.7 %; Mean Corpuscular Hemoglobin 35.4 pg (25.0-34.0); Mean Platelet Volume 11.4 fL (9.4-12.4); Monocytes # (auto) 0.34 K/uL (0.11-0.59); Monocytes % (auto) 12.8 %; Neutrophils # (auto) 1.78 K/uL (1.40-6.50); Neutrophils % (auto) 67.1 %; Platelet Count 61 K/uL (130-400); RDW Coefficient of Variation 13.7 % (11.5-14.5); RDW Standard Deviation 52.7 fL (36.4-46.3); Red Blood Count 3.25 M/uL (4.20-5.40); White Blood Count 2.65 K/ul (4.8-10.8)
[2024-12-30 07:41] LABS: Albumin Globulin Ratio 1.2 (0.9-2); Albumin Level 3.1 gm/dl (3.4-5.0); BUN Creatinine Ratio 14.5 (10-20); Calcium 8.4 mg/dl (8.6-10.3); Creatinine Clr Calc Pharmacy 97.1 ml/min; Globulin 2.6 gm/dl (2.5-4.0); Potassium 4.1 mmol/L (3.5-5.1); Total Protein 5.7 gm/dl (6.0-8.3)
--- NOTE | 2024-12-30 17:25 | Hospitalist Progress Note ---
Date of Service December 30, 2024 Assessment & Plan (1) Syncope: Plan: 74 years old female with PMH of FULL CODE @ home, obesity with BMI 36.7 (height 167.64 cm; weight 103.19 kg), former ETOH abuse with subsequent diagnosis of chronic transaminitis (cf., baseline AST range, 43-227 (07/31/2018 - 07/03/2023; baseline ALK PHOS range, 121-221 U/L (04/16/2017 - 11/02/2023)), and chronic pancytopenia (cf., baseline WBC range, 1.37 - 4.69 (11/02/2018 - 11/02/2023), baseline Hb range, 8.7 - 11.3 g/dL (04/16/2017 - 06/27/2023), baseline platelet range, 54-93 (10/02/2021 - 06/27/2023)), ampicillin-resistant, unasyn-intermediate E. coli UTI (as noted on 10/30/2018 urine culture), ampicillin-resistant, unasyn-resistant E. coli UTI (as noted on 06/22/2023 urine culture), HTN on metoprolol tartrate 25mg PO daily, paroxysmal AFIB on metoprolol tartrate 25mg PO daily, not on A/C with eliquis as patient reports receiving conflicting reports from various physicians (some saying that she has paroxysmal AFIB and others saying that she doesn't have paroxysmal AFIB), GERD on esomeprazole 40mg PO bid, and unintentional weight loss of 160 pounds over the past 7 years, including 4-6 pounds of unintentional weight loss over the past 1 month, with early satiety, but no night sweats or day sweats, in association with chronic nausea, non-bilious emesis without hematemesis, over the past 7 years, with known history of cholelithiasis and with known history of pancreatic exocrine insufficiency on lipase 35650 - protease 13311 - amylase [id number] units/capsule, 1 capsule PO bid with meals, in the absence of any diabetes mellitus (cf., HbA1c 5.0% (06/01/2018, 10:31am) to 4.3% (02/15/2023, 12:49pm) to 4.5% (12/28/2024, 5:27am), who was admitted to the inpatient hospitalist service @ [facility] on 12/27/2024 with the following diagnoses: 1. Syncope of unclear etiology. 2. Recurrent, paroxysmal AFIB with RVR (cf., EKG (12/27/2024, 1:01pm): AFIB @ 124, QTC 439, low voltage QRS, no acute ST depressions/elevations (by my review). The following issues are being addressed on 12/30/2024: 1. Syncope of unclear etiology. Probably due to acute dehydration, which in turn, is due to (a) acute distal ileal diverticulitis; (b) acute UTI. Hence, to treat acute dehydration, patient received 1 liter of 0.9% NS @ 999 mL/hr (12/27/2024, 1:56pm), followed by 1 liter of lactated Ringers @ 125mL/hr (12/27/2024, 8:33pm), followed by regular diet with lipase/protease/amylase 2 capsules PO bid with meals given chronic pancreatic exocrine insufficiency. Subsequently, patient reports no recurrent episode(s) of syncope. a. Acute distal ileal diverticulitis (as noted on 12/28/2024, 8:25am CT abd/pelvis with IV contrast). Given patient's complaints of nausea with non- bilious emesis without hematemesis at home, and dry heaving at [facility], patient was started on zosyn 4.5g IV q8 (day #1/7 on 12/28/2024, 2:49pm). I will check vitals, abdominal exam, and WBC w/diff in the 12/30/2024 am. Of note, patient was also advised to undergo repeat CT abd/pelvis with IV contrast and/or screening colonoscopy within 4-6 weeks of hospital discharge, to ensure that acute distal ileal diverticulitis has RESOLVED, and is not colon carcinoma masquerading as acute distal ileal diverticulitis on 12/28/2024 - 12/29/2024. Patient reports that she will comply with this recommendation. b. Acute UTI (as noted on 12/28/2024, 12:45pm urinalysis). Given patient's past medical history of ampicillin-resistant, unasyn-intermediate E. coli UTI (as noted on 10/30/2018 urine culture), ampicillin-resistant, unasyn-resistant E. coli UTI (as noted on 06/22/2023 urine culture), and given patient's current medical history of acute ileal diverticulitis (as noted on 12/28/2024, 8:25am CT abd/pelvis with IV contrast), patient was started on zosyn 4.5g IV q8 (day #1/7 on 12/28/2024, 2:49pm). I will check vitals, genito-urinary exam, WBC w/diff, and urine culture (12/28/2024, 12:45pm) in the 12/30/2024 am. 2. Recurrent, paroxysmal AFIB with RVR (cf., EKG (12/27/2024, 1:01pm): AFIB @ 124, QTC 439, low voltage QRS, no acute ST depressions/elevations (by my review). Continue rate-control with patient's home-scheduled metoprolol tartrate 25mg PO daily with patient remaining in AFIB on 12/28/2024 with a resting HR 89 bpm (12/28/2024, 3:35pm). Given CHADS2-VASC score = 3 points (e.g., 1 point for age 65-74 years, 1 point for female sex, and 1 point for HTN), patient stands to benefit from long-term, active anticoagulation with eliquis 5mg PO bid. Patient concurs. Patient was subsequently started on eliquis 5mg PO bid (12/28/2024, 5:45pm). Other secondary issue includes: 3. Acute hypokalemia with post-admission K 3.4 mmol/L (12/29/2024, 8:52am). cf., admission K 3.6 mmol/L (12/27/2024, 12:59pm; repeat K 3.6 mmol/L (12/28/2024, 5:27am). Patient continues to receive KCl 10meq PO daily (12/28/2024, 8:56am; 12/29/2024, 8:13am) and acute hypokalemia PERSISTED, most probably because of decreased oral intake of potassium-containing foods. Hence, I opted to supplement patient with KCl 40meq PO x 1 dose (12/29/2024, 5:50pm), and acute hypokalemia RESOLVED with post-supplement K 4.1 mmol/L (12/30/2024, 6:55am). Disposition: D/C home in the 12/31/2024 am with augmentin 875mg / 125mg PO bid x 7 days (12/31/2024 - 01/06/2025) to complete treatment of acute distal ileal diverticulitis (as noted on 12/28/2024, 8:25am CT abd/pelvis with IV contrast), and F/U with PCP Dr. Tushar Miranda within 5 days of hospital discharge to arrange/schedule repeat CT abd/pelvis with IV contrast and/or screening colonoscopy within 4-6 weeks of hospital discharge, to ensure that acute distal ileal diverticulitis has RESOLVED, and is not colon carcinoma masquerading as acute distal ileal diverticulitis on 12/28/2024 - 12/29/2024. Patient reports that she will comply with this recommendation. (2) Concussion: (3) Severe protein-calorie malnutrition: (4) Chronic nausea: (5) Paroxysmal atrial fibrillation: Admission and Anticipated Discharge Date Admission Date: December 27, 2024 Subjective "I am back to my normal self. I feel good. I slept ok. Review of Systems Constitutional: Patient denies antecedent/coincident fevers, chills, diaphoresis, cough, wheeze, sore throat, hemoptysis, chest pains, palpitations, pleurisy, diarrhea, pelvic pain, hematemesis, hematochezia, melena, hematuria, dysuria, frequency, urgency, headaches, dizziness, lightheadedness, visual changes, hearing changes, syncope, falls, trauma, travel history, sick contacts, or food/drug ingestions novel or new. All other review of systems are reported as negative by the patient on 12/29/2024. Physical Exam Constitutional: General: Comfortable, coherent, and cooperative. Wide awake and alert. Not confused, lethargic, or obtunded. Patient speaks in complete, fluent, and articulate sentences without pause, interruption, cough, or wheeze. HEENT: Normocephalic, atraumatic. No nystagmus, gaze paresis, anisocoria, miosis, mydriasis, hyphema, scleral injection, conjunctivitis, or pterygium. No otorrhea or rhinorrhea. No pharyngeal erythema, edema, or discharge. Neck: Supple, no stridor, bruit, goiter, or hepato-jugular reflux. Jugular venous pressure is estimated to be 3 cm above the sternal angle of [place], which in turn, is 5 cm above the level of the right atrium; with jugular venous pressure estimated to be 8 cm, then, there is no jugular venous distention on 12/30/2024. Lymphatics: No cervical (anterior/posterior), supraclavicular, infraclavicular, axillary, epitrochlear, or inguinal adenopathy. Chest: Symmetric rise and fall with respirations. Non-tender to palpation. Lungs: Clear to auscultation and percussion. Heart: Irregularly irregular rhythm, normal rate on 12/28/2024 - 12/30/2024. S1 and S2 noted. No S3 or S4 summation gallop. No tripartite friction rub. Grade II/ early systolic murmur @ LLSB without radiation to the carotids, axilla, or back, and which remains invariant in regards to the respiratory cycle. Abdomen: Soft, non-tender, non-distended. No rebound, guarding, Lala's sign, or organomegaly. Bowel sounds auscultated in all 4 quadrants. Barf bag at the bedside, empty, but open and ready to receive any vomitus on 12/28/2024. No barf bag needed on 12/29/2024 - 12/30/2024. Extremities: No clubbing, cyanosis, or edema. 2+ pedal pulses bilaterally. Skin: No decubitus ulcer, exanthem, or enanthem. Genito-urinary: No urethral discharge. No cruz catheter. Neurology: Alert and oriented in regards to person, place, time, and situation. DTR+ and symmetric. 5/5 motor strength in all 4 extremities, both proximally and distally. No pronator drift. No facial droop. No dysarthria. Psychiatry: No homicidal ideation. No suicidal ideation. No flat affect; smiles appropriately. Results & Data Results & Data Vital Signs (Past 12 Hours) Vital Signs Temp Pulse Pulse Resp BP Pulse Ox O2 Del Method 12/30/24 15:47 76 12/30/24 11:53 36.8 C 85 16 118/81 97 Room Air 12/30/24 09:11 Room Air 12/30/24 07:56 81 12/30/24 07:37 36.8 C 93 H 18 130/83 97 Room Air Laboratory Results U/A (12/28/2024, 12:45pm): clear yellow, trace ketones, LE trace, nitrite+, WBC > 50, blood 1+ with RBC 11-20, epithelial cells 6-10, bacteria 4+ urine culture (12/28/2024; 12:45pm): ampicillin-resistant, unasyn-resistant, otherwise goetz-sensitive E. coli WBC 3.75, N61 L22 M 9 E6 B1, Hb 12.7, MCV 101.6, MCHC 33.7, platelet 87 (12/27/2024, 12:59pm). WBC 3.09, N51 L33 M13 E3, Hb 11.2, MCV 102.8, MCHC 33.8, platelet 72 (12/28/2024, 5:27am). WBC 3.91, N63 L19 M13 E4 B1, Hb 11.6, MCV 102.4, MCHC 33.7, platelet 66 (12/29/2024, 8:52am). WBC 2.65, N67 L15 M13 E4 B1, Hb 11.5, MCV 104.0, MCHC 34.0, platelet 61 (12/30/2024, 6:55am). Na 141, K 3.6, BUN 11, creatinine 0.57, glucose 94, Ca 8.7 (12/27/2024, 12:59pm). Na 139, K 3.6, BUN 13, creatinine 0.56, glucose 89, Ca 8.2 (12/28/2024, 5:27am). Na 135, K 3.4, BUN 12, creatinine 0.61, glucose 171, Ca 8.3 (12/29/2024, 8:52am). Na 136, K 4.1, BUN 9, creatinine 0.62, glucose 112, Ca 8.4 (12/30/2024, 6:55am). AST 90, ALT 30, ALK PHOS 158 (12/27/2024, 12:59pm). AST 51, ALT 22, ALK PHOS 130 (12/28/2024, 5:27am). AST 36, ALT 18, ALK PHOS 129 (12/29/2024, 8:52am). NH3 37 umol/L (12/29/2024, 8:52am). Lactic acid #1 1.1 mmol/L (12/28/2024, 8:50am). Lactic acid #2 1.7 mmol/L (12/29/2024, 8:52am). Lactic acid #3 1.2 mmol/L (12/30/2024, 6:55am). Procalcitonin #1 0.12 ng/mL (12/28/2024, 8:50am). Procalcitonin #2 0.12 ng/mL (12/29/2024, 8:52am). Procalcitonin #3 0.10 ng/mL (12/30/2024, 6:55am). Lipase 9 (12/27/2024, 12:59pm). Diagnostic Findings EKG (12/27/2024, 1:01pm): AFIB @ 124, QTC 439, low voltage QRS, no acute ST depressions/elevations (by my review). Portable CXR (12/27/2024, 1:06pm): No infiltrate, effusion, cardiomegaly, pulmonary vascular congestion, or pneumothorax (by my review). CT brain without contrast (12/27/2024, 1:06pm): No acute bleed, mass, or midline shift. CT abd/pelvis with IV contrast (12/28/2024, 8:25am): 1. Trace pleural effusions with mild bibasilar atelectasis. 2. Large and small bowel diverticulosis with mild acute diverticulitis involving the distal ileum. 3. No bowel obstruction, pneumoperitoneum or abscess. 4. Cholelithiasis without CT evidence of acute cholecystitis. 5. No lymphadenopathy or definite evidence of malignancy. CT chest with IV ontrast (12/28/2024, 9:12am): 1. Trace pleural effusions with mild bibasilar atelectasis. 2. Large and small bowel diverticulosis with mild acute diverticulitis involving the distal ileum. 3. No bowel obstruction, pneumoperitoneum or abscess. 4. Cholelithiasis without CT evidence of acute cholecystitis. 5. No lymphadenopathy or definite evidence of malignancy. TTE (12/28/2024, 1:11pm): 1. LVEF 55-60%. 2. No regional wall motion abnormalities. 3. Mild concentric LVH. 4. RV not well visualized; RV systolic function normal as assessed by tricuspid annular plane systolic excursion (TAPSE). 5. LA mildly dilated. RA mildly dilated. No ASD. 6. AV sclerosis mild; no /no AR. 7. PV not well visualized. 8. Mild-moderate MR. No MS. 9. Mild TR. No TS. 10.Aortic root normal size. PA not well visualized. Normal IVC size and collapsibility with sniff indicates normal RAP 3 mm Hg. 11.No pericardial effusion. (as per CARDS Dr. Thanh Gibson). PG Care Time/CCT Total # of Minutes Spent Total Time Spent with Patient: Total time spent is greater than 50% in coordination of care (as documented) at patient's floor/unit and/or counseling patient: Coding Level of Care Code 22331 SUB INP/OBS CARE 3/50MIN Diagnoses Syncope R55 Concussion S06.0XAA Severe protein-calorie malnutrition E43 Chronic nausea R11.0 Paroxysmal atrial fibrillation I48.0
[2024-12-30 20:54] VITALS: O2SAT 96
[2024-12-30 23:27] VITALS: TEMP 98.4
[2024-12-31 07:07] VITALS: BP 138/84; RESP 19
[2024-12-31 07:19] LABS: Hematocrit (blood only) 37.3 % (37.0-47.0); Hemoglobin 12.4 g/dl (12.0-16.0); Mean Corpuscular Hemoglobin 34.6 pg (25.0-34.0); Mean Corpuscular Hgb Conc 33.2 g/dL (32.0-36.0); Mean Corpuscular Volume 104.2 fL (80.0-100.0); Mean Platelet Volume 11.1 fL (9.4-12.4); Platelet Count 74 K/uL (130-400); RDW Standard Deviation 53.4 fL (36.4-46.3); Red Blood Count 3.58 M/uL (4.20-5.40)
[2024-12-31 07:28] LABS: Calcium 8.6 mg/dl (8.6-10.3); Creatinine Clr Calc Pharmacy 82.2 ml/min; Potassium 3.8 mmol/L (3.5-5.1)
[2024-12-31 07:35] LABS: Basophils # (auto) 0.02 K/uL (0.00-0.20); Basophils % (auto) 0.7 %; Eosinophils % (auto) 3.6 %; Immature Granulocytes # (auto) 0.01 K/uL (0.01-0.20); Immature Granulocytes % (auto) 0.4 %; Lymphocytes # (auto) 0.43 K/uL (1.20-3.40); Lymphocytes % (auto) 15.4 %; Monocytes # (auto) 0.43 K/uL (0.11-0.59); Monocytes % (auto) 15.4 %; Neutrophils # (auto) 1.81 K/uL (1.40-6.50); Neutrophils % (auto) 64.5 %; Polychromasia 1+; Stomatocytes 1+
--- NOTE | 2024-12-31 11:15 | Discharge Summary ---
Discharge Summary Date of Service December 31, 2024 Principal Dx & Hospital Course #1 = Principal Diagnosis (1) Syncope: 74 years old female with PMH of FULL CODE @ home, obesity with BMI 36.7 (height 167.64 cm; weight 103.19 kg), former ETOH abuse with subsequent diagnosis of chronic transaminitis (cf., baseline AST range, 43-227 (07/31/2018 - 07/03/2023; baseline ALK PHOS range, 121-221 U/L (04/16/2017 - 11/02/2023)), and chronic pancytopenia (cf., baseline WBC range, 1.37 - 4.69 (11/02/2018 - 11/02/2023), baseline Hb range, 8.7 - 11.3 g/dL (04/16/2017 - 06/27/2023), baseline platelet range, 54-93 (10/02/2021 - 06/27/2023)), ampicillin-resistant, unasyn-intermediate E. coli UTI (as noted on 10/30/2018 urine culture), ampicillin-resistant, unasyn-resistant E. coli UTI (as noted on 06/22/2023 urine culture), HTN on metoprolol tartrate 25mg PO daily, paroxysmal AFIB on metoprolol tartrate 25mg PO daily, not on A/C with eliquis as patient reports receiving conflicting reports from various physicians (some saying that she has paroxysmal AFIB and others saying that she doesn't have paroxysmal AFIB), GERD on esomeprazole 40mg PO bid, and unintentional weight loss of 160 pounds over the past 7 years, including 4-6 pounds of unintentional weight loss over the past 1 month, with early satiety, but no night sweats or day sweats, in association with chronic nausea, non-bilious emesis without hematemesis, over the past 7 years, with known history of cholelithiasis and with known history of pancreatic exocrine insufficiency on lipase [id number] - protease 93491 - amylase 601333 units/capsule, 1 capsule PO bid with meals, in the absence of any diabetes mellitus (cf., HbA1c 5.0% (06/01/2018, 10:31am) to 4.3% (02/15/2023, 12:49pm) to 4.5% (12/28/2024, 5:27am), who was admitted to the inpatient hospitalist service @ [facility] on 12/27/2024 with the following diagnoses: 1. Syncope of unclear etiology. 2. Recurrent, paroxysmal AFIB with RVR (cf., EKG (12/27/2024, 1:01pm): AFIB @ 124, QTC 439, low voltage QRS, no acute ST depressions/elevations (by my review). The following issues were addressed while the patient remained in [facility] from 12/27/2024 through 12/31/2024: 1. Syncope of unclear etiology. RESOLVED. Probably due to acute dehydration, which in turn, is due to (a) acute distal ileal diverticulitis; (b) acute UTI. Hence, to treat acute dehydration, patient received 1 liter of 0.9% NS @ 999 mL/hr (12/27/2024, 1:56pm), followed by 1 liter of lactated Ringers @ 125mL/hr (12/27/2024, 8:33pm), followed by regular diet with lipase/protease/amylase 2 capsules PO bid with meals given chronic pancreatic exocrine insufficiency. Celis bsequently, patient reports no recurrent episode(s) of syncope. a. Acute distal ileal diverticulitis (as noted on 12/28/2024, 8:25am CT abd/pelvis with IV contrast). RESOLVING. Given patient's complaints of nausea with non-bilious emesis without hematemesis at home, and dry heaving at [facility], patient was started on zosyn 4.5g IV q8 (day #1 on 12/28/2024, 2:49pm). Patient was subsequently discharged home with new home [facility] on 12/31/2024 with an electronic prescription transmitted to [id number] [address] [facility] [place] [address], for augmentin 875mg/125mg PO bid, #14 tablets, no refills. Of note, patient was also advised to undergo repeat CT abd/pelvis with IV contrast and/or screening colonoscopy within 4-6 weeks of hospital discharge, to ensure that acute distal ileal diverticulitis has RESOLVED, and is not colon carcinoma masquerading as acute distal ileal diverticulitis on 12/28/2024 - 12/29/2024. Patient reports that she will comply with this recommendation. b. Acute UTI (as noted on 12/28/2024, 12:45pm urinalysis). RESOLVING. Given patient's past medical history of ampicillin-resistant, unasyn-intermediate E. coli UTI (as noted on 10/30/2018 urine culture), ampicillin-resistant, unasyn- resistant E. coli UTI (as noted on 06/22/2023 urine culture), and given patient's current medical history of acute ileal diverticulitis (as noted on 12/28/2024, 8:25am CT abd/pelvis with IV contrast), patient was started on zosyn 4.5g IV q8 (day #1 on 12/28/2024, 2:49pm). Patient was subsequently discharged home with new home [facility] on 12/31/2024 with an electronic prescription transmitted to her [id number], [address] [place] [address], for augmentin 875mg/125mg PO bid, #14 tablets, no refills. 2. Recurrent, paroxysmal AFIB with RVR (cf., EKG (12/27/2024, 1:01pm): AFIB @ 124, QTC 439, low voltage QRS, no acute ST depressions/elevations (by my review). Continue rate-control with patient's home-scheduled metoprolol tartrate 25mg PO daily with patient remaining in AFIB on 12/28/2024 with a resting HR 89 bpm (12/28/2024, 3:35pm). Given CHADS2-VASC score = 3 points (e.g., 1 point for age 65-74 years, 1 point for female sex, and 1 point for HTN), patient stands to benefit from long-term, active anticoagulation with eliquis 5mg PO bid. Patient concurs. Patient was subsequently started on eliquis 5mg PO bid (12/28/2024, 5:45pm). Other secondary issue includes: 3. Acute hypokalemia with post-admission K 3.4 mmol/L (12/29/2024, 8:52am). cf., admission K 3.6 mmol/L (12/27/2024, 12:59pm; repeat K 3.6 mmol/L (12/28/2024, 5:27am). Patient continues to receive KCl 10meq PO daily (12/28/2024, 8:56am; 12/29/2024, 8:13am) and acute hypokalemia PERSISTED, most probably because of decreased oral intake of potassium-containing foods. Hence, I opted to supplement patient with KCl 40meq PO x 1 dose (12/29/2024, 5:50pm), and acute hypokalemia RESOLVED with post-supplement K 4.1 mmol/L (12/30/2024, 6:55am). Disposition: Patient was discharged back to her home with new Physical Therapy Services in the 12/31/2024 am with augmentin 875mg / 125mg PO bid x 7 days (12/31/2024 - 01/06/2025) to complete treatment of acute distal ileal diverticulitis (as noted on 12/28/2024, 8:25am CT abd/pelvis with IV contrast), and will follow up with her PCP Dr. Tushar Miranda within 5 days of hospital discharge to arrange/schedule repeat CT abd/pelvis with IV contrast and/or screening colonoscopy within 4-6 weeks of hospital discharge, to ensure that acute distal ileal diverticulitis has RESOLVED, and is not colon carcinoma masquerading as acute distal ileal diverticulitis on 12/28/2024 - 12/29/2024. Patient reports that she will comply with this recommendation. (2) Concussion: (3) Severe protein-calorie malnutrition: (4) Chronic nausea: (5) Paroxysmal atrial fibrillation: Admission HPI Per Admitting Provider patient is a very pleasant 74-year-old female accompanied by her . To her recollection she notes she was sitting at the kitchen table on her laptop and the next thing she knew she was on the floor and vaguely remembers the EMS standing over, does not really know how she got out of her house has vague snippets of memory of being in the ambulance, and really did not feel like himself again so being here in the hospital. Her notes he was not in the same room but heard a very loud thump, came to see her, and she was slumped head down on the table. She would not really respond to voice, he called 911, and she gradually came back to consciousness. He notes no tonic-clonic movements, and both of them note no loss of bowel or bladder Even before she is done describing her syncopal event, she quickly moved into a discussion of chronic nausea that has been worse. After she eats she really feels ill, sometimes she notes taking a PPI and lactase (in spite of not having lactose intolerance) does help some, but at the same time she has not been doing well overall and has lost another 4-6 pounds over the last month (and notes that over the 7 years she has struggled with this chronic nausea she has lost about 160 pounds involuntarily overall). Discharge Exam Constitutional General: Comfortable, coherent, and cooperative. Wide awake and alert. Not confused, lethargic, or obtunded. Patient speaks in complete, fluent, and articulate sentences without pause, interruption, cough, or wheeze. HEENT: Normocephalic, atraumatic. No nystagmus, gaze paresis, anisocoria, miosis, mydriasis, hyphema, scleral injection, conjunctivitis, or pterygium. No otorrhea or rhinorrhea. No pharyngeal erythema, edema, or discharge. Neck: Supple, no stridor, bruit, goiter, or hepato-jugular reflux. Jugular venous pressure is estimated to be 3 cm above the sternal angle of [place], which in turn, is 5 cm above the level of the right atrium; with jugular venous pressure estimated to be 8 cm, then, there is no jugular venous distention on 12/31/2024. Lymphatics: No cervical (anterior/posterior), supraclavicular, infraclavicular, axillary, epitrochlear, or inguinal adenopathy. Chest: Symmetric rise and fall with respirations. Non-tender to palpation. Lungs: Clear to auscultation and percussion. Heart: Irregularly irregular rhythm, normal rate on 12/28/2024 - 12/31/2024. S1 and S2 noted. No S3 or S4 summation gallop. No tripartite friction rub. Grade II/ early systolic murmur @ LLSB without radiation to the carotids, axilla, or back, and which remains invariant in regards to the respiratory cycle. Abdomen: Soft, non-tender, non-distended. No rebound, guarding, Lala's sign, or organomegaly. Bowel sounds auscultated in all 4 quadrants. Barf bag at the bedside, empty, but open and ready to receive any vomitus on 12/28/2024. No barf bag needed on 12/29/2024 - 12/31/2024. Extremities: No clubbing, cyanosis, or edema. 2+ pedal pulses bilate rally. Skin: No decubitus ulcer, exanthem, or enanthem. Genito-urinary: No urethral discharge. No cruz catheter. Neurology: Alert and oriented in regards to person, place, time, and situation. DTR+ and symmetric. 5/5 motor strength in all 4 extremities, both proximally and distally. No pronator drift. No facial droop. No dysarthria. Psychiatry: No homicidal ideation. No suicidal ideation. No flat affect; smiles appropriately. Discharge Plan Discharge Items Patient Disposition: Home - Home Health Services Reason For Visit: SYNCOPE Discharge Diagnosis: Acute distal ileal diverticulitis; acute ampicillin-resistant, unasyn-resistant, otherwise goetz-sensitive E. coli UTI (as noted on 12/28/2024, 12:45pm urine culture). Condition on Discharge: Fair Activity: Resume your previous activity Lifting: Gradually increase as tolerated Bathing: No limitations Sexual Activity: When tolerated Weightbearing: Full weightbearing Non-emergency contact: Primary Care Provider Call non-emergency contact if: you have any medication questions Follow-up/Referrals: Tushar Miranda MD [Primary Care Provider] - Diet: Heart Healthy Addtl Attending Provider Instructions: See your PCP Dr. Tushar Miranda within 5 days of hospital discharge. Pending Studies at Discharge: No Stand-Alone Forms: My Group-IB, Smoking Cessation Medications and DC Order Prescriptions: New Eliquis 5 mg Tablet 5 mg PO BID Qty: 60 0RF amoxicillin-pot clavulanate 875-125 mg tablet 1 tab PO BID Qty: 14 0RF Continued potassium chloride 10 mEq tablet extended release 10 meq PO DAILY Qty: 30 11RF folic acid 1 mg tablet 1 mg PO QAM Qty: 30 11RF lactase [Lactaid] 3,000 unit tablet 3,000 unit PO QID PRN (Reason: Meals) Rx Instructions: administer with meals and/or snacks metoprolol tartrate 25 mg tablet 25 mg PO DAILY Qty: 90 3RF esomeprazole magnesium [Nexium] 40 mg capsule,delayed release(DR/EC) 40 mg PO BID Qty: 180 3RF Centrum Women 18-400 mg-mcg tablet 1 tab PO DAILY Maglite 1 cap PO DAILY Creon 24,000-76,000 -120,000 unit capsule,delayed release(DR/EC) 1 cap PO BIDWMEAL Rx Instructions: administer with meals and/or snacks Discharge Orders: Discharge Order (Routine); Ordered 12/31/24 Ordered By: Rito Chin Admission Data Admit Date/Time: 12/27/24 16:06 Attending Provider: Rito Chin Admit Provider: Cade Dailey Primary Care Provider: Tushar Miranda Other Providers: Toney Harris Hospital Stay Data Consultations 12/27/24 14:41 ED Decision to Admit Stat Diagnostic Imagining Performed 12/27/24 13:06 CT cervical spine wo con Stat CT head/brain wo con Stat 12/28/24 08:25 CT abd pelvis IV con only Stat 12/28/24 09:12 CT chest diagnostic w con Stat Pending Results Patient Have Any Pending Studies at Discharge: No Discharge Instructions Given to Patient (Per Discharging Provider) See your PCP Dr. Tushar Miranda within 5 days of hospital discharge. Total Time Total Time Spent Total Time Spent (In Minutes): 35 minutes. Of this time period, 19 minutes were spent in coordinating patient's discharge. Coding Level of Care Code 06881 INP/OBS DISCH >30 MIN Diagnoses Syncope R55 Concussion S06.0XAA Severe protein-calorie malnutrition E43 Chronic nausea R11.0 Paroxysmal atrial fibrillation I48.0
[2024-12-31 11:17] VITALS: PULSE 85
== END 2024-12-31 12:18 | disposition home health service (06) | DRG 391 ==
LOC: ED 12:48 → SUATTDRO 16:06 → 2S 16:06

== ENCOUNTER 2025-03-06 12:18 | Inpatient (IN) ==
[2025-03-06] MEDS: SODIUM CHLORIDE 0.9% 1,000 ML IV SCH (12:52)
--- NOTE | 2025-03-06 12:58 | Emergency Department Note ---
History of Present Illness General Chief complaint: Confusion Stated complaint: AMS, CONVULSION Source: patient and family Mode of arrival: EMS History of Present Illness Patient is a 74-year-old female who was found slumped over in a chair by her . Her states she started to have convulsions and he lowered her to the floor. Lasted several minutes. Patient did seem confused and does not remember the event. On arrival here in the ED she is back to her baseline. Blood glucose level 115 however. She did receive 500 mL of normal saline. No prior seizure history. She did not hit her head. Denies any current complaints at this time. does report 1 episode of red vomitus and it is unclear if it was blood or pizza sauce. Patient did bite her tongue during the episode. No incontinence reported. Home Medications Medication Instructions Recorded Confirmed Type folic acid 1 mg tablet 1 mg PO QAM #30 tabs 08/02/23 01/02/25 Rx multivitamin-ferrous 1 tab PO DAILY 10/31/23 01/02/25 History fumarate-folic acid 18 mg-400 mcg tablet (Centrum Women) potassium chloride 10 mEq 10 meq PO DAILY #30 tabs 12/13/23 01/02/25 Rx tablet,extended release esomeprazole magnesium 40 mg 40 mg PO BID #180 caps 11/18/24 01/02/25 Rx capsule,delayed release (Nexium) metoprolol tartrate 25 mg tablet 25 mg PO DAILY #90 tabs 11/18/24 01/02/25 Rx Maglite 1 cap PO DAILY 12/27/24 01/02/25 History [id number] 1 cap PO BIDWMEAL 12/27/24 01/02/25 History 24,000-76,000-120,000 unit capsule,delayed rel (Creon) amoxicillin 875 mg-potassium 1 tab PO BID #14 tabs 12/31/24 01/02/25 Rx clavulanate 125 mg tablet apixaban 5 mg tablet (Eliquis) 5 mg PO BID #60 tabs 12/31/24 01/02/25 Rx lactase 3,000 unit tablet (Lactaid) 3,000 unit PO TID PRN Meals 01/01/25 01/02/25 History levofloxacin 500 mg tablet 500 mg PO DAILY #7 tabs 05/22/25 05/22/25 Rx methocarbamol 750 mg tablet 750 mg PO TID #90 tabs 01/02/25 01/02/25 Rx Allergies Allergy/AdvReac Type Severity Reaction Status Date / Time liraglutide Allergy Intermediate HIVES Verified 01/02/25 13:00 phenol Allergy Intermediate HIVES Verified 01/02/25 13:00 pregabalin Allergy Intermediate HIVES Verified 01/02/25 13:00 propylene glycol Allergy Intermediate HIVES Verified 01/02/25 13:00 sulfamethoxazole Allergy Mild Unknown Verified 01/02/25 13:00 [From Bactrim] trimethoprim [From Bactrim] Allergy Mild Unknown Verified 01/02/25 13:00 nickel Allergy Unknown Rash Verified 01/02/25 13:00 Past Med/Surg History Problem List (Updated 01/31/25 @ 00:07 by Ingrid Combs) Diverticulitis Generalized weakness Pancytopenia Osteoarthritis Shoulder pain Tendinitis of both rotator cuffs Diarrhea Impaired gait and mobility Lower extremity weakness Rotator cuff (capsule) sprain UTI (urinary tract infection) COVID Hypomagnesemia Pancytopenia Gout Chronic abdominal pain Cholelithiasis (Chronic) Hepatic steatosis Foot pain Iron storage disorder Lymphedema B/L LE; WEARS COMPRESSION STOCKING Gastric ulcer Joint pain Endometrial hyperplasia Exocrine pancreatic insufficiency Anemia CYP2D6 poor metabolizer Alcohol dependence with physiological dependence Lumbar spondylosis Hip pain Peptic ulcer disease Chronic pancreatitis Elevated LFTs (Acute) GERD (gastroesophageal reflux disease) Myalgia (Acute) Medical History Acute gastrointestinal bleeding Paroxysmal atrial fibrillation Hypokalemia Acute renal disease Obesity Carpal tunnel syndrome of left wrist Diverticulitis large intestine Alcoholism Surgical History Status post right knee replacement Hx of tonsillectomy Hx of tooth extraction Hx of bilateral hip replacements History of colonoscopy History of carpal tunnel surgery of right wrist Hx of knee surgery Family History Grandmother (Maternal) Colorectal cancer Mother Colorectal cancer Myocardial infarction Stroke Other Cancer Diabetes Heart disease Hypertension Denies family history of Ovarian cancer Breast cancer Lung cancer Social History Smoking Status: Former smoker Tobacco Type: Cigarettes Age Started Using Tobacco: 17; packs per day: 0; Cigarettes Per Day: vapes a couple puffs 4 times daily; Second Hand Exposure: No; Do You Dip or Chew Tobacco: No; Hx Alcohol Use: Yes Alcohol type: other Hx Substance Use: No Preferred Language: Kinyarwanda Communication Ability: Effective Visual Impairment: Diminished Hearing Ability: Use of Hearing Aid Brush Material Preparer Required: No Beliefs That Will Affect Care: None marital status: Current Living Situation: Spouse current occupational status: retired How many Children do You have: 2 Feels Safe at Home: Yes Childhood Exposure to Second-Hand Smoke: Yes Diet: other Diet Comment: mediterranean caffeine: Yes Dental Care, Regularly: Yes Physical Activity Frequency: Does not Exercise Seatbelt Use: always Sunscreen Use: No Assistive Devices: Cane and Walker Review of Systems See HPI for pertinent positives & negatives. Physical Exam Vital Signs Vital Signs - 24 hr 03/06/25 12:15 03/06/25 12:23 03/06/25 12:42 Temperature 36.9 C Temperature Source Oral Pulse Rate 111 H 113 H Respiratory Rate 15 Respiratory Effort / Characteristics Non-Labored Spontaneous Respiratory Depth Normal Respiratory Pattern Regular Blood Pressure 113/90 Blood Pressure Mean 97 Pulse Oximetry 99 98 Oxygen Delivery Method Room Air Room Air Sepsis Recent Fever Within 48 Hours No Sepsis New/Unexplained Change in Mental Status N/A Sepsis Action Taken by Nursing No Action Required See below Constitutional WD/WN, vitals as above Eyes PERRL, conjunctivae normal, anicteric sclerae ENMT hematoma to the R lateral tongue Respiratory normal respiratory effort, lungs clear to auscultation Cardiovascular Rate/Rhythm: + tachycardic and + irregularly irregular Gastrointestinal (Abdomen) normal bowel sounds, soft, nontender, no hepatosplenomegaly Musculoskeletal no cyanosis or clubbing, extremities motor strength 5/5 Neurologic PERRL, EOMI, accommodation nl, no face palsy, no dysarthria moves all extremities equally, 5 out of 5 strength in the upper and lower Course Administered Medications Sodium Chloride (Nss) 1,000 mls @ 999 mls/hr IV .Q1H1M TEDDY Stop: 03/06/25 13:45 Last Admin: 03/06/25 12:52 Dose: 999 mls/hr Documented By: JULIET Medical Decision Making Laboratory Data 03/06/25 12:15 03/06/25 12:15 Discharge Plan Visit Data Chief Complaint: Confusion Stated Complaint: AMS, CONVULSION ED Provider: Umesh Hanna Forms Stand Alone Forms: My [facility] Prescriptions Prescriptions: No Action potassium chloride 10 mEq tablet extended release 10 meq PO DAILY Qty: 30 11RF folic acid 1 mg tablet 1 mg PO QAM Qty: 30 11RF metoprolol tartrate 25 mg tablet 25 mg PO DAILY Qty: 90 3RF esomeprazole magnesium [Nexium] 40 mg capsule,delayed release(DR/EC) 40 mg PO BID Qty: 180 3RF lactase [Lactaid] 3,000 unit tablet 3,000 unit PO TID PRN (Reason: Meals) Rx Instructions: administer with meals and/or snacks methocarbamol 750 mg tablet 750 mg PO TID Qty: 90 0RF levofloxacin 500 mg tablet 500 mg PO DAILY Qty: 7 0RF Centrum Women 18-400 mg-mcg tablet 1 tab PO DAILY Maglite 1 cap PO DAILY Creon 24,000-76,000 -120,000 unit capsule,delayed release(DR/EC) 1 cap PO BIDWMEAL Rx Instructions: administer with meals and/or snacks Eliquis 5 mg Tablet 5 mg PO BID Qty: 60 0RF amoxicillin-pot clavulanate 875-125 mg tablet 1 tab PO BID Qty: 14 0RF Referrals Referrals: Tushar Miranda MD [Primary Care Provider] -
--- NOTE | 2025-03-06 13:08 | XRay Report ---
XR chest 1V portable CLINICAL HISTORY: fall/ syncope COMPARISON STUDY: 12/27/2024 FINDINGS: Stable moderate cardiomegaly without pulmonary vascular congestion. No consolidation or ple ural effusion seen. No pneumothorax. IMPRESSION: No acute findings. ACT 112: Negative or not required by law. Electronically signed by: Naren Max M.D. 03/06/2025 1:07 PM
[2025-03-06 13:10] LABS: Hematocrit (blood only) 36.7 % (37.0-47.0); Hemoglobin 12.3 g/dl (12.0-16.0); Immature Granulocytes # (auto) 0.03 K/uL (0.01-0.20); Immature Granulocytes % (auto) 0.9 %; Mean Corpuscular Hemoglobin 35.0 pg (25.0-34.0); Mean Corpuscular Volume 104.6 fL (80.0-100.0); Platelet Count 90 K/uL (130-400); RDW Standard Deviation 54.9 fL (36.4-46.3); Red Blood Count 3.51 M/uL (4.20-5.40); White Blood Count 3.16 K/ul (4.8-10.8)
--- NOTE | 2025-03-06 13:26 | CT Scan Report ---
CT SCAN OF THE BRAIN WITHOUT IV CONTRAST CLINICAL HISTORY: Syncope. COMPARISON STUDY: Head CT December 27, 2024. TECHNIQUE: Unenhanced axial CT scan of the brain was performed from the vertex to the skull base. A dose lowering technique was utilized adhering to the principles of ALARA. CT DOSE: 625.8 mGy.cm FINDINGS: Brain parenchyma: No acute intracranial hemorrhage, midline shift or mass effect is present. Parker-whi te matter differentiation is preserved. There are no extra-axial fluid collections. There are no find ings to suggest acute dural sinus thrombosis or acute territorial infarct. White matter hypodensities are unchanged and favor small vessel disease. Ventricles, sulci, cisterns: There is no hydrocephalus. The basal cisterns are patent. Calvarium: No calvarial fractures. Sinuses and mastoids: The visualized paranasal sinuses are clear. The mastoid air cells are well pneu matized. Orbits: The bony orbits are grossly intact. IMPRESSION: No acute intracranial findings. ACT 112: Negative or not required by law. Electronically signed by: Wallace Tucker M.D. 03/06/2025 1:25 PM
[2025-03-06 13:28] LABS: Alanine Aminotransferase 24.0 U/L (7-52); Albumin Globulin Ratio 0.9 (0.9-2); Alkaline Phosphatase 271.0 U/L (34-104); Anion Gap 11.0 (3-11); Bilirubin,Total 2.1 mg/dl (0.2-1.0); Blood Urea Nitrogen 10.0 mg/dl (6-23); Calcium 8.4 mg/dl (8.6-10.3); Carbon Dioxide 27.0 mmol/L (21-32); Chloride 104.0 mmol/L (98-107); Creatinine Clr Calc Pharmacy 119.0 ml/min; Globulin 3.4 gm/dl (2.5-4.0); Glucose 117.0 mg/dl (70-99(Fasting)); Magnesium 1.2 mg/dl (1.7-2.4); Potassium 3.8 mmol/L (3.5-5.1); Sodium 142.0 mmol/L (136-145); Total Protein 6.5 gm/dl (6.0-8.3)
[2025-03-06 13:42] LABS: Thyroid Stimulating Hormone 2.107 uIu/ml (0.300-4.500)
[2025-03-06] MEDS: MAGNESIUM SULFATE / D5W 1 GM/100 ML BAG IV SCH ×2 (14:21→19:13)
[2025-03-06] MEDS: OPTIRAY 320 125ml IV ONE (14:56)
--- NOTE | 2025-03-06 15:14 | CT Scan Report ---
CT angio chest PE protocol CT DOSE: 891.4 mGy.cm HISTORY: PE. TECHNIQUE: Multiple CTA images of the chest were obtained after the intravenous administration of 120 ml Optiray. Coronal and sagittal MIPS were obtained from the axial data set and were submitted for review. All measurements were obtained according to NASCET criteria. A dose lowering technique was u tilized adhering to the principles of ALARA. COMPARISON STUDY: 12/28/2024 FINDINGS: There is no pulmonary consolidation or pleural effusion. No pneumothorax. No enlarged adeno marino. No pericardial effusion. There are diffuse coronary artery calcifications. No thoracic aortic dissection or aneurysm. No pulmonary embolism. There are moderate thoracic spine degenerative changes . No acute osseous findings. IMPRESSION: No pulmonary embolism or pneumonia. ACT 112: Negative or not required by law. The above report was generated using voice recognition software. It may contain grammatical, syntax o r spelling errors. Electronically signed by: Naren Max M.D. 03/06/2025 3:12 PM
[2025-03-06 17:20] LABS: Appearance Urine Clear (Clear); Bacteria Urine Automated 1+ (None Seen); Cast Urine Automated 0-2 /lpf (0-2); Glucose Urine UA Negative (Negative); WBC Urine Automated 0-5 /hpf (0-5)
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
--- NOTE | 2025-03-06 22:22 | Ultrasound Report ---
Exam(s): US VENOUS BILATERAL LOWER EXTREMITIES EXAM: US Duplex Bilateral Lower Extremities Veins CLINICAL HISTORY: Reason for exam: leg swelling and tenderness, elevated d-dimer. TECHNIQUE: Real-time duplex ultrasound scan of the bilateral lower extremity veins integrating B-mode two-dimensional vascular structure, Doppler spectral analysis, color flow Doppler imaging and compression. COMPARISON: None. FINDINGS: Right deep veins: Unremarkable. No DVT in the right common femoral, femoral, proximal deep femoral or popliteal veins. The veins demonstrate normal color flow, are normally compressible, with normal phasic flow and/or augmentation response. Left deep veins: Unremarkable. No DVT in the left common femoral, femoral, proximal deep femoral or popliteal veins. The veins demonstrate normal color flow, are normally compressible, with normal phasic flow and/or augmentation response. Soft tissues: Soft tissue mild edema. No popliteal cyst.. IMPRESSION: Negative for DVT in either lower extremity. . Electronically signed by: Bjorn Rodriguez MD, ANJELICA 03/06/25 22:21 PM
[2025-03-06] MEDS ORDERED: ACETAMINOPHEN 325 MG TAB PO PRN (22:30)
[2025-03-06] MEDS ORDERED: MAGNESIUM HYDROXIDE SUSP 30 ML UDC PO PRN (22:30)
[2025-03-06] MEDS ORDERED: ALUMINUM/MAGNESIUM SUSP 30 ML UDC PO PRN (22:30)
[2025-03-06] MEDS ORDERED: POLYETHYLENE (MIRALAX) 17 GM PACK PO PRN (22:30)
[2025-03-06] MEDS ORDERED: LACTASE 3000 UNIT TAB PO PRN (22:30)
[2025-03-06] MEDS: MAGNESIUM CHLORIDE W/CALCIUM 64MG DELAYED REL TAB PO SCH (23:18)
[2025-03-06] MEDS: APIXABAN 5 MG TABLET PO SCH (23:18)
[2025-03-07] MEDS: MoRPHine SULFATE 2 MG/ML CARP IV STA ×2 (05:41→05:47)
[2025-03-07 06:26] LABS: Hematocrit (blood only) 31.8 % (37.0-47.0); Hemoglobin 11.0 g/dl (12.0-16.0); Mean Corpuscular Hemoglobin 36.7 pg (25.0-34.0); Mean Corpuscular Volume 106.0 fL (80.0-100.0); Platelet Count 68 K/uL (130-400); RDW Standard Deviation 56.1 fL (36.4-46.3); Red Blood Count 3.00 M/uL (4.20-5.40); White Blood Count 4.13 K/ul (4.8-10.8)
[2025-03-07 06:41] LABS: Anion Gap 8.0 (3-11); Calcium 8.0 mg/dl (8.6-10.3); Carbon Dioxide 28.0 mmol/L (21-32); Chloride 101.0 mmol/L (98-107); Magnesium 1.9 mg/dl (1.7-2.4); Potassium 3.6 mmol/L (3.5-5.1); Sodium 137.0 mmol/L (136-145)
[2025-03-07 06:46] LABS: Blood Urea Nitrogen 10.0 mg/dl (6-23); Creatinine Clr Calc Pharmacy 126.2 ml/min; Glucose 101.0 mg/dl (70-99(Fasting))
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
[2025-03-07] MEDS: PANCREAZE (LIPASE 10,500U) CAP PO SCH (08:13)
[2025-03-07] MEDS: FOLIC ACID 1 MG TAB PO SCH (08:13)
[2025-03-07] MEDS: POTASSIUM CHLORIDE 10 MEQ TABCR PO SCH (08:13)
[2025-03-07] MEDS: MAGNESIUM SULFATE / D5W 1 GM/100 ML BAG IV ONE (08:13)
[2025-03-07] MEDS: METOPROLOL TARTRATE 25 MG TAB PO SCH (08:13)
--- NOTE | 2025-03-07 09:45 | Electroencephalogram ---
EEG Procedure Note Date of Service March 07, 2025 Start / End Times Start Time: 917 End Time: [address] Wong History 74-year-old with seizure-like activity Home Medication List Medication Instructions Recorded Confirmed Type esomeprazole magnesium 40 mg 40 mg PO BID #180 caps 11/18/24 03/06/25 Rx capsule,delayed release (Nexium) metoprolol tartrate 25 mg tablet 25 mg PO DAILY #90 tabs 11/18/24 03/06/25 Rx apixaban 5 mg tablet (Eliquis) 5 mg PO BID #60 tabs 12/31/24 03/06/25 Rx magnesium glycinate 100 mg (as 100 mg PO DAILY 03/06/25 03/06/25 History glycinate) tablet potassium 99 mg tablet 99 mg PO DAILY 03/06/25 03/06/25 History Inpatient Medication List Lipase/Protease/Amylase (Pancreaze (Lipase 10,500u) Cap) 2 cap PO BIDM TEDDY Stop: 04/06/25 07:59 Last Admin: 03/07/25 08:13 Dose: 2 cap Documented By: ROMEL Apixaban (Apixaban 5 Mg Tablet) 5 mg PO BID TEDDY Stop: 04/05/25 22:29 Last Admin: 03/07/25 08:13 Dose: 5 mg Documented By: Admin: 03/06/25 23:18 Dose: 5 mg Documented By: RACHEL Folic Acid (Folic Acid 1 Mg Tab) 1 mg PO QAM TEDDY Stop: 04/06/25 08:59 Last Admin: 03/07/25 08:13 Dose: 1 mg Documented By: ROMEL Magnesium Chloride (Magnesium Chloride W/Calcium 64mg Delayed Rel Tab) 64 mg PO BID TEDDY Stop: 04/05/25 22:29 Last Admin: 03/07/25 08:13 Dose: 64 mg Documented By: Admin: 03/06/25 23:18 Dose: 64 mg Documented By: RACHEL Metoprolol Tartrate (Metoprolol Tartrate 25 Mg Tab) 25 mg PO DAILY TEDDY Stop: 04/06/25 08:59 Last Admin: 03/07/25 08:13 Dose: 25 mg Documented By: ROMEL Potassium Chloride (Potassium Chloride 10 Meq Tabcr) 10 meq PO DAILY TEDDY Stop: 04/06/25 08:59 Last Admin: 03/07/25 08:13 Dose: 10 meq Documented By: ROMEL Discontinued Medications Sodium Chloride (Nss) 1,000 mls @ 999 mls/hr IV .Q1H1M TEDDY Stop: 03/06/25 13:45 Last Infusion: 03/06/25 14:18 Dose: Infused Documented By: Admin: 03/06/25 12:52 Dose: 999 mls/hr Documented By: JULIET Magnesium Sulfate/Dextrose (Magnesium Sulfate / D5w) 1 gm in 100 mls @ 200 mls/hr IV Q30M TEDDY Stop: 03/06/25 14:53 Last Infusion: 03/06/25 18:09 Dose: Infused Documented By: Admin: 03/06/25 16:39 Dose: 100 mls/hr Documented By: Infusion: 03/06/25 16:23 Dose: Infused Documented By: Admin: 03/06/25 14:31 Dose: 200 mls/hr Documented By: JULIET Magnesium Sulfate/Dextrose (Magnesium Sulfate / D5w) 1 gm in 100 mls @ 50 mls/hr IV Q2H TEDDY Stop: 03/06/25 22:44 Last Infusion: 03/06/25 23:05 Dose: Infused Documented By: Admin: 03/06/25 21:04 Dose: 50 mls/hr Documented By: Infusion: 03/06/25 21:04 Dose: Infused Documented By: Admin: 03/06/25 19:13 Dose: 50 mls/hr Documented By: ELZA Magnesium Sulfate/Dextrose (Magnesium Sulfate / D5w) 1 gm in 100 mls @ 50 mls/hr IV ONE ONE Stop: 03/07/25 09:35 Last Admin: 03/07/25 08:13 Dose: 50 mls/hr Documented By: ROMEL Ioversol (Optiray 320 125ml) 120 ml IV ONCE ONE Stop: 03/06/25 14:56 Last Admin: 03/06/25 14:56 Dose: 120 ml Documented By: RICHARD Morphine Sulfate (Morphine Sulfate 2 Mg/Ml Carp) 1 mg IV NOW STA Stop: 03/07/25 03:14 Last Admin: 03/07/25 05:47 Dose: Not Given Documented By: RACHEL Morphine Sulfate (Morphine Sulfate 2 Mg/Ml Carp) 1 mg IV NOW STA Stop: 03/07/25 05:30 Last Admin: 03/07/25 05:41 Dose: 1 mg Documented By: RACHEL Pantoprazole Sodium (Pantoprazole 40 Mg Tab) 40 mg PO BID TEDDY Stop: 04/05/25 22:44 Last Admin: 03/07/25 08:13 Dose: 40 mg Documented By: Admin: 03/06/25 23:18 Dose: 40 mg Documented By: RACHEL Description This is a 21 electrode EEG with a single channel dedicated to limited EKG. The electrodes were placed in accordance with the International 10-20 system. Interpretation The predominant background activity consists of a fairly well modulated 8 Hz activity, of up to 30 mV in amplitude,seen symmetrically distributed over the posterior head regions bilaterally. This activity attenuates with eye-opening and other alerting procedures. Photic stimulation was performed and elicited no change in the background activity and no abnormal responses were seen. Hyperventilation was not performed. A minimal amount of muscle and movement artifact activity contaminated the recording, and did not hinder interpretation to any significant degree. Throughout the waking portion of the recording, no focal abnormalities, abnormal slow activity, or potentially epileptogenic discharges were seen. The patient entered the drowsy state with no further activation. In summary, this EEG was normal during wakefulness and drowsiness. No focal abnormalities, potentially epileptogenic discharges, or abnormal slow activity were seen. Clinical Correlation The absence of potentially epileptogenic activity does not exclude a seizure disorder, since interictally, EEGs can be normal. Clinical correlation is required. [facility] EEG Procedure Codes Indication for Procedure (1) Seizure-like activity: Neurology Neurology: 78126 EEG include record awake & drowsy
[2025-03-07] MEDS: MELATONIN 3 MG TAB PO PRN (21:10)
[2025-03-07] MEDS: ACETAMINOPHEN 325 MG TAB PO PRN (21:10)
--- NOTE | 2025-03-08 05:30 | Electrocardiogram Report ---
Test Reason : Blood Pressure : */* mmHG Vent. Rate : 109 BPM Atrial Rate : * BPM P-R Int : * ms QRS Dur : 80 ms QT Int : 326 ms P-R-T Axes : * 2 -10 degrees QTcB Int : 439 ms Atrial fibrillation with rapid ventricular response Low voltage QRS Abnormal ECG When compared with ECG of 27-Dec-2024 13:01, No significant change was found Confirmed by Srini Ray ([id number]) on 03/08/2025 5:29:29 AM Referred By: Confirmed By: Srini Ray
[2025-03-08 07:08] LABS: Hematocrit (blood only) 34.0 % (37.0-47.0); Hemoglobin 11.5 g/dl (12.0-16.0); Mean Corpuscular Hemoglobin 35.7 pg (25.0-34.0); Mean Corpuscular Volume 105.6 fL (80.0-100.0); Platelet Count 69 K/uL (130-400); RDW Standard Deviation 54.8 fL (36.4-46.3); Red Blood Count 3.22 M/uL (4.20-5.40); White Blood Count 6.23 K/ul (4.8-10.8)
[2025-03-08 07:21] LABS: Anion Gap 6.0 (3-11); Blood Urea Nitrogen 11.0 mg/dl (6-23); Calcium 8.5 mg/dl (8.6-10.3); Carbon Dioxide 29.0 mmol/L (21-32); Chloride 100.0 mmol/L (98-107); Creatinine Clr Calc Pharmacy 104.6 ml/min; Glucose 128.0 mg/dl (70-99(Fasting)); Magnesium 1.7 mg/dl (1.7-2.4); Potassium 3.9 mmol/L (3.5-5.1); Sodium 135.0 mmol/L (136-145)
[2025-03-08 07:47] LABS: Folate (Folic Acid),Ser orPlas > 22.30 ng/ml (>5.38)
[2025-03-08 07:48] LABS: Vitamin B12 391 pg/ml (180-914)
[2025-03-08] MEDS: SPIRONOLACTONE 25 MG TAB PO SCH (08:59)
[2025-03-08] MEDS: MAGNESIUM SULFATE / D5W 1 GM/100 ML BAG IV SCH (09:05)
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
[2025-03-08] MEDS: ACETAMINOPHEN 325 MG TAB PO SCH (15:36)
[2025-03-08] MEDS: THIAMINE HCL 500 MG in SODIUM CHLORIDE 0.9% 50 ML IV SCH (16:32)
[2025-03-08 17:09] LABS: Reticulocytes # 0.090 10^6/uL (0.020-0.100)
[2025-03-08 17:24] LABS: Iron 25.0 mcg/dl (35-150); Transferrin 169.0 mg/dl (200-360)
[2025-03-08 17:44] LABS: Ferritin 304.3 ng/ml (8-388)
[2025-03-08] MEDS: SODIUM CHLORIDE 0.9% 500 ML IV ONE (17:58)
[2025-03-09 07:03] LABS: Hematocrit (blood only) 32.2 % (37.0-47.0); Hemoglobin 11.1 g/dl (12.0-16.0); Mean Corpuscular Hemoglobin 36.5 pg (25.0-34.0); Mean Corpuscular Volume 105.9 fL (80.0-100.0); Platelet Count 75 K/uL (130-400); RDW Standard Deviation 52.8 fL (36.4-46.3); Red Blood Count 3.04 M/uL (4.20-5.40); White Blood Count 4.93 K/ul (4.8-10.8)
[2025-03-09 07:36] LABS: Anion Gap 7.0 (3-11); Blood Urea Nitrogen 13.0 mg/dl (6-23); Calcium 8.6 mg/dl (8.6-10.3); Carbon Dioxide 28.0 mmol/L (21-32); Chloride 100.0 mmol/L (98-107); Creatinine Clr Calc Pharmacy 114.3 ml/min; Glucose 95.0 mg/dl (70-99(Fasting)); Magnesium 1.6 mg/dl (1.7-2.4); Potassium 3.3 mmol/L (3.5-5.1); Sodium 135.0 mmol/L (136-145)
[2025-03-09] MEDS: CYANOCOBALAMIN (B-12) 500 MCG TABLET PO SCH (08:05)
[2025-03-09] MEDS: POTASSIUM CHLORIDE 10 MEQ TABCR PO ONE (09:35)
--- NOTE | 2025-03-09 13:40 | Hospitalist Progress Note ---
Date of Service March 09, 2025 Assessment & Plan (1) Seizure: (2) Paroxysmal atrial fibrillation: (3) Hypomagnesemia: (4) Pancytopenia: Plan 74 y/o admitted with seizure and severe hypomagnesemia. Hospital stay prolonged because of flare of chronic pain and ambulatory dysfunction, increasing visual hallucinations. #Seizure - had tonic-clonic movements, tongue biting, postictal state, elevated prolactin consistent with epileptic seizure. Probably provoked by severe hypomagnesemia of 1.2 CTH negative for acute blood or gross mass lesion, physical exam not concerning for acute stroke Brain MRI recommended discussed with Keri and her today and at this point she agrees to the study, will need low-dose oral lorazepam for premed obtained EEG and it was normal, discussed with Dr. Colin. no AED at this time, however keep magnesium replaced and follow-up in neurology clinic #Severe Hypomagnesemia - 1.2 on presentation - discussed minimizing nexium with her. try for once a day only. has been pretty essential for her GI issues - added low dose spironolactone - magnesium level 1.6 today which is acceptable, however, she did get 2 g IV yesterday in addition to twice daily oral dosing. Will increase Slow-Mag to 3 tabs a day - daily AM mag. replaced mild hypokalemia of 3.3 with extra 10 mEq potassium. A.m. BMP #Visual hallucinations - progressive since about three months ago. escalating and worse this week. Seizure and hospitalization could be aggravating them -brain MRI as discussed -check ammonia -replacing thiamine - she is at risk for Wernike's encephalopathy because of long history of alcoholism and poor oral intake -avoid sedating meds (was worse after a dose of tramadol). Reviewed current medlist and no culprits -B12 and TSH recently normal -could be a primary psychiatric issue but seems unlikely #Pancytopenia - MCV high could be an MDS, myelofibrosis. She is also at risk for nutritional deficiencies. - progress hematology workup. had been referred as outpatient but not yet seen - folate normal at greater than 22 and B12 in 390s - started oral B12 supplement - empirically replace thiamine with 500 mg IV q8h x 9 doses, especially since having some mental status issues as well as GI issues - interestingly her appetite and oral intake have been dramatically improved for the last 16 hours - peripheral blood smear pending reticulocyte count is elevated at 2.71%. check LDH and haptoglobin serum iron is 25, transferrin 169, ferritin 304. Suspect she has some inflammatory block ( see elevated D-dimer), thus this is consistent with iron deficiency. because of her poor oral intake and GI issues I will give her some IV iron -cirrhosis can cause pancytopenia and macrocytosis #Severe hepatic steatosis, Severe obesity BMI 38 Bili 2.1, LFT near baseline. has had liver evaluation in GI clinic in the past -doubt hepatic encephalopathy but will check ammonia in AM #PAF -continue apixaban, metoprolol #pancreatic insufficiencycontinue Creon with meals #acute on chronic low back and knee pain - from seizure. Has severe OA in knee. Start scheduled APAP. Stopped tramadol which caused worsened mental status 03/08 DVT prophylaxisanticoagulated on apixaban PT/OT - recommend rehab updated her at bedside 03/09 Admission and Anticipated Discharge Date Admission Date: March 07, 2025 Subjective and Keri has continued to be oriented to person place and situation with the memory intact however she is having florid visual hallucinations. She and her report that visual hallucinations started at least 3 months ago around her at the time of her syncopal episode, however they are worsening and more prolonged. She says that today she spent several hours in her chair up near the ceiling and the things on the [place] were on the floor and the ceiling was on the catalan and she had a sensation of vertigo because of the height. She has had several other hallucinations and she is aware that they are not real. Otherwise she continues to have back and knee pain. She has been eating extremely well since last night which is a remarkable difference she had a Salsberry steak for dinner she had toast and eggs and mehta for breakfast and her lunch is just arrived. She has not had any abdominal pain or nausea, no diarrhea actually feels constipated at this point. Physical Exam 2 Physical Exam: Last 24h vitals reviewed GEN: no acute distress, sitting in bed HEENT: pupils equal, sclerae anicteric, moist MM RESP: normal WOB, CTAB CV: reg no mrg ABD: soft/nt/nd +BT : no cruz SKIN: warm and dry, no generalized rashes NEURO: AOx person, place, and situation. No asterixis or tremor Face symmetric, speech normal, moves 4 ext spontaneously and equally. describing various visual hallucinations she has had in the last 24 hours Results & Data Results & Data Vital Signs (Past 12 Hours) Vital Signs Temp Pulse Resp BP Pulse Ox O2 Del Method 03/09/25 08:05 Room Air 03/09/25 07:44 36.5 C 97 H 18 126/73 98 Room Air Laboratory Results 03/09/25 06:27 03/09/25 06:27 PG Care Time/CCT Total # of Minutes Spent Total Time Spent with Patient: Total time spent is greater than 50% in coordination of care (as documented) at patient's floor/unit and/or counseling patient: Coding Level of Care Code 99194 SUB INP/OBS CARE 3/50MIN Diagnoses Seizure R56.9 Paroxysmal atrial fibrillation I48.0 Hypomagnesemia E83.42 Pancytopenia D61.818
[2025-03-09] MEDS: MAGNESIUM CHLORIDE W/CALCIUM 64MG DELAYED REL TAB PO ONE (14:22)
[2025-03-09] MEDS: LORazepam 1 MG TAB SL PRN (15:52)
[2025-03-09] MEDS: IRON SUCROSE 200 MG in SODIUM CHLORIDE 0.9% 100 ML IV SCH (17:22)
[2025-03-09] MEDS: MAGNESIUM CHLORIDE W/CALCIUM 64MG DELAYED REL TAB PO SCH (20:08)
[2025-03-10 07:14] VITALS: O2SAT 100
[2025-03-10] MEDS: MAGNESIUM CHLORIDE W/CALCIUM 64MG DELAYED REL TAB PO SCH ×2 (08:38→20:38)
[2025-03-10 12:24] LABS: Hematocrit (blood only) 37.1 % (37.0-47.0); Hemoglobin 12.2 g/dl (12.0-16.0); Mean Corpuscular Hemoglobin 35.2 pg (25.0-34.0); Mean Corpuscular Volume 106.9 fL (80.0-100.0); Platelet Count 114 K/uL (130-400); RDW Standard Deviation 55.9 fL (36.4-46.3); Red Blood Count 3.47 M/uL (4.20-5.40); White Blood Count 4.80 K/ul (4.8-10.8)
[2025-03-10 12:34] LABS: Anion Gap 8.0 (3-11); Blood Urea Nitrogen 11.0 mg/dl (6-23); Calcium 9.2 mg/dl (8.6-10.3); Carbon Dioxide 27.0 mmol/L (21-32); Chloride 104.0 mmol/L (98-107); Creatinine Clr Calc Pharmacy 96.5 ml/min; Glucose 88.0 mg/dl (70-99(Fasting)); Magnesium 1.4 mg/dl (1.7-2.4); Potassium 3.6 mmol/L (3.5-5.1); Sodium 139.0 mmol/L (136-145)
[2025-03-10] MEDS: MAGNESIUM SULFATE / D5W 1 GM/100 ML BAG IV SCH (15:21)
--- NOTE | 2025-03-10 20:16 | Hospitalist Progress Note ---
Date of Service March 10, 2025 Assessment & Plan (1) Seizure: (2) Paroxysmal atrial fibrillation: (3) Hypomagnesemia: (4) Pancytopenia: Plan 74 y/o admitted with seizure and severe hypomagnesemia. Hospital stay prolonged because of flare of chronic pain and ambulatory dysfunction, increasing visual hallucinations. #Seizure - had tonic-clonic movements, tongue biting, postictal state, elevated prolactin consistent with epileptic seizure. Probably provoked by severe hypomagnesemia of 1.2 CTH negative for acute blood or gross mass lesion, physical exam not concerning for acute stroke Brain MRI recommended attempted 03/09 and she was scared and panicked despite premed and could not start the study obtained EEG and it was normal, discussed with Dr. Colin. no AED at this time, however keep magnesium replaced and follow-up in neurology clinic #Severe Hypomagnesemia - 1.2 on presentation - discussed minimizing nexium with her. try for once a day only. has been pretty essential for her GI issues - added low dose spironolactone - magnesium level 1.4 today - increased slo-mag to 2 tabs bid (currently constipated) and gave 2g IV mag. Check in AM - daily AM mag. hypokalemia resolved #Visual hallucinations, sundowning/hospital delirium - hallucinations progressive since about three months ago. escalating and worse this week. Seizure and hospitalization could be aggravating them -unable to tolerate brain MRI. Consider doing as outpatient, may need anesthesia -ammonia 25, normal -replacing thiamine - she is at risk for Wernike's encephalopathy because of long history of alcoholism and poor oral intake -avoid sedating meds (was worse after a dose of tramadol). Reviewed current medlist and no culprits -does not appear to be in a withdrawal syndrome -B12 and TSH recently normal -could be a primary psychiatric issue but seems unlikely -olanzapine 5 ODT prn bothersome hallucinations or agitation - no doses given #Pancytopenia - MCV high could be an MDS, myelofibrosis. She is also at risk for nutritional deficiencies. - progress hematology workup. had been referred as outpatient but not yet seen - folate normal at greater than 22 and B12 in 390s - started oral B12 supplement - empirically replacing thiamine with 500 mg IV q8h x 9 doses - interestingly her appetite and oral intake have been dramatically improved after starting this - peripheral blood smear - pathologist says suspicious for MDS and recommends hematology evaluation reticulocyte count is elevated at 2.71%. LDH normal and haptoglobin pending serum iron is 25, transferrin 169, ferritin 304. Suspect she has some inflammatory block ( see elevated D-dimer), thus this is consistent with iron deficiency. poor po tolerance so giving venofer 200 mg IV x 3 days #Severe hepatic steatosis, Severe obesity BMI 38 Bili 2.1, LFT near baseline. has had liver evaluation in GI clinic in the past -ammonia normal -if cirrhotic, not enough to explain pancytopenia #PAF -continue apixaban, metoprolol #pancreatic insufficiencycontinue Creon with meals #acute on chronic low back and knee pain - from seizure. Has severe OA in knee. scheduled APAP. Stopped tramadol which caused worsened mental status 03/08 DVT prophylaxisanticoagulated on apixaban PT/OT - recommend rehab - [facility] updated her 03/10 in person Admission and Anticipated Discharge Date Admission Date: March 07, 2025 Subjective Continues hallucinating and was confused and agitated overnight AOx4 today and not confused but describes visual hallucinations of a pen accross the room with fischer coming out of it, a rabbit on a tower she can see a mile away out the window. Knows these are not real. Last night, however, saw her grandchildren in the room and was not aware they were not real She does not want to take any medication for the hallucinations at this time. I think they are organic, offered psychiatry consultation, she did not want to do that right now either. Physical Exam Physical Exam: Last 24h vitals reviewed GEN: no acute distress, sitting in bed Exam unchanged 03/10 HEENT: pupils equal, sclerae anicteric, moist MM RESP: normal WOB, CTAB CV: reg no mrg ABD: soft/nt/nd +BT : no cruz SKIN: warm and dry, no generalized rashes NEURO: AOx person, place, and situation. No asterixis or tremor Face symmetric, speech normal, moves 4 ext spontaneously and equally. describing various visual hallucinations she has had in the last 24 hours Results & Data Results & Data Vital Signs (Past 12 Hours) Vital Signs Temp Pulse Pulse Resp BP BP Pulse Ox 03/10/25 19:25 36.7 C 80 18 104/72 100 03/10/25 11:59 36.5 C 78 18 125/90 O2 Del Method 03/10/25 19:25 Room Air 03/10/25 11:59 Room Air Laboratory Results Mag down to 1.4 CBC - all counts improved, Plt up to 114 BMP was normal PG Care Time/CCT Total # of Minutes Spent Total Time Spent with Patient: Total time spent is greater than 50% in coordination of care (as documented) at patient's floor/unit and/or counseling patient: Coding Level of Care Code 33294 SUB INP/OBS CARE 3/50MIN Diagnoses Seizure R56.9 Paroxysmal atrial fibrillation I48.0 Hypomagnesemia E83.42 Pancytopenia D61.818
[2025-03-11 06:35] LABS: Hematocrit (blood only) 35.2 % (37.0-47.0); Hemoglobin 11.5 g/dl (12.0-16.0); Mean Corpuscular Hemoglobin 35.4 pg (25.0-34.0); Mean Corpuscular Volume 108.3 fL (80.0-100.0); Platelet Count 120 K/uL (130-400); RDW Standard Deviation 56.7 fL (36.4-46.3); Red Blood Count 3.25 M/uL (4.20-5.40); White Blood Count 3.54 K/ul (4.8-10.8)
[2025-03-11 06:56] LABS: Anion Gap 5.0 (3-11); Blood Urea Nitrogen 14.0 mg/dl (6-23); Calcium 8.9 mg/dl (8.6-10.3); Carbon Dioxide 30.0 mmol/L (21-32); Chloride 104.0 mmol/L (98-107); Creatinine Clr Calc Pharmacy 83.4 ml/min; Glucose 95.0 mg/dl (70-99(Fasting)); Magnesium 1.5 mg/dl (1.7-2.4); Potassium 3.6 mmol/L (3.5-5.1); Sodium 139.0 mmol/L (136-145)
[2025-03-11 07:07] VITALS: RESP 16; TEMP 97.7
--- NOTE | 2025-03-11 12:22 | Discharge Summary ---
Discharge Summary Date of Service March 11, 2025 Principal Dx & Hospital Course #1 = Principal Diagnosis (1) Seizure: (2) Paroxysmal atrial fibrillation: (3) Hypomagnesemia: (4) Pancytopenia: (5) Thiamine deficiency: Plan 74 y/o admitted with seizure and severe hypomagnesemia. Hospital stay prolonged because of flare of chronic pain and ambulatory dysfunction, increasing visual hallucinations. #Seizure - had tonic-clonic movements, tongue biting, postictal state, elevated prolactin consistent with epileptic seizure. Probably provoked by severe hypomagnesemia of 1.2 CTH negative for acute blood or gross mass lesion, physical exam not concerning for acute stroke Brain MRI recommended attempted 03/09 and she was scared and panicked despite premed and could not start the study obtained EEG and it was normal, discussed with Dr. Colin. no AED at this time, however keep magnesium replaced and follow-up in neurology clinic -try to keep magnesium level at least 1.5 long-term chronically low so I doubt it will be able to be normalized on oral meds -outpatient MRI brain probably needs anesthesia, if she is willing to try #Severe Hypomagnesemia - 1.2 on presentation. Hypokalemia on presentation treated and resolved. - discussed minimizing nexium with her. try for once a day PPI only. has been pretty essential for her GI issues - added low dose spironolactone - increased dose to 50 mg for 03/12. Continue uptitrating as tolerated and monitor potassium - magnesium level 1.5 today - increased slo-mag to 2 tabs bid (currently constipated) and gave 2g IV mag. - monitor magnesium closely - ideally check on 03/14 #Visual hallucinations, sundowning/hospital delirium - hallucinations progressive since about three months ago. escalating and became worse this week. Seizure and hospitalization could be aggravating them #Strong presumption of thiamine deficiency -unable to tolerate brain MRI. Consider doing as outpatient, may need anesthesia -ammonia 25, normal -replacing thiamine -avoid sedating meds (was worse after a dose of tramadol). Reviewed current medlist and no culprits -does not appear to be in a withdrawal syndrome -B12 and TSH recently normal. Continue oral B12 -could be a primary psychiatric issue but seems unlikely -offered med to suppress hallucinations but she declined -remained AOx4 Treated with IV thiamine 500 mg q8h x 8 doses which is adequate replacement. Continue oral thiamine indefinitely Her hallucinations had improved a lot by discharge but still happening time to time. Interestingly her GI symptoms improved a lot as did her appetite soon after starting thiamine replacement. She has been eating very poorly for several years, after thiamine she started eating all or most of every meal. Blood counts also started improving #Pancytopenia - MCV high could be an MDS, myelofibrosis. She is also at risk for nutritional deficiencies. - progressed hematology workup. has been referred as outpatient but not yet seen - folate normal at greater than 22 and B12 in 390s - started oral B12 supplement - empirically replacing thiamine as above - peripheral blood smear - pathologist says suspicious for MDS and recommends hematology evaluation reticulocyte count is elevated at 2.71%. LDH normal and haptoglobin normal at 190 serum iron is 25, transferrin 169, ferritin 304. Suspect she has some inflammatory block ( see elevated D-dimer), thus this is consistent with iron deficiency. poor po tolerance so gave venofer 200 mg IV x 3 days #Severe hepatic steatosis, Severe obesity BMI 38 Bili 2.1, LFT near baseline. has had liver evaluation in GI clinic in the past -ammonia normal -if cirrhotic, not enough to explain pancytopenia #PAF -continue apixaban, metoprolol #pancreatic insufficiencycontinue Creon with meals #acute on chronic low back and knee pain - from seizure. Has severe OA in knee. scheduled APAP. Stopped tramadol which caused worsened mental status 03/08 DVT prophylaxisanticoagulated on apixaban PT/OT - recommend rehab - [facility] updated her 03/10 in person Notes For Next Care Provider Strong presumption of thiamine deficiency based on clinical response -continue oral thiamine indefinitely Gave venofer 600 mg IV Needs to follow up with hematology, per pathologist review blood smear susp icious for MDS Need to keep magnesium level up to avoid seizure Neurology follow up Medication Changes From Visit added oral thiamine increased magnesium supplement Discharge Exam Last 24h vitals reviewed GEN: no acute distress, sitting in bed Exam unchanged 03/10 HEENT: pupils equal, sclerae anicteric, moist MM RESP: normal WOB, CTAB CV: reg no mrg ABD: soft/nt/nd +BT : no cruz SKIN: warm and dry, no generalized rashes NEURO: AOx person, place, and situation. Still having a few visual burt llucinations but much improved compared to 48-72h ago Discharge Plan Discharge Items Patient Disposition: Transfer Inpatient Rehab Fac Reason For Visit: SEIZURE, SEVERE HYPOMAGNESEMIA Discharge Diagnosis: Seizure, severe hypomagnesemia Activity: Resume your previous activity Non-emergency contact: Primary Care Provider Call non-emergency contact if: you have any medication questions and your symptoms worsen Follow-up/Referrals: Royal Colin MD [Physician] - Tushar Miranda MD [Primary Care Provider] - Diet: Regular Addtl Attending Provider Instructions: PT and OT evaluate and treat Please monitor blood magnesium - ideally recheck in 48h. Today was 1.5 and got 2 g IV in addition to oral -adjust oral supplement as needed, probably will be limited by diarrhea -ok to use PRN immodium -increase spironolactone as tolerated - increased from 25-->50 mg for 03/12 and monitor potassium Hallucinations have been going on 3 months but oriented x 4. Had increase this week r/t hospital delirium and seizure but now improved a lot Dear Mrs. Chapman You were evaluated for seizure This was triggered by very low blood magnesium level Brain EEG was normal Head CT scan was normal We recommend brain MRI - this can be done as outpatient if you change your mind Follow up with neurology clinic - schedule with [facility] Do not drive until cleared by neurologist Try to increase your magnesium glycinate to 200 mg twice a day. The limiting factor is usually diarrhea. We started a low dose of medication called spironolactone which might keep your magnesium level higher. Try to decrease how often you take the nexium (once a day is better than twice a day) if you can tolerate it - nexium and similar medications often cause low magnesium Follow up with Dr. Miranda as soon as possible. He will need to help monitor your blood potassium and magnesium. Follow up with hematology/oncology as planned for low blood counts. I checked a B12 and folate level which are normal. Thiamine deficiency can cause low blood counts (see below). You were mildly iron deficient so I gave you 600 mg of IV iron. Blood smear was reviewed by the pathologist and he recommended evaluation by a negative turner apprentice. Currently blood counts are as good / better than they were in December. I think you have a thiamine deficiency - we treated with IV thiamine in the hospital (9 doses x 500 mg) and your eating and hallucinations seem to be improving low B1 (thiamine) can cause a lot of different symptoms including GI and neurological symptoms. You can buy it in the drug store. Take 200 mg (usually that's 2 tabs) twice a day for two weeks then decrease to 1 tab daily. It was a pleasure taking care of you in the hospital, Nga Wong MD Pending Studies at Discharge: Yes Stand-Alone Forms: My [facility] Skilled Items Patient informed of condition?: Yes DNR: Yes Discharge Level of Care: Acute rehab Communicable Disease: No Discharge Prognosis: Improving Lines: None Urinary Catheter: No Medications and DC Order Prescriptions: New potassium chloride 10 mEq Tablet Extended Release 10 meq PO DAILY Qty: 0 0RF spironolactone 25 mg Tablet 25 mg PO QAM Qty: 30 0RF lactase [Dairy-Aid] 3,000 unit Tablet 3,000 unit PO TID PRNQty: 0 0RF Creon 36,000-114,000- 180,000 unit Capsule,Delayed Release(Dr/Ec) 2 cap PO BIDM Qty: 0 0RF folic acid 1 mg Tablet 1 mg PO QAM Qty: 0 0RF acetaminophen 325 mg Tablet 650 mg PO Q6H Qty: 0 0RF spironolactone 25 mg Tablet 50 mg PO QAM Qty: 0 0RF cyanocobalamin (vitamin B-12) 500 mcg Tablet 1,000 mcg PO QAM Qty: 0 0RF pantoprazole 40 mg Tablet,Delayed Release (Dr/Ec) 40 mg PO DAILY Qty: 0 0RF magnesium chloride [Mag 64] 64 mg Tablet,Delayed Release (Dr/Ec) 128 mg PO BID Qty: 0 0RF thiamine mononitrate (vit B1) 100 mg tablet 200 mg PO BID Qty: 60 0RF Continued metoprolol tartrate 25 mg tablet 25 mg PO DAILY Qty: 90 3RF Eliquis 5 mg Tablet 5 mg PO BID Qty: 60 0RF Changed magnesium glycinate 100 mg Tablet 200 mg PO BID Qty: 0 0RF Discontinued esomeprazole magnesium [Nexium] 40 mg capsule,delayed release(DR/EC) 40 mg PO BID Qty: 180 3RF potassium 99 mg Tablet 99 mg PO DAILY Discharge Orders: Discharge Order (Routine); Ordered 03/11/25 Ordered By: Nga Lomeli/Other Patient Handouts: Hypomagnesemia Dc Admission Data Admit Date/Time: 03/07/25 17:32 Attending Provider: Nga Wong Admit Provider: Nga Wong Primary Care Provider: Tushar Miranda Other Providers: Nga Wong; IRB Approved Study,Emelia; [facility] Other Interventions: Discharge Summary Assessment (RN) Last Done: 03/11/25 16:33 Hospital Stay Data Consultations 03/06/25 17:56 ED Decision to Admit Stat Diagnostic Imagining Performed 03/06/25 12:44 CT head/brain wo con Stat 03/06/25 13:45 CT angio chest PE protocol Stat 03/06/25 18:45 US venous duplex leg [US venous doppler LE BI] Routine Pending Results Patient Have Any Pending Studies at Discharge: Yes Discharge Instructions Given to Patient (Per Discharging Provider) PT and OT evaluate and treat Please monitor blood magnesium - ideally recheck in 48h. Today was 1.5 and got 2 g IV in addition to oral -adjust oral supplement as needed, probably will be limited by diarrhea -ok to use PRN immodium -increase spironolactone as tolerated - increased from 25-->50 mg for 03/12 and monitor potassium Hallucinations have been going on 3 months but oriented x 4. Had increase this week r/t hospital delirium and seizure but now improved a lot Dear Mrs. Chapman You were evaluated for seizure This was triggered by very low blood magnesium level Brain EEG was normal Head CT scan was normal We recommend brain MRI - this can be done as outpatient if you change your mind Follow up with neurology clinic - schedule with [facility] [place] [place] Do not drive until cleared by neurologist Try to increase your magnesium glycinate to 200 mg twice a day. The limiting factor is usually diarrhea. We started a low dose of medication called spironolactone which might keep your magnesium level higher. Try to decrease how often you take the nexium (once a day is better than twice a day) if you can tolerate it - nexium and similar medications often cause low magnesium Follow up with Dr. Miranda as soon as possible. He will need to help monitor your blood potassium and magnesium. Follow up with hematology/oncology as planned for low blood counts. I checked a B12 and folate level which are normal. Thiamine deficiency can cause low blood counts (see below). You were mildly iron deficient so I gave you 600 mg of IV iron. Blood smear was reviewed by the pathologist and he recommended evaluation by a negative turner apprentice. Currently blood counts are as good / better than they were in December. I think you have a thiamine deficiency - we treated with IV thiamine in the hospital (9 doses x 500 mg) and your eating and hallucinations seem to be improving low B1 (thiamine) can cause a lot of different symptoms including GI and neurological symptoms. You can buy it in the drug store. Take 200 mg (usually that's 2 tabs) twice a day for two weeks then decrease to 1 tab daily. It was a pleasure taking care of you in the hospital, Nga Wong MD Total Time Total Time Spent Total Time Spent (In Minutes): I personally spent: 45 minutes today on clinical care activities including: reviewing chart notes and vital signs reviewing labs discussion with post anesthesia care unit nurse examining and counseling the patient writing orders writing prescriptions, discharge instructions documentation Coding Level of Care Code 55155 INP/OBS DISCH >30 MIN Diagnoses Seizure R56.9 Paroxysmal atrial fibrillation I48.0 Hypomagnesemia E83.42 Pancytopenia D61.818 Thiamine deficiency E51.9
[2025-03-11] MEDS: MAGNESIUM SULFATE / D5W 1 GM/100 ML BAG IV SCH (12:34)
[2025-03-11 15:38] VITALS: BP 117/82; PULSE 76
[2025-03-12] MEDS ORDERED: SPIRONOLACTONE 25 MG TAB PO SCH (09:00)
== END 2025-03-11 18:26 | DRG 101 ==
LOC: SUATTDRO → ED 12:18 → 2E 12:18 → 3E 03-08 16:16

== ENCOUNTER 2025-06-05 10:36 | Inpatient (IN) ==
--- NOTE | 2025-06-05 10:51 | Emergency Department Note ---
Impression & Plan Sepsis, Hypomagnesemia, Acute cholecystitis, Hypotension ED Provider Note CHIEF COMPLAINT: Vomiting for 3 days, cannot eat or drink HISTORY OF PRESENTING ILLNESS: The patient is a 74-year-old female with a PMH GERD, PUD, anemia, pancreatic insufficiency, lymphedema, alcohol dependence, hypomagnesemia, osteoarthritis, vitamin deficiency, hypokalemia who presents to the emergency department reporting upper abdominal pain and vomiting for 3 days. Reports abdominal pain radiates to her back. She has vomited 2530 times. She is not able to tolerate oral fluids or water. She does report having a PICC line for magnesium infusions 3 times a week. She reports missing her magnesium infusions on Monday and Monday due to not feeling well. She denies fever, chest pain, shortness of breath, URI symptoms, urinary symptoms, constipation, diarrhea. REVIEW OF SYSTEMS: See HPI for pertinent positives and pertinent negatives. ALLERGIES: Liraglutide, fentanyl, pregabalin, propylene glycol, sulfamethoxazole, trimethoprim, nickel, MEDICATIONS: See below PAST MEDICAL HISTORY: See below PHYSICAL EXAM: VITALS: Vitals are noted on the nurses note and reviewed by myself. Patient hypotensive. Will remain on monitor. Mildly tachycardic. Afebrile. GENERAL: 74-year-old female, in no acute distress, nondiaphoretic, well- developed well-nourished. SKIN: Capillary refill less than 2 seconds. HEENT: Normocephalic. PERRLA. EOMI. Nares patent. Mucous membranes moist. Neck is supple without nuchal rigidity. HEART: Regular rate and rhythm without murmurs gallops or rubs. LUNGS: CTA BL without wheezes, rales or rhonchi. No retractions or accessory muscle use. ABDOMEN: Positive BS x 4. Diffuse tenderness across the upper abdominal quadrants. The abdomen is soft without masses. Lala sign negative. No guarding or rebound tenderness. MUSCULOSKELETAL: No gross musculoskeletal defects. NEURO: Patient was alert and oriented to person place and time. No focal neurological deficits. DIFFERENTIAL DIAGNOSIS: Differential diagnosis includes appendicitis, diverticulitis, bowel obstruction, inflammatory bowel disease, renal colic, PUD, biliary pathology, pancreatitis, mesenteric ischemia, aortic pathology, infection, genitourinary, UTI, perforated viscus, among others. ED COURSE AND MEDICAL DECISION MAKING: HISTORY FROM INDEPENDENT HISTORIAN: The patient herself. MEDICATIONS GIVEN: 2 L normal saline, Zofran 4 mg IV, Tylenol 1000 mg IV, magnesium sulfate 1 g, Zosyn 4.5 g, vancomycin 2 g, 1 L normal saline MONITOR: Continuous ems driver: Order was placed for continuous ems driver. Patient was placed on the ems driver and continuous pulse ox. Patient was noted to be in normal sinus rhythm at an initial rate of 108 bpm per my interpretation. EKG: EKG was interpreted by myself as atrial fibrillation. Low voltage QRS. When compared to previous EKG from 03/06/2025 nonspecific T wave abnormality improved in inferior leads. No other significant abnormality. QT interval 482. INTERPRETATION OF LABS: I interpreted the labs with full lab results as below in the lab section of this note. Pertinent lab results discussed in the MDM section below. INTERPRETATION OF IMAGING: Imaging studies were interpreted by myself and read by radiology as per the imaging section of this note. CT abdomen pelvis - Gallstone with distended gallbladder. Mild gallbladder wall thickening with David cholecystic edema. Acute cholecystitis. Ultrasound gallbladder - Cholelithiasis with sonographic findings for acute cholecystitis. Common bile duct measuring 8 mm. ESCALATION OF CARE CONSIDERED: Escalation of care as the patient requires magnesium infusion and has missed her first 2 appointments this week. Reports diffuse abdominal pain nausea and vomiting. Full workup shows septic acute cholecystitis. The patient was admitted to medicine and general surgery consulted. CONSULTATIONS: On-call general surgery - Presented the patient to the provider and findings of acute cholecystitis. Did discuss that gallstones were noted on imaging. They recommended admitted to medicine and ordering an MRCP. On-call [facility] [address] hospitalist - Presented the patient to the provider and discussed my conversation with general surgery. The patient is scheduled for MRCP and is receiving her third liter of fluids and was given broad-spectrum antibiotics earlier. They agreed to evaluate the patient and admitting to medicine. They will consult with general surgery. I have personally spent greater than 45 minutes of critical care time in the direct management of this patient. This includes bedside care, interpretation of diagnostic studies, and testing, discussion with consultants, patient, and family members, and other required patient management activities. This 45 minutes is in excess of all separately billable procedures. MDM SUMMARY: I evaluated the 74-year-old female who presents to the emergency department due to diffuse upper abdominal pain and nausea and vomiting for the last 3 days. See HPI and PE above. Initially hypotensive and tachycardic. Tylenol, Zofran, and 1 L normal saline given for symptom management. Labs obtained showing leukocytosis WBC 14.75. Hemodynamically stable. ABHIJIT. BUN 27. Creatinine 2.13. Magnesium 1.0. This was repleted and 1 g given. Lactate 5.6. Troponin elevated 22. Lipase 3. Procalcitonin 53.30. All laboratory results reviewed with the patient. Patient meets sepsis criteria and additional liter of fluids and broad-spectrum antibiotics provided. CT abdomen and pelvis shows acute cholecystitis. A consultation with on-call general surgery can be seen in detail above. Recommended admission to medicine and MRCP. Patient remains hypotensive. Additional liter of fluids given. A consultation with the on-call [facility] [address] hospitalist can be seen in detail above. Discussed full workup with the provider. They agreed to evaluating the patient and admitting to medicine. Patient is agreeable to the outlined treatment plan and all questions answered. The patient was admitted in stable condition and was continuously monitored here in the ER. I did reach back out to the provider as the patient remains hypotensive. They have placed orders and are also monitoring the patient's vitals. DIAGNOSIS: Sepsis, hypomagnesemia, acute cholecystitis, hypotension The chart was completed utilizing [employer] Speech voice recognition software. Grammatical errors, random word insertions, pronoun errors, and incomplete sentences are an occasional consequence of this system due to software limitations, ambient noise, and hardware issues. Any formal questions or concerns about the content, text, or information contained within the body of this dictation should be directly addressed to the provider for clarification. Past Med/Surg History Problem List Choledocholithiasis Acute kidney injury Adnexal mass Transaminasemia Type [address] elevation Acute cholecystitis with acute cholangitis Severe sepsis without septic shock Hypomagnesemia Hypokalemia Thiamine deficiency Seizure-like activity (Acute) Diverticulitis Generalized weakness Pancytopenia (Acute) Osteoarthritis Shoulder pain Tendinitis of both rotator cuffs Diarrhea Impaired gait and mobility Lower extremity weakness Rotator cuff (capsule) sprain UTI (urinary tract infection) COVID Hypomagnesemia (Acute) Pancytopenia Gout Chronic abdominal pain Cholelithiasis (Chronic) Hepatic steatosis Foot pain Iron storage disorder Lymphedema B/L LE; WEARS COMPRESSION STOCKING Gastric ulcer Joint pain Endometrial hyperplasia Exocrine pancreatic insufficiency Anemia CYP2D6 poor metabolizer Alcohol dependence with physiological dependence Lumbar spondylosis Hip pain Peptic ulcer disease Chronic pancreatitis Elevated LFTs (Acute) GERD (gastroesophageal reflux disease) Myalgia (Acute) Medical History Seizure Atrial fibrillation with rapid ventricular response Chronic nausea Concussion Syncope Severe protein-calorie malnutrition Paroxysmal atrial fibrillation Acute gastrointestinal bleeding 10/01/21 Hypokalemia Acute renal disease Obesity Carpal tunnel syndrome of left wrist LEFT HAND NEUROPATHY Diverticulitis large intestine Alcoholism Surgical History S/P PICC central line placement Status post right knee replacement Hx of tonsillectomy Hx of tooth extraction Hx of bilateral hip replacements LEFT DAGMAR= 06/20/17= DONE UNDER GA 2/2 PATIENT PREFERENCE AT [facility] History of colonoscopy History of carpal tunnel surgery of right wrist Hx of knee surgery B/L Family History Grandmother (Maternal) Colorectal cancer Mother Colorectal cancer Myocardial infarction Stroke Other Cancer Diabetes Heart disease Hypertension Denies family history of Ovarian cancer Breast cancer Lung cancer Social History Smoking Status: Current some day smoker Tobacco Type: E-cigarettes / Vaping Age Started Using Tobacco: 17; packs per day: 0; Cigarettes Per Day: vapes a couple puffs /4 timesa day; Second Hand Exposure: No; Do You Dip or Chew Tobacco: No; Hx Alcohol Use: Yes Alcohol type: hard liquor Hx Substance Use: No Preferred Language: [place] Communication Ability: Unable Visual Impairment: Diminished Hearing Ability: Use of Hearing Aid Computer Support Specialist Instructor Required: No Beliefs That Will Affect Care: None marital status: Current Living Situation: Spouse current occupational status: retired How many Children do You have: 2 Feels Safe at Home: Yes Childhood Exposure to Second-Hand Smoke: Yes Diet: other Diet Comment: mediterranean caffeine: Yes Dental Care, Regularly: Yes Physical Activity Frequency: Does not Exercise Seatbelt Use: always Sunscreen Use: No Assistive Devices: Cane, Glasses and Walker Allergies Allergies Allergy/AdvReac Type Severity Reaction Status Date / Time liraglutide Allergy Intermediate HIVES Verified 06/02/25 13:58 phenol Allergy Intermediate HIVES Verified 06/02/25 13:58 pregabalin Allergy Intermediate HIVES Verified 06/02/25 13:58 propylene glycol Allergy Intermediate HIVES Verified 06/02/25 13:58 sulfamethoxazole Allergy Mild Unknown Verified 06/02/25 13:58 [From Bactrim] trimethoprim [From Bactrim] Allergy Mild Unknown Verified 06/02/25 13:58 nickel Allergy Unknown Rash Verified 06/02/25 13:58 Home Meds Home Medications Medication Instructions Recorded Confirmed magnesium chloride 64 mg 64 mg PO DAILY 05/09/25 06/05/25 (magnesium chloride) tablet,delayed release apixaban 5 mg tablet (Eliquis) 0 mg PO BID 06/05/25 06/05/25 [id number] 0 cap PO BIDM 06/05/25 06/05/25 (pork)36,000-114,000-180k unit capsule,del rel (Creon) metoprolol tartrate 25 mg tablet 0 mg PO DAILY 06/05/25 06/05/25 pantoprazole 40 mg tablet,delayed 0 mg PO DAILY 06/05/25 06/05/25 release Previous Rx's Medication Instructions Recorded lactase 3,000 unit tablet 3,000 unit PO TID PRN #0 tabs 03/08/25 (Dairy-Aid) acetaminophen 325 mg tablet 650 mg (2 x 325 mg) PO Q6H #0 tabs 03/11/25 cyanocobalamin (vitamin B-12) 500 1,000 mcg (2 x 500 mcg) PO QAM #0 03/11/25 mcg tablet tabs thiamine mononitrate (vit B1) 100 200 mg (2 x 100 mg) PO BID #60 tabs 03/11/25 mg tablet folic acid 1 mg tablet 1 mg PO QAM #30 tabs 04/22/25 amiloride 5 mg tablet 5 mg PO DAILY #30 tabs 05/06/25 Results & Data (ED) Vital Signs Vital Signs - 24 hr 06/05/25 10:40 06/05/25 11:04 06/05/25 11:33 Temperature 36.8 C Temperature Source Temporal Artery Scan Pulse Rate 109 H 105 H 103 H Pulse Rate [Apical] Pulse Rate from SpO2 Sensor 101 H Pulse Rhythm [Apical] Pulse Strength [Apical] Respiratory Rate 20 7 L Respiratory Effort / Characteristics Non-Labored Spontaneous Respiratory Depth Normal Respiratory Pattern Blood Pressure 74/50 L 92/56 L Blood Pressure [Right Arm] Blood Pressure Mean 58 68 Blood Pressure Mean [Right Arm] Blood Pressure Position [Right Arm] Pulse Oximetry 99 95 Oxygen Delivery Method Room Air Sepsis Recent Fever Within 48 Hours No Sepsis New/Unexplained Change in Mental Status No Sepsis Action Taken by Nursing No Action Required 06/05/25 11:45 06/05/25 12:00 06/05/25 12:21 Temperature Temperature Source Pulse Rate 97 H Pulse Rate [Apical] Pulse Rate from SpO2 Sensor 104 H 93 H Pulse Rhythm [Apical] Pulse Strength [Apical] Respiratory Rate 21 Respiratory Effort / Characteristics Respiratory Depth Respiratory Pattern Blood Pressure 90/46 L Blood Pressure [Right Arm] Blood Pressure Mean 64 Blood Pressure Mean [Right Arm] Blood Pressure Position [Right Arm] Pulse Oximetry 91 95 Oxygen Delivery Method Sepsis Recent Fever Within 48 Hours Sepsis New/Unexplained Change in Mental Status Sepsis Action Taken by Nursing 06/05/25 13:09 06/05/25 13:15 06/05/25 13:33 Temperature Temperature Source Pulse Rate 100 H 90 Pulse Rate [Apical] Pulse Rate from SpO2 Sensor 102 H 90 Pulse Rhythm [Apical] Pulse Strength [Apical] Respiratory Rate 20 17 Respiratory Effort / Characteristics Respiratory Depth Respiratory Pattern Blood Pressure 86/59 L 88/50 L Blood Pressure [Right Arm] Blood Pressure Mean 65 62 Blood Pressure Mean [Right Arm] Blood Pressure Position [Right Arm] Pulse Oximetry 96 98 Oxygen Delivery Method Sepsis Recent Fever Within 48 Hours Sepsis New/Unexplained Change in Mental Status Sepsis Action Taken by Nursing 06/05/25 14:28 06/05/25 14:28 06/05/25 15:30 Temperature Temperature Source Pulse Rate 101 H 95 H Pulse Rate [Apical] Pulse Rate from SpO2 Sensor 101 H 104 H Pulse Rhythm [Apical] Pulse Strength [Apical] Respiratory Rate 28 H 24 Respiratory Effort / Characteristics Respiratory Depth Respiratory Pattern Blood Pressure 89/59 L 92/63 L 81/51 L Blood Pressure [Right Arm] Blood Pressure Mean 70 72 61 Blood Pressure Mean [Right Arm] Blood Pressure Position [Right Arm] Pulse Oximetry 98 97 Oxygen Delivery Method Sepsis Recent Fever Within 48 Hours Sepsis New/Unexplained Change in Mental Status Sepsis Action Taken by Nursing 06/05/25 15:33 06/05/25 15:51 06/05/25 16:00 Temperature Temperature Source Pulse Rate 108 H 104 H Pulse Rate [Apical] 104 H Pulse Rate from SpO2 Sensor 99 H 96 H Pulse Rhythm [Apical] Regular Pulse Strength [Apical] Normal Respiratory Rate 17 24 16 Respiratory Effort / Characteristics Non-Labored Spontaneous Respiratory Depth Normal Respiratory Pattern Regular Blood Pressure 83/51 L 87/55 L Blood Pressure [Right Arm] 85/51 L Blood Pressure Mean 61 65 Blood Pressure Mean [Right Arm] 62 Blood Pressure Position [Right Arm] Lying Pulse Oximetry 100 100 99 Oxygen Delivery Method Room Air Sepsis Recent Fever Within 48 Hours Sepsis New/Unexplained Change in Mental Status Sepsis Action Taken by Nursing 06/05/25 16:20 Temperature Temperature Source Pulse Rate 102 H Pulse Rate [Apical] Pulse Rate from SpO2 Sensor Pulse Rhythm [Apical] Pulse Strength [Apical] Respiratory Rate Respiratory Effort / Characteristics Respiratory Depth Respiratory Pattern Blood Pressure Blood Pressure [Right Arm] Blood Pressure Mean Blood Pressure Mean [Right Arm] Blood Pressure Position [Right Arm] Pulse Oximetry Oxygen Delivery Method Sepsis Recent Fever Within 48 Hours Sepsis New/Unexplained Change in Mental Status Sepsis Action Taken by Nursing Laboratory Data 06/06/25 05:51 06/06/25 05:51 Lab Results 06/05/25 06/05/25 06/05/25 Range/Units 11:05 11:10 12:45 WBC 14.75 H (4.8-10.8) K/ul RBC 3.67 L (4.20-5.40) M/uL Hgb 12.7 (12.0-16.0) g/dl POC Hgb 14.3 (12.0-16.0) g/dl Hct 38.7 (37.0-47.0) % POC Hct 42 (37-47) % MCV 105.4 H (80.0-100.0) fL MCH 34.6 H (25.0-34.0) pg MCHC 32.8 (32.0-36.0) g/dL RDW Std Deviation 51.8 H (36.4-46.3) fL RDW Coeff of Ignacio 13.4 (11.5-14.5) % Plt Count 69 L (130-400) K/uL MPV 11.6 (9.4-12.4) fL Immature Gran % (Auto) 3.1 % Neut % (Auto) 85.7 % Lymph % (Auto) 2.8 % Frederick % (Auto) 7.4 % Eos % (Auto) 0.7 % Baso % (Auto) 0.3 % Neut # (Auto) 12.65 H (1.40-6.50) K/uL Lymph # (Auto) 0.41 L (1.20-3.40) K/uL Frederick # (Auto) 1.09 H (0.11-0.59) K/uL Eos # (Auto) 0.10 (0.00-0.50) K/uL Baso # (Auto) 0.04 (0.00-0.20) K/uL Immature Gran # (Auto) 0.46 H (0.01-0.20) K/uL Toxic Vacuolation 1+ Dohle Bodies 1+ POC Sodium 138 (135-144) mmol/L Sodium 138 (136-145) mmol/L POC Potassium 3.5 (3.3-5.0) mmol/L Potassium 3.5 (3.5-5.1) mmol/L POC Chloride 103 (101-112) mmol/L Chloride 102 (98-107) mmol/L Carbon Dioxide 21 (21-32) mmol/L POC Total CO2 21 L (24-31) mmol/L Anion Gap 15 H (3-11) POC Anion Gap 19.0 (16-25) mmol/L POC BUN 25 H (7-18) mg/dl BUN 27 H (6-23) mg/dl Creatinine 2.13 H (0.6-1.2) mg/dl POC Creatinine 2.2 H (0.6-1.3) mg/dl Est Cr Clr Drug Dosing Not Reportable eGFR 24.01 BUN/Creatinine Ratio 12.7 (10-20) Glucose 98 (70-99(Fasting)) mg/dl POC Glucose (other) 94 (70-99) mg/dl Lactate 5.6 H* (0.4-2.0) mmol/L Calcium 8.8 (8.6-10.3) mg/dl POC Ioniz Calcium Luis Miguel 1.12 (1.12-1.32) mmol/l Magnesium 1.0 L (1.7-2.4) mg/dl Total Bilirubin 1.9 H (0.2-1.0) mg/dl Direct Bilirubin 1.0 H (0-0.2) mg/dl AST 141 H (13-39) U/L ALT 55 H (7-52) U/L Alkaline Phosphatase 144 H (34-104) U/L Troponin I High Sens 22.0 H (0-14) pg/ml Total Protein 6.4 (6.0-8.3) gm/dl Albumin 3.1 L (3.4-5.0) gm/dl Globulin 3.3 (2.5-4.0) gm/dl Albumin/Globulin Ratio 0.9 (0.9-2) Lipase 3 L (11-82) U/L Procalcitonin 53.30 H (0-0.5) ng/ml TSH 2.659 (0.300-4.500) uIu/ml Enterobacterales (PCR) DETECTED A (NotDetected) K. pneumoniae group (PCR) DETECTED A (NotDetected) mcr-1 Colistin Res Gene PCR Not Detected (NotDetected) blaIMP Car res Gene PCR Not Detected (NotDetected) KPC-Carbap Res Gene PCR Not Detected (NotDetected) blaNDM Car Res Gene PCR Not Detected (NotDetected) OXA-48 Carbapenem Resis Gene (PCR) Not Detected (NotDetected) blaVIM Car Res Gene PCR Not Detected (NotDetected) CTX-M Gene Resistance (PCR) Not Detected (NotDetected) Bld Cult ID Panel PCR See PCR Comment (NotDetected) 06/05/25 06/05/25 Range/Units 12:47 12:49 WBC (4.8-10.8) K/ul RBC (4.20-5.40) M/uL Hgb (12.0-16.0) g/dl POC Hgb (12.0-16.0) g/dl Hct (37.0-47.0) % POC Hct (37-47) % MCV (80.0-100.0) fL MCH (25.0-34.0) pg MCHC (32.0-36.0) g/dL RDW Std Deviation (36.4-46.3) fL RDW Coeff of Ignacio (11.5-14.5) % Plt Count (130-400) K/uL MPV (9.4-12.4) fL Immature Gran % (Auto) % Neut % (Auto) % Lymph % (Auto) % Frederick % (Auto) % Eos % (Auto) % Baso % (Auto) % Neut # (Auto) (1.40-6.50) K/uL Lymph # (Auto) (1.20-3.40) K/uL Frederick # (Auto) (0.11-0.59) K/uL Eos # (Auto) (0.00-0.50) K/uL Baso # (Auto) (0.00-0.20) K/uL Immature Gran # (Auto) (0.01-0.20) K/uL Toxic Vacuolation Dohle Bodies POC Sodium (135-144) mmol/L Sodium (136-145) mmol/L POC Potassium (3.3-5.0) mmol/L Potassium (3.5-5.1) mmol/L POC Chloride (101-112) mmol/L Chloride (98-107) mmol/L Carbon Dioxide (21-32) mmol/L POC Total CO2 (24-31) mmol/L Anion Gap (3-11) POC Anion Gap (16-25) mmol/L POC BUN (7-18) mg/dl BUN (6-23) mg/dl Creatinine (0.6-1.2) mg/dl POC Creatinine (0.6-1.3) mg/dl Est Cr Clr Drug Dosing eGFR BUN/Creatinine Ratio (10-20) Glucose (70-99(Fasting)) mg/dl POC Glucose (other) (70-99) mg/dl Lactate 2.7 H* (0.4-2.0) mmol/L Calcium (8.6-10.3) mg/dl POC Ioniz Calcium Luis Miguel (1.12-1.32) mmol/l Magnesium (1.7-2.4) mg/dl Total Bilirubin (0.2-1.0) mg/dl Direct Bilirubin (0-0.2) mg/dl AST (13-39) U/L ALT (7-52) U/L Alkaline Phosphatase (34-104) U/L Troponin I High Sens 19.0 H (0-14) pg/ml Total Protein (6.0-8.3) gm/dl Albumin (3.4-5.0) gm/dl Globulin (2.5-4.0) gm/dl Albumin/Globulin Ratio (0.9-2) Lipase (11-82) U/L Procalcitonin (0-0.5) ng/ml TSH (0.300-4.500) uIu/ml Enterobacterales (PCR) (NotDetected) K. pneumoniae group (PCR) (NotDetected) mcr-1 Colistin Res Gene PCR (NotDetected) blaIMP Car res Gene PCR (NotDetected) KPC-Carbap Res Gene PCR (NotDetected) blaNDM Car Res Gene PCR (NotDetected) OXA-48 Carbapenem Resis Gene (PCR) (NotDetected) blaVIM Car Res Gene PCR (NotDetected) CTX-M Gene Resistance (PCR) (NotDetected) Bld Cult ID Panel PCR (NotDetected) Administered Medications Discontinued Medications Lipase/Protease/Amylase (Pancreaze (Lipase 10,500u) Cap) 2 cap PO BIDM TEDDY Stop: 07/05/25 18:58 Last Admin: 06/06/25 08:03 Dose: 2 cap Documented By: Admin: 06/05/25 22:51 Dose: 2 cap Documented By: BETSY Enoxaparin Sodium (Enoxaparin Inj 40 Mg/0.4 Ml Syr) 40 mg SQ Q24H TEDDY Stop: 07/05/25 21:59 Last Admin: 06/05/25 23:38 Dose: Not Given Documented By: BETSY Sodium Chloride (Nss) 1,000 mls @ 999 mls/hr IV .Q1H1M ONE Stop: 06/05/25 11:52 Last Infusion: 06/05/25 13:52 Dose: Infused Documented By: Admin: 06/05/25 11:20 Dose: 999 mls/hr Documented By: CEF Acetaminophen (Ofirmev) 1,000 mg in 100 mls @ 400 mls/hr IV NOW STA Stop: 06/05/25 11:10 Last Infusion: 06/05/25 12:30 Dose: Infused Documented By: Admin: 06/05/25 11:22 Dose: 400 mls/hr Documented By: CEF Sodium Chloride (Nss) 1,000 mls @ 999 mls/hr IV .Q1H1M ONE Stop: 06/05/25 12:26 Last Infusion: 06/05/25 13:53 Dose: Infused Documented By: Admin: 06/05/25 12:30 Dose: 999 mls/hr Documented By: CEF Magnesium Sulfate/Dextrose (Magnesium Sulfate / D5w) 1 gm in 100 mls @ 100 mls/hr IV NOW STA Stop: 06/05/25 12:50 Last Infusion: 06/05/25 13:52 Dose: Infused Documented By: Admin: 06/05/25 12:28 Dose: 100 mls/hr Documented By: CEF Piperacillin Sod/Tazobactam Sod (Zosyn) 4.5 gm in 100 mls @ 200 mls/hr IV NOW ONE; Protocol Stop: 06/05/25 13:29 Last Infusion: 06/05/25 14:57 Dose: Infused Documented By: Admin: 06/05/25 14:24 Dose: 200 mls/hr Documented By: CEF Vancomycin HCl 2,000 mg/ (Sodium Chloride) 540 mls @ 200 mls/hr IV NOW ONE Stop: 06/05/25 15:41 Last Infusion: 06/05/25 16:14 Dose: Infused Documented By: Admin: 06/05/25 15:32 Dose: 200 mls/hr Documented By: MARTHA Sodium Chloride (Nss) 1,000 mls @ 999 mls/hr IV .Q1H1M ONE Stop: 06/05/25 16:48 Last Infusion: 06/05/25 17:18 Dose: Infused Documented By: Admin: 06/05/25 15:55 Dose: 999 mls/hr Documented By: MARTHA Lactated Ringer's (Lr) 1,000 mls @ 150 mls/hr IV .Q6H40M TEDDY Stop: 06/05/25 22:54 Last Infusion: 06/06/25 02:20 Dose: Infused Documented By: Admin: 06/05/25 19:00 Dose: 150 mls/hr Documented By: BETSY Lorazepam 1 mg/ Syringe 1 mls @ 2 mls/min IV ONCE PRN PRN Reason: Anxiety Stop: 07/05/25 18:22 Last Admin: 06/05/25 20:53 Dose: 2 mls/min Documented By: BETSY Lactated Ringer's (Lr) 1,000 mls @ 150 mls/hr IV .Q6H40M TEDDY Stop: 06/06/25 18:58 Last Admin: 06/06/25 08:03 Dose: 150 mls/hr Documented By: Infusion: 06/06/25 08:03 Dose: Infused Documented By: Admin: 06/06/25 02:17 Dose: 150 mls/hr Documented By: Admin: 06/05/25 22:52 Dose: Not Given Documented By: BETSY Acetaminophen (Ofirmev) 1,000 mg in 100 mls @ 400 mls/hr IV Q8H TEDDY Stop: 06/08/25 20:59 Last Infusion: 06/06/25 06:03 Dose: Infused Documented By: Admin: 06/06/25 05:39 Dose: 400 mls/hr Documented By: Infusion: 06/05/25 23:07 Dose: Infused Documented By: Admin: 06/05/25 22:51 Dose: 400 mls/hr Documented By: BETSY Meropenem 500 mg/ Syringe 10 mls @ 2 mls/min IV Q8H TEDDY; Protocol Stop: 06/15/25 21:59 Last Admin: 06/06/25 05:39 Dose: 2 mls/min Documented By: Admin: 06/05/25 22:51 Dose: 2 mls/min Documented By: BETSY Magnesium Sulfate/Dextrose (Magnesium Sulfate / D5w) 1 gm in 100 mls @ 50 mls/hr IV Q2H TEDDY Stop: 06/06/25 16:59 Last Admin: 06/06/25 11:22 Dose: 50 mls/hr Documented By: ULYSSES Ioversol (Optiray 320 100ml) 94 ml IV ONCE ONE Stop: 06/05/25 14:07 Last Admin: 06/05/25 14:06 Dose: 94 ml Documented By: SAHARA Ketorolac Tromethamine (Ketorolac Tromethamine 15 Mg/Ml Vial) 15 mg IV Q6H TEDDY Stop: 06/10/25 21:29 Last Admin: 06/06/25 11:22 Dose: 15 mg Documented By: Admin: 06/06/25 04:06 Dose: 15 mg Documented By: Admin: 06/05/25 22:51 Dose: 15 mg Documented By: BETSY Miscellaneous (Patient's Height &/Or Weight Needed) 1 each N/A Q2H STA Stop: 06/05/25 19:09 Last Admin: 06/05/25 23:16 Dose: 1 each Documented By: BETSY Miscellaneous (Patient's Height &/Or Weight Needed) 1 each N/A NOW STA Stop: 06/05/25 21:00 Last Admin: 06/05/25 23:16 Dose: 1 each Documented By: BETSY Ondansetron HCl (Ondansetron Inj 2 Mg/Ml 2 Ml Vial) 4 mg IV NOW STA Stop: 06/05/25 10:57 Last Admin: 06/05/25 11:14 Dose: 4 mg Documented By: CEF Pantoprazole Sodium (Pantoprazole 40 Mg Tab) 40 mg PO DAILY [facility] Stop: 07/06/25 08:59 Last Admin: 06/06/25 08:03 Dose: 40 mg Documented By: [facility] Imaging Data Radiologist's Impression: Abdomen/Pelvis CT 06/05/25 10:52 CT SCAN OF THE ABDOMEN AND PELVIS WITH IV CONTRAST CLINICAL HISTORY: Abdominal pain, nausea, vomiting COMPARISON STUDY: 12/28/2024 TECHNIQUE: Following the IV administration of 94 cc of Optiray 320, CT scan of the abdomen and pelvis is performed from the lung bases to the proximal femora. Images are reviewed in the axial, sagittal, and coronal planes. IV contrast was administered without complication. A dose lowering technique was utilized adhering to the principles of ALARA. CT DOSE: 1533.35 mGy.cm FINDINGS: Lung bases: There are coronary artery calcifications. The heart is mildly enlarged. There are no pleural effusions. There is mild right middle lobe scarring. There are minimal dependent atelectatic changes. Liver: There is a stable 15 mm right hepatic lobe hypodense nodule containing calcifications. There is no pneumobilia. Gallbladder: The gallbladder is distended. There is mild pericholecystic edema. There are multiple gallstones. The findings are suspicious for acute cholecystitis, and clinical correlation in this regard is advocated. Spleen: No splenic masses are visualized. Pancreas: No pancreatic masses are visualized. There is no pancreatic ductal dilatation. Adrenal glands: No pathologic adrenal masses are visualized. Kidneys: There are no solid renal masses. There is no hydronephrosis. There is mild bilateral perinephric stranding and trace left perinephric fluid. Abdominal vasculature: There is no evidence of abdominal aortic dilatation. Bowel: There are no transition zones indicate bowel obstruction. There are colonic and distal ileal diverticula. There are no findings to indicate acute diverticulitis. The appendix is visualized and appears normal. Peritoneum: There is no ascites. There is no free intraperitoneal air. Lymphadenopathy: There are no pathologically enlarged abdominal or pelvic lymph nodes. Pelvic viscera: There is artifact secondary to bilateral total hip arthroplasties. There is a stable 4.5 cm right adnexal mass. This is likely ovarian. This exceeds water attenuation. No uterine lesions are visualized. Visualization the bladder is largely obscured due to beam hardening artifact. Skeletal structures: There is a T11 vertebral body hemangioma. There is new fragmentation of the anterior superior L2 endplates. IMPRESSION: 1. Gallstones with a distended gallbladder. There is mild gallbladder wall thickening, and mild pericholecystic edema. The findings are suspicious for acute cholecystitis. 2. No evidence of bowel obstruction. No evidence of free air 3. Diverticulosis. No evidence of acute diverticulitis 4. Stable but indeterminate 4.5 cm right adnexal mass, likely ovarian ACT 112: Negative or not required by law. Electronically signed by: Gt Da Silva M.D. 06/05/2025 2:38 PM Gallbladder Ultrasound 06/05/25 14:48 ABDOMINAL ULTRASOUND, RIGHT UPPER QUADRANT HISTORY: Acute right upper quadrant abdominal pain with nausea and vomiting RUQ pain, acute choley. COMPARISON: CT of same day FINDINGS: Pancreas: The pancreas demonstrates a normal echotexture. Liver: 20 cm in length without discrete mass or marginal nodularity. Possible hepatic steatosis. Partially calcified hyperechoic structures in the gustavo hepatis is indeterminate, favored to be benign. Gallbladder: Layering stones and sludge within the gallbladder lumen. Mild gallbladder wall thickening measuring 3 mm with trace pericholecystic fluid. Sonographic Lala sign was unable to be obtained secondary to patient on pain medication. CBD: 8 mm, no definite choledocholithiasis on this study. Right kidney: No hydronephrosis. IMPRESSION: 1. Cholelithiasis with sonographic findings suggestive of acute cholecystitis. 2. The common bile duct measures 8 mm and there is equivocal choledocholithiasis on the same day CT study. Correlate with serum bilirubin. ACT 112: Negative or not required by law. Electronically signed by: Benjamin Wilson M.D. 06/05/2025 3:49 PM Discharge Plan Visit Data Chief Complaint: Illness Stated Complaint: VOMITING 3DAYS, NO FOOD, CAN'T DRINK WATER ED Provider: Umesh Hanna ED Midlevel Provider: Bessie Koenig Discharge Problem: Sepsis, Hypomagnesemia, Acute cholecystitis, Hypotension Patient Disposition: Admitted As Inpatient Condition: Serious Discharge Instructions Interventions: ED Discharge Assessment Last Done: 06/05/25 18:23
[2025-06-05] MEDS: ONDANSETRON INJ 2 MG/ML 2 ML VIAL IV STA (11:14)
[2025-06-05] MEDS: SODIUM CHLORIDE 0.9% 1,000 ML IV ONE ×3 (11:20→15:55)
[2025-06-05] MEDS: ACETAMINOPHEN 1,000 MG/100 ML VIAL IV STA (11:22)
[2025-06-05 11:50] LABS: Alanine Aminotransferase 55 U/L (7-52); Albumin Globulin Ratio 0.9 (0.9-2); Albumin Level 3.1 gm/dl (3.4-5.0); Alkaline Phosphatase 144 U/L (34-104); Anion Gap 15 (3-11); Bilirubin,Total 1.9 mg/dl (0.2-1.0); Blood Urea Nitrogen 27 mg/dl (6-23); Calcium 8.8 mg/dl (8.6-10.3); Carbon Dioxide 21 mmol/L (21-32); Chloride 102 mmol/L (98-107); Globulin 3.3 gm/dl (2.5-4.0); Glucose 98 mg/dl (70-99(Fasting)); Lipase 3 U/L (11-82); Magnesium 1.0 mg/dl (1.7-2.4); Potassium 3.5 mmol/L (3.5-5.1); Sodium 138 mmol/L (136-145); Total Protein 6.4 gm/dl (6.0-8.3)
[2025-06-05 12:00] LABS: Hematocrit (blood only) 38.7 % (37.0-47.0); Hemoglobin 12.7 g/dl (12.0-16.0); Mean Corpuscular Hemoglobin 34.6 pg (25.0-34.0); Mean Corpuscular Volume 105.4 fL (80.0-100.0); Platelet Count 69 K/uL (130-400); RDW Standard Deviation 51.8 fL (36.4-46.3); Red Blood Count 3.67 M/uL (4.20-5.40); White Blood Count 14.75 K/ul (4.8-10.8)
[2025-06-05 12:05] LABS: Dohle Bodies 1+; Immature Granulocytes # (auto) 0.46 K/uL (0.01-0.20); Immature Granulocytes % (auto) 3.1 %; Thyroid Stimulating Hormone 2.659 uIu/ml (0.300-4.500); Toxic Vacuolation 1+
[2025-06-05] MEDS: MAGNESIUM SULFATE / D5W 1 GM/100 ML BAG IV STA (12:28)
[2025-06-05] MEDS ORDERED: VANCOMYCIN CONSULT ACTIVE PRN (13:00)
[2025-06-05] MEDS: OPTIRAY 320 100ml IV ONE (14:06)
[2025-06-05] MEDS: PIPERACILLIN/TAZOBACTAM 4.5 GM/100 ML BAG IV ONE (14:24)
--- NOTE | 2025-06-05 14:39 | CT Scan Report ---
CT SCAN OF THE ABDOMEN AND PELVIS WITH IV CONTRAST CLINICAL HISTORY: Abdominal pain, nausea, vomiting COMPARISON STUDY: 12/28/2024 TECHNIQUE: Following the IV administration of 94 cc of Optiray 320, CT scan of the abdomen and pelvi s is performed from the lung bases to the proximal femora. Images are reviewed in the axial, sagittal , and coronal planes. IV contrast was administered without complication. A dose lowering technique wa s utilized adhering to the principles of ALARA. CT DOSE: 1533.35 mGy.cm FINDINGS: Lung bases: There are coronary artery calcifications. The heart is mildly enlarged. There are no pleu ral effusions. There is mild right middle lobe scarring. There are minimal dependent atelectatic man ges. Liver: There is a stable 15 mm right hepatic lobe hypodense nodule containing calcifications. There i s no pneumobilia. Gallbladder: The gallbladder is distended. There is mild pericholecystic edema. There are multiple ga llstones. The findings are suspicious for acute cholecystitis, and clinical correlation in this regar d is advocated. Spleen: No splenic masses are visualized. Pancreas: No pancreatic masses are visualized. There is no pancreatic ductal dilatation. Adrenal glands: No pathologic adrenal masses are visualized. Kidneys: There are no solid renal masses. There is no hydronephrosis. There is mild bilateral perinep hric stranding and trace left perinephric fluid. Abdominal vasculature: There is no evidence of abdominal aortic dilatation. Bowel: There are no transition zones indicate bowel obstruction. There are colonic and distal ileal d iverticula. There are no findings to indicate acute diverticulitis. The appendix is visualized and appears normal. Peritoneum: There is no ascites. There is no free intraperitoneal air. Lymphadenopathy: There are no pathologically enlarged abdominal or pelvic lymph nodes. Pelvic viscera: There is artifact secondary to bilateral total hip arthroplasties. There is a stable 4.5 cm right adnexal mass. This is likely ovarian. This exceeds water attenuation. No uterine lesion s are visualized. Visualization the bladder is largely obscured due to beam hardening artifact. Skeletal structures: There is a T11 vertebral body hemangioma. There is new fragmentation of the ante rior superior L2 endplates. IMPRESSION: 1. Gallstones with a distended gallbladder. There is mild gallbladder wall thickening, and mild peric holecystic edema. The findings are suspicious for acute cholecystitis. 2. No evidence of bowel obstruction. No evidence of free air 3. Diverticulosis. No evidence of acute diverticulitis 4. Stable but indeterminate 4.5 cm right adnexal mass, likely ovarian ACT 112: Negative or not required by law. Electronically signed by: Gt Da Silva M.D. 06/05/2025 2:38 PM
[2025-06-05] MEDS: VANCOMYCIN HCL 2,000 MG in SODIUM CHLORIDE 0.9% 500 ML IV ONE (15:32)
--- NOTE | 2025-06-05 15:32 | History & Physical Report ---
Date of Service June 05, 2025 Assessment & Plan (1) Severe sepsis without septic shock: (2) Acute cholecystitis with acute cholangitis: (3) Acute kidney injury: (4) Type [address] elevation: (5) Transaminasemia: (6) Adnexal mass: (7) Hypomagnesemia: Plan In summary this is a 74-year-old female who presents with severe sepsis secondary to cholangitis with acute cholecystitis #Severe sepsis secondary to acute cholangitis with cholecystitis // Type II Myocardial infarction from sepsis Patient presents with tachycardia, persistent hypotension, leukocytosis with a suspected infectious source of cholangitis based on laboratory assessment and physical exam; this is correlated with imaging that has been obtained at this time; she continues with fluid resuscitation in the emergency department with marginal improvement of their lactic acid as a measure of adequate perfusion; general surgery was contacted by the emergency department provider who recommended MRCP to be obtained 06/06 Start Merrem 1 g IV every 8 hours Follow blood cultures obtained in the emergency department Follow daily CMP and CBC with manual differential Continue maintenance intravenous fluids with LR at 150 mL/h for 24 hours then reassess need Start acetaminophen 1000 mg IV every 8 hours for 24 hours then reassess Start Toradol 15 mg IV every 6 hours scheduled, to be continued through 06/10 or upon discharge whichever occurs sooner General Surgery consulted #Acute Kidney Injury in the setting of Sepsis Patient's baseline creatinine is in the range of 0.7-0.8; presenting creatinine today 2.13; most likely prerenal based on her presenting complaints; continue with fluid resuscitation and reassess on 06/05 Follow daily CMP #Permanent atrial fibrillation Chronic condition; has not taken home Eliquis since 06/02; continue to hold Eliquis in anticipation of surgical intervention during hospitalization #Chronic hypomagnesemia Chronic hypomagnesemia requiring regular outpatient infusion therapy; continue follow daily during hospitalization with goal to achieve greater than 2 #Adnexal mass, right side Noted on imaging obtained in the ED, recommend outpatient follow up History of Present Illness Chief Complaint: Persistent and progressive abdominal pain associated with nausea and vomiting Primary Care Provider: Tushar Miranda MD Ms. Chapman is a 74-year-old female whose active medical conditions include paroxysmal atrial fibrillation, peptic ulcer disease, chronic pancreatitis, recurrent cholecystitis, persistent hypomagnesemia requiring outpatient infusion therapy among other chronic medical conditions who presented to the [facility] on 06/05 due to persistent and progressive abdominal pain associated with nonbloody nonbilious emesis over the past 72 hours. She states that she was liberal with her diet and had a large amount of dairy on the evening prior to her initial symptom onset which resulted in severe abdominal pain primarily in the right upper quadrant and epigastrium. This was persistent and progressive with regard to its severity, she began to have increased abdominal distention along a similar time course with a large amount of flatus. On the day of presentation she began to have a large amount of diarrhea without hematochezia or melanotic stool. She denies any hematemesis, bilious emesis, or coffee-ground emesis. She has not been able to tolerate oral intake since the beginning of her symptom onset except for small sips of water. She last took her regular scheduled medications on 06/02, including her Eliquis. She denies any fevers, chills, chest pain, dyspnea, orthopnea. She has not been on any recent antibiotics Allergies Allergy/AdvReac Type Severity Reaction Status Date / Time liraglutide Allergy Intermediate HIVES Verified 06/02/25 13:58 phenol Allergy Intermediate HIVES Verified 06/02/25 13:58 pregabalin Allergy Intermediate HIVES Verified 06/02/25 13:58 propylene glycol Allergy Intermediate HIVES Verified 06/02/25 13:58 sulfamethoxazole Allergy Mild Unknown Verified 06/02/25 13:58 [From Bactrim] trimethoprim [From Bactrim] Allergy Mild Unknown Verified 06/02/25 13:58 nickel Allergy Unknown Rash Verified 06/02/25 13:58 Home Medications Medication Instructions Recorded Confirmed Type lactase 3,000 unit tablet 3,000 unit PO TID PRN #0 tabs 03/08/25 06/05/25 Rx (Dairy-Aid) acetaminophen 325 mg tablet 650 mg (2 x 325 mg) PO Q6H #0 tabs 03/11/25 06/05/25 Rx cyanocobalamin (vitamin B-12) 500 1,000 mcg (2 x 500 mcg) PO QAM #0 03/11/25 06/05/25 Rx mcg tablet tabs thiamine mononitrate (vit B1) 100 200 mg (2 x 100 mg) PO BID #60 tabs 03/11/25 06/05/25 Rx mg tablet folic acid 1 mg tablet 1 mg PO QAM #30 tabs 04/22/25 06/05/25 Rx amiloride 5 mg tablet 5 mg PO DAILY #30 tabs 05/06/25 06/05/25 Rx magnesium chloride 64 mg 64 mg PO DAILY 05/09/25 06/05/25 History (magnesium chloride) tablet,delayed release apixaban 5 mg tablet (Eliquis) 0 mg PO BID 06/05/25 06/05/25 History [id number] 0 cap PO BIDM 06/05/25 06/05/25 History (pork)36,000-114,000-180k unit capsule,del rel (Creon) metoprolol tartrate 25 mg tablet 0 mg PO DAILY 06/05/25 06/05/25 History pantoprazole 40 mg tablet,delayed 0 mg PO DAILY 06/05/25 06/05/25 History release Past Med/Surg History Problem List (Updated 06/05/25 @ 17:16 by Richy Velez, ) Acute kidney injury Adnexal mass Transaminasemia Type [address] elevation Acute cholecystitis with acute cholangitis Severe sepsis without septic shock Hypomagnesemia Hypokalemia Thiamine deficiency Seizure-like activity (Acute) Diverticulitis Generalized weakness Pancytopenia (Acute) Osteoarthritis Shoulder pain Tendinitis of both rotator cuffs Diarrhea Impaired gait and mobility Lower extremity weakness Rotator cuff (capsule) sprain UTI (urinary tract infection) COVID Hypomagnesemia (Acute) Pancytopenia Gout Chronic abdominal pain Cholelithiasis (Chronic) Hepatic steatosis Foot pain Iron storage disorder Lymphedema B/L LE; WEARS COMPRESSION STOCKING Gastric ulcer Joint pain Endometrial hyperplasia Exocrine pancreatic insufficiency Anemia CYP2D6 poor metabolizer Alcohol dependence with physiological dependence Lumbar spondylosis Hip pain Peptic ulcer disease Chronic pancreatitis Elevated LFTs (Acute) GERD (gastroesophageal reflux disease) Myalgia (Acute) Medical History Seizure Atrial fibrillation with rapid ventricular response Chronic nausea Concussion Syncope Severe protein-calorie malnutrition Paroxysmal atrial fibrillation Acute gastrointestinal bleeding 10/01/21 Hypokalemia Acute renal disease Obesity Carpal tunnel syndrome of left wrist LEFT HAND NEUROPATHY Diverticulitis large intestine Alcoholism Surgical History S/P PICC central line placement Status post right knee replacement Hx of tonsillectomy Hx of tooth extraction Hx of bilateral hip replacements LEFT DAGMAR= 06/20/17= DONE UNDER GA 2/2 PATIENT PREFERENCE AT [facility] History of colonoscopy History of carpal tunnel surgery of right wrist Hx of knee surgery B/L Family History Grandmother (Maternal) Colorectal cancer Mother Colorectal cancer Myocardial infarction Stroke Other Cancer Diabetes Heart disease Hypertension Denies family history of Ovarian cancer Breast cancer Lung cancer Social History Smoking Status: Light tobacco smoker Tobacco Type: E-cigarettes / Vaping Age Started Using Tobacco: 17; packs per day: 0; Cigarettes Per Day: vapes a couple puffs /4 timesa day; Second Hand Exposure: No; Do You Dip or Chew Tobacco: No; Hx Alcohol Use: Yes Alcohol type: other Hx Substance Use: No Preferred Language: Malagasy Communication Ability: Effective Visual Impairment: Diminished Hearing Ability: Use of Hearing Aid Cyber Crime Investigator Required: No Beliefs That Will Affect Care: None marital status: Current Living Situation: Spouse current occupational status: retired How many Children do You have: 2 Feels Safe at Home: Yes Childhood Exposure to Second-Hand Smoke: Yes Diet: other Diet Comment: mediterranean caffeine: Yes Dental Care, Regularly: Yes Physical Activity Frequency: Does not Exercise Seatbelt Use: always Sunscreen Use: No Assistive Devices: Cane, Stair Lift and Walker Review of Systems Review of Systems: Review of constitutional, cardiovascular, pulmonary, gastrointestinal systems was unremarkable except for pertinent positive and negative findings detailed in HPI above Physical Exam Physical Exam: General: Adult female in no acute distress Vital Signs: Persistently hypotensive with a mean arterial pressure in the range of 60 to 70 mmHg; tachycardic with a rate in the range of 95 to 110 bpm with an irregular rhythm noted on telemetry HEENT: Tacky mucous membranes Pulmonary: Symmetric chest wall excursion without restriction; clear to auscultation with anterior assessment Cardiovascular: Irregularly irregular rhythm with rapid rate without noted murmurs, rubs, or gallops; S1 and S2 normal; left radial pulse 2+; trace bilateral lower extremity lymphedema Gastrointestinal: Soft, protuberant; achiness noted with moderately deep palpation in the left upper and lower quadrants with more sharp discomfort noted with palpation in the right upper quadrant; positive Lala sign; no tenderness with percussion throughout the abdomen; bowel sounds are low-frequency with normal pitch; no peritoneal findings Neurologic: Cranial nerves II through XII grossly intact Results & Data Results & Data Vital Signs (Past 12 Hours) Vital Signs Temp Pulse Resp BP Pulse Ox O2 Del Method 06/05/25 14:28 92/63 L 06/05/25 14:28 101 H 28 H 89/59 L 98 06/05/25 13:33 90 17 88/50 L 98 06/05/25 13:15 86/59 L 06/05/25 13:09 100 H 20 96 06/05/25 12:21 97 H 21 95 06/05/25 12:00 90/46 L 06/05/25 11:45 91 06/05/25 11:33 103 H 7 L 92/56 L 95 06/05/25 11:04 105 H 06/05/25 10:40 36.8 C 109 H 20 74/50 L 99 Room Air Laboratory Results Leukocytosis of 14.75 with a neutrophilic predominance Anion gap of 15 with an elevated lactic acid initially of 5.6 downtrending to 2.7 with initial fluid resuscitation provided by the emergency department Creatinine measured 2.13 Diminished magnesium of 1.0 Total bilirubin 1.9, direct bilirubin 1.0, AST 141, ALT 55, alkaline phosphatase 144 Initial troponin 22.0 downtrending to 19.0 with no anginal equivalents Procalcitonin 53.[address] abdomen pelvis with intravenous contrast was obtained which revealed cholelithiasis with evidence of cholecystitis in addition to a stable, but poorly defined right adnexal mass Subsequent gallbladder ultrasound was obtained which again showed findings consistent with acute cholecystitis; common bile duct was measured to be 8 mm with "equivocal choledocholithiasis" Code Status & VTE Plan Code Status Full code VTE Prophylaxis Plan VTE Prophylaxis will be ordered: Yes PG Care Time/CCT Total # of Minutes Spent Total Time Spent with Patient: Total time spent is greater than 50% in coordination of care (as documented) at patient's floor/unit and/or counseling patient: Coding Level of Care Code 30959 INT INP/OBS CARE 3/75MIN Diagnoses Severe sepsis without septic shock A41.9; R65.20 Acute cholecystitis with acute cholangitis K81.0; K83.09 Acute kidney injury N17.9 Type [address] elevation I21.A1 Transaminasemia R74.01 Adnexal mass N94.89 Hypomagnesemia E83.42
--- NOTE | 2025-06-05 15:38 | Surgery Consultation ---
Date of Consultation June 05, 2025 Assessment & Plan (1) Acute cholecystitis with acute cholangitis: This is a 74y F with a PMH of gout, gastric ulcer, GERD, alcohol abuse, afib on eliquis, low magnesium who undergoes Mag infusions via PICC who presents to the [facility] on 06/05/25 with complaints of abdominal pain, nausea/vomiting. She reports her symptoms started after dinner on monday, which consisted of spinach/artichoke dip and fettucini eun. Pain moves around but now seems more epigastric and RUQ regions. She has had 20-30 bouts of emesis over the last 3 days. Given her symptoms she presented to the ER for further evaluation. A CT a/p was performed that revealed gallstones with a distended gallbladder. There is mild gallbladder wall thickening, and mild pericholecystic edema. The findings are suspicious for acute cholecystitis. The patient states she has been dealing with similar symptoms over the last 8 years and says she is in the ER 1- 2x/year for similar symptoms but it was never to this severity. Last took her eliquis on monday as she states she has not been able to keep anything down. She also says she has gotten no sleep over the last 3 days because of her symptoms. She reports she has decreased her alcohol intake greatly and now has a mixed drink about every 3 weeks. In the ER blood work shows WBC 14.7, Hbg 12.7, Plt 69, Cr 2.1, Tb 1.9, Db 1, AST 141, ALT 55, AlkP 144, Lipase at 3. In the ER her vitals HRs 100s, BPs low initially 70/50s now 90/60s, afebrile. On exam patient in stretcher in no acute distress. Abdomen soft, non distended, with some ttp in right mid/ruq regions. Since my evaluation with patient she underwent a RUQ US which showed cholelithiasis with sonographic findings suggestive of acute cholecystitis. The common bile duct measures 8 mm and there is equivocal choledocholithiasis on the same day CT study. Would recommend an MRCP but patient states she cannot tolerate them related to back pain and an element of anxiety. Can see if given LFTs, clinical picture, current imaging if GI feels ERCP warranted without MRCP. Otherwise can see if any type of benzo could be given to see if patient could tolerate an MRI? There is suspicion given elevated LFTs and imaging findings for choledocholithiasis, so we will await to see further workup transpires prior to enteraining lap cholecystectomy. Continue NPO/sips, IV abx. Will follow. History of Present Illness History of Present Illness This is a 74y F with a PMH of gout, gastric ulcer, GERD, alcohol abuse, afib on eliquis, low magnesium who undergoes Mag infusions via PICC who presents to the [facility] on 06/05/25 with complaints of abdominal pain, nausea/vomiting. She reports her symptoms started after dinner on monday, which consisted of spinach/artichoke dip and fettucini eun. Pain moves around but now seems more epigastric and RUQ regions. She has had 20-30 bouts of emesis over the last 3 days. Given her symptoms she presented to the ER for further evaluation. A CT a/p was performed that revealed gallstones with a distended gallbladder. There is mild gallbladder wall thickening, and mild pericholecystic edema. The findings are suspicious for acute cholecystitis. The patient states she has been dealing with similar symptoms over the last 8 years and says she is in the ER 1- 2x/year for similar symptoms but it was never to this severity. She was told by people she needed gallbladder out in the past. She knew to stay away from fatty food as it worsens her symptoms but did indulge in the said meal on Monday. She denies any fevers/chills, CP/SOB. She has been passing gas and having + bowel function, she did have a large amount of yellowish diarrhea this AM. + dizziness yesterday and into today. History of gastric ulcers that were bleeding and managed via EGD and GI about 4 years ago. Last took her eliquis on monday as she states she has not been able to keep anything down. She also says she has gotten no sleep over the last 3 days because of her symptoms. She reports she has decreased her alcohol intake greatly and now has a mixed drink about every 3 weeks. Allergies Allergy/AdvReac Type Severity Reaction Status Date / Time liraglutide Allergy Intermediate HIVES Verified 06/02/25 13:58 phenol Allergy Intermediate HIVES Verified 06/02/25 13:58 pregabalin Allergy Intermediate HIVES Verified 06/02/25 13:58 propylene glycol Allergy Intermediate HIVES Verified 06/02/25 13:58 sulfamethoxazole Allergy Mild Unknown Verified 06/02/25 13:58 [From Bactrim] trimethoprim [From Bactrim] Allergy Mild Unknown Verified 06/02/25 13:58 nickel Allergy Unknown Rash Verified 06/02/25 13:58 Home Medications Medication Instructions Recorded Confirmed Type lactase 3,000 unit tablet 3,000 unit PO TID PRN #0 tabs 03/08/25 06/05/25 Rx (Dairy-Aid) acetaminophen 325 mg tablet 650 mg (2 x 325 mg) PO Q6H #0 tabs 03/11/25 06/05/25 Rx cyanocobalamin (vitamin B-12) 500 1,000 mcg (2 x 500 mcg) PO QAM #0 03/11/25 06/05/25 Rx mcg tablet tabs thiamine mononitrate (vit B1) 100 200 mg (2 x 100 mg) PO BID #60 tabs 03/11/25 06/05/25 Rx mg tablet folic acid 1 mg tablet 1 mg PO QAM #30 tabs 04/22/25 06/05/25 Rx amiloride 5 mg tablet 5 mg PO DAILY #30 tabs 05/06/25 06/05/25 Rx magnesium chloride 64 mg 64 mg PO DAILY 05/09/25 06/05/25 History (magnesium chloride) tablet,delayed release apixaban 5 mg tablet (Eliquis) 0 mg PO BID 06/05/25 06/05/25 History yjdfgi-yfbxldvx-ahtkryc 0 cap PO BIDM 06/05/25 06/05/25 History (pork)36,000-114,000-180k unit capsule,del rel (Creon) metoprolol tartrate 25 mg tablet 0 mg PO DAILY 06/05/25 06/05/25 History pantoprazole 40 mg tablet,delayed 0 mg PO DAILY 06/05/25 06/05/25 History release Patient History Medical History Seizure Atrial fibrillation with rapid ventricular response Chronic nausea Concussion Syncope Severe protein-calorie malnutrition Paroxysmal atrial fibrillation Acute gastrointestinal bleeding 10/01/21 Hypokalemia Acute renal disease Obesity Carpal tunnel syndrome of left wrist LEFT HAND NEUROPATHY Diverticulitis large intestine Alcoholism Surgical History S/P PICC central line placement Status post right knee replacement Hx of tonsillectomy Hx of tooth extraction Hx of bilateral hip replacements LEFT DAGMAR= 06/20/17= DONE UNDER GA 2/2 PATIENT PREFERENCE AT [facility] History of colonoscopy History of carpal tunnel surgery of right wrist Hx of knee surgery B/L Family History Grandmother (Maternal) Colorectal cancer Mother Colorectal cancer Myocardial infarction Stroke Other Cancer Diabetes Heart disease Hypertension Denies family history of Ovarian cancer Breast cancer Lung cancer Social History Smoking Status: Light tobacco smoker Tobacco Type: E-cigarettes / Vaping Age Started Using Tobacco: 17; packs per day: 0; Cigarettes Per Day: vapes a couple puffs /4 timesa day; Second Hand Exposure: No; Do You Dip or Chew Tobacco: No; Hx Alcohol Use: Yes Alcohol type: other Hx Substance Use: No Preferred Language: Persian Communication Ability: Effective Visual Impairment: Diminished Hearing Ability: Use of Hearing Aid Senior It Architect Required: No Beliefs That Will Affect Care: None marital status: Current Living Situation: Spouse current occupational status: retired How many Children do You have: 2 Feels Safe at Home: Yes Childhood Exposure to Second-Hand Smoke: Yes Diet: other Diet Comment: mediterranean caffeine: Yes Dental Care, Regularly: Yes Physical Activity Frequency: Does not Exercise Seatbelt Use: always Sunscreen Use: No Assistive Devices: Cane, Stair Lift and Walker Review of Systems Constitutional: no fever and no chills Respiratory: hurts to take deep breath, otherwise no shortness of breath Cardiovascular: no chest pain Gastrointestinal: + abdominal pain (ruq/epigastric), + anita sea, + vomiting and + diarrhea/loose stools Neurologic: + dizziness Physical Exam Physical Exam: awake/alert, no distress Constitutional: well developed, well nourished and + obese Respiratory: normal respiratory effort Gastrointestinal (Abdomen): Inspection/Auscultation: abdomen not distended Percussion/Palpation: + abdomen tender (some ttp in right mid/ruq regions) and abdomen soft; no guarding Results & Data Vital Signs (Past 12 Hours) Vital Signs Temp Pulse Resp BP Pulse Ox O2 Del Method 06/05/25 14:28 92/63 L 06/05/25 14:28 101 H 28 H 89/59 L 98 06/05/25 13:33 90 17 88/50 L 98 06/05/25 13:15 86/59 L 06/05/25 13:09 100 H 20 96 06/05/25 12:21 97 H 21 95 06/05/25 12:00 90/46 L 06/05/25 11:45 91 06/05/25 11:33 103 H 7 L 92/56 L 95 06/05/25 11:04 105 H 06/05/25 10:40 98.2 F 109 H 20 74/50 L 99 Room Air Diagnostic Findings CT SCAN OF THE ABDOMEN AND PELVIS WITH IV CONTRAST CLINICAL HISTORY: Abdominal pain, nausea, vomiting COMPARISON STUDY: 12/28/2024 TECHNIQUE: Following the IV administration of 94 cc of Optiray 320, CT scan of the abdomen and pelvis is performed from the lung bases to the proximal femora. Images are reviewed in the axial, sagittal, and coronal planes. IV contrast was administered without complication. A dose lowering technique was utilized adhering to the principles of ALARA. CT DOSE: 1533.35 mGy.cm FINDINGS: Lung bases: There are coronary artery calcifications. The heart is mildly enlarged. There are no pleural effusions. There is mild right middle lobe scarring. There are minimal dependent atelectatic changes. Liver: There is a stable 15 mm right hepatic lobe hypodense nodule containing calcifications. There is no pneumobilia. Gallbladder: The gallbladder is distended. There is mild pericholecystic edema. There are multiple gallstones. The findings are suspicious for acute cholecystitis, and clinical correlation in this regard is advocated. Spleen: No splenic masses are visualized. Pancreas: No pancreatic masses are visualized. There is no pancreatic ductal dilatation. Adrenal glands: No pathologic adrenal masses are visualized. Kidneys: There are no solid renal masses. There is no hydronephrosis. There is mild bilateral perinephric stranding and trace left perinephric fluid. Abdominal vasculature: There is no evidence of abdominal aortic dilatation. Bowel: There are no transition zones indicate bowel obstruction. There are colonic and distal ileal diverticula. There are no findings to indicate acute diverticulitis. The appendix is visualized and appears normal. Peritoneum: There is no ascites. There is no free intraperitoneal air. Lymphadenopathy: There are no pathologically enlarged abdominal or pelvic lymph nodes. Pelvic viscera: There is artifact secondary to bilateral total hip arthroplasties. There is a stable 4.5 cm right adnexal mass. This is likely ovarian. This exceeds water attenuation. No uterine lesions are visualized. Visualization the bladder is largely obscured due to beam hardening artifact. Skeletal structures: There is a T11 vertebral body hemangioma. There is new fragmentation of the anterior superior L2 endplates. IMPRESSION: 1. Gallstones with a distended gallbladder. There is mild gallbladder wall thickening, and mild pericholecystic edema. The findings are suspicious for acute cholecystitis. 2. No evidence of bowel obstruction. No evidence of free air 3. Diverticulosis. No evidence of acute diverticulitis 4. Stable but indeterminate 4.5 cm right adnexal mass, likely ovarian ACT 112: Negative or not required by law. Electronically signed by: Gt Da Silva M.D. 06/05/2025 2:38 PM ABDOMINAL ULTRASOUND, RIGHT UPPER QUADRANT HISTORY: Acute right upper quadrant abdominal pain with nausea and vomiting RUQ pain, acute choley. COMPARISON: CT of same day FINDINGS: Pancreas: The pancreas demonstrates a normal echotexture. Liver: 20 cm in length without discrete mass or marginal nodularity. Possible hepatic steatosis. Partially calcified hyperechoic structures in the gustavo hepatis is indeterminate, favored to be benign. Gallbladder: Layering stones and sludge within the gallbladder lumen. Mild gallbladder wall thickening measuring 3 mm with trace pericholecystic fluid. Sonographic Lala sign was unable to be obtained secondary to patient on pain medication. CBD: 8 mm, no definite choledocholithiasis on this study. Right kidney: No hydronephrosis. IMPRESSION: 1. Cholelithiasis with sonographic findings suggestive of acute cholecystitis. 2. The common bile duct measures 8 mm and there is equivocal choledocholithiasis on the same day CT study. Correlate with serum bilirubin. ACT 112: Negative or not required by law. Electronically signed by: Benjamin Wilson M.D. 06/05/2025 3:49 PM PG Care Time/CCT Total # of Minutes Spent Total Time Spent with Patient: Total time spent is greater than 50% in coordination of care (as documented) at patient's floor/unit and/or counseling patient: Coding Level of Care Code 43043 INT INP/OBS CARE Diagnoses Acute cholecystitis with acute cholangitis K81.0; K83.09
--- NOTE | 2025-06-05 15:50 | Ultrasound Report ---
ABDOMINAL ULTRASOUND, RIGHT UPPER QUADRANT HISTORY: Acute right upper quadrant abdominal pain with nausea and vomiting RUQ pain, acute choley. COMPARISON: CT of same day FINDINGS: Pancreas: The pancreas demonstrates a normal echotexture. Liver: 20 cm in length without discrete mass or marginal nodularity. Possible hepatic steatosis. Part ially calcified hyperechoic structures in the gustavo hepatis is indeterminate, favored to be benign. Gallbladder: Layering stones and sludge within the gallbladder lumen. Mild gallbladder wall thickenin g measuring 3 mm with trace pericholecystic fluid. Sonographic Lala sign was unable to be obtained secondary to patient on pain medication. CBD: 8 mm, no definite choledocholithiasis on this study. Right kidney: No hydronephrosis. IMPRESSION: 1. Cholelithiasis with sonographic findings suggestive of acute cholecystitis. 2. The common bile duct measures 8 mm and there is equivocal choledocholithiasis on the same day CT s tudy. Correlate with serum bilirubin. ACT 112: Negative or not required by law. Electronically signed by: Benjamin Wilson M.D. 06/05/2025 3:49 PM
[2025-06-05] MEDS ORDERED: MEROPENEM 1,000 MG in SYRINGE 0 ML IV SCH (18:59)
[2025-06-05] MEDS ORDERED: HYDROmorphone INJ 2 MG/ML SYR/VIAL IV PRN (18:59)
[2025-06-05] MEDS: LACTATED RINGER'S 1,000 ML IV SCH ×2 (19:00→22:52)
[2025-06-05] MEDS: LORazepam Inj 1 MG in SYRINGE 0.5 ML IV PRN (20:53)
--- NOTE | 2025-06-05 22:00 | Magnetic Resonance Report ---
Exam(s): MRI MRCP EXAM: MR Abdomen Without Intravenous Contrast, MRCP Protocol CLINICAL HISTORY: acute quinn, elevated AST ALT billirubin. OTHER: Other Notes: vomiting for over 3 days, abdominal pain, elevated AST, ALT, Bilirubin, PT very claustrophobic, was medicated and monitored during scan TECHNIQUE: Multiplanar magnetic resonance images of the abdomen without intravenous contrast using MRCP protocol. COMPARISON: Right upper quadrant ultrasound performed at 1451 hours FINDINGS: Bile ducts: 8 mm long choledocholithiasis noted in the mid to distal common bile duct (series 5; images 81-87). Gallbladder: Subcentimeter gallstones with associated layering sludge noted in the posterior aspect of the gallbladder. The gallbladder wall is mildly prominent, as noted on the ultrasound examination with questionable subtle pericholecystic fluid between the liver in the gallbladder. Liver: Unremarkable. Pancreas: Unremarkable. No ductal dilation. Spleen: Unremarkable. No splenomegaly. Adrenals: Unremarkable. No mass. Kidneys and ureters: Symmetric perinephric fat stranding. The kidneys demonstrate normal contours. No hydronephrosis. Stomach and bowel: Unremarkable. No obstruction. IMPRESSION: 1. 8 mm long choledocholithiasis noted in the mid to distal common bile duct (series 5; images 81-87). 2. Subcentimeter gallstones with associated layering sludge noted in the posterior aspect of the gallbladder. The gallbladder wall is mildly prominent, as noted on the ultrasound examination with questionable subtle pericholecystic fluid between the liver in the gallbladder. Electronically signed by: Adrien Nunes MD 06/05/25 21:59 PM
[2025-06-05] MEDS: MEROPENEM 500 MG in SYRINGE 0 ML IV SCH (22:51)
[2025-06-05] MEDS: PANCREAZE (LIPASE 10,500U) CAP PO SCH (22:51)
[2025-06-05] MEDS: ACETAMINOPHEN 1,000 MG/100 ML VIAL IV SCH (22:51)
[2025-06-05] MEDS: KETOROLAC TROMETHAMINE 15 MG/ML VIAL IV SCH (22:51)
[2025-06-05] MEDS: Patient's HEIGHT &/or WEIGHT Needed STA ×2 (23:16)
[2025-06-05] MEDS: ENOXAPARIN INJ 40 MG/0.4 ML SYR SQ SCH (23:38)
[2025-06-06 02:57] LABS: Appearance Urine Cloudy (Clear); Bacteria Urine Automated 2+ (None Seen); Cast Urine Automated 0-2 /lpf (0-2); Glucose Urine UA Negative (Negative); RBC Urine Automated 0-2 /hpf (0-2); WBC Urine Automated 0-5 /hpf (0-5)
[2025-06-06 03:23] LABS: A calco-baum cmplx NotReported Not Detected (NotDetected); Bact fragilis Not Reported Not Detected (NotDetected); Blood Culture Id Panel See PCR Comment (NotDetected); C auris Not Reported Not Detected (NotDetected); CTX-M Resistant Gene Not Detected (NotDetected); Calbicans Not Reported Not Detected (NotDetected); Candida glabrata Not Reported Not Detected (NotDetected); Candida krusei Not Reported Not Detected (NotDetected); Cneoformans/gatti Not Reported Not Detected (NotDetected); Cparapsilosis Not Reported Not Detected (NotDetected); Ctropicalis Not Reported Not Detected (NotDetected); E cloacae compx Not Reported Not Detected (NotDetected); Efaecalis Not Reported Not Detected (NotDetected); Efaecium Not Reported Not Detected (NotDetected); Enterobacterales DETECTED (NotDetected); Enterobacterales Not Reported DETECTED (NotDetected); Escherichia coli Not Reported Not Detected (NotDetected); H influenzae Not Reported Not Detected (NotDetected); IMP Resistant Gene Not Detected (NotDetected); K aerogenes Not Reported Not Detected (NotDetected); KPC Resistant Gene Not Detected (NotDetected); Koxytoca Not Reported Not Detected (NotDetected); Kpneumoniae grp Not Reported DETECTED (NotDetected); Lmonocyt Not Reported Not Detected (NotDetected); N meningitidis Not Reported Not Detected (NotDetected); NDM Resistant Gene Not Detected (NotDetected); OXA 48 Like Resistant Gene Not Detected (NotDetected); P aeruginosa Not Reported Not Detected (NotDetected); Proteus spp Not Reported Not Detected (NotDetected); Salmonella spp Not Reported Not Detected (NotDetected); Staph lugdunensis Not Reported Not Detected (NotDetected); Staph spp. Not Reported Not Detected (NotDetected); Staphaureus Not Reported Not Detected (NotDetected); Staphepi Not Reported Not Detected (NotDetected); Stenmaltophilia Not Reported Not Detected (NotDetected); Strep agal(GrpB) Not Reported Not Detected (NotDetected); Strep pneum Not Reported Not Detected (NotDetected); Strep pyog (GrpA) Not Reported Not Detected (NotDetected); Strep spp Not Reported Not Detected (NotDetected); VIM Resistant Gene Not Detected (NotDetected); mcr-1 Colistin Resistant Gene Not Detected (NotDetected)
[2025-06-06 03:33] LABS: Klebsiella pneumoniae group DETECTED (NotDetected)
[2025-06-06 06:11] LABS: Hematocrit (blood only) 35.8 % (37.0-47.0); Hemoglobin 11.5 g/dl (12.0-16.0); Mean Corpuscular Hemoglobin 34.4 pg (25.0-34.0); Mean Corpuscular Volume 107.2 fL (80.0-100.0); Platelet Count 49 K/uL (130-400); RDW Standard Deviation 54.4 fL (36.4-46.3); Red Blood Count 3.34 M/uL (4.20-5.40); White Blood Count 9.42 K/ul (4.8-10.8)
[2025-06-06 06:27] LABS: Alanine Aminotransferase 46 U/L (7-52); Albumin Globulin Ratio 0.8 (0.9-2); Albumin Level 2.5 gm/dl (3.4-5.0); Alkaline Phosphatase 95 U/L (34-104); Anion Gap 9 (3-11); Bilirubin,Total 1.4 mg/dl (0.2-1.0); Blood Urea Nitrogen 34 mg/dl (6-23); Calcium 7.8 mg/dl (8.6-10.3); Carbon Dioxide 23 mmol/L (21-32); Chloride 105 mmol/L (98-107); Globulin 3.1 gm/dl (2.5-4.0); Glucose 66 mg/dl (70-99(Fasting)); Potassium 3.6 mmol/L (3.5-5.1); Sodium 137 mmol/L (136-145); Total Protein 5.6 gm/dl (6.0-8.3)
--- NOTE | 2025-06-06 06:27 | Electrocardiogram Report ---
Test Reason : Blood Pressure : */* mmHG Vent. Rate : 108 BPM Atrial Rate : * BPM P-R Int : * ms QRS Dur : 72 ms QT Int : 360 ms P-R-T Axes : * 25 22 degrees QTcB Int : 482 ms Atrial fibrillation with rapid ventricular response Low voltage QRS Possible Septal infarct , age undetermined Abnormal ECG When compared with ECG of 06-Mar-2025 12:23, Nonspecific T wave abnormality, improved in Inferior leads Confirmed by Garrett Ocasio ([id number]) on 06/06/2025 6:26:40 AM Referred By: REFERRED SELF Confirmed By: Garrett Ocasio
[2025-06-06 07:36] VITALS: PULSE 103; RESP 19; TEMP 97.5; O2SAT 99
[2025-06-06 08:10] LABS: ALC (manual) 0.66 K/uL (1.2-3.4); ANC (manual) 8.48 K/uL (1.4-6.5); Dohle Bodies 1+; Polychromasia 1+; Toxic Granulation 1+
[2025-06-06] MEDS ORDERED: LACTATED RINGER'S 1,000 ML IV ONE (08:20)
[2025-06-06] MEDS ORDERED: POTASSIUM CHLORIDE CRTAB 20 MEQ TABCR PO ONE (08:57)
--- NOTE | 2025-06-06 09:14 | Surgery Progress Note ---
Date of Service June 06, 2025 Assessment & Plan (1) Acute cholecystitis with acute cholangitis: Plan: Patient has choledocholithiasis and has been hypotensive and tachycardic Would recommend transfer with ERCP capability For now keep her n.p.o. continue her IV antibiotics There is nothing to offer surgically at this time (2) Choledocholithiasis: Admission and Anticipated Discharge Date Admission Date: June 05, 2025 Subjective Patient seen and examined. MRCP was positive for cholelithiasis. She still in pain. She has had some low blood pressures overnight. Review of Systems Constitutional: no fever and no chills Respiratory: no cough and no dyspnea Cardiovascular: no chest pain and no dyspnea on exertion Genitourinary: no dysuria and no difficulty urinating Integumentary: no non-healing lesions and no skin ulcer Psychiatric: no behavioral changes and no depression Physical Exam Constitutional: WD/WN, vitals as above Respiratory: normal respiratory effort, lungs clear to auscultation Cardiovascular: RRR, no murmur, no edema Gastrointestinal (Abdomen): Inspection/Auscultation: abdomen normal to inspection; abdomen not distended Percussion/Palpation: + abdomen tender (RUQ), + guarding and abdomen soft; no hernia Skin: no rashes, warm and dry Psychiatric: A+Ox3, euthymic affect Results & Data Vital Signs (Past 12 Hours) Vital Signs Temp Pulse Pulse Resp BP BP Pulse Ox 06/06/25 07:35 36.4 C L 103 H 19 94/60 L 99 06/06/25 04:00 36.6 C 99 H 17 85/54 L 100 06/06/25 02:21 105 H 06/05/25 23:50 37 C 101 H 20 86/53 L 99 O2 Del Method 06/06/25 07:35 Room Air 06/06/25 04:00 Room Air 06/06/25 02:21 06/05/25 23:50 Room Air PG Care Time/CCT Total # of Minutes Spent Total Time Spent with Patient: Total time spent is greater than 50% in coordination of care (as documented) at patient's floor/unit and/or counseling patient: Coding Level of Care Code 94575 SUB INP/OBS CARE 09/07MIN Diagnoses Acute cholecystitis with acute cholangitis K81.0; K83.09 Choledocholithiasis K80.50
--- NOTE | 2025-06-06 10:45 | Discharge Summary ---
Discharge Summary Date of Service June 06, 2025 Principal Dx & Hospital Course #1 = Principal Diagnosis (1) Severe sepsis without septic shock: (2) Acute cholecystitis with acute cholangitis: (3) Acute kidney injury: (4) Type [address] elevation: (5) Transaminasemia: (6) Adnexal mass: (7) Hypomagnesemia: Plan In summary this is a 74-year-old female who presents with severe sepsis secondary to cholangitis with acute cholecystitis #Severe sepsis secondary to secondary to Klebsiella bacteremia secondary to acute cholangitis with choledocholithiasis and cholecystitis Patient presents with tachycardia, persistent hypotension, leukocytosis with a suspected infectious source of cholangitis based on laboratory assessment and physical exam; this is correlated with imaging that has been obtained at this time; general surgery was contacted by the emergency department provider who recommended MRCP. MRCP resulted overnight showing choledocholithiasis with an 8 mm long, bile duct obstruction Mid to distal, gallstones, cholecystitis. discussed with general surgery and gastroenterology this morning ERCP not available at [facility] at this time, transferring to [facility] for ERCP evaluation. Continue meropenem for Klebsiella bacteremia, sensitivities pending - remains mildly hypotensive and mildly tachycardic maps have been in the high 60s to mid 70s. Bolus 1 L LR right now and continue LR at 150 mL/h Follow daily CMP and CBC #Acute Kidney Injury in the setting of Sepsis Patient's baseline creatinine is in the range of 0.7-0.8; presenting creatinine 2.13; prerenal secondary to sepsis and improving, making urine, creatinine improved to 1.79. Continue to monitor urine output and daily BUN/creatinine and electrolytes #Type II Myocardial infarction from sepsis minimally elevated high-sensitivity troponin downtrending from 22-19, no chest pain no acute ischemic EKG changes not consistent with acute coronary syndrome care for sepsis as detailed above #Permanent atrial fibrillation Chronic condition; has not taken home Eliquis since 06/02; continue to hold Eliquis in anticipation of procedures #Chronic hypomagnesemia Chronic hypomagnesemia requiring regular outpatient infusion therapy; magnesium was 1 yesterday, up to 1.3 today, ordered 4 g IV magnesium. Recheck magnesium later today and in the morning/every morning # chronic thrombocytopenia - am unclear of why she has thrombocytopenia however it is longstanding, has worsened in the setting of sepsis but adequate at 50. I reviewed her CT report there is no remark on the spleen size. - Continue monitoring CBC every morning, monitor for bleeding #Adnexal mass, right side Noted on imaging obtained in the ED, recommend outpatient follow up Lymphedema DVT prophylaxis- apixaban held since 06/02, subcu heparin held anticipating need for ERCP, continue SCDs Admission HPI Per Admitting Provider Ms. Chapman is a 74-year-old female whose active medical conditions include paroxysmal atrial fibrillation, peptic ulcer disease, chronic pancreatitis, recurrent cholecystitis, persistent hypomagnesemia requiring outpatient infusion therapy among other chronic medical conditions who presented to the [facility] on 06[facility] due to persistent and progressive abdominal pain associated with nonbloody nonbilious emesis over the past 72 hours. She states that she was liberal with her diet and had a large amount of dairy on the evening prior to her initial symptom onset which resulted in severe abdominal pain primarily in the right upper quadrant and epigastrium. This was persistent and progressive with regard to its severity, she began to have increased abdominal distention along a similar time course with a large amount of flatus. On the day of presentation she began to have a large amount of diarrhea without hematochezia or melanotic stool. She denies any hematemesis, bilious emesis, or coffee-ground emesis. She has not been able to tolerate oral intake since the beginning of her symptom onset except for small sips of water. She last took her regular scheduled medications on 06/02, including her Eliquis. She denies any fevers, chills, chest pain, dyspnea, orthopnea. She has not been on any recent antibiotics Discharge Exam General Appearance: Awake, alert, and oriented x4. Appears fairly well. Vital signs: Reviewed past 24h vital signs in EMR, unremarkable. HEENT: Within normal limits. Respiratory: Clear to auscultation bilaterally. No rhonchi, rales, or wheezes. Normal respiratory effort. Gastrointestinal: Soft, nontender, nondistended. Bowel sounds present. Tender in the right upper quadrant. Extremities: Lower extremities warm and well perfused. 2-3+ lymphedema bilaterally, baseline. Skin: Warm and dry, no rashes. Neurological: Normal. Psychiatric: Normal. Discharge Plan Discharge Items Patient Disposition: Transfer Acute Care Hospital Reason For Visit: SEPSIS SECONDARY TO CHOLANGITIS Discharge Diagnosis: Sepsis secondary to acute cholangitis and choledocholithiasis Condition on Discharge: Serious Activity: Per Instructions section Non-emergency contact: Primary Care Provider Call non-emergency contact if: you have any medication questions Follow-up/Referrals: Tushar Miranda MD [Primary Care Provider] - Diet: Nothing by Mouth Addtl Attending Provider Instructions: . Pending Studies at Discharge: Yes Stand-Alone Forms: My [facility] Skilled Items Patient informed of condition?: Yes DNR: No Discharge Level of Care: Other Communicable Disease: No Discharge Prognosis: Stable Lines: Peripheral IV Urinary Catheter: No Medications and DC Order Prescriptions: Continued amiloride 5 mg tablet 5 mg PO DAILY Qty: 30 2RF folic acid 1 mg tablet 1 mg PO QAM Qty: 30 10RF Patient Comments: 06/05- otc unable to verify magnesium chloride 64 mg Tablet,Delayed Release (Dr/Ec) 64 mg PO DAILY Patient Comments: 06/05- otc unable to verify lactase [Dairy-Aid] 3,000 unit Tablet 3,000 unit PO TID PRNQty: 0 0RF Patient Comments: 06/05- otc unable to verify acetaminophen 325 mg Tablet 650 mg PO Q6H Qty: 0 0RF Patient Comments: 06/05- otc unable to verify cyanocobalamin (vitamin B-12) 500 mcg Tablet 1,000 mcg PO QAM Qty: 0 0RF Patient Comments: 06/05- otc unable to verify thiamine mononitrate (vit B1) 100 mg tablet 200 mg PO BID Qty: 60 0RF Patient Comments: 06/05- otc unable to verify pantoprazole 40 mg tablet,delayed release (DR/EC) 0 mg PO DAILY Patient Comments: 06/05-last filled 04/12 30 day supply #30 metoprolol tartrate 25 mg tablet 0 mg PO DAILY Patient Comments: 06/05-last filled 11/18 90 day supply #90 Eliquis 5 mg tablet 0 mg PO BID Patient Comments: 06/05-last filled 03/25 30 day supply #60 Creon 36,000-114,000- 180,000 unit capsule,delayed release(DR/EC) 0 cap PO BIDM Patient Comments: 06/05- no fill history unable to verify. Original: 2 caps po BIDM Discharge Orders: Discharge Order (Routine); Ordered 06/06/25 Ordered By: Nga Wong Admission Data Admit Date/Time: 06/05/25 15:26 Attending Provider: Nga Wong Admit Provider: Richy Velez Primary Care Provider: Tushar Miranda Other Providers: Preston Cordova; Johnny Carson; Thomas Vieyra; Gisela Mendosa; Sunitha Hernadez; Petra Max; Naida Ty; Philipp Moody; Alicia Alberts; Jeanine Monroy; Kristie Nguyễn; Mel Tena; Candace Arnold; Dominique Chowdary; Sybil Ruiz; Richard Alvarado; Nestor Farooq; Reid Virk; Noa Meneses; Caitlin Hawkins Jr; Michele López; Rufus Rodriguez; Taye Francisco; Santa Maciel; Marlon Dozier I; Kizzy Nath; Raul Tucker; Lit Lazo; Michael Farooq; Azael Amaro; Alma Hope; Zackery Stover; Emery Valadez; Shaggy Ge; Adrien Forrest; Naren Marie; Mahnaz Sales; Anthony Argueta; Jose A Jansen; Danie Price; Zara Wheeler; Ralph Santiago; Adrien Eason; Kanwal,Pete Lee Hospital Stay Data Consultations 06/05/25 15:00 ED Decision to Admit Stat 06/05/25 16:13 Consult Gastroenterology Routine 06/05/25 18:59 Consult General Surgery Routine Diagnostic Imagining Performed 06/05/25 10:52 CT Abd and Pelvis [CT abd pelvis IV con only] Stat 06/05/25 14:48 US gallbladder Stat 06/05/25 14:56 MR MRCP Stat Pending Results Patient Have Any Pending Studies at Discharge: Yes Discharge Instructions Given to Patient (Per Discharging Provider) . Total Time Total Time Spent Total Time Spent (In Minutes): I personally spent: 50 minutes today on clinical care activities including: reviewing chart notes and vital signs reviewing labs reviewing studies discussion with multi site leasing consultant(s) examining and counseling the patient writing orders arranging hospital transfer documentation Coding Level of Care Code 08470 INP/OBS DISCH >30 MIN Diagnoses Severe sepsis without septic shock A41.9; R65.20 Acute cholecystitis with acute cholangitis K81.0; K83.09 Acute kidney injury N17.9 Type [address] elevation I21.A1 Transaminasemia R74.01 Adnexal mass N94.89 Hypomagnesemia E83.42
[2025-06-06] MEDS: MAGNESIUM SULFATE / D5W 1 GM/100 ML BAG IV SCH (11:22)
[2025-06-06 12:40] VITALS: BP 85/54
== END 2025-06-06 11:40 | disposition short-term general hospital (02) | DRG 871 ==
LOC: ED 10:36 → SUATTDRO 15:26 → 2E 15:26

== ENCOUNTER 2025-07-14 11:29 | Observation (INO) ==
--- NOTE | 2025-07-14 12:03 | Emergency Department Note ---
Impression & Plan AMS (altered mental status), Hypomagnesemia, Generalized weakness ED Provider Note NAME: BELINDA ROWLAND AGE: 75 SEX: F : 1950 ARRIVES VIA: Walk-In INFORMANT: Patient ED PROVIDER(S): Cade Mario DO CHIEF COMPLAINT: AMS HPI: Patient is a 75-year-old female with a past medical history of lipidemia, seizure-like activity, anemia and pancreatic insufficiency who presents to the ER for an episode where she was unresponsive with shaking of the arms and moaning. This lasted for about 10 minutes. She gradually regained consciousness but was confused. Patient denies any headache or change in vision. No chest pain or shortness of breath. No nausea, vomiting or diarrhea. No dysuria, urgency, or frequency. No other exacerbating or remitting factors. No neck pain. No fevers. No loss of control of bowel or bladder. She did not bite her tongue. Patient with a history of A-fib on apixaban per who is present at bedside. ADDITIONAL HISTORY OBTAINED: Per HPI Chronic Medical/Social Conditions Affecting Care: Per HPI PAST MEDICAL HISTORY:See Below PAST SURGICAL HISTORY:See Below FAMILY HISTORY:See Below SOCIAL HISTORY:See Below HOME MEDICATIONS:See Below ALLERGIES:See Below VITALS:See Below PHYSICAL EXAMINATION: GENERAL: Sitting up in bed, alert, well appearing, well nourished, no distress, non-toxic EYE EXAM: normal conjunctiva. PERRL and EOM's intact. OROPHARYNX: no exudate, no erythema, lips, buccal mucosa, and tongue normal and mucous membranes are moist NECK: supple, no nuchal rigidity, no adenopathy, non-tender LUNGS: Clear to auscultation. Normal chest wall mechanics HEART: no murmurs, S1 normal and S2 normal ABDOMEN: abdomen soft, non-tender, normo-active bowel sounds, no masses, no rebound or guarding. BACK: Back is symmetrical on inspection and there is no deformity, no midline tenderness, no CVA tenderness. SKIN: no rashes and no bruising UPPER EXTREMITIES: upper extremities are grossly normal. LOWER EXTREMITIES: No pitting edema. NEURO EXAM: Normal sensorium, cranial nerves II-XII intact, normal speech, no weakness of arms, no weakness of legs with the exception of the left knee which she has significant pain with movement due to arthritis. No drift. Finger to nose intact. Gross sensation intact. MEDICAL DECISION MAKING: Patient is a 75-year-old female who presents ER for the above-stated complaint. IV was established and blood work was obtained. Labs show no significant leukocytosis or anemia. BMP with a slightly elevated glucose at 107. Mag was low at 1.3. LFTs bilirubin was unremarkable. Troponin negative. Lipase normal. CT head was negative. Chest x-ray unremarkable. Patient complete neurologically intact and back to baseline. I do favor that this is likely a seizure. She has had episodes like this before in the past. Discussed case with the hospitalist for further evaluation management and treatment as I do favor she likely needs and would benefit from monitoring overnight and possible EEG. Consults/Care Managements Discussions: Per [facility] Triage Nursing notes reviewed. Limited review of prior medical records performed Vital Signs: reviewed and remarkable for no significant abnormalities Differential diagnosis: Differential diagnoses includes but is not limited to toxic, metabolic, infectious, traumatic, cardiac, neurologic, hematologic, psychiatric and inflammatory etiologies. ER treatment provided: See below Diagnostics interpreted by me include EKG and cardiac monitoring as listed below: -Cardiac Monitoring: An order was placed for continuous cardiac monitoring. The monitor shows a rate of 100 with A-fib rhythm. -ECG: A-fib rate of 97 Normal axis No PVCs Low voltage QTc 452 -Laboratory studies:Interpreted by me as stated above in MDM and shown below. Imaging studies: Xrays: As interpreted by me: Portable AP upright 1 view of the chest shows no focal M-Trate CTs show: CT head was negative per radiology Procedures:none Critical Care: None Past Med/Surg History Problem List (Updated 07/14/25 @ 16:56 by Cade Mario DO) Hypomagnesemia (Acute) AMS (altered mental status) (Acute) Thiamine deficiency Bacteremia due to Klebsiella pneumoniae Choledocholithiasis Acute kidney injury Adnexal mass Transaminasemia Type [address] elevation Acute cholecystitis with acute cholangitis Severe sepsis without septic shock Hypomagnesemia Hypokalemia Thiamine deficiency Seizure-like activity (Acute) Diverticulitis Generalized weakness (Acute) Pancytopenia (Acute) Osteoarthritis Shoulder pain Tendinitis of both rotator cuffs Diarrhea Impaired gait and mobility Lower extremity weakness Rotator cuff (capsule) sprain UTI (urinary tract infection) COVID Hypomagnesemia (Acute) Pancytopenia Gout Chronic abdominal pain Cholelithiasis (Chronic) Hepatic steatosis Foot pain Iron storage disorder Lymphedema B/L LE; WEARS COMPRESSION STOCKING Gastric ulcer Joint pain Endometrial hyperplasia Exocrine pancreatic insufficiency Anemia CYP2D6 poor metabolizer Alcohol dependence with physiological dependence Lumbar spondylosis Hip pain Peptic ulcer disease Chronic pancreatitis Elevated LFTs (Acute) GERD (gastroesophageal reflux disease) Myalgia (Acute) Medical History Seizure Atrial fibrillation with rapid ventricular response Chronic nausea Concussion Syncope Severe protein-calorie malnutrition Paroxysmal atrial fibrillation Acute gastrointestinal bleeding Hypokalemia Acute renal disease Obesity Carpal tunnel syndrome of left wrist Diverticulitis large intestine Alcoholism Surgical History S/P PICC central line placement Status post right knee replacement Hx of tonsillectomy Hx of tooth extraction Hx of bilateral hip replacements History of colonoscopy History of carpal tunnel surgery of right wrist Hx of knee surgery Family History Grandmother (Maternal) Colorectal cancer Mother Colorectal cancer Myocardial infarction Stroke Other Cancer Diabetes Heart disease Hypertension Denies family history of Ovarian cancer Breast cancer Lung cancer Social History Smoking Status: Current some day smoker Tobacco Type: Cigarettes and E-cigarettes / Vaping Age Started Using Tobacco: 17; packs per day: 0; Cigarettes Per Day: vapes a couple puffs /4 timesa day; Second Hand Exposure: No; Do You Dip or Chew Tobacco: No; Hx Alcohol Use: Yes Alcohol type: hard liquor Hx Substance Use: No Preferred Language: Greenlandic Communication Ability: Unable Visual Impairment: Diminished Hearing Ability: Use of Hearing Aid [facility] Receptionist Required: No Beliefs That Will Affect Care: None marital status: Current Living Situation: Spouse current occupational status: retired How many Children do You have: 2 Feels Safe at Home: Yes Childhood Exposure to Second-Hand Smoke: Yes Diet: other Diet Comment: mediterranean caffeine: Yes Dental Care, Regularly: Yes Physical Activity Frequency: Does not Exercise Seatbelt Use: always Sunscreen Use: No Assistive Devices: Cane, Glasses and Walker Allergies Allergies Allergy/AdvReac Type Severity Reaction Status Date / Time liraglutide Allergy Intermediate HIVES Verified 06/19/25 15:12 phenol Allergy Intermediate HIVES Verified 06/19/25 15:12 pregabalin Allergy Intermediate HIVES Verified 06/19/25 15:12 propylene glycol Allergy Intermediate HIVES Verified 06/19/25 15:12 sulfamethoxazole Allergy Mild Unknown Verified 06/19/25 15:12 [From Bactrim] trimethoprim [From Bactrim] Allergy Mild Unknown Verified 06/19/25 15:12 nickel Allergy Unknown Rash Verified 06/19/25 15:12 Home Meds Home Medications Medication Instructions Recorded Confirmed magnesium chloride 64 mg 64 mg PO DAILY 05/09/25 06/19/25 (magnesium chloride) tablet,delayed release apixaban 5 mg tablet (Eliquis) 0 mg PO BID 06/05/25 06/19/25 [id number] 0 cap PO BIDM 06/05/25 06/19/25 (pork)36,000-114,000-180k unit capsule,del rel (Creon) pantoprazole 40 mg tablet,delayed 0 mg PO DAILY 06/05/25 06/19/25 release Previous Rx's Medication Instructions Recorded lactase 3,000 unit tablet 3,000 unit PO TID PRN #0 tabs 03/08/25 (Dairy-Aid) acetaminophen 325 mg tablet 650 mg (2 x 325 mg) PO Q6H #0 tabs 03/11/25 cyanocobalamin (vitamin B-12) 500 1,000 mcg (2 x 500 mcg) PO QAM #0 03/11/25 mcg tablet tabs thiamine mononitrate (vit B1) 100 200 mg (2 x 100 mg) PO BID #60 tabs 03/11/25 mg tablet folic acid 1 mg tablet 1 mg PO QAM #30 tabs 04/22/25 levothyroxine 50 mcg capsule 50 mcg PO DAILY #30 caps 06/27/25 Results & Data (ED) Vital Signs Vital Signs - 24 hr 07/14/25 11:30 07/14/25 11:34 07/14/25 11:59 Temperature 36.6 C Temperature Source Oral Pulse Rate 100 H Pulse Rate [Apical] Respiratory Rate 16 Respiratory Effort / Characteristics Non-Labored Spontaneous Respiratory Depth Normal Respiratory Pattern Regular Blood Pressure 139/70 Blood Pressure [Right Arm] Blood Pressure Mean 93 Blood Pressure Mean [Right Arm] Blood Pressure Position [Right Arm] Pulse Oximetry 100 Oxygen Delivery Method Room Air Room Air Room Air Sepsis Recent Fever Within 48 Hours No Sepsis New/Unexplained Change in Mental Status No Sepsis Action Taken by Nursing No Action Required 07/14/25 12:57 07/14/25 13:43 07/14/25 15:01 Temperature Temperature Source Pulse Rate 88 Pulse Rate [Apical] 101 H 88 Respiratory Rate 23 18 Respiratory Effort / Characteristics Non-Labored Spontaneous Non-Labored Spontaneous Respiratory Depth Normal Normal Respiratory Pattern Regular Blood Pressure Blood Pressure [Right Arm] 129/94 128/87 Blood Pressure Mean Blood Pressure Mean [Right Arm] 105 100 Blood Pressure Position [Right Arm] Lying Lying Pulse Oximetry 100 100 Oxygen Delivery Method Room Air Room Air Sepsis Recent Fever Within 48 Hours Sepsis New/Unexplained Change in Mental Status Sepsis Action Taken by Nursing Laboratory Data 07/14/25 12:05 07/14/25 12:05 Lab Results 07/14/25 07/14/25 Range/Units 11:39 12:05 WBC 5.06 (4.8-10.8) K/ul RBC 3.91 L (4.20-5.40) M/uL Hgb 13.3 (12.0-16.0) g/dL Hct 40.1 (37.0-47.0) % MCV 102.6 H (80.0-100.0) fL MCH 34.0 (25.0-34.0) pg MCHC 33.2 (32.0-36.0) g/dL RDW Std Deviation 54.6 H (36.4-46.3) fL RDW Coeff of Ignacio 14.6 H (11.5-14.5) % Plt Count 157 (130-400) K/uL MPV 10.2 (9.4-12.4) fL Immature Gran % (Auto) 0.2 % Neut % (Auto) 67.0 % Lymph % (Auto) 18.6 % [place] % (Auto) 13.0 % Eos % (Auto) 0.8 % Baso % (Auto) 0.4 % Neut # (Auto) 3.39 (1.40-6.50) K/uL Lymph # (Auto) 0.94 L (1.20-3.40) K/uL [place] # (Auto) 0.66 H (0.11-0.59) K/uL Eos # (Auto) 0.04 (0.00-0.50) K/uL Baso # (Auto) 0.02 (0.00-0.20) K/uL Immature Gran # (Auto) 0.01 (0.01-0.20) K/uL Sodium 140 (136-145) mmol/L Potassium 4.2 (3.5-5.1) mmol/L Chloride 103 (98-107) mmol/L Carbon Dioxide 28 (21-32) mmol/L Anion Gap 9 (3-11) BUN 13 (6-23) mg/dl Creatinine 0.67 (0.6-1.2) mg/dl Est Cr Clr Drug Dosing 88.9 ml/min eGFR 91.66 BUN/Creatinine Ratio 19.4 (10-20) Glucose 128 H (70-99(Fasting)) mg/dl POC Glucose 107 H (70-99) mg/dl Calcium 8.9 (8.6-10.3) mg/dl Magnesium 1.3 L (1.7-2.4) mg/dl Total Bilirubin 1.2 H (0.2-1.0) mg/dl AST 21 (13-39) U/L ALT 8 (7-52) U/L Alkaline Phosphatase 123 H (34-104) U/L Troponin I High Sens 3.0 (0-14) pg/ml Total Protein 7.6 (6.0-8.3) gm/dl Albumin 3.5 (3.4-5.0) gm/dl Globulin 4.1 H (2.5-4.0) gm/dl Albumin/Globulin Ratio 0.9 (0.9-2) Lipase 12 (11-82) U/L Prolactin 11.52 ng/ml Administered Medications Magnesium Sulfate/Dextrose (Magnesium Sulfate / D5w) 1 gm in 100 mls @ 50 mls/hr IV Q2H TEDDY Stop: 07/14/25 19:29 Last Admin: 07/14/25 15:26 Dose: 50 mls/hr Documented By: CC Discontinued Medications Sodium Chloride (Nss) 1,000 mls @ 999 mls/hr IV .Q1H1M ONE Stop: 07/14/25 12:59 Last Infusion: 07/14/25 13:05 Dose: Infused Documented By: Admin: 07/14/25 12:11 Dose: 999 mls/hr Documented By: JOHN Magnesium Sulfate/Dextrose (Magnesium Sulfate / D5w) 1 gm in 100 mls @ 100 mls/hr IV NOW STA Stop: 07/14/25 14:47 Last Infusion: 07/14/25 14:51 Dose: Infused Documented By: Admin: 07/14/25 13:55 Dose: 100 mls/hr Documented By: JOHN Imaging Data Radiologist's Impression: Chest X-Ray 07/14/25 11:59 XR chest 1V portable HISTORY: 75 years-old Female Chest pain, nonspecific COMPARISON: 03/24/2025 TECHNIQUE: AP view the chest FINDINGS: Cardiomediastinal and hilar silhouettes are unchanged and within normal limits. No pneumothorax, pleural effusion, airspace consolidation or pulmonary edema. Degenerative changes of the shoulders and spine. IMPRESSION: No acute process. ACT 112: Negative or not required by law. The above report was generated using voice recognition software. It may contain grammatical, syntax or spelling errors. Electronically signed by: Benjamin Wilson M.D. 07/14/2025 12:[address] 07/14/25 11:59 CT SCAN OF THE BRAIN WITHOUT IV CONTRAST CLINICAL HISTORY: Altered mental status. Possible seizure. COMPARISON STUDY: Head CT March 06, 2025. TECHNIQUE: Unenhanced axial CT scan of the brain was performed from the vertex to the skull base. A dose lowering technique was utilized adhering to the principles of ALARA. CT DOSE: 547.75 mGy.cm FINDINGS: Brain parenchyma: No acute intracranial hemorrhage, midline shift or mass effect is present. Parker-white matter differentiation is preserved. There are no extra- axial fluid collections. There are no findings to suggest acute dural sinus thrombosis or acute territorial infarct. Ventricles, sulci, cisterns: There is no hydrocephalus. The basal cisterns are patent. Calvarium: There are no calvarial fractures. Sinuses and mastoids: The visualized paranasal sinuses are clear. The mastoid air cells are well pneumatized. Orbits: The bony orbits are grossly intact. IMPRESSION: 1. No acute intracranial findings. 2. No calvarial fractures. ACT 112: Negative or not required by law. Electronically signed by: Wallace Tucker M.D. 07/14/2025 1:39 PM Discharge Plan Visit Data Chief Complaint: Seizure Stated Complaint: SEIZURES ED Provider: Cade Mario Discharge Problem: AMS (altered mental status), Hypomagnesemia, Generalized weakness Condition: Fair Forms Stand Alone Forms: My [facility] Prescriptions Prescriptions: No Action levothyroxine 50 mcg capsule 50 mcg PO DAILY Qty: 30 2RF folic acid 1 mg tablet 1 mg PO QAM Qty: 30 10RF Patient Comments: 06/05- otc unable to verify magnesium chloride 64 mg Tablet,Delayed Release (Dr/Ec) 64 mg PO DAILY Patient Comments: 06/05- otc unable to verify lactase [Dairy-Aid] 3,000 unit Tablet 3,000 unit PO TID PRNQty: 0 0RF Patient Comments: 06/05- otc unable to verify acetaminophen 325 mg Tablet 650 mg PO Q6H Qty: 0 0RF Patient Comments: 06/05- otc unable to verify cyanocobalamin (vitamin B-12) 500 mcg Tablet 1,000 mcg PO QAM Qty: 0 0RF Patient Comments: 06/05- otc unable to verify thiamine mononitrate (vit B1) 100 mg tablet 200 mg PO BID Qty: 60 0RF Patient Comments: 06/05- otc unable to verify pantoprazole 40 mg tablet,delayed release (DR/EC) 0 mg PO DAILY Patient Comments: 06/05-last filled 04/12 30 day supply #30 Eliquis 5 mg tablet 0 mg PO BID Patient Comments: 06/05-last filled 03/25 30 day supply #60 Creon 36,000-114,000- 180,000 unit capsule,delayed release(DR/EC) 0 cap PO BIDM Patient Comments: 06/05- no fill history unable to verify. Original: 2 caps po BIDM Referrals Referrals: Tushar Miranda MD [Primary Care Provider] - Discharge Problem: AMS (altered mental status) Qualifiers: Altered mental status type: unspecified Qualified Code(s): R41.82 - Altered mental status, unspecified
[2025-07-14] MEDS: SODIUM CHLORIDE 0.9% 1,000 ML IV ONE (12:11)
[2025-07-14 12:22] LABS: Hematocrit (blood only) 40.1 % (37.0-47.0); Hemoglobin 13.3 g/dL (12.0-16.0); Immature Granulocytes # (auto) 0.01 K/uL (0.01-0.20); Immature Granulocytes % (auto) 0.2 %; Mean Corpuscular Hemoglobin 34.0 pg (25.0-34.0); Mean Corpuscular Volume 102.6 fL (80.0-100.0); Platelet Count 157 K/uL (130-400); RDW Standard Deviation 54.6 fL (36.4-46.3); Red Blood Count 3.91 M/uL (4.20-5.40); White Blood Count 5.06 K/ul (4.8-10.8)
--- NOTE | 2025-07-14 12:26 | XRay Report ---
XR chest 1V portable HISTORY: 75 years-old Female Chest pain, nonspecific COMPARISON: 03/24/2025 TECHNIQUE: AP view the chest FINDINGS: Cardiomediastinal and hilar silhouettes are unchanged and within normal limits. No pneumothorax, pleu ral effusion, airspace consolidation or pulmonary edema. Degenerative changes of the shoulders and sp ine. IMPRESSION: No acute process. ACT 112: Negative or not required by law. The above report was generated using voice recognition software. It may contain grammatical, syntax o r spelling errors. Electronically signed by: Benjamin Wilson M.D. 07/14/2025 12:25 PM
[2025-07-14 12:41] LABS: Alanine Aminotransferase 8.0 U/L (7-52); Albumin Globulin Ratio 0.9 (0.9-2); Albumin Level 3.5 gm/dl (3.4-5.0); Alkaline Phosphatase 123.0 U/L (34-104); Anion Gap 9.0 (3-11); Bilirubin,Total 1.2 mg/dl (0.2-1.0); Blood Urea Nitrogen 13.0 mg/dl (6-23); Calcium 8.9 mg/dl (8.6-10.3); Carbon Dioxide 28.0 mmol/L (21-32); Chloride 103.0 mmol/L (98-107); Creatinine Clr Calc Pharmacy 88.9 ml/min; Globulin 4.1 gm/dl (2.5-4.0); Glucose 128.0 mg/dl (70-99(Fasting)); Lipase 12.0 U/L (11-82); Magnesium 1.3 mg/dl (1.7-2.4); Potassium 4.2 mmol/L (3.5-5.1); Sodium 140.0 mmol/L (136-145); Total Protein 7.6 gm/dl (6.0-8.3)
--- NOTE | 2025-07-14 13:41 | CT Scan Report ---
CT SCAN OF THE BRAIN WITHOUT IV CONTRAST CLINICAL HISTORY: Altered mental status. Possible seizure. COMPARISON STUDY: Head CT March 06, 2025. TECHNIQUE: Unenhanced axial CT scan of the brain was performed from the vertex to the skull base. A dose lowering technique was utilized adhering to the principles of ALARA. CT DOSE: 547.75 mGy.cm FINDINGS: Brain parenchyma: No acute intracranial hemorrhage, midline shift or mass effect is present. Parker-whi te matter differentiation is preserved. There are no extra-axial fluid collections. There are no find ings to suggest acute dural sinus thrombosis or acute territorial infarct. Ventricles, sulci, cisterns: There is no hydrocephalus. The basal cisterns are patent. Calvarium: There are no calvarial fractures. Sinuses and mastoids: The visualized paranasal sinuses are clear. The mastoid air cells are well pneu matized. Orbits: The bony orbits are grossly intact. IMPRESSION: 1. No acute intracranial findings. 2. No calvarial fractures. ACT 112: Negative or not required by law. Electronically signed by: Wallace Tucker M.D. 07/14/2025 1:39 PM
[2025-07-14] MEDS: MAGNESIUM SULFATE / D5W 1 GM/100 ML BAG IV STA (13:55)
--- NOTE | 2025-07-14 15:12 | History & Physical Report ---
Date of Service July 14, 2025 Assessment & Plan (1) Seizure-like activity: (2) Hypomagnesemia: Plan This patient is a 75-year-old female who presented on 07/14 after an unresponsive episode at home that involved jerking/shaking x 10 minutes. Patient appeared postictal following this episode. History of 2 prior episodes, both of which were linked to hypomagnesemia. Coming in for seizure workup. #Seizurelike activity Tonicclonic movements with postictal state, which may have been provoked by hypomagnesemia Prior admission 02/2025 for similar (see notes) At that time, a brain MRI was recommended, but patient exhibited significant anxiety, and despite premedication she was unable to tolerate MRI EEG was obtained at that time which was normal No AEDs given at that time, it was recommended that she continue on magnesium supplementation Patient is back to her cognitive baseline at time of admission No leukocytosis, afebrile Glucose WNL at 128 on arrival Prolactin WNL at 11.[address] revealed no acute findings Patient is amenable to trying to obtain brain MRI during this admission Neurology consult appreciated Seizure precautions Ativan 2 mg IV q5m x 3 max doses on-call PRN for recurrence of active seizure- like activity Will defer loading dose of Keppra at this time, as this is consistent with her prior episodes of seizure-like activity (often resolving once hypomagnesemia is controlled) However, given recurrence, will touch base with neurology regarding initiation of Keppra maintenance while inpatient #Hypomagnesemia Patient was previously placed on magnesium infusions, but stopped receiving these 5 weeks ago when her magnesium was low normal in late May Since that time, she has been on p.o. magnesium supplementation She also takes Protonix Magnesium 1.3 on arrival Magnesium sulfate 1 g IV x 3 Hold Protonix Recommend minimizing Nexium/Protonix as an outpatient Continue amiloride; K okay at 4.2 on arrival Recheck a.m. mag #History of visual hallucinations At risk of Warnicke's encephalopathy in the setting of long history of alcoholism/poor p.o. intake Brain MRI (as above) Continue folic acid, thiamine supplementation (reduced to 100 daily) Avoid sedating medications where possible #Intertrigo Clotrimazole 1% cream application underneath the left breast daily # Permanent atrial fibrillation Continue Eliquis #Hypothyroidism Continue Synthroid #History of recent cholecystectomy Low-fat diet Disposition: Obs -admit to MedSurg telemetry VTE PPx: Dayanaquis History of Present Illness Chief Complaint: Seizure Primary Care Provider: Tushar Miranda MD Mrs. Chapman is a 75-year-old female with PMH of chronic pancreatitis, iron storage disorder, OA, type II [place], and thiamine deficiency. She presented on 07/14 after being found slumped over in her chair unresponsive by her this morning around 9am. Patient's (Naren) is present at bedside and provides additional history. Patient was sitting upright in her chair working at her computer; she has no recollection of her unresponsive episode. Full LOC. reports she was hanging over the side of her chair with her arms dangling and jerking. She was also groaning/shaking, which lasted for approximately 10 minutes after he arrived (he is unsure how long it lasted prior to his arrival). When she finally came to, she was foggy/confused for at least 5 to 10 minutes following this episode. No tongue biting. No loss of urinary continence. Upon arrival, patient has returned to her baseline. She has had 2 prior episodes of similar seizure-like activity, with the first occurring 6 months ago over the summer. At that time, found her laying facedown on the ground. She then had a similar episode 2 months ago, and was told that it was due to low magnesium levels. She had been going for magnesium infusions 3 times per week. However, around 5 months ago at the end of May, she had emergency surgery for her gallbladder, and was found to have normal magnesium levels around 2.0. Her magnesium infusions were stopped, and she started taking magnesium supplementation daily. Patient reports she also takes Protonix and Pepcid daily. She does have loose stool; recent change in diet given gallbladder was taken out (no whole milk, no greens, no gravy, no fatty foods). Patient has been eating very low amounts of food in the past few weeks. She did have a bowel movement this morning which was liquidy, sticky, and brown. No melena or BRB in stool. Patient did not take her regular morning medicines today. She did have recent changes to medications after being discharged from [facility] following her gallbladder surgery. Additionally, while she has no history of abdominal surgeries, she has a history of stomach ulcers/bleeding ulcers that required cauterization via EGD. Patient was referred to from nephrology and followed with Dr. Massey, but is unsure if she is seeing a neur ologist as an outpatient. No prior history of strokes. denies any strokelike symptoms (such as slurred speech, facial droop, or unilateral deficits) during the episode this morning. No recent falls or injuries to the head or neck. Patient is a former tobacco cigarette smoker, but quit; she does still vape on occasion. She used to be a heavy drinker, but now limits her alcohol intake to 1 mixed drink every 2 to 3 weeks. No alcohol in the past couple days. She does have a rash underneath her left breast. Additionally, she notes increased urinary frequency, and reports she pees 3-4 times per night, but patient attributes this to drinking plenty of water. Patient does not take any seizure medications at this time. Vital signs stable at time of admission. ED course: NSS 1000 mL IV Magnesium sulfate 1 g IV ROS: Patient endorses feeling off balance, headache, generalized joint pain (chronic), soft/liquid stool, and numbness/tingling in the left palm (attributes to carpal tunnel) and legs bilateral (attributes to lymphedema). Patient denies fever, chills, night-sweats, dizziness/lightheadedness, changes to vision, slurred speech, facial droop, unilateral deficits, photophobia, chest pain, SOB, chest palpitations, abdominal pain, BRB in stool, nausea / vomiting (resolved after gallbladder surgery), burning with urination, blood in the urine/stool, or melena. Allergies Allergy/AdvReac Type Severity Reaction Status Date / Time liraglutide Allergy Intermediate HIVES Verified 06/19/25 15:12 phenol Allergy Intermediate HIVES Verified 06/19/25 15:12 pregabalin Allergy Intermediate HIVES Verified 06/19/25 15:12 propylene glycol Allergy Intermediate HIVES Verified 06/19/25 15:12 sulfamethoxazole Allergy Mild Unknown Verified 06/19/25 15:12 [From Bactrim] trimethoprim [From Bactrim] Allergy Mild Unknown Verified 06/19/25 15:12 nickel Allergy Unknown Rash Verified 06/19/25 15:12 Home Medications Medication Instructions Recorded Confirmed Type cyanocobalamin (vitamin B-12) 500 1,000 mcg (2 x 500 mcg) PO QAM #0 03/11/25 07/14/25 Rx mcg tablet tabs thiamine mononitrate (vit B1) 100 200 mg (2 x 100 mg) PO BID #60 tabs 03/11/25 07/14/25 Rx mg tablet folic acid 1 mg tablet 1 mg PO QAM #30 tabs 04/22/25 07/14/25 Rx magnesium chloride 64 mg 64 mg PO BID 05/09/25 07/14/25 History (magnesium chloride) tablet,delayed release apixaban 5 mg tablet (Eliquis) 5 mg PO BID 06/05/25 07/14/25 History uyvizh-[id number]-[id number] 2 cap PO BIDM 06/05/25 07/14/25 History (pork)36,000-114,000-180k unit capsule,del rel (Creon) pantoprazole 40 mg tablet,delayed 40 mg PO DAILY 06/05/25 07/14/25 History release levothyroxine 50 mcg capsule 50 mcg PO DAILY #30 caps 06/27/25 07/14/25 Rx Lactobacillus acidophilus 10 10,000 mmu cells PO DAILY 07/14/25 07/14/25 History billion cell capsule (Probiotic) amiloride 5 mg tablet 5 mg PO QAM 07/14/25 07/14/25 History famotidine 40 mg tablet 40 mg PO DAILY 07/14/25 07/14/25 History metoprolol tartrate 25 mg tablet 25 mg PO QAM 07/14/25 07/14/25 History Past Med/Surg History Problem List (Updated 07/14/25 @ 16:56 by Cade Mario DO) Hypomagnesemia (Acute) AMS (altered mental status) (Acute) Thiamine deficiency Bacteremia due to Klebsiella pneumoniae Choledocholithiasis Acute kidney injury Adnexal mass Transaminasemia Type [address] elevation Acute cholecystitis with acute cholangitis Severe sepsis without septic shock Hypomagnesemia Hypokalemia Thiamine deficiency Seizure-like activity (Acute) Diverticulitis Generalized weakness (Acute) Pancytopenia (Acute) Osteoarthritis Shoulder pain Tendinitis of both rotator cuffs Diarrhea Impaired gait and mobility Lower extremity weakness Rotator cuff (capsule) sprain UTI (urinary tract infection) COVID Hypomagnesemia (Acute) Pancytopenia Gout Chronic abdominal pain Cholelithiasis (Chronic) Hepatic steatosis Foot pain Iron storage disorder Lymphedema B/L LE; WEARS COMPRESSION STOCKING Gastric ulcer Joint pain Endometrial hyperplasia Exocrine pancreatic insufficiency Anemia CYP2D6 poor metabolizer Alcohol dependence with physiological dependence Lumbar spondylosis Hip pain Peptic ulcer disease Chronic pancreatitis Elevated LFTs (Acute) GERD (gastroesophageal reflux disease) Myalgia (Acute) Medical History Seizure Atrial fibrillation with rapid ventricular response Chronic nausea Concussion Syncope Severe protein-calorie malnutrition Paroxysmal atrial fibrillation Acute gastrointestinal bleeding Hypokalemia Acute renal disease Obesity Carpal tunnel syndrome of left wrist Diverticulitis large intestine Alcoholism Surgical History S/P PICC central line placement Status post right knee replacement Hx of tonsillectomy Hx of tooth extraction Hx of bilateral hip replacements History of colonoscopy History of carpal tunnel surgery of right wrist Hx of knee surgery Family History Grandmother (Maternal) Colorectal cancer Mother Colorectal cancer Myocardial infarction Stroke Other Cancer Diabetes Heart disease Hypertension Denies family history of Ovarian cancer Breast cancer Lung cancer Social History Smoking Status: Former smoker Tobacco Type: Cigarettes and E-cigarettes / Vaping Age Started Using Tobacco: 17; packs per day: 0; Cigarettes Per Day: vapes a couple puffs /4 timesa day; Smoking End Date: 10 years; Second Hand Exposure: No; Do You Dip or Chew Tobacco: No; Hx Alcohol Use: Yes Alcohol type: hard liquor Hx Substance Use: No Preferred Language: Bolivian Communication Ability: Unable Visual Impairment: Diminished Hearing Ability: Use of Hearing Aid Dry Charge Process Attendant Required: No Beliefs That Will Affect Care: None marital status: Current Living Situation: Spouse current occupational status: retired How many Children do You have: 2 Feels Safe at Home: Yes Safety Concerns: Feels Safe At This Time Childhood Exposure to Second-Hand Smoke: Yes Diet: other Diet Comment: mediterranean caffeine: Yes Dental Care, Regularly: Yes Physical Activity Frequency: Does not Exercise Seatbelt Use: always Sunscreen Use: No Assistive Devices: Cane, Glasses and Walker Review of Systems Review of Systems: See HPI above Physical Exam Physical Exam: General: no acute distress; pleasant affect; at bedside; non-toxic appearing; cooperative; SpO2 100% on RA HEENT: normocephalic, atraumatic; PERRLA; vision and hearing intact; patient demonstrates ability to smile, frown, and lift eyebrows without unilateral deficits; patient demonstrates ability to protrude and wiggle tongue bilaterally without unilateral deficits Neck: supple; trachea midline Skin: warm, dry without signs of tenting; no cyanosis; erythematous rash just beneath the left breast ? 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 Neuro: A&Ox3; normal mood and affect; fluent speech; patient reports sensation intact and symmetric in the LEs b/l Results & Data Results & Data Vital Signs (Past 12 Hours) Vital Signs Temp Pulse Pulse Resp BP BP Pulse Ox 07/14/25 15:01 88 18 128/87 100 07/14/25 13:43 101 H 23 129/94 100 07/14/25 12:57 88 07/14/25 11:59 07/14/25 11:34 36.6 C 100 H 16 139/70 100 07/14/25 11:30 O2 Del Method 07/14/25 15:01 Room Air 07/14/25 13:43 Room Air 07/14/25 12:57 07/14/25 11:59 Room Air 07/14/25 11:34 Room Air 07/14/25 11:30 Room Air Laboratory Results Abnormal lab results 07/14/25 07/14/25 Range/Units 11:39 12:05 RBC 3.91 L (4.20-5.40) M/uL MCV 102.6 H (80.0-100.0) fL RDW Std Deviation 54.6 H (36.4-46.3) fL RDW Coeff of Ignacio 14.6 H (11.5-14.5) % Lymph # (Auto) 0.94 L (1.20-3.40) K/uL Elk # (Auto) 0.66 H (0.11-0.59) K/uL Glucose 128 H (70-99(Fasting)) mg/dl POC Glucose 107 H (70-99) mg/dl Magnesium 1.3 L (1.7-2.4) mg/dl Total Bilirubin 1.2 H (0.2-1.0) mg/dl Alkaline Phosphatase 123 H (34-104) U/L Globulin 4.1 H (2.5-4.0) gm/dl Diagnostic Findings Chest X-Ray 07/14/25 11:59 XR chest 1V portable HISTORY: 75 years-old Female Chest pain, nonspecific COMPARISON: 03/24/2025 TECHNIQUE: AP view the chest FINDINGS: Cardiomediastinal and hilar silhouettes are unchanged and within normal limits. No pneumothorax, pleural effusion, airspace consolidation or pulmonary edema. Degenerative changes of the shoulders and spine. IMPRESSION: No acute process. ACT 112: Negative or not required by law. The above report was generated using voice recognition software. It may contain grammatical, syntax or spelling errors. Electronically signed by: Benjamin Wilson M.D. 07/14/2025 12:[address] 07/14/25 11:59 CT SCAN OF THE BRAIN WITHOUT IV CONTRAST CLINICAL HISTORY: Altered mental status. Possible seizure. COMPARISON STUDY: Head CT March 06, 2025. TECHNIQUE: Unenhanced axial CT scan of the brain was performed from the vertex to the skull base. A dose lowering technique was utilized adhering to the principles of ALARA. CT DOSE: 547.75 mGy.cm FINDINGS: Brain parenchyma: No acute intracranial hemorrhage, midline shift or mass effect is present. Parker-white matter differentiation is preserved. There are no extra- axial fluid collections. There are no findings to suggest acute dural sinus thrombosis or acute territorial infarct. Ventricles, sulci, cisterns: There is no hydrocephalus. The basal cisterns are patent. Calvarium: There are no calvarial fractures. Sinuses and mastoids: The visualized paranasal sinuses are clear. The mastoid air cells are well pneumatized. Orbits: The bony orbits are grossly intact. IMPRESSION: 1. No acute intracranial findings. 2. No calvarial fractures. ACT 112: Negative or not required by law. Electronically signed by: Wallace Tucker M.D. 07/14/2025 1:39 PM ECG Additional Comments: ECG revealed atrial fibrillation at 97 bpm; QTc 452 Code Status & VTE Plan Code Status Full code VTE Prophylaxis Plan VTE Prophylaxis will be ordered: Yes Supervising Physician Co-Signing Physician Notes I personally saw and examined the patient. I independently reviewed the labs, EKG, imaging, problem list, medication list, past medical history and family history. I verified all gaytan points and agree with Vineet Nix PA-C with the following exceptions and/or additions: 75 leroy old with recurrent seizure-like activity. Prior normal EEG. Brain MRI here. O/E HS RRR, no murmurs, Chest CTAB, A&Ox3, no extremity focal motor and sensory change, no facial droop A/P Seizure-like activity - patient should not drive. I would favor starting Keppra but no urgency for this. Will reach out to neurology tomorrow for advice. Replete magnesium overnight. PG Care Time/CCT Total # of Minutes Spent Total Time Spent with Patient: Total time spent is greater than 50% in coordination of care (as documented) at patient's floor/unit and/or counseling patient: Coding [place] [address] INT INP/OBS CARE 3/75MIN Patient Type Established Medical Decision Making High Complexity Diagnoses Seizure-like activity R56.9 Hypomagnesemia E83.42
[2025-07-14] MEDS: MAGNESIUM SULFATE / D5W 1 GM/100 ML BAG IV SCH (15:26)
--- NOTE | 2025-07-14 15:35 | Electrocardiogram Report ---
Test Reason : Blood Pressure : */* mmHG Vent. Rate : 97 BPM Atrial Rate : * BPM P-R Int : * ms QRS Dur : 80 ms QT Int : 356 ms P-R-T Axes : * 18 23 degrees QTcB Int : 452 ms Atrial fibrillation Low voltage QRS Cannot rule out Anterior infarct (cited on or before 05-Jun-2025) Abnormal ECG When compared with ECG of 05-Jun-2025 10:51, No significant change was found Confirmed by Thanh Gibson ([id number]) on 07/14/2025 3:35:26 PM Referred By: REFERRED SELF Confirmed By: Thanh Gibson
[2025-07-14] MEDS ORDERED: ONDANSETRON INJ 2 MG/ML 2 ML VIAL IV PRN (18:13)
[2025-07-14] MEDS ORDERED: LORazepam Inj 2 MG in SYRINGE 1 ML IV PRN (18:30)
[2025-07-14] MEDS: LORazepam 1 MG/1 ML SYR ED Inj Use IV PRN (18:33)
[2025-07-14] MEDS: GADOBUTROL 65ML VIAL IV ONE (19:06)
--- NOTE | 2025-07-14 19:27 | Magnetic Resonance Report ---
MRI of the brain performed with and without IV contrast History: Seizure Comparison: None Technique: Multiplanar T1 weighted, axial T2/FLAIR, and susceptibility images were obtained without intravenous contrast. Following intravenous gadolinium based contrast administration, axial T2 weighted, diffusion, and T1-weighted images were obtained. Findings: No evidence for intracranial mass lesion, mass-effect, midline shift, or abnormal extra-axial fluid collection. Postcontrast images demonstrate no abnormal intracranial enhancement. The orbits are grossly unremarkable. Mild cerebral atrophy and chronic microvascular ischemic changes of the white matter are seen. Normal and symmetric appearance of the mesial temporal lobes on the coronal T2 weighted images without signal abnormality. No abnormally reduced diffusion or evidence for acute infarct. Normal intravascular flow voids. Bilateral pseudophakia. Impression: Normal brain MRI with and without IV contrast. No evidence for mesial temporal sclerosis. Electronically signed by Michael Koenig 07-14-2025 7:27 PM
[2025-07-14] MEDS: APIXABAN 5 MG TABLET PO SCH (21:09)
[2025-07-14] MEDS: THIAMINE HCL 100 MG TAB PO SCH (21:09)
[2025-07-14] MEDS: MAGNESIUM CHLORIDE W/CALCIUM 64MG DELAYED REL TAB PO SCH (21:09)
[2025-07-15] MEDS: LEVOTHYROXINE SODIUM 50 MCG TABLET PO SCH (05:33)
[2025-07-15 07:23] LABS: Hematocrit (blood only) 30.9 % (37.0-47.0); Hemoglobin 10.3 g/dL (12.0-16.0); Immature Granulocytes # (auto) 0.01 K/uL (0.01-0.20); Immature Granulocytes % (auto) 0.3 %; Mean Corpuscular Hemoglobin 34.8 pg (25.0-34.0); Mean Corpuscular Volume 104.4 fL (80.0-100.0); Platelet Count 125 K/uL (130-400); RDW Standard Deviation 55.7 fL (36.4-46.3); Red Blood Count 2.96 M/uL (4.20-5.40); White Blood Count 3.60 K/ul (4.8-10.8)
[2025-07-15 07:46] LABS: Anion Gap 5.0 (3-11); Blood Urea Nitrogen 11.0 mg/dl (6-23); Calcium 8.2 mg/dl (8.6-10.3); Carbon Dioxide 29.0 mmol/L (21-32); Chloride 106.0 mmol/L (98-107); Creatinine Clr Calc Pharmacy 91.6 ml/min; Glucose 113.0 mg/dl (70-99(Fasting)); Magnesium 1.7 mg/dl (1.7-2.4); Potassium 4.1 mmol/L (3.5-5.1); Sodium 140.0 mmol/L (136-145)
[2025-07-15] MEDS: ACETAMINOPHEN 325 MG TAB PO PRN (07:51)
[2025-07-15] MEDS: MAGNESIUM SULFATE / D5W 1 GM/100 ML BAG IV ONE (08:27)
[2025-07-15] MEDS: aMILoride HCL 5 MG TAB PO SCH (08:28)
[2025-07-15] MEDS: CYANOCOBALAMIN (B-12) 500 MCG TABLET PO SCH (08:28)
[2025-07-15] MEDS: METOPROLOL TARTRATE 25 MG TAB PO SCH (08:28)
[2025-07-15] MEDS: PANCREAZE (LIPASE 10,500U) CAP PO SCH (08:28)
[2025-07-15] MEDS: FAMOTIDINE 40 MG TABLET PO SCH (08:29)
[2025-07-15] MEDS: FOLIC ACID 1 MG TAB PO SCH (08:29)
[2025-07-15] MEDS: CLOTRIMAZOLE 1% CR 15 GM TUBE EXT SCH (08:29)
[2025-07-15] MEDS: MAGNESIUM SULFATE / D5W 1 GM/100 ML BAG IV SCH (10:53)
--- NOTE | 2025-07-15 13:16 | Hospitalist Progress Note ---
Date of Service July 15, 2025 Assessment & Plan (1) Seizure-like activity: (2) Hypomagnesemia: (3) Recurrent seizures: (4) Generalized weakness: (5) Ambulatory dysfunction: Plan This patient is a 75-year-old female who presented on 07/14 after an unresponsive episode at home that involved jerking/shaking x 10 minutes. Patient appeared postictal following this episode. History of 2 prior episodes, both of which were linked to hypomagnesemia. Coming in for seizure workup. #Seizure-like activity | recurrent seizures Tonicclonic movements with postictal state, which may have been provoked by hypomagnesemia Prior admission 02/2025 for similar (see notes) At that time, a brain MRI was recommended, but patient exhibited significant anxiety, and despite premedication she was unable to tolerate MRI EEG was obtained at that time which was normal No AEDs given at that time, it was recommended that she continue on magnesium supplementation Patient is back to her cognitive baseline at time of admission No leukocytosis, afebrile Glucose WNL at 128 on arrival Prolactin WNL at 11.[address] revealed no acute findings Patient is amenable to trying to obtain brain MRI during this admission Seizure precautions Ativan 2 mg IV q5m x 3 max doses on-call PRN for recurrence of active seizure- like activity Discussed case with neurology and will plan to initiate Keppra 500 mg BID; Keppra 1000 mg IV loading dose x 1 Discussed side effects and red flags to look out for on this new medication; patient was informed to stop this medication if she develops any form of rash Also discussed that - due to recurrent seizures - patient should NOT drive a vehicle until she is cleared by neurology as an outpatient Filled out medical reporting form DL-13 with [facility] Planned follow-up with Neurology as an outpatient #Hypomagnesemia Patient was previously placed on magnesium infusions, but stopped receiving these 5 weeks ago when her magnesium was low normal in late May Since that time, she has been on p.o. magnesium supplementation She also takes Protonix Magnesium trend 1.3 -> 1.7 Goal magnesium prior to d/c : 3.0 Hold Protonix Discussed with patient; will plan to discontinue Protonix on discharge and continue famotidine Continue amiloride; K okay at 4.1 Recheck afternoon magnesium levels #Generalized weakness/fatigue | ambulatory dysfunction Per nursing staff on 07/15, "she was a x1 moderate assist with walker... normally independent with a walker/cane at home" Patient requesting PT/OT evaluations while in the hospital Fall precautions #History of visual hallucinations At risk of Warnicke's encephalopathy in the setting of long history of alcoholism/poor p.o. intake Brain MRI (as above) Continue folic acid, thiamine supplementation (reduced to 100 daily) Avoid sedating medications where possible #Intertrigo Clotrimazole 1% cream application underneath the left breast daily # Permanent atrial fibrillation Continue Eliquis #Hypothyroidism Continue Synthroid #History of recent cholecystectomy Low-fat diet Disposition: Continued stay on MedSurg telemetry VTE PPx: Eliquis Admission and Anticipated Discharge Date Admission Date: July 14, 2025 Supervising Physician Co-Signing Physician Notes I did not see or examine the patient. I verified all gaytan points and agree with Vineet Nix PA-C with the following exceptions and/or additions: None Subjective Mrs. Chapman is doing okay this morning. She had difficulty sleeping last night, and is having pain in her left hip as well as her lower back which she rates a 5 out of 10 at present. She reports this is chronic pain due to history of lumbar stenosis/sciatica. She had no additional events overnight. No episodes of seizure-like activity. Overall, she feels well. No BMs in the hospital yet today, and she has not yet tried to get out of bed this morning. In regard to Keppra, patient is amenable to trying this new medication. She was warned of potential side effects (rashes, GI discomfort, headache, etc.); told to discontinue his medication if she develops a severe rash. She also reports that she still drives, but did not drive to the hospital yesterday. Patient was informed that she should temporarily refrain from driving until cleared by neurology as an outpatient. ROS: Patient endorses loose stool (but no movement since being in the hospital), left hip pain, and lower back pain. Patient denies chest pain, fevers overnight, SOB, cough, abdominal pain, N/V, dizziness/lightheadedness, numbness/tingling in the extremities, or recurrence of seizure-like activity. Review of Systems Review of Systems: See HPI above Physical Exam Physical Exam: General: no acute distress; pleasant affect; at bedside; non-toxic appearing; cooperative; SpO2 100% on RA HEENT: normocephalic, atraumatic; PERRLA; vision and hearing intact; patient demonstrates ability to smile, frown, and lift eyebrows without unilateral deficits; patient demonstrates ability to protrude and wiggle tongue bilaterally without unilateral deficits Neck: supple; trachea midline Skin: warm, dry without signs of tenting; no cyanosis; erythematous rash just beneath the left breast ? 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 Neuro: A&Ox3; normal mood and affect; fluent speech; patient reports sensation intact and symmetric in the LEs b/l Results & Data Results & Data Vital Signs (Past 12 Hours) Vital Signs Temp Pulse Resp BP Pulse Ox O2 Del Method 07/15/25 11:28 36.7 C 71 18 107/64 98 Room Air 07/15/25 07:35 36.8 C 69 18 111/70 99 Room Air 07/15/25 03:33 36.6 C 59 L 16 112/75 96 Room Air PG Care Time/CCT Total # of Minutes Spent Total Time Spent with Patient: Total time spent is greater than 50% in coordination of care (as documented) at patient's floor/unit and/or counseling patient: [place] [address] SUB INP/OBS CARE 3/50MIN Patient Type Established Medical Decision Making High Complexity Diagnoses Seizure-like activity R56.9 Hypomagnesemia E83.42 Recurrent seizures G40.909 Generalized weakness R53.1 Ambulatory dysfunction R26.2
[2025-07-15] MEDS: levETIRAcetam 500 MG TAB PO SCH (20:28)
[2025-07-15 23:06] VITALS: RESP 18
[2025-07-16 07:14] LABS: Hematocrit (blood only) 34.3 % (37.0-47.0); Hemoglobin 11.3 g/dL (12.0-16.0); Immature Granulocytes # (auto) 0.01 K/uL (0.01-0.20); Immature Granulocytes % (auto) 0.2 %; Mean Corpuscular Hemoglobin 34.6 pg (25.0-34.0); Mean Corpuscular Volume 104.9 fL (80.0-100.0); Platelet Count 141 K/uL (130-400); RDW Standard Deviation 55.8 fL (36.4-46.3); Red Blood Count 3.27 M/uL (4.20-5.40); White Blood Count 4.22 K/ul (4.8-10.8)
[2025-07-16 07:46] LABS: Anion Gap 5.0 (3-11); Blood Urea Nitrogen 10.0 mg/dl (6-23); Calcium 8.4 mg/dl (8.6-10.3); Carbon Dioxide 28.0 mmol/L (21-32); Chloride 105.0 mmol/L (98-107); Creatinine Clr Calc Pharmacy 83.9 ml/min; Glucose 116.0 mg/dl (70-99(Fasting)); Potassium 3.8 mmol/L (3.5-5.1); Sodium 138.0 mmol/L (136-145)
[2025-07-16] MEDS: MAGNESIUM SULFATE / D5W 1 GM/100 ML BAG IV SCH (09:00)
[2025-07-16 09:50] LABS: Magnesium 1.7 mg/dl (1.7-2.4)
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
[2025-07-16 11:32] VITALS: BP 109/75; PULSE 70; TEMP 97.5; O2SAT 99
== END 2025-07-16 13:45 | disposition home or self-care (01) ==
LOC: SUATTDRO → ED 11:29 → EDINP 11:29 → SUATTDRO 16:40 → 2W 20:20
DX: Z88.8 Allergy status to other drugs, medicaments and biological substances; E83.42 Hypomagnesemia; R26.2 Difficulty in walking, not elsewhere classified; Z88.2 Allergy status to sulfonamides; E03.9 Hypothyroidism, unspecified; Z79.01 Long term (current) use of anticoagulants; I48.91 Unspecified atrial fibrillation; R56.9 Unspecified convulsions; Z79.890 Hormone replacement therapy; G40.909 Epilepsy, unspecified, not intractable, without status epilepticus; L30.4 Erythema intertrigo; F17.210 Nicotine dependence, cigarettes, uncomplicated; Z79.899 Other long term (current) drug therapy; R41.82 Altered mental status, unspecified; R53.1 Weakness